=== PATIENT | male | born 1940 | race Caucasian/White ===

== ENCOUNTER 2018-11-20 11:50 | Inpatient (IN) ==
--- NOTE | 2018-11-20 13:02 | Emergency Department Note ---
SOB HPI - General Chief Complaint: Shortness of Breath/Dyspnea Stated Complaint: SOB Time Seen by Provider: 11/20/18 12:01 Source: patient Mode of arrival: ambulatory Limitations: no limitations - History of Present Illness 78-year-old male patient referred to the emergency department by his primary care provider for suspicious findings on chest x-ray. Patient's been sick for the last 5-6 weeks with a productive cough. He has shown a steady decline in his overall health. He had a fall 2 days ago where his legs gave out underneath him. He was seen by his primary care provider today who ordered a chest x-ray. The results of that showed a masslike infiltrate in the right upper lobe. A chest CT was recommended. He and his family are here to obtain the test and likely be admitted for treatment. Today, patient continues complaining of productive cough. He is unsure about sputum production color. He denies any shortness of breath, chest pain, palpitations, abdominal pain, nausea, vomiting, diarrhea, orthopnea, lower extremity edema, or focal weakness. He has a rather extensive medical history including Parkinson's disease, macular degeneration, hypertension, and osteoarthritis. He smoked briefly as a teenager in [place] - Related Data Home Medications Medication Instructions Recorded Confirmed aspirin 325 mg tablet 325 mg PO BID 06/06/17 11/20/18 vit A 7,160 unit-vit C 113 mg-vit 1 tab PO DAILY 06/06/17 11/20/18 E 100 dlio-clas-xcduwb tablet albuterol sulfate HFA 90 See Rx Instructions INHALATION Q4H 02/03/18 11/20/18 mcg/actuation aerosol inhaler PRN g docusate sodium 0 mg PO ONCE PRN 02/03/18 11/20/18 multivitamin tablet 1 tab PO QDAY 02/03/18 11/20/18 omega-3 fatty acids-fish oil 1 tab PO QDAY 02/03/18 11/20/18 vit C-vit B-pfespd-btfj-lutein 1 tab PO DAILY 02/03/18 11/20/18 Previous Rx's Medication Instructions Recorded losartan 100 mg tablet 100 mg PO QDAY #90 tab 03/13/18 verapamil 80 mg tablet 80 mg PO ONCE PRN #90 tab 03/13/18 verapamil ER (SR) 240 mg 240 mg PO BID #180 tab 03/13/18 tablet,extended release chlorthalidone 25 mg tablet 50 mg PO QDAY #180 tab 06/18/18 tamsulosin 0.4 mg capsule 0.4 mg PO QDAY #30 cap 11/02/18 Allergies Allergy/AdvReac Type Severity Reaction Status Date / Time MAR Inhibitors Allergy Unknown Unknown Verified 11/20/18 10:37 Review of Systems All systems ED: reviewed and negative except as stated. Past Medical History - Social History smoking status: Former smoker Physical Exam Limitations: no limitations General appearance: alert, in no apparent distress Head: atraumatic, normocephalic Eye: Present: normal appearance, PERRL, EOMI. Absent: scleral icterus, conjunctival injection ENT: Present: normal oropharynx, mucous membranes moist Neck: Present: trachea midline. Absent: lymphadenopathy, thyromegaly Chest: Present: symmetric chest wall rise Respiratory: Present: decreased breath sounds (bilateral upper chest.) Cardiovascular: Present: regular rate, normal rhythm, normal heart sounds Abdominal: Present: soft, hyperactive bowel sounds. Absent: distention, tenderness, guarding, rebound, organomegaly, mass Extremities: Absent: pedal edema, pretibial edema, calf tenderness Neurological: Present: alert, oriented X3. Absent: motor sensory deficit Psychiatric: Present: normal affect, normal mood Skin: Present: warm, dry Course Course Narrative: Patient was brought into the emergency department and did a history and physical exam was performed. IV was established and laboratory studies were drawn. I reviewed the chest x-ray report was done with recommendation for CT scan. Chest CT with contrast was ordered. Patient is hemodynamically stable, not hypoxic, and resting comfortably on the emergency room rviolet. A review of his laboratory studies show the following: CBC with elevated white blood cell count 20.8, RBC 3.47, hemoglobin 9.9, hematocrit 30.3, granulocyte percentage 85.9, granulocyte number 17.9. CMP BUN 30, creatinine 1.4, GFR calculated at 48, glucose 118, alkaline phosphatase 122, albumin 3.0, globulin 3.9, all others the normal limits. Pro-calcitonin is 0.36. Chest CT scan performed showing large mass in the right upper lobe with associated high-grade narrowing of the right upper lobe bronchus. Radiology suspects is probably a neoplasm but cannot rule out pneumonia. Radiologist recommended biopsy. I discussed these findings with the patient and his family. I did x-ray sat to the hospitalist (Dr. Dasilva) who mention that the logistics concerning the biopsy need to be considered. He recommended I speak to Dr. Sesay (radiologist) about obtaining a biopsy today. If the biopsy can be performed. The patient will be admitted to the hospital. Afterward, I talked to Dr. Sesay who informed me that he can get the biopsy performed today. I again spoke to the hospitalist and mentioned this to him and he consented to receive the patient. The patient was given Zosyn 3.339 g IV prior to the procedure. After the biopsy procedure patient is going to be admitted to the hospital under the hospitalist service (Dr. Dasilva). After the biopsy procedure the radiologist contacted me and informed me that he obtained approximately 5 mL of purulent drainage. He was only able to obtain a very scant amount of tissue for analysis. The drainage was being sent for C&S. The radiologist informed me that this lesion would likely require ongoing drainage and evaluation by a financial sales representative. I discussed this with Dr. Dasilva (the hospitalist) and he recommended that I reach out to a financial sales representative for further guidance on treatment options. I was able to contact a financial sales representative at [facility] (Dr. Zepeda). He was able to review the CT scan images and informed me that the lesion appeared to be a cavitary pneumonia. Although he could not rule out malignancy at this time, he recommended that the pneumonia be treated for several days prior to any additional imaging or biopsy. I discussed the need for hospitalization and pneumonia treatment once again with Dr. Dasilva and he consented to receive the patient. The patient remained stable throughout his entire time in the emergency department and was admitted to the hospital under the care of Dr. Dasilva. All further treatment decisions and orders will be carried out by him. Vital Signs Temperature 97.6 F 11/20/18 11:50 Pulse Rate 88 11/20/18 11:50 Respiratory Rate 18 11/20/18 11:50 Blood Pressure 125/69 11/20/18 11:50 Pulse Oximetry (%) 95 11/20/18 11:50 Temperature 97.4 F 11/20/18 18:45 Pulse Rate 78 11/20/18 20:30 Respiratory Rate 24 H 11/20/18 20:30 Blood Pressure 149/64 11/20/18 18:45 Pulse Oximetry (%) 99 11/20/18 18:45 Shortness of Breath/Dyspnea - Lab Data Lab results reviewed: Yes I reviewed the patient's lab results. Result diagrams: 11/20/18 13:09 11/20/18 13:09 Lab Results 11/20/18 11/20/18 11/20/18 Range/Units 13:09 13:09 13:09 WBC 20.8 H (4.5-11.0) K/mcL RBC 3.47 L (4.50-5.90) M/mcL Hgb 9.9 L (13.5-16.5) g/dL Hct 30.3 L (41.0-55.0) % POC Hct 31.0 L (41.0-55.0) % MCV 87.4 (80.0-100.0) fL MCH 28.6 (26.0-34.0) pg MCHC 32.8 (31.0-36.0) g/dL RDW 14.9 H (11.5-14.5) % Plt Count 535 H (140-440) K/mcL MPV 7.8 (7.4-10.4) fL Gran % 85.9 H (38.0-78.0) % Lymph % (Auto) 7.0 L (15.5-49.0) % [place] % (Auto) 6.6 (1.0-12.0) % Eos % (Auto) 0.2 (0.0-7.0) % Baso % (Auto) 0.3 (0.0-2.0) % Gran # 17.9 H (1.8-8.0) K/mcL Lymph # (Auto) 1.5 (1.5-4.8) K/mcL [place] # (Auto) 1.4 H (0.1-0.9) K/mcL Eos # (Auto) 0 (0.0-0.7) K/mcL Baso # (Auto) 0.1 (0.0-0.3) K/mcL ESR (0-15) mm/hr POC Sodium 138 (133-145) mmol/L Sodium 138 (133-145) mmol/L POC Potassium 3.4 (3.3-5.1) mmol/L Potassium 3.5 (3.3-5.1) mmol/L POC Chloride 103 (96-108) mmol/L Chloride 100 (96-108) mmol/L Carbon Dioxide 23 (22-30) mmol/L POC Total CO2 23 (22-30) mmol/L Anion Gap 15.0 (8-16) POC BUN 28 H (8-23) mg/dl BUN 30 H (8-23) mg/dl Creatinine 1.4 H (0.7-1.2) mg/dl POC Creatinine 1.5 H (0.7-1.2) mg/dl GFR Calculation 48 Glucose 118 H (70-105) mg/dL POC Glucose 122 H (70-105) mg/dL Calcium 9.6 (8.6-10.4) mg/dl POC WB Ioniz Calcium 1.21 (1.16-1.32) mmol/L Total Bilirubin 0.7 (0.0-1.0) mg/dL AST 26 (0-37) U/l ALT 29 (0-40) U/l Alkaline Phosphatase 122 H (39-117) U/L C-Reactive Protein (0.0-0.8) mg/dl Total Protein 6.9 (5.9-8.4) gm/dL Albumin 3.0 L (3.2-5.2) gm/dL Globulin 3.9 H (2.2-3.7) gm/dL Albumin/Globulin Ratio 0.8 L (1.0-2.3) Procalcitonin 0.36 (<0.10) ng/mL Fluid pH Fluid Total Protein Fluid LDH Fluid Cholesterol Pleural Fluid Source Pleural Color Pleural Appearance Pleural Tot Cell Ct Pleural Nuc Cells /cumm Pleural Neutrophils % Pleural Lymphocytes % Pleural Monocytes % Pleural Plasma Cells Pleural Macrophages Pleural Mesothelial Pleural Diff Comment Pleural Total Protein Pleural LDH Pleural Glucose 11/20/18 11/20/18 11/20/18 Range/Units 13:09 13:09 17:00 WBC (4.5-11.0) K/mcL RBC (4.50-5.90) M/mcL Hgb (13.5-16.5) g/dL Hct (41.0-55.0) % POC Hct (41.0-55.0) % MCV (80.0-100.0) fL MCH (26.0-34.0) pg MCHC (31.0-36.0) g/dL RDW (11.5-14.5) % Plt Count (140-440) K/mcL MPV (7.4-10.4) fL Gran % (38.0-78.0) % Lymph % (Auto) (15.5-49.0) % [place] % (Auto) (1.0-12.0) % Eos % (Auto) (0.0-7.0) % Baso % (Auto) (0.0-2.0) % Gran # (1.8-8.0) K/mcL Lymph # (Auto) (1.5-4.8) K/mcL [place] # (Auto) (0.1-0.9) K/mcL Eos # (Auto) (0.0-0.7) K/mcL Baso # (Auto) (0.0-0.3) K/mcL ESR 104 H (0-15) mm/hr POC Sodium (133-145) mmol/L Sodium (133-145) mmol/L POC Potassium (3.3-5.1) mmol/L Potassium (3.3-5.1) mmol/L POC Chloride (96-108) mmol/L Chloride (96-108) mmol/L Carbon Dioxide (22-30) mmol/L POC Total CO2 (22-30) mmol/L Anion Gap (8-16) POC BUN (8-23) mg/dl BUN (8-23) mg/dl Creatinine (0.7-1.2) mg/dl POC Creatinine (0.7-1.2) mg/dl GFR Calculation Glucose (70-105) mg/dL POC Glucose (70-105) mg/dL Calcium (8.6-10.4) mg/dl POC WB Ioniz Calcium (1.16-1.32) mmol/L Total Bilirubin (0.0-1.0) mg/dL AST (0-37) U/l ALT (0-40) U/l Alkaline Phosphatase (39-117) U/L C-Reactive Protein 11.2 H (0.0-0.8) mg/dl Total Protein (5.9-8.4) gm/dL Albumin (3.2-5.2) gm/dL Globulin (2.2-3.7) gm/dL Albumin/Globulin Ratio (1.0-2.3) Procalcitonin (<0.10) ng/mL Fluid pH TNP Fluid Total Protein TNP Fluid LDH TNP Fluid Cholesterol TNP Pleural Fluid Source Pleural Pleural Color [place] Pleural Appearance Purulent Pleural Tot Cell Ct 100 Pleural Nuc Cells [id number] /cumm Pleural Neutrophils 92 % Pleural Lymphocytes 6 % Pleural Monocytes 2 % Pleural Plasma Cells Not Reportable Pleural Macrophages Not Reportable Pleural Mesothelial Not Reportable Pleural Diff Comment Not Reportable Pleural Total Protein Pleural LDH Pleural Glucose TNP 11/20/18 11/20/18 Range/Units 17:00 17:00 WBC (4.5-11.0) K/mcL RBC (4.50-5.90) M/mcL Hgb (13.5-16.5) g/dL Hct (41.0-55.0) % POC Hct (41.0-55.0) % MCV (80.0-100.0) fL MCH (26.0-34.0) pg MCHC (31.0-36.0) g/dL RDW (11.5-14.5) % Plt Count (140-440) K/mcL MPV (7.4-10.4) fL Gran % (38.0-78.0) % Lymph % (Auto) (15.5-49.0) % [place] % (Auto) (1.0-12.0) % Eos % (Auto) (0.0-7.0) % Baso % (Auto) (0.0-2.0) % Gran # (1.8-8.0) K/mcL Lymph # (Auto) (1.5-4.8) K/mcL [place] # (Auto) (0.1-0.9) K/mcL Eos # (Auto) (0.0-0.7) K/mcL Baso # (Auto) (0.0-0.3) K/mcL ESR (0-15) mm/hr POC Sodium (133-145) mmol/L Sodium (133-145) mmol/L POC Potassium (3.3-5.1) mmol/L Potassium (3.3-5.1) mmol/L POC Chloride (96-108) mmol/L Chloride (96-108) mmol/L Carbon Dioxide (22-30) mmol/L POC Total CO2 (22-30) mmol/L Anion Gap (8-16) POC BUN (8-23) mg/dl BUN (8-23) mg/dl Creatinine (0.7-1.2) mg/dl POC Creatinine (0.7-1.2) mg/dl GFR Calculation Glucose (70-105) mg/dL POC Glucose (70-105) mg/dL Calcium (8.6-10.4) mg/dl POC WB Ioniz Calcium (1.16-1.32) mmol/L Total Bilirubin (0.0-1.0) mg/dL AST (0-37) U/l ALT (0-40) U/l Alkaline Phosphatase (39-117) U/L C-Reactive Protein (0.0-0.8) mg/dl Total Protein (5.9-8.4) gm/dL Albumin (3.2-5.2) gm/dL Globulin (2.2-3.7) gm/dL Albumin/Globulin Ratio (1.0-2.3) Procalcitonin (<0.10) ng/mL Fluid pH Fluid Total Protein Fluid LDH Fluid Cholesterol Pleural Fluid Source Pleural Color Pleural Appearance Pleural Tot Cell Ct Pleural Nuc Cells /cumm Pleural Neutrophils % Pleural Lymphocytes % Pleural Monocytes % Pleural Plasma Cells Pleural Macrophages Pleural Mesothelial Pleural Diff Comment Pleural Total Protein TNP Pleural LDH TNP Pleural Glucose - Radiology Data Radiology results reviewed: Yes I reviewed the patient's radiology results. Ordering Physician: Tej Gong M.D. Date of Service: 11/20/18 Procedure(s): CT chest [facility] Accession Number(s): [id number] History: Cough and right upper lobe masslike infiltrate seen on a preceding chest x-ray TECHNIQUE: The chest was imaged without contrast due to poor renal function. The patient was scanned from the thoracic inlet to the diaphragm. Sagittal, coronal and axial MIPS images were created. Radiation exposure was limited using dose reduction technology. FINDINGS: There is a large masslike structure in the right upper lobe. It extends from the minor fissure towards the apex. It measures approximately 6.7 x 7.1 x 8.9 cm. This contains small amount of central cavitation with bubbles of air in the superior aspect. Along the periphery of the lesion there is some compressive atelectasis of the adjacent lung with several air bronchograms. There are focal calcifications in the pleura on the lateral border of this mass. There is no chest wall invasion. The adjacent proximal right upper lobe pulmonary bronchus is severely stenotic and measures approximately 2 mm in diameter. It may be encased. There are few abnormal lymph nodes in the superior mediastinum and pretracheal retrocaval space measuring up to 2.4 cm. The superior vena cava is not compressed. Patient may have an aberrant vein in the left side of the neck which extends into the upper chest, lateral to the aortic arch, draining into the left atrium of the heart. There is a band of atelectasis in right middle lobe. The left lung is clear for minor scarring or discoid atelectasis in the inferior segment lingula. No infiltrate or mass are present in the left lung. There is no pleural effusion. Bone windows show no lytic or blastic lesion. The adrenals are normal in size. IMPRESSION: Large mass in the right upper lobe with associated high-grade narrowing of the right upper lobe bronchus. This is probably a neoplasm. Infection cannot be excluded. Biopsy would be recommended. Jhonatan Brunner was called with results Interpreted and Authenticated by: Lee Sseay 11/20/18 Disposition Pt seen by EDUCATION FACULTY MEMBER/PA only: Yes Clinical Impression: Cavitating mass of lung Pneumonia Qualifiers: Pneumonia type: due to unspecified organism Laterality: right Lung location: upper lobe of lung Qualified Code(s): J18.1 - Lobar pneumonia, unspecified organism Disposition: Xfer As Inpt ([facility]) Condition: Good
[2018-11-20 13:19] LABS: POC Blood Urea Nitrogen 28 mg/dl (8-23); POC CO2 23 mmol/L (22-30); POC Calcium, Ionized 1.21 mmol/L (1.16-1.32); POC Chloride 103 mmol/L (96-108); POC Creatinine 1.5 mg/dl (0.7-1.2); POC Glucose, Random 122 mg/dL (70-105); POC Potassium 3.4 mmol/L (3.3-5.1); POC Sodium 138 mmol/L (133-145)
[2018-11-20 13:52] LABS: Basophils # (Auto) 0.1 K/mcL (0.0-0.3); Basophils % (Auto) 0.3 % (0.0-2.0); Eosinophils # (Auto) 0 K/mcL (0.0-0.7); Eosinophils % (Auto) 0.2 % (0.0-7.0); Granulocytes % (Auto) 85.9 % (38.0-78.0); Hematocrit 30.3 % (41.0-55.0); Hemoglobin 9.9 g/dL (13.5-16.5); Lymphocytes # (Auto) 1.5 K/mcL (1.5-4.8); Mean Cell Volume 87.4 fL (80.0-100.0); Mean Corpuscular HGB Conc 32.8 g/dL (31.0-36.0); Mean Platelet Volume 7.8 fL (7.4-10.4); Monocytes # (Auto) 1.4 K/mcL (0.1-0.9); Monocytes % (Auto) 6.6 % (1.0-12.0); Platelet Count 535 K/mcL (140-440); RBC 3.47 M/mcL (4.50-5.90); Red Cell Distribution Width 14.9 % (11.5-14.5); WBC 20.8 K/mcL (4.5-11.0)
--- NOTE | 2018-11-20 14:02 | Cat Scan Report ---
History: Cough and right upper lobe masslike infiltrate seen on a preceding chest x-ray TECHNIQUE: The chest was imaged without contrast due to poor renal function. The patient was scanned from the thoracic inlet to the diaphragm. Sagittal, coronal and axial MIPS images were created. Radiation exposure was limited using dose reduction technology. FINDINGS: There is a large masslike structure in the right upper lobe. It extends from the minor fissure towards the apex. It measures approximately 6.7 x 7.1 x 8.9 cm. This contains small amount of central cavitation with bubbles of air in the superior aspect. Along the periphery of the lesion there is some compressive atelectasis of the adjacent lung with several air bronchograms. There are focal calcifications in the pleura on the lateral border of this mass. There is no chest wall invasion. The adjacent proximal right upper lobe pulmonary bronchus is severely stenotic and measures approximately 2 mm in diameter. It may be encased. There are few abnormal lymph nodes in the superior mediastinum and pretracheal retrocaval space measuring up to 2.4 cm. The superior vena cava is not compressed. Patient may have an aberrant vein in the left side of the neck which extends into the upper chest, lateral to the aortic arch, draining into the left atrium of the heart. There is a band of atelectasis in right middle lobe. The left lung is clear for minor scarring or discoid atelectasis in the inferior segment lingula. No infiltrate or mass are present in the left lung. There is no pleural effusion. Bone windows show no lytic or blastic lesion. The adrenals are normal in size. IMPRESSION: Large mass in the right upper lobe with associated high-grade narrowing of the right upper lobe bronchus. This is probably a neoplasm. Infection cannot be excluded. Biopsy would be recommended. Jhonatan Brunner was called with results Interpreted and Authenticated by: Lee Sesay 11/20/18
[2018-11-20 14:23] LABS: ALT/SGPT 29 U/l (0-40); AST/SGOT 26 U/l (0-37); Albumin/Globulin Ratio 0.8 (1.0-2.3); Alkaline Phosphatase 122 U/L (39-117); Bilirubin,Total 0.7 mg/dL (0.0-1.0); Blood Urea Nitrogen 30 mg/dl (8-23); Calcium 9.6 mg/dl (8.6-10.4); Carbon Dioxide 23 mmol/L (22-30); Chloride 100 mmol/L (96-108); Globulin 3.9 gm/dL (2.2-3.7); Glomerular Filtration Rate 48; Glucose 118 mg/dL (70-105)
[2018-11-20] MEDS ORDERED: PIPERACILLIN SODIUM/TAZOBACTAM 3.375 GM in DEXTROSE 5% IN WATER 50 ML IV ONE (15:30)
--- NOTE | 2018-11-20 16:24 | Cat Scan Report ---
History: Right upper lobe mass and cough TECHNIQUE: The procedure and risks were explained and the patient consented after timeout for patient identification. With the patient lying supine, the peripheral right upper lobe mass was localized with CT guidance. The overlying skin in the right upper chest wall was prepped with ChloraPrep and then anesthetized with 1% lidocaine. Using CT guidance a 17-gauge introducer needle was inserted into the mass, avoiding the lung parenchyma. With some difficulty, approximately 5 cc of purulent valdez-colored liquid was aspirated. The fluid was sent for culture and Gram stain. An 18-gauge Biopence needle was then inserted. Three core samples were obtained. There is relatively scant tissue obtained and the tissue may be necrotic material. This was sent for histology. The patient tolerated the procedure well without complication. Images obtained following the biopsy showed no pneumothorax. IMPRESSION: successful aspiration of a small amount of pus from a mass in the right upper chest. This may be a lung abscess. The other possibility is that this represents a necrotic tumor with secondary infection. Interpreted and Authenticated by: Lee Sesay 11/20/18
--- NOTE | 2018-11-20 17:33 | Internal Med History&Physical ---
Medical - H&P: HPI Patient information: Note initiated : 11/20/18 at 5:30 pm Service Date, if different from initiated Date: [] Patient: Tarik Dunn a 78 y/o M admitted on for Shortness of breath. Chief Complaint: [] Chief complaint: Sob, cough History of present illness: Mr. Dunn is a 78 year old M with a history of hypertension otherwise fairly independent who lives by himself presents to the ER with 6 weeks onset of progressive cough weakness fatigue. Symptoms were gradual in onset without associated fever or chills or bloody sputum. Patient denies associated weight loss, shaking chills or sweats. He denies sick contacts. Over the last week and a half he has become extremely weak fatigued unable to function. He survived a near fall. With increasing concerns patient was evaluated by primary care physician and was referred to the ER after chest imaging revealed a rai picious right upper lobe mass. Initial work-up in the ER was consistent with right upper lobe infiltrative lesion. White count over 20,000. Patient underwent lung biopsy by interventional radiology. Culture was sent and patient was started on antibiotic after biopsy revealed pus and necrotic tissue. Case was subsequently discussed with [place] ror engineer Dr. Zepeda. Based on imaging appearance consistent with necrotizing pneumonia. Cabin Service Agent recommended management with antibiotics and admission. Hospitalist service is consulted for admission At the time of evaluation multiple family members are present. Most of the history was obtained from review of medical records/ER physician and patient himself. Patient denies any active distress or chest pain/pleurisy. He endor ses to history as above. He denies night sweats/chills or weight loss. Review of systems 10 point review of system was performed and is negative except as discussed above Medical - H&P: PMH Medical history: Lump of right breast (Chronic) Asthma (Chronic) Nonexudative age-related macular degeneration, bilateral, stage unspecified (Chronic) Obesity (Chronic) Reactive airway disease (Chronic) Osteoarthritis, knee (Chronic) Rosacea (Chronic) Other specified forms of tremor (Chronic) Fatty liver (Chronic) Scar (Chronic) Complicated migraine (Chronic) Hemangioma (Chronic) Other benign neoplasm of skin of trunk (Chronic) Actinic keratosis (Chronic) Seborrheic keratosis (Chronic) Lentigo (Chronic) Atherosclerosis of renal artery (Chronic) Parkinson's disease (Chronic) Blindness (Chronic) Migraines (Chronic) Joint pain (Chronic) Hypertension (Chronic) Surgical History History of appendectomy (Chronic) History of arthroscopy of knee (Chronic) Right x2, Left History of back surgery (Chronic) Lumbar for herniated disc History of cataract surgery (Chronic) Bilateral extraction and IOL implants History of colonoscopy (Chronic) Dr Larson on 11/06/[address] Ng on 08/02/09, recommended 10 year f/u History of cryosurgery (Chronic) History of rotator cuff surgery (Chronic) Left and Right, 2013 & 2011 History of tonsillectomy and adenoidectomy (Chronic) History of vasectomy (Chronic) Family History Mother , age 60 Lung cancer Breast cancer Glaucoma Father , early 70s Stroke Glaucoma Family/Other Diabetes Paternal Uncle & [place] Social History marital status: occupational status: retired smoking status: Former smoker alcohol intake frequency: does not drink substance use type: does not use Medical - H&P: Meds Home Medications Medication Instructions Recorded Confirmed Type aspirin 325 mg tablet 325 mg PO BID 06/06/17 11/20/18 History vit A 7,160 unit-vit C 113 mg-vit 1 tab PO DAILY 06/06/17 11/20/18 History E 100 lbvd-fpmy-[id number] tablet albuterol sulfate HFA 90 See Rx Instructions INHALATION Q4H 02/03/18 11/20/18 History mcg/actuation aerosol inhaler PRN g docusate sodium 0 mg PO ONCE PRN 02/03/18 11/20/18 History multivitamin tablet 1 tab PO QDAY 02/03/18 11/20/18 History omega-3 fatty acids-fish oil 1 tab PO QDAY 02/03/18 11/20/18 History vit C-vit C-xurgpe-puap-lutein 1 tab PO DAILY 02/03/18 11/20/18 History losartan 100 mg tablet 100 mg PO QDAY #90 tab 03/13/18 11/20/18 Rx verapamil 80 mg tablet 80 mg PO ONCE PRN #90 tab 03/13/18 11/20/18 Rx verapamil ER (SR) 240 mg 240 mg PO BID #180 tab 03/13/18 11/20/18 Rx tablet,extended release chlorthalidone 25 mg tablet 50 mg PO QDAY #180 tab 06/18/18 11/20/18 Rx tamsulosin 0.4 mg capsule 0.4 mg PO QDAY #30 cap 11/02/18 11/20/18 Rx Allergies Allergy/AdvReac Type Severity Reaction Status Date / Time MAR Inhibitors Allergy Unknown Unknown Verified 11/20/18 10:37 Medical - H&P: Exam - Constitutional Vitals: Temp Pulse Resp BP Pulse Ox 97.6 F 75 18 107/81 94 11/20/18 11:50 11/20/18 17:24 11/20/18 17:24 11/20/18 17:24 11/20/18 17:24 General appearance: no acute distress Exam: Alert oriented Head normocephalic Oral cavity dry Eye movement symmetrical No ear nose discharge Neck no lymphadenopathy S1-S2 regular rhythm Diminished breath sounds bases with bronchial breath sounds right posterior chest Abdomen soft nontender Lower extremity no sinus clubbing no joint swelling, 1+ pitting edema Skin no suspicious lesion Psych alert cooperative Neuro nonfocal Medical - H&P: Reslt - Labs CBC & Chem 7: 11/21/18 03:56 11/21/18 03:56 Labs: Short CBC 11/20/18 Range/Units 13:09 WBC 20.8 H (4.5-11.0) K/mcL Hgb 9.9 L (13.5-16.5) g/dL Hct 30.3 L (41.0-55.0) % Plt Count 535 H (140-440) K/mcL BMP 11/20/18 13:09 Sodium 138 Potassium 3.5 Chloride 100 Carbon Dioxide 23 BUN 30 H Creatinine 1.4 H Glucose 118 H Calcium 9.6 Liver Function 11/20/18 Range/Units 13:09 Total Bilirubin 0.7 (0.0-1.0) mg/dL AST 26 (0-37) U/l ALT 29 (0-40) U/l Alkaline Phosphatase 122 H (39-117) U/L Albumin 3.0 L (3.2-5.2) gm/dL Medical - H&P: A/P (1) Necrotizing pneumonia Current visit: Yes Status: Acute * Right upper lobe necrotizing pneumonia-antibiotic coverage including anaerobes/gram-negative/MRSA. * Right upper lobe mass lesion-status post biopsy. Await histopathology. Monitor post biopsy * Sepsis secondary to above - continue antibiotic coverage/management per guidelines/pancultures * History of reactive airway disease continue bronchodilators * History of hypertension-restart home medications including verapamil/losartan/thiazide * BPH continue tamsulosin * Full code * prophylaxis heparin Plan * Inpatient admission * Pulmonary consult for possible bronchoscopy * Broad antibiotic coverage including Zosyn vancomycin * Await biopsy results * Sepsis management guidelines * Prior Medical condition management on home meds
[2018-11-20] MEDS ORDERED: guaiFENesin/CODEINE 10 ML UDC PO PRN (18:45)
[2018-11-20] MEDS ORDERED: MELATONIN 3 MG TABLET PO PRN (18:45)
[2018-11-20] MEDS ORDERED: PIPERACILLIN SODIUM/TAZOBACTAM 3.375 GM in DEXTROSE 5% IN WATER 50 ML IV SCH (18:45)
[2018-11-20] MEDS ORDERED: 0.9 % SODIUM CHLORIDE 1,000 ML IV SCH (18:45)
[2018-11-20] MEDS ORDERED: ONDANSETRON 4 MG/2 ML VIAL IV PRN (18:45)
[2018-11-20] MEDS ORDERED: IPRATROPIUM/ALBUTEROL 3 ML AMPUL.NEB NEB PRN (18:45)
[2018-11-20] MEDS ORDERED: ACETAMINOPHEN 1,000 MG/100 ML BOTTLE IV PRN (18:45)
[2018-11-20] MEDS ORDERED: MAGNESIUM SULFATE 2 GM/50 ML BAG IV PRN (18:45)
[2018-11-20] MEDS ORDERED: VANCOMYCIN PER PHARMACY IV SCH (18:45)
[2018-11-20] MEDS ORDERED: ACETAMINOPHEN 325 MG TABLET PO PRN (18:45)
[2018-11-20] MEDS ORDERED: POTASSIUM CHLORIDE 20 MEQ PACKET PO PRN (18:45)
[2018-11-20] MEDS: BUDESONIDE 0.5 MG/2 ML AMPUL.NEB NEB SCH (20:28)
[2018-11-20] MEDS ORDERED: VANCOMYCIN 1,500 MG in 0.9 % SODIUM CHLORIDE 500 ML IV ONE (21:00)
[2018-11-20] MEDS ORDERED: SENNOSIDES/DOCUSATE SODIUM 1 TAB TABLET PO SCH (21:00)
[2018-11-20] MEDS: HEPARIN 5,000 UNIT/ML VIAL SQ SCH (21:58)
[2018-11-20] MEDS: DOCUSATE SODIUM 100 MG CAPSULE PO SCH (21:59)
[2018-11-20] MEDS: PIPERACILLIN SODIUM/TAZOBACTAM 2.25 GM in DEXTROSE 5% IN WATER 50 ML IV SCH (21:59)
[2018-11-20] MEDS: 0.9 % SODIUM CHLORIDE 10 ML SYRINGE IV SCH (22:10)
[2018-11-20] MEDS: CYANOCOBALAMIN (VITAMIN B-12) 500 MCG TABLET PO SCH (22:12)
[2018-11-20 22:26] LABS: Appearance,Pleural Fluid PURULENT; Color,Pleural Fluid TAN; Nucleated Cells,Pleural Fld 839170 /cumm
[2018-11-20 22:28] LABS: Lymphocytes,Pleural Fluid 6 %; Monocytes,Pleural Fluid 2 %; Neutrophils,Pleural Fluid 92 %
[2018-11-21] MEDS: PIPERACILLIN SODIUM/TAZOBACTAM 2.25 GM in DEXTROSE 5% IN WATER 50 ML IV SCH ×3 (05:17→17:31)
[2018-11-21] MEDS: 0.9 % SODIUM CHLORIDE 10 ML SYRINGE IV SCH ×4 (05:30→23:02)
[2018-11-21 05:49] LABS: Hematocrit 27.8 % (41.0-55.0); Hemoglobin 8.8 g/dL (13.5-16.5); Mean Cell Volume 89.4 fL (80.0-100.0); Mean Corpuscular HGB Conc 31.6 g/dL (31.0-36.0); Mean Platelet Volume 7.9 fL (7.4-10.4); Platelet Count 494 K/mcL (140-440); RBC 3.11 M/mcL (4.50-5.90); WBC 20.5 K/mcL (4.5-11.0)
[2018-11-21 06:39] LABS: ALT/SGPT 24 U/l (0-40); AST/SGOT 22 U/l (0-37); Albumin 2.7 gm/dL (3.2-5.2); Albumin/Globulin Ratio 0.8 (1.0-2.3); Alkaline Phosphatase 103 U/L (39-117); Bilirubin,Direct 0.3 mg/dL (0.0-0.3); Bilirubin,Total 0.7 mg/dL (0.0-1.0); Blood Urea Nitrogen 27 mg/dl (8-23); Calcium 9.4 mg/dl (8.6-10.4); Carbon Dioxide 25 mmol/L (22-30); Chloride 103 mmol/L (96-108); Globulin 3.4 gm/dL (2.2-3.7); Glomerular Filtration Rate 48; Glucose 98 mg/dL (70-105); Lactate Dehydrogenase 101 U/L (94-250); Phosphorous 3.3 mg/dL (2.7-4.5); Triglycerides 81 mg/dl (<150); Uric Acid 7.1 mg/dL (2.5-8.0)
[2018-11-21 07:23] LABS: Band Neutrophils % 4 % (0-10); Eosinophils % (Manual) 1 % (0-7); Hypochromasia FEW (NONE SEEN); Lymphocytes % 7 % (15-49); Monocytes % (Manual) 5 % (1-12); Myelocytes % 1 % (0-0); Platelet Estimate INCREASED (NORMAL); Polychromasia FEW (NONE SEEN); RBC Morphology ABNORM (NORMAL); Segmented Neutrophils % 82 % (38-78)
[2018-11-21] MEDS: DOCUSATE SODIUM 100 MG CAPSULE PO SCH ×2 (07:47→21:01)
[2018-11-21] MEDS: HEPARIN 5,000 UNIT/ML VIAL SQ SCH ×2 (07:47→21:01)
[2018-11-21] MEDS: CYANOCOBALAMIN (VITAMIN B-12) 500 MCG TABLET PO SCH ×2 (07:49→21:00)
--- NOTE | 2018-11-21 08:28 | XRay Report ---
HISTORY: Right lung mass and evaluate for pneumothorax after lung biopsy FINDINGS: There is no pneumothorax following the preceding right percutaneous biopsy. There is a large mass with central cavitation in the right upper lobe. No pleural effusion is present. The left lung is clear. The heart size is normal. IMPRESSION: No complication following biopsy of the right right upper lobe mass Interpreted and Authenticated by: Lee Sesay 11/21/18
[2018-11-21] MEDS ORDERED: FOLIC ACID 1 MG TABLET PO SCH (09:00)
[2018-11-21] MEDS ORDERED: MULTIVIT,THER IRON,CA,FA & MIN 1 TABLET PO SCH (09:00)
[2018-11-21] MEDS: BUDESONIDE 0.5 MG/2 ML AMPUL.NEB NEB SCH ×2 (09:23→21:25)
[2018-11-21] MEDS ORDERED: VANCOMYCIN 1,500 MG in 0.9 % SODIUM CHLORIDE 500 ML IV SCH (10:00)
[2018-11-21] MEDS ORDERED: VERAPAMIL HCL 80 MG TABLET PO PRN ×2 (10:03→12:03)
[2018-11-21] MEDS ORDERED: ALBUTEROL SULFATE 1 PUFF INHALER INH PRN ×2 (10:03→12:03)
[2018-11-21] MEDS ORDERED: TAMSULOSIN 0.4 MG CAPSULE PO ONE (10:46)
[2018-11-21] MEDS ORDERED: LOSARTAN 50 MG TABLET PO ONE (10:47)
[2018-11-21] MEDS ORDERED: FISH OIL 1,000 MG CAPSULE PO ONE (10:48)
[2018-11-21] MEDS ORDERED: CHLORTHALIDONE 25 MG TABLET PO ONE (10:49)
[2018-11-21] MEDS ORDERED: ASPIRIN 325 MG ENTERIC COATED TABLET PO ONE (10:50)
--- NOTE | 2018-11-21 10:54 | Internal Med Progress Note ---
Medical - PN: Subj Patient information: Note initiated : 11/21/18 at 10:49 am Service Date, if different from initiated Date: [] Patient: Tarik Dunn a 78 y/o M admitted on 11/20/18 for Shortness of breath. Chief Complaint: [] Interval history: Mr. Dunn is a 78 year old M with a history of hypertension otherwise fairly independent who lives by himself presents to the ER with 6 weeks onset of progressive cough weakness fatigue. Symptoms were gradual in onset without associated fever or chills or bloody sputum. Patient denies associated weight loss, shaking chills or sweats. He denies sick contacts. Over the last week and a half he has become extremely weak fatigued unable to function. He survived a near fall. With increasing concerns patient was evaluated by primary care physician and was referred to the ER after chest imaging revealed a suspicious right upper lobe mass. Initial work-up in the ER was consistent with right upper lobe infiltrative lesion. White count over 20,000. Patient underwent lung biopsy by interventional radiology. Culture was sent and patient was started on antibio tic after biopsy revealed pus and necrotic tissue. Case was subsequently discussed with [place] speed belt sander tender Dr. Zpeeda. Based on imaging appearance consistent with necrotizing pneumonia. Pul it operations manager recommended management with antibiotics and admission. Hospitalist service is consulted for admission At the time of evaluation multiple family members are present. Most of the history was obtained from review of medical records/ER physician and patient himself. Patient denies any active distress or chest pain/pleurisy. He endorses to history as above. He denies night sweats/chills or weight loss. 11/21-patient clinically improved. Continuing Zosyn and vancomycin for necrotizing pneumonia. Tolerating diet and physical therapy. White count down from 20.8-20.5. Gram-positive cocci from lung biopsy/pus aspirate. Consider ID consult early next week along with pulmonary consult for bronchoscopy. Family made aware of treatment plan. Transfer to medical floor - Constitutional Vitals: Vital Signs Temp Pulse Resp BP Pulse Ox 98.3 F 92 H 18 153/73 95 11/21/18 08:25 11/21/18 09:31 11/21/18 09:31 11/21/18 08:25 11/21/18 08:25 Period Temp Pulse Resp BP Sys/Calabrese Pulse Ox Last 24 Hr 97.4 F-100.1 F 74-92 12-34 107-153/40-131 92-99 Intake and Output 11/20/18 11/21/18 11/21/18 21:59 05:59 13:59 Intake Total 50 600 Output Total 175 175 175 Balance -125 425 -175 Weight 194 lb 11.2 oz Intake & Output: Intake & Output 11/20/18 11/21/18 11/21/18 21:59 05:59 13:59 Intake Total 50 600 Output Total 175 175 175 Balance -125 425 -175 Weight 194 lb 11.2 oz Intake: IV 50 600 Zosyn 2.25 gm In Dextrose 5% in 100 Water 50 ml @ 100 mls/hr IV Q6H [facility] Rx#:[id number] Zosyn 3.375 gm In Dextrose 5% 50 in Water 50 ml @ 100 mls/hr IV ONCE ONE Rx#:[id number] Output: Void Amount 175 175 175 Other: Urine Appearance Clear Clear Clear Urine Color Dark Yellow Dark Yellow Dark Yellow Urine Odor Strong Strong Normal General appearance: no acute distress Exam: Alert oriented No telemetry events nonlabored breathing Able to feed self Nondistressed Diminished breath sounds but symmetric Medical - PN: Obj Da - Labs CBC & Chem 7: 11/21/18 03:56 11/21/18 03:56 Labs: Abnormal Lab Results 11/21/18 11/21/18 11/20/18 03:56 03:56 13:09 WBC 20.5 H RBC 3.11 L Hgb 8.8 L Hct 27.8 L POC Hct RDW 15.0 H Plt Count 494 H Gran % Lymph % (Auto) Gran # Roberts # (Auto) Seg Neutrophils % 82 H Lymphocytes % 7 L Myelocytes % 1 H Platelet Estimate Increased A RBC Morphology Abnorm A Polychromasia Few A Hypochromasia Few A ESR POC BUN BUN 27 H Creatinine 1.4 H POC Creatinine Glucose POC Glucose Magnesium 1.5 L Alkaline Phosphatase C-Reactive Protein 11.2 H Albumin 2.7 L Globulin Albumin/Globulin Ratio 0.8 L 11/20/18 11/20/18 11/20/18 13:09 13:09 13:09 WBC 20.8 H RBC 3.47 L Hgb 9.9 L Hct 30.3 L POC Hct 31.0 L RDW 14.9 H Plt Count 535 H Gran % 85.9 H Lymph % (Auto) 7.0 L Gran # 17.9 H Roberts # (Auto) 1.4 H Seg Neutrophils % Lymphocytes % Myelocytes % Platelet Estimate RBC Morphology Polychromasia Hypochromasia ESR 104 H POC BUN 28 H BUN 30 H Creatinine 1.4 H POC Creatinine 1.5 H Glucose 118 H POC Glucose 122 H Magnesium Alkaline Phosphatase 122 H C-Reactive Protein Albumin 3.0 L Globulin 3.9 H Albumin/Globulin Ratio 0.8 L Meds: Medications Acetaminophen (Tylenol) 650 mg PO Q4-6HP PRN PRN Reason: PAIN/FEVER > 101 Albuterol Sulfate (Ventolin) 1 - 2 puff INH Q4HP PRN PRN Reason: Wheezing Albuterol/Ipratropium (Duoneb) 3 ml NEB Q4HP PRN PRN Reason: Shortness Of Breath Last Admin: 11/21/18 09:23 Dose: 3 ml Documented by: Aspirin (Ecotrin) 325 mg PO BID [facility] Budesonide (Pulmicort) 0.5 mg NEB Q12 [facility] Last Admin: 11/21/18 09:23 Dose: 0.5 mg Documented by: Chlorthalidone (Hygroton) 50 mg PO QDAY [facility] Cyanocobalamin (Vitamin B-12) 1,000 mcg PO BID [facility] Stop: 11/25/18 09:01 Last Admin: 11/21/18 07:49 Dose: 1,000 mcg Documented by: Docusate Sodium (Colace) 100 mg PO BID [facility] Last Admin: 11/21/18 07:47 Dose: 100 mg Documented by: Fish Oil (Fish Oil) 1,000 mg PO DAILY [facility] Folic Acid (Folic Acid) 1 mg PO DAILY [facility] Last Admin: 11/21/18 07:47 Dose: 1 mg Documented by: Guaifenesin/Codeine Phosphate (Robitussin Ac) 10 ml PO Q4HP PRN PRN Reason: Cough Last Admin: 11/20/18 21:59 Dose: 10 ml Documented by: Heparin Sodium (Porcine) (Heparin) 5,000 unit SQ Q12 [facility] Last Admin: 11/21/18 07:47 Dose: 5,000 unit Documented by: Magnesium Sulfate (Magnesium Sulfate) 2 gm in 50 mls @ 50 mls/hr IV UD PRN PRN Reason: MG = or < 1.7 Sodium Chloride (Sodium Chloride 0.9%) 1,000 mls @ 50 mls/hr IV .Q20H [facility] Stop: 11/23/18 06:44 Last Admin: 11/20/18 21:44 Dose: 50 mls/hr Documented by: Acetaminophen (Ofirmev) 1,000 mg in 100 mls @ 200 mls/hr IV Q6HP PRN PRN Reason: PAIN/FEVER > 101 Piperacillin Sod/Tazobactam (Sod 2.25 gm/ Dextrose) 50 mls @ 100 mls/hr IV Q6H [facility]; Protocol Last Infusion: 11/21/18 05:47 Dose: Infused Documented by: Vancomycin HCl 1,500 mg/ (Sodium Chloride) 500 mls @ 333.3 mls/hr IV Q24H [facility] Last Admin: 11/21/18 09:09 Dose: 333.3 mls/hr Documented by: Iron Carb/Multivit/[place]/Folic Acid (Multivitamin W/Minerals) 1 tab PO DAILY [facility] Last Admin: 11/21/18 07:49 Dose: 1 tab Documented by: Losartan Potassium (Cozaar) 100 mg PO DAILY [facility] Melatonin (Melatonin 3mg Tablet) 3 mg PO HSP PRN PRN Reason: Insomnia Ondansetron HCl (Zofran) 4 mg IV Q4-6HP PRN PRN Reason: Nausea And Vomiting Potassium Chloride (Klor-Con) 40 meq PO DAILYP PRN PRN Reason: K+ < 3.5 Senna/Docusate Sodium (Senna Plus Tablet) 1 tab PO HS [facility] Last Admin: 11/20/18 21:59 Dose: 1 tab Documented by: Sodium Chloride (Saline Flush) 10 ml IV Q8 [facility] Last Admin: 11/21/18 05:30 Dose: Not Given Documented by: Tamsulosin HCl (Flomax) 0.4 mg PO QDAY [facility] Vancomycin HCl (Vancomycin Per Pharmacy) 1 order IV UD [facility]; Protocol Verapamil HCl (Calan Sr) 240 mg PO BID [facility] Verapamil HCl (Calan) 80 mg PO ONCE PRN PRN Reason: hypertension Medical - PN: A/P - Time Spent With Patient Total time spent is greater than 50% in coordination of care (as documented) at patient's floor/unit and/or counseling patient: 25 - 35 minutes (1) Necrotizing pneumonia Status: Acute Assessment and plan: * Right upper lobe necrotizing pneumonia-continue antibiotic coverage to include anaerobes/gram-negative/MRSA. * Right upper lobe mass [id number] needle aspirate. Cultures gram positive cocci. Consider pulmonology consult on Friday * Sepsis secondary to above -white count at 20.5. Stable hemodynamics. Continue management per guidelines * History of reactive airway disease continue bronchodilators * History of hypertension-continue home medications including verap vishal/losartan/thiazide * BPH continue tamsulosin * Full code * prophylaxis heparin Plan * Antibiotic coverage/pulmonary toilet * Pulmonary consult for possible bronchoscopy on Friday * ID consult Friday/once cultures resulted * Sepsis management guidelines * Prior Medical condition management on home meds * Transfer to medical floor * PT OT nutrition support Current Visit: Yes Medical - PN: Qual - VTE Deep Vein Thrombosis/Pulmonary Embolism Present on Admission: No
[2018-11-21] MEDS ORDERED: MELATONIN 3 MG TABLET PO PRN (12:03)
[2018-11-21] MEDS ORDERED: ACETAMINOPHEN 325 MG TABLET PO PRN (12:03)
[2018-11-21] MEDS ORDERED: ACETAMINOPHEN 1,000 MG/100 ML BOTTLE IV PRN (12:03)
[2018-11-21] MEDS ORDERED: VANCOMYCIN PER PHARMACY IV SCH (12:03)
[2018-11-21] MEDS ORDERED: MAGNESIUM SULFATE 2 GM/50 ML BAG IV PRN (12:03)
[2018-11-21] MEDS ORDERED: ONDANSETRON 4 MG/2 ML VIAL IV PRN (12:03)
[2018-11-21] MEDS ORDERED: POTASSIUM CHLORIDE 20 MEQ PACKET PO PRN (12:03)
[2018-11-21] MEDS: 0.9 % SODIUM CHLORIDE 1,000 ML IV SCH ×2 (12:25→19:02)
[2018-11-21 19:48] LABS: Appearance,Urine CLEAR; Bilirubin,Urine NEG (NEG); Color,Urine YELLOW; Culture Indicated,Urine NO; Glucose,Urine (UA) NEGATIVE (NEG); Ketones,Urine NEG (NEG); Leukocyte Esterase,Urine NEG /uL (NEG); Nitrate,Urine NEG (NEG); Protein,Urine NEG (NEG); Specific Gravity,Urine 1.018 (1.000-1.035); Urine Blood NEG mg/dL (<0.03); Urobilinogen,Urine NEG (NEG)
[2018-11-21] MEDS: OXYMETAZOLINE 1 SPRAY BOTTLE NAS PRN (19:58)
[2018-11-21] MEDS ORDERED: VERAPAMIL 120 MG TAB.XL.24H PO SCH (21:00)
[2018-11-21] MEDS ORDERED: ASPIRIN 325 MG ENTERIC COATED TABLET PO SCH (21:00)
[2018-11-21] MEDS: VERAPAMIL 120 MG TAB.XL.24H PO SCH (21:00)
[2018-11-21] MEDS: ASPIRIN 325 MG ENTERIC COATED TABLET PO SCH (21:01)
[2018-11-21] MEDS: SENNOSIDES/DOCUSATE SODIUM 1 TAB TABLET PO SCH (21:02)
[2018-11-21] MEDS: IPRATROPIUM/ALBUTEROL 3 ML AMPUL.NEB NEB PRN (21:25)
[2018-11-22] MEDS: PIPERACILLIN SODIUM/TAZOBACTAM 2.25 GM in DEXTROSE 5% IN WATER 50 ML IV SCH ×4 (00:47→17:47)
[2018-11-22] MEDS: OXYMETAZOLINE 1 SPRAY BOTTLE NAS PRN ×2 (04:42→20:23)
[2018-11-22] MEDS: 0.9 % SODIUM CHLORIDE 10 ML SYRINGE IV SCH ×3 (04:43→20:11)
[2018-11-22 06:09] LABS: Hematocrit 27.5 % (41.0-55.0); Hemoglobin 8.8 g/dL (13.5-16.5); Mean Cell Volume 88.9 fL (80.0-100.0); Mean Platelet Volume 7.7 fL (7.4-10.4); Platelet Count 450 K/mcL (140-440); RBC 3.09 M/mcL (4.50-5.90); Red Cell Distribution Width 14.7 % (11.5-14.5); WBC 12.7 K/mcL (4.5-11.0)
[2018-11-22 06:27] LABS: ALT/SGPT 27 U/l (0-40); AST/SGOT 25 U/l (0-37); Albumin 2.7 gm/dL (3.2-5.2); Albumin/Globulin Ratio 0.8 (1.0-2.3); Alkaline Phosphatase 109 U/L (39-117); Bilirubin,Direct 0.2 mg/dL (0.0-0.3); Bilirubin,Total 0.5 mg/dL (0.0-1.0); Blood Urea Nitrogen 25 mg/dl (8-23); Calcium 9.4 mg/dl (8.6-10.4); Carbon Dioxide 24 mmol/L (22-30); Chloride 102 mmol/L (96-108); Globulin 3.6 gm/dL (2.2-3.7); Glomerular Filtration Rate 53; Glucose 121 mg/dL (70-105); Lactate Dehydrogenase 107 U/L (94-250); Phosphorous 3.1 mg/dL (2.7-4.5); Triglycerides 102 mg/dl (<150); Uric Acid 5.4 mg/dL (2.5-8.0)
[2018-11-22 06:59] LABS: Band Neutrophils % 3 % (0-10); Eosinophils % (Manual) 2 % (0-7); Hypochromasia 1+ (NONE SEEN); Lymphocytes % 12 % (15-49); Monocytes % (Manual) 8 % (1-12); Platelet Estimate INCREASED (NORMAL); Polychromasia FEW (NONE SEEN); RBC Morphology ABNORM (NORMAL); Segmented Neutrophils % 75 % (38-78)
[2018-11-22] MEDS: VERAPAMIL 120 MG TAB.XL.24H PO SCH ×2 (08:50→20:21)
[2018-11-22] MEDS: TAMSULOSIN 0.4 MG CAPSULE PO SCH (08:52)
[2018-11-22] MEDS: LOSARTAN 50 MG TABLET PO SCH (08:52)
[2018-11-22] MEDS: FISH OIL 1,000 MG CAPSULE PO SCH (08:53)
[2018-11-22] MEDS: ASPIRIN 325 MG ENTERIC COATED TABLET PO SCH ×2 (08:53→20:22)
[2018-11-22] MEDS: CHLORTHALIDONE 25 MG TABLET PO SCH (08:54)
[2018-11-22] MEDS: FOLIC ACID 1 MG TABLET PO SCH (08:55)
[2018-11-22] MEDS: MULTIVIT,THER IRON,CA,FA & MIN 1 TABLET PO SCH (08:56)
[2018-11-22] MEDS: DOCUSATE SODIUM 100 MG CAPSULE PO SCH ×2 (08:57→20:22)
[2018-11-22] MEDS: HEPARIN 5,000 UNIT/ML VIAL SQ SCH ×2 (08:59→20:22)
[2018-11-22] MEDS ORDERED: LOSARTAN 50 MG TABLET PO SCH (09:00)
[2018-11-22] MEDS ORDERED: CHLORTHALIDONE 25 MG TABLET PO SCH (09:00)
[2018-11-22] MEDS ORDERED: TAMSULOSIN 0.4 MG CAPSULE PO SCH (09:00)
[2018-11-22] MEDS ORDERED: FISH OIL 1,000 MG CAPSULE PO SCH (09:00)
[2018-11-22] MEDS: BUDESONIDE 0.5 MG/2 ML AMPUL.NEB NEB SCH ×2 (10:15→20:28)
[2018-11-22] MEDS: IPRATROPIUM/ALBUTEROL 3 ML AMPUL.NEB NEB PRN (10:15)
[2018-11-22] MEDS: VANCOMYCIN 1,500 MG in 0.9 % SODIUM CHLORIDE 500 ML IV SCH (10:46)
[2018-11-22] MEDS: CYANOCOBALAMIN (VITAMIN B-12) 500 MCG TABLET PO SCH ×2 (18:29→19:07)
[2018-11-22] MEDS: 0.9 % SODIUM CHLORIDE 1,000 ML IV SCH ×2 (19:18→22:00)
--- NOTE | 2018-11-22 19:30 | Internal Med Progress Note ---
Medical - PN: Subj Patient information: Note initiated : 11/22/18 at 7:27 pm Service Date, if different from initiated Date: [] Patient: Tarik Dunn a 78 y/o M admitted on 11/20/18 for Shortness of breath. Chief Complaint: Follow-up lung mass/abscess Interval history: Mr. Dunn is a 78 year old M with a history of hypertension otherwise fairly independent who lives by himself presents to the ER with 6 weeks onset of progressive cough weakness fatigue. Symptoms were gradual in onset without associated fever or chills or bloody sputum. Patient denies associated weight loss, shaking chills or sweats. He denies sick contacts. Over the last week and a half he has become extremely weak fatigued unable to function. He survived a near fall. With increasing concerns patient was evaluated by primary care physician and was referred to the ER after chest imaging revealed a suspicious right upper lobe mass. Initial work-up in the ER was consistent with right upper lobe infiltrative lesion. White count over 20,000. Patient underwent lung biopsy by interventional radiology. Culture was sent and patient was started on antibiotic after biopsy revealed pus and necrotic tissue. Case was subsequently discussed with [place] crop ranch hand Dr. Zepeda. Based on imaging appearance consistent with necrotizing pneumonia. [employer] recommended management with antibiotics and admission. Hospitalist service is consulted for admission At the time of evaluation multiple family members are present. Most of the history was obtained from review of medical records/ER physician and patient himself. Patient denies any active distress or chest pain/pleurisy. He endorses to history as above. He denies night sweats/chills or weight loss. 11/21-patient clinically improved. Continuing Zosyn and vancomycin for necrotizing pneumonia. Tolerating diet and physical therapy. White count down from 20.8-20.5. Gram-positive cocci from lung biopsy/pus aspirate. Consider ID consult early next week along with pulmonary consult for bronchoscopy. Family made aware of treatment plan. Transfer to medical floor atient is feeling improved. Still overall weak. Appetite improving. Preliminary cultures show anaerobic organisms. White count down to 12,000. - Constitutional Vitals: Vital Signs Temp Pulse Resp BP Pulse Ox 97.7 F 73 18 126/64 97 11/22/18 16:00 11/22/18 16:00 11/22/18 19:15 11/22/18 16:00 11/22/18 16:00 Period Temp Pulse Resp BP Sys/Calabrese Pulse Ox Last 24 Hr 97.3 F-98.2 F 71-86 16-24 122-144/58-72 93-97 Intake and Output 11/22/18 11/22/18 11/22/18 05:59 13:59 21:59 Intake Total 450 740 400 Output Total 450 500 150 Balance 0 240 250 Weight 199 lb Patient Weight 11/23/18 05:59 Weight 199 lb Intake & Output: Intake & Output 11/22/18 11/22/18 11/22/18 05:59 13:59 21:59 Intake Total 450 740 400 Output Total 450 500 150 Balance 0 240 250 Weight 199 lb Intake: IV 50 100 Zosyn 2.25 gm In Dextrose 5% in 50 100 Water 50 ml @ 100 mls/hr IV Q6H [facility] Rx#:[id number] Oral 400 640 400 Output: Urine Catheter Amount 200 Void Amount 450 300 150 Other: Meal Lunch Dinner Percent of Meal Consumed 100% 75% Feeding Ability Assist with Tray Set Up Assist with Tray Set Up Urine Appearance Clear Clear Urine Color Bright Yellow # Voids 1 # Bowel Movements 1 Exam: General: Mildly ill-appearing Chest: Clear, respirations are unlabored Cardiovascular: Regular, no edema Abdomen: Soft Neuro: Hard of hearing, moves all extremities equally. Medical - PN: Obj Da - Labs CBC & Chem 7: 11/22/18 04:58 11/22/18 04:58 Labs: Abnormal Lab Results 11/22/18 11/22/18 11/21/18 04:58 04:58 03:56 WBC 12.7 H RBC 3.09 L Hgb 8.8 L Hct 27.5 L POC Hct RDW 14.7 H Plt Count 450 H Gran % Lymph % (Auto) Gran # [place] # (Auto) Seg Neutrophils % Lymphocytes % 12 L Myelocytes % Platelet Estimate Increased A RBC Morphology Abnorm A Polychromasia Few A Hypochromasia 1+ A ESR POC BUN BUN 25 H 27 H Creatinine 1.3 H 1.4 H POC Creatinine Glucose 121 H POC Glucose Magnesium 1.5 L Alkaline Phosphatase C-Reactive Protein Albumin 2.7 L 2.7 L Globulin Albumin/Globulin Ratio 0.8 L 0.8 L 11/21/18 11/20/18 11/20/18 03:56 13:09 13:09 WBC 20.5 H RBC 3.11 L Hgb 8.8 L Hct 27.8 L POC Hct RDW 15.0 H Plt Count 494 H Gran % Lymph % (Auto) Gran # [place] # (Auto) Seg Neutrophils % 82 H Lymphocytes % 7 L Myelocytes % 1 H Platelet Estimate Increased A RBC Morphology Abnorm A Polychromasia Few A Hypochromasia Few A ESR 104 H POC BUN BUN Creatinine POC Creatinine Glucose POC Glucose Magnesium Alkaline Phosphatase C-Reactive Protein 11.2 H Albumin Globulin Albumin/Globulin Ratio 11/20/18 11/20/18 13:09 13:09 WBC 20.8 H RBC 3.47 L Hgb 9.9 L Hct 30.3 L POC Hct 31.0 L RDW 14.9 H Plt Count 535 H Gran % 85.9 H Lymph % (Auto) 7.0 L Gran # 17.9 H [place] # (Auto) 1.4 H Seg Neutrophils % Lymphocytes % Myelocytes % Platelet Estimate RBC Morphology Polychromasia Hypochromasia ESR POC BUN 28 H BUN 30 H Creatinine 1.4 H POC Creatinine 1.5 H Glucose 118 H POC Glucose 122 H Magnesium Alkaline Phosphatase 122 H C-Reactive Protein Albumin 3.0 L Globulin 3.9 H Albumin/Globulin Ratio 0.8 L Meds: Medications Acetaminophen (Tylenol) 650 mg PO Q4-6HP PRN PRN Reason: PAIN/FEVER > 101 Albuterol Sulfate (Ventolin) 1 - 2 puff INH Q4HP PRN PRN Reason: Wheezing Albuterol/Ipratropium (Duoneb) 3 ml NEB Q4HP PRN PRN Reason: Shortness Of Breath Last Admin: 11/22/18 10:15 Dose: 3 ml Documented by: Aspirin (Ecotrin) 325 mg PO BID [facility] Last Admin: 11/22/18 08:53 Dose: 325 mg Documented by: Budesonide (Pulmicort) 0.5 mg NEB Q12 [facility] Last Admin: 11/22/18 10:15 Dose: 0.5 mg Documented by: Chlorthalidone (Hygroton) 50 mg PO QDAY [facility] Last Admin: 11/22/18 08:54 Dose: 50 mg Documented by: Cyanocobalamin (Vitamin B-12) 1,000 mcg PO BID [facility] Stop: 11/25/18 09:01 Last Admin: 11/22/18 19:07 Dose: 1,000 mcg Documented by: Docusate Sodium (Colace) 100 mg PO BID [facility] Last Admin: 11/22/18 08:57 Dose: Not Given Documented by: Fish Oil (Fish Oil) 1,000 mg PO DAILY [facility] Last Admin: 11/22/18 08:53 Dose: 1,000 mg Documented by: Folic Acid (Folic Acid) 1 mg PO DAILY [facility] Last Admin: 11/22/18 08:55 Dose: 1 mg Documented by: Guaifenesin/Codeine Phosphate (Robitussin Ac) 10 ml PO Q4HP PRN PRN Reason: Cough Heparin Sodium (Porcine) (Heparin) 5,000 unit SQ Q12 [facility] Last Admin: 11/22/18 08:59 Dose: 5,000 unit Documented by: Magnesium Sulfate (Magnesium Sulfate) 2 gm in 50 mls @ 50 mls/hr IV UD PRN PRN Reason: MG = or < 1.7 Sodium Chloride (Sodium Chloride 0.9%) 1,000 mls @ 50 mls/hr IV .Q20H [facility] Stop: 11/23/18 06:44 Last Admin: 11/22/18 19:18 Dose: Not Given Documented by: Acetaminophen (Ofirmev) 1,000 mg in 100 mls @ 200 mls/hr IV Q6HP PRN PRN Reason: PAIN/FEVER > 101 Piperacillin Sod/Tazobactam (Sod 2.25 gm/ Dextrose) 50 mls @ 100 mls/hr IV Q6H [facility]; Protocol Last Admin: 11/22/18 17:47 Dose: 100 mls/hr Documented by: Vancomycin HCl 1,500 mg/ (Sodium Chloride) 500 mls @ 333.3 mls/hr IV Q24H [facility] Last Admin: 11/22/18 10:46 Dose: 333.3 mls/hr Documented by: Iron Carb/Multivit/Injection Machine Operator/Folic Acid (Multivitamin W/Minerals) 1 tab PO DAILY [facility] Last Admin: 11/22/18 08:56 Dose: 1 tab Documented by: Losartan Potassium (Cozaar) 100 mg PO DAILY [facility] Last Admin: 11/22/18 08:52 Dose: 100 mg Documented by: Melatonin (Melatonin 3mg Tablet) 3 mg PO HSP PRN PRN Reason: Insomnia Ondansetron HCl (Zofran) 4 mg IV Q4-6HP PRN PRN Reason: Nausea And Vomiting Oxymetazoline HCl (Afrin) 2 spray JORGE BIDP PRN PRN Reason: Congestion Last Admin: 11/22/18 04:42 Dose: 2 spray Documented by: Potassium Chloride (Klor-Con) 40 meq PO DAILYP PRN PRN Reason: K+ < 3.5 Senna/Docusate Sodium (Senna Plus Tablet) 1 tab PO HS [facility] Last Admin: 11/21/18 21:02 Dose: Not Given Documented by: Sodium Chloride (Saline Flush) 10 ml IV Q8 [facility] Last Admin: 11/22/18 18:29 Dose: Not Given Documented by: Tamsulosin HCl (Flomax) 0.4 mg PO QDAY [facility] Last Admin: 11/22/18 08:52 Dose: 0.4 mg Documented by: Vancomycin HCl (Vancomycin Per Pharmacy) 1 order IV UD [facility]; Protocol Verapamil HCl (Calan Sr) 240 mg PO BID [facility] Last Admin: 11/22/18 08:50 Dose: 240 mg Documented by: Verapamil HCl (Calan) 80 mg PO ONCE PRN PRN Reason: hypertension Medical - PN: A/P (1) Cavitating mass of lung Status: Acute Current Visit: Yes - Narrative A/P Narrative: Necrotizing pneumonia right upper lobe. Cultures now growing anaerobic organisms, no gram-negative organisms nor MRSA identified. With anaerobes identified, query whether actinomyces may be present and causing the extensive right upper lobe mass. Tumor does need to be ruled out. Plan: Continue Zosyn which would cover anaerobes as well as actinomyces. Discontinue vancomycin without identification of strep on culture consider pulmonary and infectious disease consults when available. Sepsis. Source of sepsis is his lung infection, whether primary pneumonia or necrotic tumor with infection. Improving. White count down to 12,000. Hemodynamics are stable. Her graph plan: Continue antibiotics, follow-up final culture. History of reactive airway disease. Stable. Plan: Continue bronchodilators. Hypertension. Stable. Plan: Continue home medications which include losartan, verapamil, thiazide diuretic. BPH. Stable. Plan: Continue tamsulosin. Macular degeneration. Stable. CODE STATUS: Full code. Prophylaxis: Heparin. Medical - PN: Qual - VTE Deep Vein Thrombosis/Pulmonary Embolism Present on Admission: No
[2018-11-22] MEDS: SENNOSIDES/DOCUSATE SODIUM 1 TAB TABLET PO SCH (20:21)
[2018-11-23] MEDS: PIPERACILLIN SODIUM/TAZOBACTAM 2.25 GM in DEXTROSE 5% IN WATER 50 ML IV SCH ×5 (00:16→23:47)
[2018-11-23] MEDS: CYANOCOBALAMIN (VITAMIN B-12) 500 MCG TABLET PO SCH ×3 (00:17→20:23)
[2018-11-23] MEDS: BUDESONIDE 0.5 MG/2 ML AMPUL.NEB NEB SCH ×3 (00:20→21:31)
[2018-11-23] MEDS: 0.9 % SODIUM CHLORIDE 10 ML SYRINGE IV SCH ×3 (05:21→23:47)
[2018-11-23 06:01] LABS: Hematocrit 26.2 % (41.0-55.0); Hemoglobin 8.5 g/dL (13.5-16.5); Mean Cell Volume 88.7 fL (80.0-100.0); Mean Corpuscular HGB Conc 32.5 g/dL (31.0-36.0); Mean Platelet Volume 7.7 fL (7.4-10.4); Platelet Count 464 K/mcL (140-440); RBC 2.96 M/mcL (4.50-5.90); Red Cell Distribution Width 14.9 % (11.5-14.5); WBC 12.3 K/mcL (4.5-11.0)
[2018-11-23 06:29] LABS: ALT/SGPT 31 U/l (0-40); AST/SGOT 28 U/l (0-37); Albumin 2.6 gm/dL (3.2-5.2); Albumin/Globulin Ratio 0.8 (1.0-2.3); Alkaline Phosphatase 100 U/L (39-117); Bilirubin,Total 0.4 mg/dL (0.0-1.0); Blood Urea Nitrogen 23 mg/dl (8-23); Calcium 9.5 mg/dl (8.6-10.4); Carbon Dioxide 25 mmol/L (22-30); Chloride 103 mmol/L (96-108); Globulin 3.4 gm/dL (2.2-3.7); Glomerular Filtration Rate 58; Glucose 103 mg/dL (70-105); Lactate Dehydrogenase 120 U/L (94-250); Phosphorous 2.9 mg/dL (2.7-4.5); Triglycerides 90 mg/dl (<150); Uric Acid 4.8 mg/dL (2.5-8.0)
[2018-11-23 06:30] LABS: Bilirubin,Direct < 0.2 mg/dL (0.0-0.3)
[2018-11-23 08:20] LABS: Band Neutrophils % 4 % (0-10); Eosinophils % (Manual) 2 % (0-7); Hypochromasia 1+ (NONE SEEN); Lymphocytes % 12 % (15-49); Monocytes % (Manual) 6 % (1-12); Platelet Estimate INCREASED (NORMAL); Polychromasia 1+ (NONE SEEN); RBC Morphology ABNORM (NORMAL); Reactive Lymphocytes 1 % (0-2); Segmented Neutrophils % 75 % (38-78)
[2018-11-23] MEDS: VERAPAMIL 120 MG TAB.XL.24H PO SCH ×2 (09:05→20:23)
[2018-11-23] MEDS: MULTIVIT,THER IRON,CA,FA & MIN 1 TABLET PO SCH (09:06)
[2018-11-23] MEDS: TAMSULOSIN 0.4 MG CAPSULE PO SCH (09:06)
[2018-11-23] MEDS: LOSARTAN 50 MG TABLET PO SCH (09:06)
[2018-11-23] MEDS: ASPIRIN 325 MG ENTERIC COATED TABLET PO SCH ×2 (09:07→20:23)
[2018-11-23] MEDS: FISH OIL 1,000 MG CAPSULE PO SCH (09:07)
[2018-11-23] MEDS: CHLORTHALIDONE 25 MG TABLET PO SCH (09:07)
[2018-11-23] MEDS: DOCUSATE SODIUM 100 MG CAPSULE PO SCH ×2 (09:08→20:22)
[2018-11-23] MEDS: VANCOMYCIN 1,500 MG in 0.9 % SODIUM CHLORIDE 500 ML IV SCH (09:13)
[2018-11-23] MEDS: FOLIC ACID 1 MG TABLET PO SCH (09:19)
[2018-11-23] MEDS: IPRATROPIUM/ALBUTEROL 3 ML AMPUL.NEB NEB PRN (09:19)
[2018-11-23] MEDS: HEPARIN 5,000 UNIT/ML VIAL SQ SCH ×2 (09:19→20:20)
[2018-11-23] MEDS: 0.9 % SODIUM CHLORIDE 1,000 ML IV SCH (11:30)
--- NOTE | 2018-11-23 13:40 | Internal Med Progress Note ---
Medical - PN: Subj Patient information: Note initiated : 11/23/18 at 1:38 pm Service Date, if different from initiated Date: [] Patient: Tarik Dunn a 78 y/o M admitted on 11/20/18 for Shortness of breath. Chief Complaint: Follow-up lung abscess/mass Interval history: Mr. Dunn is a 78 year old M with a history of hypertension otherwise fairly independent who lives by himself presents to the ER with 6 weeks onset of progressive cough weakness fatigue. Symptoms were gradual in onset without associated fever or chills or bloody sputum. Patient denies associated weight loss, shaking chills or sweats. He denies sick contacts. Over the last week and a half he has become extremely weak fatigued unable to function. He survived a near fall. With increasing concerns patient was evaluated by primary care physician and was referred to the ER after chest imaging revealed a suspicious right upper lobe mass. Initial work-up in the ER was consistent with right upper lobe infiltrative lesion. White count over 20,000. Patient underwent lung biopsy by interventional radiology. Culture was sent and patient was started on antibiotic after biopsy revealed pus and necrotic tissue. Case was subsequently discussed with [place] belt glass sander Dr. Zepeda. Based on imaging appearance consistent with necrotizing pneumonia. [facility] recommended management with antibiotics and admission. Hospitalist service is consulted for admission At the time of evaluation multiple family members are present. Most of the history was obtained from review of medical records/ER physician and patient himself. Patient denies any active distress or chest pain/pleurisy. He endorses to history as above. He denies night sweats/chills or weight loss. 11/21-patient clinically improved. Continuing Zosyn and vancomycin for necrotizing pneumonia. Tolerating diet and physical therapy. White count down from 20.8-20.5. Gram-positive cocci from lung biopsy/pus aspirate. Consider ID consult early next week along with pulmonary consult for bronchoscopy. Family made aware of treatment plan. Transfer to medical floor atient is feeling improved. Still overall weak. Appetite improving. Preliminary cultures show anaerobic organisms. White count down to 12,000. 2patient continues to feel improved. Seen at bedside with family and therapists. Strength is improving. Appetite is good. Cultures from abscess show strep intermedius. - Constitutional Vitals: Vital Signs Temp Pulse Resp BP Pulse Ox 97.7 F 71 16 132/67 96 11/23/18 06:52 11/23/18 09:28 11/23/18 09:28 11/23/18 06:52 11/23/18 09:20 Period Temp Pulse Resp BP Sys/Calabrese Pulse Ox Last 24 Hr 97.5 F-97.9 F 69-78 16-24 113-145/60-69 93-97 Intake and Output 11/22/18 11/23/18 11/23/18 21:59 05:59 13:59 Intake Total 1450 300 860 Output Total 350 500 300 Balance 1100 -200 560 Weight 198 lb Intake & Output: Intake & Output 11/22/18 11/23/18 11/23/18 21:59 05:59 13:59 Intake Total 1450 300 860 Output Total 350 500 300 Balance 1100 -200 560 Weight 198 lb Intake: IV 1050 100 500 Sodium Chloride 0.9% 1,000 ml @ 1000 50 mls/hr IV .Q20H [facility] Rx#: [id number] Zosyn 2.25 gm In Dextrose 5% in 50 100 Water 50 ml @ 100 mls/hr IV Q6H [facility] Rx#:[id number] Vancomycin 1,500 mg In Sodium 500 Chloride 0.9% 500 ml @ 333.3 mls/hr IV Q24H [facility] Rx#: [id number] Oral 400 200 360 Output: Void Amount 350 500 300 Other: Meal Dinner Breakfast Percent of Meal Consumed 75% 50% Feeding Ability Assist with Tray Set Up Assist with Tray Set Up Urine Appearance Clear Clear Urine Color Pale Bright Yellow Bright Yellow Urine Odor Normal Stool Size Moderate Stool Color Brown Stool Consistency Formed # Bowel Movements 1 Exam: General: Sitting in chair no acute distress Chest: Mid right faint crackles Cardiovascular: Irregular, no murmur appreciated Abdomen: Soft, nontender Neuro: Alert, oriented, impaired vision (chronic). Medical - PN: Obj Da - Labs CBC & Chem 7: 11/23/18 04:30 11/23/18 04:30 Labs: Abnormal Lab Results 11/23/18 11/23/18 11/22/18 04:30 04:30 04:58 WBC 12.3 H RBC 2.96 L Hgb 8.5 L Hct 26.2 L RDW 14.9 H Plt Count 464 H Gran % Lymph % (Auto) Gran # [place] # (Auto) Seg Neutrophils % Lymphocytes % 12 L Myelocytes % Platelet Estimate Increased A RBC Morphology Abnorm A Polychromasia 1+ A Hypochromasia 1+ A ESR BUN 25 H Creatinine 1.3 H Glucose 121 H Magnesium Alkaline Phosphatase C-Reactive Protein Albumin 2.6 L 2.7 L Globulin Albumin/Globulin Ratio 0.8 L 0.8 L 11/22/18 11/21/18 11/21/18 04:58 03:56 03:56 WBC 12.7 H 20.5 H RBC 3.09 L 3.11 L Hgb 8.8 L 8.8 L Hct 27.5 L 27.8 L RDW 14.7 H 15.0 H Plt Count 450 H 494 H Gran % Lymph % (Auto) Gran # [place] # (Auto) Seg Neutrophils % 82 H Lymphocytes % 12 L 7 L Myelocytes % 1 H Platelet Estimate Increased A Increased A RBC Morphology Abnorm A Abnorm A Polychromasia Few A Few A Hypochromasia 1+ A Few A ESR BUN 27 H Creatinine 1.4 H Glucose Magnesium 1.5 L Alkaline Phosphatase C-Reactive Protein Albumin 2.7 L Globulin Albumin/Globulin Ratio 0.8 L 11/20/18 11/20/18 11/20/18 13:09 13:09 13:09 WBC RBC Hgb Hct RDW Plt Count Gran % Lymph % (Auto) Gran # [place] # (Auto) Seg Neutrophils % Lymphocytes % Myelocytes % Platelet Estimate RBC Morphology Polychromasia Hypochromasia ESR 104 H BUN 30 H Creatinine 1.4 H Glucose 118 H Magnesium Alkaline Phosphatase 122 H C-Reactive Protein 11.2 H Albumin 3.0 L Globulin 3.9 H Albumin/Globulin Ratio 0.8 L 11/20/18 13:09 WBC 20.8 H RBC 3.47 L Hgb 9.9 L Hct 30.3 L RDW 14.9 H Plt Count 535 H Gran % 85.9 H Lymph % (Auto) 7.0 L Gran # 17.9 H [place] # (Auto) 1.4 H Seg Neutrophils % Lymphocytes % Myelocytes % Platelet Estimate RBC Morphology Polychromasia Hypochromasia ESR BUN Creatinine Glucose Magnesium Alkaline Phosphatase C-Reactive Protein Albumin Globulin Albumin/Globulin Ratio Microbiology 11/20/18 17:00 Gram Stain - Final Pleural Fluid Anaerobic Culture - Preliminary Streptococcus intermedius 11/20/18 16:45 Blood Culture - Preliminary Blood 11/20/18 16:38 Blood Culture - Preliminary Blood 11/20/18 17:00 Gram Stain - Final Pleural Fluid Body Fluid Culture - Final 11/20/18 18:30 MRSA (PCR) - Final Nose Meds: Medications Acetaminophen (Tylenol) 650 mg PO Q4-6HP PRN PRN Reason: PAIN/FEVER > 101 Albuterol Sulfate (Ventolin) 1 - 2 puff INH Q4HP PRN PRN Reason: Wheezing Albuterol/Ipratropium (Duoneb) 3 ml NEB Q4HP PRN PRN Reason: Shortness Of Breath Last Admin: 11/23/18 09:19 Dose: 3 ml Documented by: Aspirin (Ecotrin) 325 mg PO BID [facility] Last Admin: 11/23/18 09:07 Dose: 325 mg Documented by: Budesonide (Pulmicort) 0.5 mg NEB Q12 [facility] Last Admin: 11/23/18 09:30 Dose: 0.5 mg Documented by: Chlorthalidone (Hygroton) 50 mg PO QDAY [facility] Last Admin: 11/23/18 09:07 Dose: 50 mg Documented by: Cyanocobalamin (Vitamin B-12) 1,000 mcg PO BID [facility] Stop: 11/25/18 09:01 Last Admin: 11/23/18 09:06 Dose: 1,000 mcg Documented by: Docusate Sodium (Colace) 100 mg PO BID [facility] Last Admin: 11/23/18 09:08 Dose: Not Given Documented by: Fish Oil (Fish Oil) 1,000 mg PO DAILY [facility] Last Admin: 11/23/18 09:07 Dose: 1,000 mg Documented by: Folic Acid (Folic Acid) 1 mg PO DAILY [facility] Last Admin: 11/23/18 09:19 Dose: 1 mg Documented by: Guaifenesin/Codeine Phosphate (Robitussin Ac) 10 ml PO Q4HP PRN PRN Reason: Cough Heparin Sodium (Porcine) (Heparin) 5,000 unit SQ Q12 [facility] Last Admin: 11/23/18 09:19 Dose: 5,000 unit Documented by: Acetaminophen (Ofirmev) 1,000 mg in 100 mls @ 200 mls/hr IV Q6HP PRN PRN Reason: PAIN/FEVER > 101 Piperacillin Sod/Tazobactam (Sod 2.25 gm/ Dextrose) 50 mls @ 100 mls/hr IV Q6H [facility]; Protocol Last Admin: 11/23/18 12:51 Dose: 100 mls/hr Documented by: Iron Carb/Multivit/Soper/Folic Acid (Multivitamin W/Minerals) 1 tab PO DAILY [facility] Last Admin: 11/23/18 09:06 Dose: 1 tab Documented by: Losartan Potassium (Cozaar) 100 mg PO DAILY [facility] Last Admin: 11/23/18 09:06 Dose: 100 mg Documented by: Melatonin (Melatonin 3mg Tablet) 3 mg PO HSP PRN PRN Reason: Insomnia Non-Formulary Medication (Vit A/C/E Ac/Znox/Cupric Oxide [Eyeprotect Tablet]) 1 tab PO DAILY [facility] Ondansetron HCl (Zofran) 4 mg IV Q4-6HP PRN PRN Reason: Nausea And Vomiting Oxymetazoline HCl (Afrin) 2 spray JORGE BIDP PRN PRN Reason: Congestion Last Admin: 11/22/18 20:23 Dose: 2 spray Documented by: Potassium Chloride (Klor-Con) 40 meq PO DAILYP PRN PRN Reason: K+ < 3.5 Senna/Docusate Sodium (Senna Plus Tablet) 1 tab PO HS [facility] Last Admin: 11/22/18 20:21 Dose: 1 tab Documented by: Sodium Chloride (Saline Flush) 10 ml IV Q8 [facility] Last Admin: 11/23/18 05:21 Dose: Not Given Documented by: Tamsulosin HCl (Flomax) 0.4 mg PO QDAY [facility] Last Admin: 11/23/18 09:06 Dose: 0.4 mg Documented by: Verapamil HCl (Calan Sr) 240 mg PO BID [facility] Last Admin: 11/23/18 09:05 Dose: 240 mg Documented by: Verapamil HCl (Calan) 80 mg PO ONCE PRN PRN Reason: hypertension Medical - PN: A/P - Time Spent With Patient Total time spent is greater than 50% in coordination of care (as documented) at patient's floor/unit and/or counseling patient: 25 - 35 minutes (1) Cavitating mass of lung Status: Acute Current Visit: Yes - Narrative A/P Narrative: Necrotizing pneumonia right upper lobe. Cultures now identifying anaerobes as strep intermedius. Often associated with aspiration. Still suspect this may be polymicrobial infection and will keep antibiotic coverage broadened, but will not specifically cover MRSA as it is not been cultured. With anaerobes identified, query whether actinomyces may be present and causing the extensive right upper lobe mass. Tumor does need to be ruled out. Plan: Continue Zosyn which would cover anaerobes as well as actinomyces. Vancomycin discontinued. Consider pulmonary and infectious disease consults when available. Sepsis. Source of sepsis is his lung infection, whether primary pneumonia or necrotic tumor with infection. Improving. White count down to 12,000. Hemodynamics are stable. Plan: Continue antibiotics. History of reactive airway disease. Stable. Plan: Continue bronchodilators. Hypertension. Stable. Plan: Continue home medications which include losartan, verapamil, thiazide diuretic. BPH. Stable. Plan: Continue tamsulosin. Macular degeneration. Stable. CODE STATUS: Full code. Prophylaxis: Heparin. Medical - PN: Qual - VTE Deep Vein Thrombosis/Pulmonary Embolism Present on Admission: No
[2018-11-23] MEDS: OXYMETAZOLINE 1 SPRAY BOTTLE NAS PRN (20:21)
[2018-11-23] MEDS: SENNOSIDES/DOCUSATE SODIUM 1 TAB TABLET PO SCH (20:23)
[2018-11-24] MEDS: guaiFENesin/CODEINE 10 ML UDC PO PRN ×2 (03:18→20:16)
[2018-11-24] MEDS: PIPERACILLIN SODIUM/TAZOBACTAM 2.25 GM in DEXTROSE 5% IN WATER 50 ML IV SCH (05:20)
[2018-11-24] MEDS: 0.9 % SODIUM CHLORIDE 10 ML SYRINGE IV SCH ×3 (05:24→20:08)
[2018-11-24] MEDS: OXYMETAZOLINE 1 SPRAY BOTTLE NAS PRN ×2 (05:24→20:07)
[2018-11-24 06:01] LABS: Hematocrit 26.8 % (41.0-55.0); Hemoglobin 8.6 g/dL (13.5-16.5); Mean Cell Volume 88.6 fL (80.0-100.0); Mean Corpuscular HGB Conc 32.2 g/dL (31.0-36.0); Mean Platelet Volume 7.7 fL (7.4-10.4); Platelet Count 471 K/mcL (140-440); RBC 3.02 M/mcL (4.50-5.90); Red Cell Distribution Width 14.8 % (11.5-14.5); WBC 11.6 K/mcL (4.5-11.0)
[2018-11-24 06:07] LABS: ALT/SGPT 36 U/l (0-40); AST/SGOT 34 U/l (0-37); Albumin 2.6 gm/dL (3.2-5.2); Albumin/Globulin Ratio 0.7 (1.0-2.3); Alkaline Phosphatase 102 U/L (39-117); Bilirubin,Direct < 0.2 mg/dL (0.0-0.3); Bilirubin,Total 0.3 mg/dL (0.0-1.0); Blood Urea Nitrogen 20 mg/dl (8-23); Calcium 9.7 mg/dl (8.6-10.4); Carbon Dioxide 25 mmol/L (22-30); Chloride 105 mmol/L (96-108); Globulin 3.6 gm/dL (2.2-3.7); Glomerular Filtration Rate 53; Glucose 105 mg/dL (70-105); Lactate Dehydrogenase 146 U/L (94-250); Phosphorous 2.8 mg/dL (2.7-4.5); Triglycerides 110 mg/dl (<150); Uric Acid 4.3 mg/dL (2.5-8.0)
[2018-11-24] MEDS ORDERED: MAGNESIUM SULFATE 2 GM/50 ML BAG IV SCH (07:30)
[2018-11-24 08:25] LABS: Anisocytosis FEW (NONE SEEN); Eosinophils % (Manual) 5 % (0-7); Hypochromasia FEW (NONE SEEN); Lymphocytes % 17 % (15-49); Monocytes % (Manual) 2 % (1-12); Ovalocytes FEW (NONE SEEN); Platelet Estimate INCREASED (NORMAL); Polychromasia FEW (NONE SEEN); RBC Morphology ABNORM (NORMAL); Segmented Neutrophils % 76 % (38-78)
[2018-11-24] MEDS ORDERED: MAGNESIUM SULFATE 2 GM/50 ML BAG IV ONE (08:30)
[2018-11-24] MEDS: BUDESONIDE 0.5 MG/2 ML AMPUL.NEB NEB SCH (09:07)
[2018-11-24] MEDS: MULTIVIT,THER IRON,CA,FA & MIN 1 TABLET PO SCH (09:58)
[2018-11-24] MEDS: ASPIRIN 325 MG ENTERIC COATED TABLET PO SCH ×2 (09:59→20:07)
[2018-11-24] MEDS: VERAPAMIL 120 MG TAB.XL.24H PO SCH ×2 (09:59→20:07)
[2018-11-24] MEDS: CHLORTHALIDONE 25 MG TABLET PO SCH (10:00)
[2018-11-24] MEDS: LOSARTAN 50 MG TABLET PO SCH (10:00)
[2018-11-24] MEDS: TAMSULOSIN 0.4 MG CAPSULE PO SCH (10:00)
[2018-11-24] MEDS: FISH OIL 1,000 MG CAPSULE PO SCH (10:00)
[2018-11-24] MEDS: DOCUSATE SODIUM 100 MG CAPSULE PO SCH ×2 (10:01→20:07)
[2018-11-24] MEDS: FOLIC ACID 1 MG TABLET PO SCH (10:03)
[2018-11-24] MEDS: HEPARIN 5,000 UNIT/ML VIAL SQ SCH ×2 (10:04→20:08)
--- NOTE | 2018-11-24 11:03 | Internal Med Progress Note ---
Medical - PN: Subj Patient information: Note initiated : 11/24/18 at 11:01 am Service Date, if different from initiated Date: [] Patient: Tarik Dunn a 78 y/o M admitted on 11/20/18 for Shortness of breath. Chief Complaint: Follow-up necrotizing pneumonia/lung mass Interval history: Mr. Dunn is a 78 year old M with a history of hypertension otherwise fairly independent who lives by himself presents to the ER with 6 weeks onset of progressive cough weakness fatigue. Symptoms were gradual in onset without ass ociated fever or chills or bloody sputum. Patient denies associated weight loss, shaking chills or sweats. He denies sick contacts. Over the last week and a half he has become extremely weak fatigued unable to function. He survived a near fall. With increasing concerns patient was evaluated by primary care physician and was referred to the ER after chest imaging revealed a suspicious right upper lobe mass. Initial work-up in the ER was consistent with right upper lobe infiltrative lesion. White count over 20,000. Patient underwent lung biopsy by interventional radiology. Culture was sent and patient was started on antibiotic after biopsy revealed pus and necrotic tissue. Case was subsequently discussed with [place] indigo mixer Dr. Zepeda. Based on imaging appearance consistent with necrotizing pneumonia. Re Recording Mixer recommended management with antibiotics and admission. Hospitalist service is consulted for admission At the time of evaluation multiple family members are present. Most of the history was obtained from review of medical records/ER physician and patient himself. Patient denies any active distress or chest pain/pleurisy. He endorses to history as above. He denies night sweats/chills or weight loss. 11/21-patient clinically improved. Continuing Zosyn and vancomycin for necrotizing pneumonia. Tolerating diet and physical therapy. White count down from 20.8-20.5. Gram-positive cocci from lung biopsy/pus aspirate. Consider ID consult early next week along with pulmonary consult for bronchoscopy. Family made aware of treatment plan. Transfer to medical floor 1patient is feeling improved. Still overall weak. Appetite improving. Preliminary cultures show anaerobic organisms. White count down to 12,000. 2patient continues to feel improved. Seen at bedside with family and therapists. Strength is improving. Appetite is good. Cultures from abscess show strep intermedius. 9/3continues to slowly improve. Discussed with pathologist this morning, seen mostly inflammatory/infectious findings. Explained clinical situation and concern for possible postobstructive pneumonia, will do further stains. Informally discussed with ID, recommended changing to ceftriaxone and metronidazole for antibiotic coverage. ID would be happy to formally consult if prolonged antibiotics will be indicated and to help manage. - Constitutional Vitals: Vital Signs Temp Pulse Resp BP Pulse Ox 96.8 F L 94 H 20 147/68 94 11/24/18 08:00 11/24/18 08:00 11/24/18 08:00 11/24/18 08:00 11/24/18 08:00 Period Temp Pulse Resp BP Sys/Calabrese Pulse Ox Last 24 Hr 96.8 F-97.8 F 66-94 18-20 130-149/60-70 94-96 Intake and Output 11/23/18 11/24/18 11/24/18 21:59 05:59 13:59 Intake Total 50 250 Output Total 700 700 100 Balance -650 -450 -100 Weight 203 lb Intake & Output: Intake & Output 11/23/18 11/24/18 11/24/18 21:59 05:59 13:59 Intake Total 50 250 Output Total 700 700 100 Balance -650 -450 -100 Weight 203 lb Intake: IV 50 50 Zosyn 2.25 gm In Dextrose 5% in 50 50 Water 50 ml @ 100 mls/hr IV Q6H [facility] Rx#:[id number] Oral 200 Output: Void Amount 700 700 100 Other: Meal Dinner Percent of Meal Consumed 75% Urine Appearance Clear Clear Urine Color Bright Yellow Dark Yellow Urine Odor Normal Normal Stool Size Moderate Stool Color Brown Stool Consistency Formed # Bowel Movements 1 Exam: General: Sitting up in chair no acute distress Chest: Faint bibasilar crackles, improved after deep respirations, right upper lung field is clear, left lung is clear Cardiovascular: Regular Abdomen: Soft, nontender Extremities: No edema Neuro: Visual impairment, mildly hard of hearing, generally weak but becoming stronger daily, no focal weaknesses. Medical - PN: Obj Da - Labs CBC & Chem 7: 11/24/18 04:14 11/24/18 04:14 Labs: Abnormal Lab Results 11/24/18 11/24/18 11/23/18 04:14 04:14 04:30 WBC 11.6 H RBC 3.02 L Hgb 8.6 L Hct 26.8 L RDW 14.8 H Plt Count 471 H Lymphocytes % Platelet Estimate Increased A RBC Morphology Abnorm A Polychromasia Few A Hypochromasia Few A Anisocytosis Few A Ovalocytes Few A BUN Creatinine 1.3 H Glucose Magnesium 1.5 L Albumin 2.6 L 2.6 L Albumin/Globulin Ratio 0.7 L 0.8 L 11/23/18 11/22/18 11/22/18 04:30 04:58 04:58 WBC 12.3 H 12.7 H RBC 2.96 L 3.09 L Hgb 8.5 L 8.8 L Hct 26.2 L 27.5 L RDW 14.9 H 14.7 H Plt Count 464 H 450 H Lymphocytes % 12 L 12 L Platelet Estimate Increased A Increased A RBC Morphology Abnorm A Abnorm A Polychromasia 1+ A Few A Hypochromasia 1+ A 1+ A Anisocytosis Ovalocytes BUN 25 H Creatinine 1.3 H Glucose 121 H Magnesium Albumin 2.7 L Albumin/Globulin Ratio 0.8 L Microbiology 11/20/18 16:45 Blood Culture - Preliminary Blood 11/20/18 16:38 Blood Culture - Preliminary Blood 11/20/18 17:00 Gram Stain - Final Pleural Fluid Anaerobic Culture - Preliminary Streptococcus intermedius 11/20/18 17:00 Gram Stain - Final Pleural Fluid Body Fluid Culture - Final 11/20/18 18:30 MRSA (PCR) - Final Nose Meds: Medications Acetaminophen (Tylenol) 650 mg PO Q4-6HP PRN PRN Reason: PAIN/FEVER > 101 Albuterol Sulfate (Ventolin) 1 - 2 puff INH Q4HP PRN PRN Reason: Wheezing Albuterol/Ipratropium (Duoneb) 3 ml NEB Q4HP PRN PRN Reason: Shortness Of Breath Last Admin: 11/23/18 09:19 Dose: 3 ml Documented by: Aspirin (Ecotrin) 325 mg PO BID [facility] Last Admin: 11/24/18 09:59 Dose: 325 mg Documented by: Ceftriaxone Sodium (Rocephin) 1 gm IV DAILY [facility]; Protocol Chlorthalidone (Hygroton) 50 mg PO QDAY [facility] Last Admin: 11/24/18 10:00 Dose: 50 mg Documented by: Cyanocobalamin (Vitamin B-12) 1,000 mcg PO BID [facility] Stop: 11/25/18 09:01 Last Admin: 11/23/18 20:23 Dose: 1,000 mcg Documented by: Docusate Sodium (Colace) 100 mg PO BID [facility] Last Admin: 11/24/18 10:01 Dose: Not Given Documented by: Fish Oil (Fish Oil) 1,000 mg PO DAILY [facility] Last Admin: 11/24/18 10:00 Dose: 1,000 mg Documented by: Folic Acid (Folic Acid) 1 mg PO DAILY [facility] Last Admin: 11/24/18 10:03 Dose: 1 mg Documented by: Guaifenesin/Codeine Phosphate (Robitussin Ac) 10 ml PO Q4HP PRN PRN Reason: Cough Last Admin: 11/24/18 03:18 Dose: 10 ml Documented by: Heparin Sodium (Porcine) (Heparin) 5,000 unit SQ Q12 [facility] Last Admin: 11/24/18 10:04 Dose: 5,000 unit Documented by: Acetaminophen (Ofirmev) 1,000 mg in 100 mls @ 200 mls/hr IV Q6HP PRN PRN Reason: PAIN/FEVER > 101 Iron Carb/Multivit/[place]/Folic Acid (Multivitamin W/Minerals) 1 tab PO DAILY [facility] Last Admin: 11/24/18 09:58 Dose: 1 tab Documented by: Losartan Potassium (Cozaar) 100 mg PO DAILY [facility] Last Admin: 11/24/18 10:00 Dose: 100 mg Documented by: Melatonin (Melatonin 3mg Tablet) 3 mg PO HSP PRN PRN Reason: Insomnia Metronidazole (Flagyl) 500 mg PO Q8 [facility]; Protocol Multivitamins/Minerals (Ocuvite) 1 tab PO DAILY [facility] Ondansetron HCl (Zofran) 4 mg IV Q4-6HP PRN PRN Reason: Nausea And Vomiting Oxymetazoline HCl (Afrin) 2 spray JORGE BIDP PRN PRN Reason: Congestion Last Admin: 11/24/18 05:24 Dose: 2 spray Documented by: Potassium Chloride (Klor-Con) 40 meq PO DAILYP PRN PRN Reason: K+ < 3.5 Senna/Docusate Sodium (Senna Plus Tablet) 1 tab PO HS [facility] Last Admin: 11/23/18 20:23 Dose: Not Given Documented by: Sodium Chloride (Saline Flush) 10 ml IV Q8 [facility] Last Admin: 11/24/18 05:24 Dose: 10 ml Documented by: Tamsulosin HCl (Flomax) 0.4 mg PO QDAY [facility] Last Admin: 11/24/18 10:00 Dose: 0.4 mg Documented by: Verapamil HCl (Calan Sr) 240 mg PO BID [facility] Last Admin: 11/24/18 09:59 Dose: 240 mg Documented by: Verapamil HCl (Calan) 80 mg PO ONCE PRN PRN Reason: hypertension Medical - PN: A/P - Time Spent With Patient Total time spent is greater than 50% in coordination of care (as documented) at patient's floor/unit and/or counseling patient: 25 - 35 minutes (1) Cavitating mass of lung Status: Acute Current Visit: Yes - Narrative A/P Narrative: Necrotizing pneumonia right upper lobe. Cultures now identifying anaerobes as strep intermedius. Often associated with aspiration. Still suspect this may be polymicrobial infection; will make antibiotic changes based upon discussion with ID. With anaerobes identified, query whether actinomyces may be present and causing the extensive right upper lobe mass. Tumor does need to be ruled out. Pathology remains pending. Plan: Change to ceftriaxone and metronidazole today. Consider pulmonary (likely will need bronchoscopy at some point for tissue biopsy) and infectious disease consults (particularly if needing prolonged antibiotics). Sepsis. Source of sepsis is his lung infection, whether primary pneumonia or necrotic tumor with infection. Improving. White count trending down. Hemodynamics are stable. Plan: Continue antibiotics. History of reactive airway disease. Stable. Plan: Continue bronchodilators. Hypertension. Stable. Plan: Continue home medications which include losartan, verapamil, thiazide diuretic. BPH. Stable. Plan: Continue tamsulosin. Macular degeneration. Stable. CODE STATUS: Full code. Prophylaxis: Heparin. Medical - PN: Qual - VTE Deep Vein Thrombosis/Pulmonary Embolism Present on Admission: No
[2018-11-24] MEDS: cefTRIAXone 1 GM VIAL IV SCH (12:04)
[2018-11-24] MEDS: CYANOCOBALAMIN (VITAMIN B-12) 500 MCG TABLET PO SCH ×2 (12:04→20:07)
[2018-11-24] MEDS: VIT A,C & E/LUTEIN/MINERALS TABLET PO SCH (12:05)
[2018-11-24] MEDS: metroNIDAZOLE 500 MG TABLET PO SCH ×2 (14:08→21:42)
[2018-11-24] MEDS: SENNOSIDES/DOCUSATE SODIUM 1 TAB TABLET PO SCH (20:07)
[2018-11-25 06:36] LABS: Hematocrit 28.6 % (41.0-55.0); Hemoglobin 9.2 g/dL (13.5-16.5); Mean Cell Volume 89.3 fL (80.0-100.0); Mean Platelet Volume 7.7 fL (7.4-10.4); Platelet Count 501 K/mcL (140-440); RBC 3.21 M/mcL (4.50-5.90); Red Cell Distribution Width 14.9 % (11.5-14.5); WBC 11.8 K/mcL (4.5-11.0)
[2018-11-25] MEDS: metroNIDAZOLE 500 MG TABLET PO SCH ×3 (06:42→22:27)
[2018-11-25 06:48] LABS: ALT/SGPT 45 U/l (0-40); AST/SGOT 46 U/l (0-37); Albumin 2.8 gm/dL (3.2-5.2); Albumin/Globulin Ratio 0.8 (1.0-2.3); Alkaline Phosphatase 105 U/L (39-117); Bilirubin,Direct < 0.2 mg/dL (0.0-0.3); Bilirubin,Total 0.2 mg/dL (0.0-1.0); Blood Urea Nitrogen 20 mg/dl (8-23); Carbon Dioxide 26 mmol/L (22-30); Chloride 103 mmol/L (96-108); Globulin 3.3 gm/dL (2.2-3.7); Glomerular Filtration Rate 65; Glucose 98 mg/dL (70-105); Lactate Dehydrogenase 136 U/L (94-250); Phosphorous 3.2 mg/dL (2.7-4.5); Triglycerides 88 mg/dl (<150); Uric Acid 4.9 mg/dL (2.5-8.0)
[2018-11-25] MEDS: 0.9 % SODIUM CHLORIDE 10 ML SYRINGE IV SCH ×3 (07:36→20:54)
[2018-11-25] MEDS: HEPARIN 5,000 UNIT/ML VIAL SQ SCH ×2 (08:38→20:24)
[2018-11-25] MEDS: cefTRIAXone 1 GM VIAL IV SCH (08:38)
[2018-11-25] MEDS: CHLORTHALIDONE 25 MG TABLET PO SCH (08:39)
[2018-11-25] MEDS: MULTIVIT,THER IRON,CA,FA & MIN 1 TABLET PO SCH (08:39)
[2018-11-25] MEDS: VERAPAMIL 120 MG TAB.XL.24H PO SCH ×2 (08:39→20:23)
[2018-11-25] MEDS: VIT A,C & E/LUTEIN/MINERALS TABLET PO SCH (08:40)
[2018-11-25] MEDS: TAMSULOSIN 0.4 MG CAPSULE PO SCH (08:40)
[2018-11-25] MEDS: DOCUSATE SODIUM 100 MG CAPSULE PO SCH ×2 (08:40→20:23)
[2018-11-25] MEDS: FISH OIL 1,000 MG CAPSULE PO SCH (08:40)
[2018-11-25] MEDS: CYANOCOBALAMIN (VITAMIN B-12) 500 MCG TABLET PO SCH (08:40)
[2018-11-25] MEDS: LOSARTAN 50 MG TABLET PO SCH (08:40)
[2018-11-25] MEDS: ASPIRIN 325 MG ENTERIC COATED TABLET PO SCH ×2 (08:41→20:23)
[2018-11-25] MEDS: FOLIC ACID 1 MG TABLET PO SCH (08:41)
[2018-11-25] MEDS: OXYMETAZOLINE 1 SPRAY BOTTLE NAS PRN ×2 (08:55→20:24)
[2018-11-25 09:28] LABS: Eosinophils % (Manual) 3 % (0-7); Hypochromasia 1+ (NONE SEEN); Lymphocytes % 15 % (15-49); Monocytes % (Manual) 5 % (1-12); Myelocytes % 3 % (0-0); Platelet Estimate INCREASED (NORMAL); Poikilocytosis FEW (NONE SEEN); Polychromasia 1+ (NONE SEEN); RBC Fragments RARE (NONE SEEN); RBC Morphology ABNORM (NORMAL); Segmented Neutrophils % 74 % (38-78); Tear Drop Cells FEW (NONE SEEN)
--- NOTE | 2018-11-25 10:56 | Internal Med Progress Note ---
Medical - PN: Subj Patient information: Note initiated : 11/25/18 at 10:54 am Service Date, if different from initiated Date: [] Patient: Tarik Dunn a 78 y/o M admitted on 11/20/18 for Shortness of breath. Chief Complaint: [] Interval history: Mr. Dunn is a 78 year old M with a history of hypertension otherwise fairly independent who lives by himself presents to the ER with 6 weeks onset of progressive cough weakness fatigue. Symptoms were gradual in onset without associated fever or chills or bloody sputum. Patient denies associated weight loss, shaking chills or sweats. He denies sick contacts. Over the last week and a half he has become extremely weak fatigued unable to function. He survived a near fall. With increasing concerns patient was evaluated by primary care physician and was referred to the ER after chest imaging revealed a suspicious right upper lobe mass. Initial work-up in the ER was consistent with right upper lobe infiltrative lesion. White count over 20,000. Patient underwent lung biopsy by interventional radiology. Culture was sent and patient was started on antibio tic after biopsy revealed pus and necrotic tissue. Case was subsequently discussed with [place] remelter Dr. Zepeda. Based on imaging appearance consistent with necrotizing pneumonia. Pul source inspector recommended management with antibiotics and admission. Hospitalist service is consulted for admission At the time of evaluation multiple family members are present. Most of the history was obtained from review of medical records/ER physician and patient himself. Patient denies any active distress or chest pain/pleurisy. He endorses to history as above. He denies night sweats/chills or weight loss. 11/21-patient clinically improved. Continuing Zosyn and vancomycin for necrotizing pneumonia. Tolerating diet and physical therapy. White count down from 20.8-20.5. Gram-positive cocci from lung biopsy/pus aspirate. Consider ID consult early next week along with pulmonary consult for bronchoscopy. Family made aware of treatment plan. Transfer to medical floor 1patient is feeling improved. Still overall weak. Appetite improving. Preliminary cultures show anaerobic organisms. White count down to 12,000. 2patient continues to feel improved. Seen at bedside with family and therapists. Strength is improving. Appetite is good. Cultures from abscess show strep intermedius. 3continues to slowly improve. Discussed with pathologist this morning, seen mostly inflammatory/infectious findings. Explained clinical situation and concern for possible postobstructive pneumonia, will do further stains. Informally discussed with ID, recommended changing to ceftriaxone and metronidazole for antibiotic coverage. ID would be happy to formally consult if prolonged antibiotics will be indicated and to help manage. 11/25-patient doing well on antibiotic coverage. No overnight fever chills. Persistent cough productive sputum. Pulmonology consulted. No family at bedside. Appetite good. Ongoing physical therapy and ambulating. - Constitutional Vitals: Vital Signs Temp Pulse Resp BP Pulse Ox 97.7 F 85 18 137/62 95 11/25/18 08:00 11/25/18 08:00 11/25/18 08:00 11/25/18 08:00 11/25/18 08:00 Period Temp Pulse Resp BP Sys/Calabrese Pulse Ox Last 24 Hr 97.1 F-97.9 F 66-85 18-24 124-149/62-69 94-98 Intake and Output 11/24/18 11/25/18 11/25/18 21:59 05:59 13:59 Intake Total 240 425 120 Output Total 600 525 200 Balance -360 -100 -80 Weight 202 lb Intake & Output: Intake & Output 11/24/18 11/25/18 11/25/18 21:59 05:59 13:59 Intake Total 240 425 120 Output Total 600 525 200 Balance -360 -100 -80 Weight 202 lb Intake: Oral 240 425 120 Output: Void Amount 600 525 200 Other: Meal Dinner Breakfast Percent of Meal Consumed 75% 100% Feeding Ability Assist with Tray Set Up Urine Appearance Clear Urine Color Dark Yellow Dark Yellow Stool Size Small Stool Color Brown Stool Consistency Formed # Voids 1 # Bowel Movements 1 General appearance: no acute distress Exam: Alert oriented nonlabored breathing Diminished breath sounds right upper lobe No anxiety Regular rhythm Medical - PN: Obj Da - Labs CBC & Chem 7: 11/25/18 04:14 11/25/18 04:14 Labs: Abnormal Lab Results 11/25/18 11/25/18 11/24/18 04:14 04:14 04:14 WBC 11.8 H RBC 3.21 L Hgb 9.2 L Hct 28.6 L RDW 14.9 H Plt Count 501 H Lymphocytes % Myelocytes % 3 H Platelet Estimate Increased A RBC Morphology Abnorm A Polychromasia 1+ A Hypochromasia 1+ A Poikilocytosis Few A Anisocytosis Tear Drop Cells Few A Ovalocytes RBC Fragments Rare A Creatinine 1.3 H Magnesium 1.5 L AST 46 H ALT 45 H Albumin 2.8 L 2.6 L Albumin/Globulin Ratio 0.8 L 0.7 L 11/24/18 11/23/18 11/23/18 04:14 04:30 04:30 WBC 11.6 H 12.3 H RBC 3.02 L 2.96 L Hgb 8.6 L 8.5 L Hct 26.8 L 26.2 L RDW 14.8 H 14.9 H Plt Count 471 H 464 H Lymphocytes % 12 L Myelocytes % Platelet Estimate Increased A Increased A RBC Morphology Abnorm A Abnorm A Polychromasia Few A 1+ A Hypochromasia Few A 1+ A Poikilocytosis Anisocytosis Few A Tear Drop Cells Ovalocytes Few A RBC Fragments Creatinine Magnesium AST ALT Albumin 2.6 L Albumin/Globulin Ratio 0.8 L Meds: Medications Acetaminophen (Tylenol) 650 mg PO Q4-6HP PRN PRN Reason: PAIN/FEVER > 101 Albuterol Sulfate (Ventolin) 1 - 2 puff INH Q4HP PRN PRN Reason: Wheezing Albuterol/Ipratropium (Duoneb) 3 ml NEB Q4HP PRN PRN Reason: Shortness Of Breath Last Admin: 11/23/18 09:19 Dose: 3 ml Documented by: Aspirin (Ecotrin) 325 mg PO BID [facility] Last Admin: 11/25/18 08:41 Dose: 325 mg Documented by: Ceftriaxone Sodium (Rocephin) 1 gm IV DAILY [facility]; Protocol Last Admin: 11/25/18 08:38 Dose: 1 gm Documented by: Chlorthalidone (Hygroton) 50 mg PO QDAY [facility] Last Admin: 11/25/18 08:39 Dose: 50 mg Documented by: Docusate Sodium (Colace) 100 mg PO BID [facility] Last Admin: 11/25/18 08:40 Dose: 100 mg Documented by: Fish Oil (Fish Oil) 1,000 mg PO DAILY [facility] Last Admin: 11/25/18 08:40 Dose: 1,000 mg Documented by: Folic Acid (Folic Acid) 1 mg PO DAILY [facility] Last Admin: 11/25/18 08:41 Dose: 1 mg Documented by: Guaifenesin/Codeine Phosphate (Robitussin Ac) 10 ml PO Q4HP PRN PRN Reason: Cough Last Admin: 11/24/18 20:16 Dose: 10 ml Documented by: Heparin Sodium (Porcine) (Heparin) 5,000 unit SQ Q12 [facility] Last Admin: 11/25/18 08:38 Dose: 5,000 unit Documented by: Acetaminophen (Ofirmev) 1,000 mg in 100 mls @ 200 mls/hr IV Q6HP PRN PRN Reason: PAIN/FEVER > 101 Iron Carb/Multivit/[place]/Folic Acid (Multivitamin W/Minerals) 1 tab PO DAILY [facility] Last Admin: 11/25/18 08:39 Dose: 1 tab Documented by: Losartan Potassium (Cozaar) 100 mg PO DAILY [facility] Last Admin: 11/25/18 08:40 Dose: 100 mg Documented by: Melatonin (Melatonin 3mg Tablet) 3 mg PO HSP PRN PRN Reason: Insomnia Metronidazole (Flagyl) 500 mg PO Q8 [facility]; Protocol Last Admin: 11/25/18 06:42 Dose: 500 mg Documented by: Multivitamins/Minerals (Ocuvite) 1 tab PO DAILY [facility] Last Admin: 11/25/18 08:40 Dose: 1 tab Documented by: Ondansetron HCl (Zofran) 4 mg IV Q4-6HP PRN PRN Reason: Nausea And Vomiting Oxymetazoline HCl (Afrin) 2 spray JORGE BIDP PRN PRN Reason: Congestion Last Admin: 11/25/18 08:55 Dose: 2 spray Documented by: Potassium Chloride (Klor-Con) 40 meq PO DAILYP PRN PRN Reason: K+ < 3.5 Senna/Docusate Sodium (Senna Plus Tablet) 1 tab PO HS [facility] Last Admin: 11/24/18 20:07 Dose: 1 tab Documented by: Sodium Chloride (Saline Flush) 10 ml IV Q8 [facility] Last Admin: 11/25/18 07:36 Dose: 10 ml Documented by: Tamsulosin HCl (Flomax) 0.4 mg PO QDAY [facility] Last Admin: 11/25/18 08:40 Dose: 0.4 mg Documented by: Verapamil HCl (Calan Sr) 240 mg PO BID [facility] Last Admin: 11/25/18 08:39 Dose: 240 mg Documented by: Verapamil HCl (Calan) 80 mg PO ONCE PRN PRN Reason: hypertension Medical - PN: A/P - Time Spent With Patient Total time spent is greater than 50% in coordination of care (as documented) at patient's floor/unit and/or counseling patient: 25 - 35 minutes (1) Necrotizing pneumonia Status: Acute Assessment and plan: * Right upper lobe necrotizing pneumonia-strep intermedius on culture. Continue Rocephin/Flagyl. * Right upper lobe mass lesion-status post CT-guided needle aspirate. Await pulmonology consult. * Sepsis secondary to above -white count normalized to 11. Continue antibiotics. * History of reactive airway disease continue bronchodilators * History of hypertension-continue home medications including verapamil/losartan/thiazide * BPH continue tamsulosin * Full code * prophylaxis heparin Plan * Pulmonary consult * Continue antibiotic coverage * Prior Medical condition management on home meds * Continue PT OT/dietary intervention * Discharge planning Current Visit: Yes Medical - PN: Qual - VTE Deep Vein Thrombosis/Pulmonary Embolism Present on Admission: No
--- NOTE | 2018-11-25 12:09 | Surgical Pathology Report ---
HISTOLOGY SPECIMEN MICROSCOPIC DIAGNOSIS LUNG, RIGHT, MASS, NEEDLE CORE BIOPSY: -- INFLAMMATORY DEBRIS WITH ASSOCIATED BACTERIAL AND FUNGAL ORGANISMS; SEE COMMENT. -- NO MALIGNANCY IDENTIFIED. (DMT:jt) COMMENT: The clinical impression of an approximately 9 cm mass-like infiltrate with concern for malignancy is noted. The submitted sample consists entirely of necroinflammatory debris with numerous neutrophils and macrophages. A tissue gram stain and GMS stain are performed (adequate technical controls) and highlight numerous gram positive coccoid bacteria, numerous fungal yeast forms and few, possible gram negative abilio-shaped bacteria (please see concurrent microbiology culture results for further characterization). No malignant cells are identified morphologically or by immunohistochemistry. No acid fast organisms are identified on AFB stain (Adequate technical control). Overall, the findings are compatible with sampling of an abscess cavity associated with pneumonia. While a malignant process is not identified within the submitted sample, pneumonia can arise within lung parenchyma adjacent to mass lesions. Therefore, clinical and radiographic correlation are necessary to determine whether the submitted tissue is medical customer service representative of the entire infiltrate. If clinical concern for malignancy remains, then additional sampling is suggested. MICROSCOPIC DESCRIPTION The following immunohistochemical studies are performed to exclude occult carcinoma cells within the necro-inflammatory debris: Cell Population: Epithelioid cells. CD68: Positive. Pancytokeratin Plus: Negative. Interpretation: Epithelioid cells are macrophages. No occult carcinoma cells identified. Some of the tests reported here may not have been cleared or approved by the [place]. Food and Drug Administration (FDA). However, the FDA has determined that such clearance or approval is not necessary. Pursuant to the requirements of CLIA, this laboratory has established and verified the accuracy and precision of all tests, and additional information about these tests is available upon request. All technical controls are adequate. PROCEDURAL IMPRESSION Mass. GROSS DESCRIPTION Received in formalin labeled right lung, are multiple fragments of adams-valdez tissue in aggregate measuring 0.3 x 0.1 by less than 0.1 cm. Totally submitted in one cassette. (KGW:adj) Electronically Signed by: José Luis Blakely M.D.
--- NOTE | 2018-11-25 20:18 | Consultation ---
DATE OF CONSULTATION: 11/25/2018 REQUESTING PHYSICIAN: Dr. Padilla CONSULTING PHYSICIAN: Dr. Johnson, pulmonary. The patient's age is 78. HISTORY OF PRESENT ILLNESS: The patient is a 78-year-old gentleman admitted on 11/20/2018 after episode of several days of weakness and being unwell. He was initially taken to his primary care provider, who indicated pneumonia, and he was transferred to the emergency room. Imaging at that time indicated the presence of a right upper lobe mass-like lesion. A CT-directed biopsy was performed in this area which demonstrated necrotic material, no malignant cells, and grew Strep intermedius. The patient was initiated on broad-spectrum antibiotic coverage which have been consolidated down after a phone consultation with infectious disease to Rocephin and metronidazole. The patient's initial white blood cell count was 20,000 and has improved as has renal function and other parameters in the patient's sense of health over the 4 days since admission. Consultation is placed to pulmonary over the unusual nature of the process and out of concern of a proximal obstruction or other issue that might warrant bronchoscopy. 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 He grew up in a home with heavy smokers. He has never smoked or drank since he was 23. He denies unusual pets, plants, or birds in the home. He denies known exposure to tuberculosis or previous PPD skin testing. He has occasional indigestion for which he takes Rolaids. He sleeps flat usually on his left or right side, more so his right. His daughter is present and offers the history that they had travelled to [place] on a cruise in August. He had done well with that, but apparently had deteriorated with weakness over the few days prior to presentation, he had a fall. He denies tyler fever, sweats, chills, or sputum production. He does have macular degeneration. He denies cardiac illness. He denies unusual hobbies with inhalational exposures. On detailed questioning, the patient indicates that approximately 10 days prior to his presentation, he did have a cavity worked on and saw the dentist. REVIEW OF SYSTEMS: Detailed system review is negative, except as recorded above. PHYSICAL EXAMINATION: GENERAL: A pleasant 78-year-old gentleman in no acute distress, casting eyes as if he does have macular degeneration. HEENT: Head is atraumatic and normocephalic. NECK: Supple. Carotids equal without bruits. LUNGS: Mildly decreased breath sounds, more so in the right upper lobe laterally with occasional/rare rhonchus. HEART: Regular S1, S2. No apparent gallop, rub, jugular venous distention, or edema. ABDOMEN: Soft. Bowel sounds present. Liver and spleen not palpable. BONES, JOINTS, AND EXTREMITIES: Intact perhaps a trace of dependent edema. NEUROLOGIC: Nonfocal. LABORATORY DATA: Collected during this hospitalization includes CBC with a white count of 20.5, improved to 11.8 today; hemoglobin 8.8, improved to 9.2 today. Segmented neutrophils 82% on presentation and now 74. Creatinine 1.3 and BUN 25 at presentation, today 20 and 1.1. Radiology is consistent as described with dense infiltrate in the right upper lobe and posterior segment with some air consistent with an anaerobic process and perhaps early abscess. IMPRESSION: Anaerobic lung infection, possibly secondary to dental procedure. Agree with covering anaerobes. The patient will likely need a 6-week course of antibiotics, especially if the abscess formation is discovered. Recommend as long as clinical course goes well to continue coverage for the extended period of time with followup imaging at about 6 weeks as long as clinical course is one of improvement. We will discuss and follow with as requested. Thank you for the opportunity to participate in the care of this very pleasant gentleman. CITLALLI:zaire Job ID: [id number] Doc ID: [id number] Sylvester Johnson MD
[2018-11-25] MEDS: SENNOSIDES/DOCUSATE SODIUM 1 TAB TABLET PO SCH (20:23)
[2018-11-25] MEDS: guaiFENesin/CODEINE 10 ML UDC PO PRN (20:24)
[2018-11-26] MEDS: metroNIDAZOLE 500 MG TABLET PO SCH ×3 (06:00→21:29)
[2018-11-26] MEDS: 0.9 % SODIUM CHLORIDE 10 ML SYRINGE IV SCH ×4 (06:00→20:36)
[2018-11-26] MEDS: LOSARTAN 50 MG TABLET PO SCH (08:08)
[2018-11-26] MEDS: CHLORTHALIDONE 25 MG TABLET PO SCH (08:08)
[2018-11-26] MEDS: cefTRIAXone 1 GM VIAL IV SCH (08:09)
[2018-11-26] MEDS: MULTIVIT,THER IRON,CA,FA & MIN 1 TABLET PO SCH (08:09)
[2018-11-26] MEDS: FISH OIL 1,000 MG CAPSULE PO SCH (08:09)
[2018-11-26] MEDS: TAMSULOSIN 0.4 MG CAPSULE PO SCH (08:09)
[2018-11-26] MEDS: ASPIRIN 325 MG ENTERIC COATED TABLET PO SCH ×2 (08:09→20:34)
[2018-11-26] MEDS: DOCUSATE SODIUM 100 MG CAPSULE PO SCH ×2 (08:09→20:34)
[2018-11-26] MEDS: VIT A,C & E/LUTEIN/MINERALS TABLET PO SCH (08:09)
[2018-11-26] MEDS: VERAPAMIL 120 MG TAB.XL.24H PO SCH ×2 (08:10→20:34)
[2018-11-26] MEDS: HEPARIN 5,000 UNIT/ML VIAL SQ SCH ×2 (09:26→20:35)
[2018-11-26] MEDS: FOLIC ACID 1 MG TABLET PO SCH (09:29)
[2018-11-26] MEDS ORDERED: cefTRIAXone 1 GM VIAL IV ONE (13:15)
[2018-11-26] MEDS ORDERED: 0.9 % SODIUM CHLORIDE 10 ML SYRINGE IV PRN (13:48)
--- NOTE | 2018-11-26 14:19 | Infectious Disease Consult ---
History of Present Illness Patient information: Note initiated : 11/26/18 at 2:16 pm Service Date, if different from initiated Date: [] Patient: Tarik Dunn 78 y/o M admitted on 11/20/18 for Shortness of breath. Chief Complaint: [] Consult date: 11/26/18 Requesting Physician: Haroldo Padilla Reason for Consult: Per request of Dr Padilla Chief complaint: I had cough with sputum production History of present illness: 78 year old otherwise healthy man with PMHx of HTN and ARMD was admitted to [facility] after finding of a mass on CXR. Pt reports developing cough with sputum production, yellow colored since about 6 weeks. He also noticed fatigue, and weakness and had a fall about days prior to admission. He denied any fever, chills, n/v, diarrhea, chest pain, SOB. He mentioned he had recently traveled to [place] in August. He also had a dental filling done about early October. He was seen by his PCP who ordered a CXR, which showed a right upper lobe mass. Initial work-up in the ED included chest CT on 11/20 which showed 8.9 x 7 x 6 cm mass lesion with central cavitation, and compression on right lobe bronchus. WBC was 20,000 with neutrophillic predominance. IR attempted a lung biopsy during which pus was aspirated and sent for path, GS, C/S. Pt was started on IV Vanc and IV Zosyn. Case was d/w [employer] rescue instructor Dr. Zepeda who suggested IV antibiotics fr cavitary necrotizing pneumonia. On 11/24, pt was switched to IV Ceftriaxone and PO Metronidazole based on aspirate Cx results showing Strept intermedius. ID was consulted today. At time of visit, pt reported feeling 80% better than at admission. Denied any fever, chills, n/v, diarrhea, SOB. Endorsed cough with scant sputum. Pt not sure of color as he cannot see properly due to ARMD. He is able to sit in chair with support. Review of Systems All systems PM: reviewed and no additional remarkable complaints except as stated Constitutional: as per HPI Past History Past family history: no sick contacts Past social history: lives with family in [place], [place] has not smoked since 1959 Medications and Allergies Home Medications Medication Instructions Recorded Confirmed Type aspirin 325 mg tablet 325 mg PO BID 06/06/17 11/20/18 History vit A 7,160 unit-vit C 113 mg-vit 1 tab PO DAILY 06/06/17 11/20/18 History E 100 [id number] tablet albuterol sulfate HFA 90 See Rx Instructions INHALATION Q4H 02/03/18 11/20/18 History mcg/actuation aerosol inhaler PRN g docusate sodium 0 mg PO ONCE PRN 02/03/18 11/20/18 History multivitamin tablet 1 tab PO QDAY 02/03/18 11/20/18 History omega-3 fatty acids-fish oil 1 tab PO QDAY 02/03/18 11/20/18 History vit C-vit Y-qyneov-mztc-lutein 1 tab PO DAILY 02/03/18 11/20/18 History losartan 100 mg tablet 100 mg PO QDAY #90 tab 03/13/18 11/20/18 Rx verapamil 80 mg tablet 80 mg PO ONCE PRN #90 tab 03/13/18 11/20/18 Rx verapamil ER (SR) 240 mg 240 mg PO BID #180 tab 03/13/18 11/20/18 Rx tablet,extended release chlorthalidone 25 mg tablet 50 mg PO QDAY #180 tab 06/18/18 11/20/18 Rx tamsulosin 0.4 mg capsule 0.4 mg PO QDAY #30 cap 11/02/18 11/20/18 Rx Allergies Allergy/AdvReac Type Severity Reaction Status Date / Time MAR Inhibitors Allergy Unknown Unknown Verified 11/25/18 08:54 Physical Examination Vital signs: Temp Pulse Resp BP Pulse Ox 36.4 C 83 18 125/65 96 11/26/18 12:00 11/26/18 12:00 11/26/18 12:00 11/26/18 12:00 11/26/18 12:00 General appearance: no acute distress Eyes pulmonary: nonicteric ENT: oropharynx moist, other (no thrush) Effort: normal Auscultation: bilateral: diminished breath sounds (at bases, rest clear) Cardiovascular: other (s1 s2 normal) Gastrointestinal: normoactive bowel sounds, soft, non-tender Extremities: edema Results - Laboratory Findings CBC and BMP: 11/25/18 04:14 11/25/18 04:14 Abnormal lab findings: Abnormal Labs 11/20/18 11/20/18 11/20/18 13:09 13:09 13:09 WBC 20.8 H RBC 3.47 L Hgb 9.9 L Hct 30.3 L POC Hct 31.0 L RDW 14.9 H Plt Count 535 H Gran % 85.9 H Lymph % (Auto) 7.0 L Gran # 17.9 H Swisher # (Auto) 1.4 H Seg Neutrophils % Lymphocytes % Myelocytes % Platelet Estimate RBC Morphology Polychromasia Hypochromasia Poikilocytosis Anisocytosis Tear Drop Cells Ovalocytes RBC Fragments ESR 104 H POC BUN 28 H BUN 30 H Creatinine 1.4 H POC Creatinine 1.5 H Glucose 118 H POC Glucose 122 H Magnesium AST ALT Alkaline Phosphatase 122 H C-Reactive Protein Albumin 3.0 L Globulin 3.9 H Albumin/Globulin Ratio 0.8 L 11/20/18 11/21/18 11/21/18 13:09 03:56 03:56 WBC 20.5 H RBC 3.11 L Hgb 8.8 L Hct 27.8 L POC Hct RDW 15.0 H Plt Count 494 H Gran % Lymph % (Auto) Gran # Swisher # (Auto) Seg Neutrophils % 82 H Lymphocytes % 7 L Myelocytes % 1 H Platelet Estimate Increased A RBC Morphology Abnorm A Polychromasia Few A Hypochromasia Few A Poikilocytosis Anisocytosis Tear Drop Cells Ovalocytes RBC Fragments ESR POC BUN BUN 27 H Creatinine 1.4 H POC Creatinine Glucose POC Glucose Magnesium 1.5 L AST ALT Alkaline Phosphatase C-Reactive Protein 11.2 H Albumin 2.7 L Globulin Albumin/Globulin Ratio 0.8 L 11/22/18 11/22/18 11/23/18 04:58 04:58 04:30 WBC 12.7 H 12.3 H RBC 3.09 L 2.96 L Hgb 8.8 L 8.5 L Hct 27.5 L 26.2 L POC Hct RDW 14.7 H 14.9 H Plt Count 450 H 464 H Gran % Lymph % (Auto) Gran # Swisher # (Auto) Seg Neutrophils % Lymphocytes % 12 L 12 L Myelocytes % Platelet Estimate Increased A Increased A RBC Morphology Abnorm A Abnorm A Polychromasia Few A 1+ A Hypochromasia 1+ A 1+ A Poikilocytosis Anisocytosis Tear Drop Cells Ovalocytes RBC Fragments ESR POC BUN BUN 25 H Creatinine 1.3 H POC Creatinine Glucose 121 H POC Glucose Magnesium AST ALT Alkaline Phosphatase C-Reactive Protein Albumin 2.7 L Globulin Albumin/Globulin Ratio 0.8 L 11/23/18 11/24/18 11/24/18 04:30 04:14 04:14 WBC 11.6 H RBC 3.02 L Hgb 8.6 L Hct 26.8 L POC Hct RDW 14.8 H Plt Count 471 H Gran % Lymph % (Auto) Gran # Swisher # (Auto) Seg Neutrophils % Lymphocytes % Myelocytes % Platelet Estimate Increased A RBC Morphology Abnorm A Polychromasia Few A Hypochromasia Few A Poikilocytosis Anisocytosis Few A Tear Drop Cells Ovalocytes Few A RBC Fragments ESR POC BUN BUN Creatinine 1.3 H POC Creatinine Glucose POC Glucose Magnesium 1.5 L AST ALT Alkaline Phosphatase C-Reactive Protein Albumin 2.6 L 2.6 L Globulin Albumin/Globulin Ratio 0.8 L 0.7 L 11/25/18 11/25/18 04:14 04:14 WBC 11.8 H RBC 3.21 L Hgb 9.2 L Hct 28.6 L POC Hct RDW 14.9 H Plt Count 501 H Gran % Lymph % (Auto) Gran # Swisher # (Auto) Seg Neutrophils % Lymphocytes % Myelocytes % 3 H Platelet Estimate Increased A RBC Morphology Abnorm A Polychromasia 1+ A Hypochromasia 1+ A Poikilocytosis Few A Anisocytosis Tear Drop Cells Few A Ovalocytes RBC Fragments Rare A ESR POC BUN BUN Creatinine POC Creatinine Glucose POC Glucose Magnesium AST 46 H ALT 45 H Alkaline Phosphatase C-Reactive Protein Albumin 2.8 L Globulin Albumin/Globulin Ratio 0.8 L Microbiology: Microbiology 11/20/18 16:45 Blood Blood Culture - Final 11/20/18 16:38 Blood Blood Culture - Final 11/20/18 17:00 Pleural Fluid Gram Stain - Final 11/20/18 17:00 Pleural Fluid Anaerobic Culture - Preliminary Streptococcus intermedius 11/20/18 17:00 Pleural Fluid Gram Stain - Final 11/20/18 17:00 Pleural Fluid Body Fluid Culture - Final 11/20/18 18:30 Nose MRSA (PCR) - Final Assessment and Plan - Narrative A/P Narrative: A: 1. Rt upper lobe necrotizing pneumonia with cavity: - Cx from pus aspirated from the cavity grew Strept intermedius (a known viridans Strept species notorious for abscess formation). Likely mechanism seems to be aspiration following dental filling. Strep intermedius is known to be p art of oral daniel dia in those with dental caries - biopsy neg for malignancy but reports of fungal (yeast-like organisms is concerning) and warrants further w/u. Possible yeast which can cause such i nfections include: Cryptococcus errol, Histoplasma - repeat CT today suggest "8.6 x 7.4 cm right upper lobe abscess slightly decreasing since comparison CT approximately one week prior. There is now c entral liquefaction and maturing of a surrounding abscess capsule". 2. No sepsis Recommendations: - IV Ceftriaxone dosing increased to 2 gm q24 hrs - Continue PO Metronidazole 500 mg q8 hrs - Consider IR guided drainage of the right upper lung abscess for optimal source control. Send aspirate for GS & C/S, fungal stain & C/S, AFB stain and mycobacterial C/S - will send urine Histoplasma Ag, serum Cryptococcal Ag, serum histoplasma galactomannan - consider PICC line placement - will comment on duration and f/u details near discharge will follow Milton Meyer MD Infectious diseases
--- NOTE | 2018-11-26 15:38 | Internal Med Progress Note ---
Medical - PN: Subj Patient information: Note initiated : 11/26/18 at 3:38 pm Service Date, if different from initiated Date: [] Patient: Tarik Dunn a 78 y/o M admitted on 11/20/18 for Shortness of breath. Chief Complaint: [] Interval history: Mr. Dunn is a 78 year old M with a history of hypertension otherwise fairly independent who lives by himself presents to the ER with 6 weeks onset of progressive cough weakness fatigue. Symptoms were gradual in onset without associated fever or chills or bloody sputum. Patient denies associated weight loss, shaking chills or sweats. He denies sick contacts. Over the last week and a half he has become extremely weak fatigued unable to function. He survived a near fall. With increasing concerns patient was evaluated by primary care physician and was referred to the ER after chest imaging revealed a suspicious right upper lobe mass. Initial work-up in the ER was consistent with right upper lobe infiltrative lesion. White count over 20,000. Patient underwent lung biopsy by interventional radiology. Culture was sent and patient was started on antibiot ic after biopsy revealed pus and necrotic tissue. Case was subsequently discussed with [place] family lawyer Dr. Zepeda. Based on imaging appearance consistent with necrotizing pneumonia. Pulm onologist recommended management with antibiotics and admission. Hospitalist service is consulted for admission At the time of evaluation multiple family members are present. Most of the history was obtained from review of medical records/ER physician and patient himself. Patient denies any active distress or chest pain/pleurisy. He endorses to history as above. He denies night sweats/chills or weight loss. 11/21-patient clinically improved. Continuing Zosyn and vancomycin for necrotizing pneumonia. Tolerating diet and physical therapy. White count down from 20.8-20.5. Gram-positive cocci from lung biopsy/pus aspirate. Consider ID consult early next week along with pulmonary consult for bronchoscopy. Family made aware of treatment plan. Transfer to medical floor 1patient is feeling improved. Still overall weak. Appetite improving. Preliminary cultures show anaerobic organisms. White count down to 12,000. 2patient continues to feel improved. Seen at bedside with family and therapists. Strength is improving. Appetite is good. Cultures from abscess show strep intermedius. 3continues to slowly improve. Discussed with pathologist this morning, seen mostly inflammatory/infectious findings. Explained clinical situation and concern for possible postobstructive pneumonia, will do further stains. Informally discussed with ID, recommended changing to ceftriaxone and metronidazole for antibiotic coverage. ID would be happy to formally consult if prolonged antibiotics will be indicated and to help manage. 11/25-patient doing well on antibiotic coverage. No overnight fever chills. Persistent cough productive sputum. Pulmonology consulted. No family at bedside. Appetite good. Ongoing physical therapy and ambulating. 11/26-patient doing well. Currently on antibiotic coverage as per ID. Will undergo CT scan for interval changes including evaluation empyema/further drainable abscess. Case discussed with family. Possible discharge in 24 hours if clinically continues to improve and no further requirement of thoracentesis. Patient will need a minimum of 4 weeks antibiotic coverage and outpatient follow-up with pulmonology/ID on discharge. No fever chills or concerns per nursing staff. - Constitutional Vitals: Vital Signs Temp Pulse Resp BP Pulse Ox 97.5 F 83 18 125/65 96 11/26/18 12:00 11/26/18 12:00 11/26/18 12:00 11/26/18 12:00 11/26/18 12:00 Period Temp Pulse Resp BP Sys/Calabrese Pulse Ox Last 24 Hr 97.1 F-98 F 68-88 16-20 125-139/63-69 94-98 Intake and Output 11/26/18 11/26/18 11/26/18 05:59 13:59 21:59 Intake Total 250 120 Output Total 775 300 100 Balance -525 -180 -100 Weight 204 lb Patient Weight 11/27/18 05:59 Weight 204 lb Intake & Output: Intake & Output 11/26/18 11/26/18 11/26/18 05:59 13:59 21:59 Intake Total 250 120 Output Total 775 300 100 Balance -525 -180 -100 Weight 204 lb Intake: Oral 250 120 Output: Void Amount 775 300 100 Other: Meal Breakfast Percent of Meal Consumed 100% Feeding Ability Independent Urine Appearance Clear Urine Color Dark Yellow Urine Odor Normal Stool Size Small Large Stool Color Brown Brown Stool Consistency Soft Soft Formed Formed # Bowel Movements 1 1 General appearance: no acute distress Exam: alert and oriented No anxiety Nonlabored breathing No lymphedema Ambulating Medical - PN: Obj Da - Labs CBC & Chem 7: 11/25/18 04:14 11/25/18 04:14 Labs: Abnormal Lab Results 11/25/18 11/25/18 11/24/18 04:14 04:14 04:14 WBC 11.8 H RBC 3.21 L Hgb 9.2 L Hct 28.6 L RDW 14.9 H Plt Count 501 H Myelocytes % 3 H Platelet Estimate Increased A RBC Morphology Abnorm A Polychromasia 1+ A Hypochromasia 1+ A Poikilocytosis Few A Anisocytosis Tear Drop Cells Few A Ovalocytes RBC Fragments Rare A Creatinine 1.3 H Magnesium 1.5 L AST 46 H ALT 45 H Albumin 2.8 L 2.6 L Albumin/Globulin Ratio 0.8 L 0.7 L 11/24/18 04:14 WBC 11.6 H RBC 3.02 L Hgb 8.6 L Hct 26.8 L RDW 14.8 H Plt Count 471 H Myelocytes % Platelet Estimate Increased A RBC Morphology Abnorm A Polychromasia Few A Hypochromasia Few A Poikilocytosis Anisocytosis Few A Tear Drop Cells Ovalocytes Few A RBC Fragments Creatinine Magnesium AST ALT Albumin Albumin/Globulin Ratio Meds: Medications Acetaminophen (Tylenol) 650 mg PO Q4-6HP PRN PRN Reason: PAIN/FEVER > 101 Albuterol Sulfate (Ventolin) 1 - 2 puff INH Q4HP PRN PRN Reason: Wheezing Albuterol/Ipratropium (Duoneb) 3 ml NEB Q4HP PRN PRN Reason: Shortness Of Breath Last Admin: 11/23/18 09:19 Dose: 3 ml Documented by: Aspirin (Ecotrin) 325 mg PO BID [facility] Last Admin: 11/26/18 08:09 Dose: 325 mg Documented by: Chlorthalidone (Hygroton) 50 mg PO QDAY [facility] Last Admin: 11/26/18 08:08 Dose: 50 mg Documented by: Docusate Sodium (Colace) 100 mg PO BID [facility] Last Admin: 11/26/18 08:09 Dose: 100 mg Documented by: Fish Oil (Fish Oil) 1,000 mg PO DAILY [facility] Last Admin: 11/26/18 08:09 Dose: 1,000 mg Documented by: Folic Acid (Folic Acid) 1 mg PO DAILY [facility] Last Admin: 11/26/18 09:29 Dose: 1 mg Documented by: Guaifenesin/Codeine Phosphate (Robitussin Ac) 10 ml PO Q4HP PRN PRN Reason: Cough Last Admin: 11/25/18 20:24 Dose: 10 ml Documented by: Heparin Sodium (Porcine) (Heparin) 5,000 unit SQ Q12 [facility] Last Admin: 11/26/18 09:26 Dose: 5,000 unit Documented by: Heparin Sodium (Porcine) (Heparin Flush) 2 ml IV Q12 [facility] Acetaminophen (Ofirmev) 1,000 mg in 100 mls @ 200 mls/hr IV Q6HP PRN PRN Reason: PAIN/FEVER > 101 Ceftriaxone Sodium 2 gm/ (Dextrose) 50 mls @ 100 mls/hr IV DAILY [facility]; Protocol Iron Carb/Multivit/Captree/Folic Acid (Multivitamin W/Minerals) 1 tab PO DAILY [facility] Last Admin: 11/26/18 08:09 Dose: 1 tab Documented by: Losartan Potassium (Cozaar) 100 mg PO DAILY [facility] Last Admin: 11/26/18 08:08 Dose: 100 mg Documented by: Melatonin (Melatonin 3mg Tablet) 3 mg PO HSP PRN PRN Reason: Insomnia Metronidazole (Flagyl) 500 mg PO Q8 [facility]; Protocol Last Admin: 11/26/18 14:44 Dose: 500 mg Documented by: Multivitamins/Minerals (Ocuvite) 1 tab PO DAILY [facility] Last Admin: 11/26/18 08:09 Dose: 1 tab Documented by: Ondansetron HCl (Zofran) 4 mg IV Q4-6HP PRN PRN Reason: Nausea And Vomiting Oxymetazoline HCl (Afrin) 2 spray JORGE BIDP PRN PRN Reason: Congestion Last Admin: 11/25/18 20:24 Dose: 2 spray Documented by: Potassium Chloride (Klor-Con) 40 meq PO DAILYP PRN PRN Reason: K+ < 3.5 Senna/Docusate Sodium (Senna Plus Tablet) 1 tab PO HS [facility] Last Admin: 11/25/18 20:23 Dose: 1 tab Documented by: Sodium Chloride (Saline Flush) 10 ml IV Q8 [facility] Last Admin: 11/26/18 14:36 Dose: 10 ml Documented by: Sodium Chloride (Saline Flush) 10 ml IV UD PRN PRN Reason: FLUSH Sodium Chloride (Saline Flush) 10 ml IV Q12 [facility] Tamsulosin HCl (Flomax) 0.4 mg PO QDAY [facility] Last Admin: 11/26/18 08:09 Dose: 0.4 mg Documented by: Verapamil HCl (Calan Sr) 240 mg PO BID [facility] Last Admin: 11/26/18 08:10 Dose: 240 mg Documented by: Verapamil HCl (Calan) 80 mg PO ONCE PRN PRN Reason: hypertension Medical - PN: A/P - Time Spent With Patient Total time spent is greater than 50% in coordination of care (as documented) at patient's floor/unit and/or counseling patient: 25 - 35 minutes (1) Necrotizing pneumonia Status: Acute Assessment and plan: * Right upper lobe necrotizing pneumonia-strep intermedius on culture. Continue Rocephin/Flagyl as per ID. Target minimum 4 to 6 weeks antibiotic coverage as per ID. * Empyema status post CT-guided drainage. Repeat CT today. Will require further drainage if indicated. * Right upper lobe mass lesion-status post CT-guided needle aspirate. Low probability tumor in light of recent dental procedure and possible aspiration related abscess. Pulmonology will continue to follow outpatient * Sepsis secondary to above -white count normalized to 11. Stable hemodynamics * History of reactive airway disease continue bronchodilators * History of hypertension-continue home medications including verapamil/losartan/thiazide * BPH continue tamsulosin * Full code * prophylaxis heparin Plan * Continue antibiotics as per ID * CT scan chest today * Continue pre-existing medical condition management on home meds * Daily PT OT/dietary intervention * Discharge planning likely in 24 hours with outpatient antibiotics and ID/pulmonology follow-up Current Visit: Yes Medical - PN: Qual - VTE Deep Vein Thrombosis/Pulmonary Embolism Present on Admission: No
[2018-11-26] MEDS ORDERED: IOPAMIDOL 100 ML BOTTLE IV ONE (16:27)
--- NOTE | 2018-11-26 17:54 | Cat Scan Report ---
CLINICAL INFORMATION: Follow-up right upper lobe abscess COMPARISON: Chest CT approximately one week prior - 11/20/2018. TECHNIQUE: 80 cc of Isovue-370 were injected intravenously, and 25 seconds later, 0.625 mm helical slices were obtained from the lung apices through the bases. Following reconstruction, 2.5 mm sagittal, coronal and axial reformations were processed and reviewed at lung, mediastinal and bone windows. 7 mm axial MIPS were also obtained to optimize pulmonary nodule detection. The exam was performed using radiation dose optimization techniques including, but not limited to, automated exposure control, adjustment of the mA and/or kV according to patient size and use of iterative reconstruction technique. FINDINGS: The large abscess dominating the right upper lobe shows slight decrease over the past week. Using identical points for measurement, on the previous study it spanned 8.6 x 7.4 cm and is now 8.4 x 6.4 cm. It encases and mildly narrows the right upper lobe and anterior /posterior segmental bronchi. On today's scan, a 6 cm low-attenuation region has developed centrally compatible with interval liquefaction. There is also a more mature capsule surrounding the abscess. There is minimal patchy airspace disease in the remaining right upper lobe which has decreased. Scattered atelectasis seen in the periphery of both lower lobes. No effusions. Mediastinal windows show the heart is borderline enlarged with scattered atherosclerotic plaque. The thoracic aorta and pulmonary arteries are normal in contour and caliber. There are 4-5 mildly enlarged benign reactive lymph nodes in the right hilar region which are unchanged. The remaining mediastinum and left hilum unremarkable. Esophagus is normal. Thyroid is unremarkable. Bone windows show only degenerative changes in thoracic spine. 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 No other abnormalities the superior abdomen. IMPRESSION: 8.6 x 7.4 cm right upper lobe abscess slightly decreasing since comparison CT approximately one week prior. There is now central liquefaction and maturing of a surrounding abscess capsule. Suggest CT guided percutaneous drain placement Interpreted and Authenticated by: John Medina 11/26/18
--- NOTE | 2018-11-26 17:55 | XRay Report ---
CLINICAL INFORMATION: PICC PLACEMENT COMPARISON: 11/20/2018 FINDINGS: Cardiomediastinal silhouette is accentuated by suboptimal inspiratory result right rotation is within normal limits. Pulmonary vessels unremarkable. Known right upper lobe abscess is slightly smaller than on 11/20/2018. Please see CT report. No effusion IMPRESSION: Slight decrease in right upper lobe abscess since film one week prior. Malpositioned PICC line with the tip in a side branch of the left subclavian vein. Interpreted and Authenticated by: John Medina 11/26/18
--- NOTE | 2018-11-26 18:05 | XRay Report ---
CLINICAL INFORMATION: PICC placement COMPARISON: None. FINDINGS: Left PICC remains malpositioned within the superior side branch of the left subclavian vein. Cardiomediastinal silhouette and pulmonary vessels remain normal. Right known right upper lobe abscess again seen. IMPRESSION: Malpositioned left PICC line. No other change Interpreted and Authenticated by: John Medina 11/26/18
[2018-11-26] MEDS: guaiFENesin/CODEINE 10 ML UDC PO PRN (20:33)
[2018-11-26] MEDS: SENNOSIDES/DOCUSATE SODIUM 1 TAB TABLET PO SCH (20:36)
[2018-11-27] MEDS: 0.9 % SODIUM CHLORIDE 10 ML SYRINGE IV SCH ×5 (05:53→20:53)
[2018-11-27] MEDS: metroNIDAZOLE 500 MG TABLET PO SCH ×3 (05:53→22:21)
[2018-11-27] MEDS ORDERED: LORazepam 2 MG/ML VIAL IV ONE (09:06)
[2018-11-27 10:05] LABS: INR 1.2 (0.9-1.1)
--- NOTE | 2018-11-27 11:07 | Internal Med Progress Note ---
Medical - PN: Subj Patient information: Note initiated : 11/27/18 at 11:04 am Service Date, if different from initiated Date: [] Patient: Tarik Dunn a 78 y/o M admitted on 11/20/18 for Shortness of breath. Chief Complaint: [] Interval history: Mr. Dunn is a 78 year old M with a history of hypertension otherwise fairly independent who lives by himself presents to the ER with 6 weeks onset of progressive cough weakness fatigue. Symptoms were gradual in onset without associated fever or chills or bloody sputum. Patient denies associated weight loss, shaking chills or sweats. He denies sick contacts. Over the last week and a half he has become extremely weak fatigued unable to function. He survived a near fall. With increasing concerns patient was evaluated by primary care physician and was referred to the ER after chest imaging revealed a suspicious right upper lobe mass. Initial work-up in the ER was consistent with right upper lobe infiltrative lesion. White count over 20,000. Patient underwent lung biopsy by interventional radiology. Culture was sent and patient was started on antibio tic after biopsy revealed pus and necrotic tissue. Case was subsequently discussed with [place] russian language professor Dr. Zepeda. Based on imaging appearance consistent with necrotizing pneumonia. Pul vessel liner recommended management with antibiotics and admission. Hospitalist service is consulted for admission At the time of evaluation multiple family members are present. Most of the history was obtained from review of medical records/ER physician and patient himself. Patient denies any active distress or chest pain/pleurisy. He endorses to history as above. He denies night sweats/chills or weight loss. 11/21-patient clinically improved. Continuing Zosyn and vancomycin for necrotizing pneumonia. Tolerating diet and physical therapy. White count down from 20.8-20.5. Gram-positive cocci from lung biopsy/pus aspirate. Consider ID consult early next week along with pulmonary consult for bronchoscopy. Family made aware of treatment plan. Transfer to medical floor 1patient is feeling improved. Still overall weak. Appetite improving. Preliminary cultures show anaerobic organisms. White count down to 12,000. 2patient continues to feel improved. Seen at bedside with family and therapists. Strength is improving. Appetite is good. Cultures from abscess show strep intermedius. 3continues to slowly improve. Discussed with pathologist this morning, seen mostly inflammatory/infectious findings. Explained clinical situation and concern for possible postobstructive pneumonia, will do further stains. Informally discussed with ID, recommended changing to ceftriaxone and metronidazole for antibiotic coverage. ID would be happy to formally consult if prolonged antibiotics will be indicated and to help manage. 11/25-patient doing well on antibiotic coverage. No overnight fever chills. Persistent cough productive sputum. Pulmonology consulted. No family at bedside. Appetite good. Ongoing physical therapy and ambulating. 11/26-patient doing well. Currently on antibiotic coverage as per ID. Will undergo CT scan for interval changes including evaluation empyema/further drainable abscess. Case discussed with family. Possible discharge in 24 hours if clinically continues to improve and no further requirement of thoracentesis. Patient will need a minimum of 4 weeks antibiotic coverage and outpatient follow-up with pulmonology/ID on discharge. No fever chills or concerns per nursing staff. 11/27-patient due to undergo CT-guided abscess drainage. On antibiotic coverage. ID recommends minimum [address] PICC line. Fungal, bacterial/mycobacterial cultures ordered. Review postprocedure - Constitutional Vitals: Vital Signs Temp Pulse Resp BP Pulse Ox 97.6 F 78 16 114/69 95 11/27/18 08:00 11/27/18 04:00 11/27/18 08:00 11/27/18 08:00 11/27/18 08:00 Period Temp Pulse Resp BP Sys/Calabrese Pulse Ox Last 24 Hr 97.4 F-97.7 F 78-92 16-20 114-142/65-73 94-96 Intake and Output 11/26/18 11/27/18 11/27/18 21:59 05:59 13:59 Intake Total 800 120 Output Total 475 475 225 Balance -475 325 -105 Weight 201 lb 8 oz Intake & Output: Intake & Output 11/26/18 11/27/18 11/27/18 21:59 05:59 13:59 Intake Total 800 120 Output Total 475 475 225 Balance -475 325 -105 Weight 201 lb 8 oz Intake: Oral 800 120 Output: Void Amount 475 475 225 Other: Percent of Meal Consumed 80 Feeding Ability Assist with Tray Set Up Urine Color Pale Dark Yellow Bright Yellow Urine Odor Normal Normal Normal Stool Size Large Stool Color Brown Stool Consistency Soft # Bowel Movements 1 General appearance: no acute distress Exam: Alert oriented Nonlabored breathing Diminished breath sound right posterior chest Abdomen nontender nondistended No anxiety Medical - PN: Obj Da - Labs CBC & Chem 7: 11/25/18 04:14 11/25/18 04:14 Labs: Abnormal Lab Results 11/27/18 11/25/18 11/25/18 09:19 04:14 04:14 WBC 11.8 H RBC 3.21 L Hgb 9.2 L Hct 28.6 L RDW 14.9 H Plt Count 501 H Myelocytes % 3 H Platelet Estimate Increased A RBC Morphology Abnorm A Polychromasia 1+ A Hypochromasia 1+ A Poikilocytosis Few A Tear Drop Cells Few A RBC Fragments Rare A PT 15.0 H INR 1.2 H AST 46 H ALT 45 H Albumin 2.8 L Albumin/Globulin Ratio 0.8 L Meds: Medications Acetaminophen (Tylenol) 650 mg PO Q4-6HP PRN PRN Reason: PAIN/FEVER > 101 Albuterol Sulfate (Ventolin) 1 - 2 puff INH Q4HP PRN PRN Reason: Wheezing Albuterol/Ipratropium (Duoneb) 3 ml NEB Q4HP PRN PRN Reason: Shortness Of Breath Last Admin: 11/23/18 09:19 Dose: 3 ml Documented by: Aspirin (Ecotrin) 325 mg PO BID [facility] Last Admin: 11/26/18 20:34 Dose: 325 mg Documented by: Chlorthalidone (Hygroton) 50 mg PO QDAY [facility] Last Admin: 11/26/18 08:08 Dose: 50 mg Documented by: Docusate Sodium (Colace) 100 mg PO BID [facility] Last Admin: 11/26/18 20:34 Dose: Not Given Documented by: Fish Oil (Fish Oil) 1,000 mg PO DAILY [facility] Last Admin: 11/26/18 08:09 Dose: 1,000 mg Documented by: Folic Acid (Folic Acid) 1 mg PO DAILY [facility] Last Admin: 11/26/18 09:29 Dose: 1 mg Documented by: Guaifenesin/Codeine Phosphate (Robitussin Ac) 10 ml PO Q4HP PRN PRN Reason: Cough Last Admin: 11/26/18 20:33 Dose: 10 ml Documented by: Heparin Sodium (Porcine) (Heparin) 5,000 unit SQ Q12 [facility] Last Admin: 11/26/18 20:35 Dose: 5,000 unit Documented by: Heparin Sodium (Porcine) (Heparin Flush) 2 ml IV Q12 [facility] Last Admin: 11/26/18 20:35 Dose: 2 ml Documented by: Acetaminophen (Ofirmev) 1,000 mg in 100 mls @ 200 mls/hr IV Q6HP PRN PRN Reason: PAIN/FEVER > 101 Ceftriaxone Sodium 2 gm/ (Dextrose) 50 mls @ 100 mls/hr IV DAILY [facility]; Protocol Iron Carb/Multivit/[place]/Folic Acid (Multivitamin W/Minerals) 1 tab PO DAILY [facility] Last Admin: 11/26/18 08:09 Dose: 1 tab Documented by: Losartan Potassium (Cozaar) 100 mg PO DAILY [facility] Last Admin: 11/26/18 08:08 Dose: 100 mg Documented by: Melatonin (Melatonin 3mg Tablet) 3 mg PO HSP PRN PRN Reason: Insomnia Metronidazole (Flagyl) 500 mg PO Q8 [facility]; Protocol Last Admin: 11/27/18 05:53 Dose: 500 mg Documented by: Multivitamins/Minerals (Ocuvite) 1 tab PO DAILY [facility] Last Admin: 11/26/18 08:09 Dose: 1 tab Documented by: Ondansetron HCl (Zofran) 4 mg IV Q4-6HP PRN PRN Reason: Nausea And Vomiting Oxymetazoline HCl (Afrin) 2 spray JORGE BIDP PRN PRN Reason: Congestion Last Admin: 11/25/18 20:24 Dose: 2 spray Documented by: Potassium Chloride (Klor-Con) 40 meq PO DAILYP PRN PRN Reason: K+ < 3.5 Senna/Docusate Sodium (Senna Plus Tablet) 1 tab PO HS [facility] Last Admin: 11/26/18 20:36 Dose: Not Given Documented by: Sodium Chloride (Saline Flush) 10 ml IV Q8 [facility] Last Admin: 11/27/18 05:53 Dose: 10 ml Documented by: Sodium Chloride (Saline Flush) 10 ml IV UD PRN PRN Reason: FLUSH Sodium Chloride (Saline Flush) 10 ml IV Q12 [facility] Last Admin: 11/26/18 20:36 Dose: 10 ml Documented by: Tamsulosin HCl (Flomax) 0.4 mg PO QDAY [facility] Last Admin: 11/26/18 08:09 Dose: 0.4 mg Documented by: Verapamil HCl (Calan Sr) 240 mg PO BID [facility] Last Admin: 11/26/18 20:34 Dose: 240 mg Documented by: Verapamil HCl (Calan) 80 mg PO ONCE PRN PRN Reason: hypertension Medical - PN: A/P - Time Spent With Patient Total time spent is greater than 50% in coordination of care (as documented) at patient's floor/unit and/or counseling patient: 25 - 35 minutes (1) Necrotizing pneumonia Status: Acute Assessment and plan: * Right upper lobe necrotizing pneumonia-strep intermedius on culture. Continue antibiotic coverage on Rocephin/Flagyl. * Empyema status post CT-repeat CT shows 8 x 7 cm right upper lobe abscess. Repeat CT guided drainage/drain placement today. Low probability tumor in light of recent dental procedure and possible aspiration related abscess. * Sepsis secondary to above -clinically resolved. White count normalized. * History of reactive airway disease continue bronchodilators * History of hypertension-continue home medications including verap vishal/losartan/thiazide * BPH continue tamsulosin * Full code * prophylaxis heparin Plan * Continue antibiotics as per ID * CT-guided percutaneous drainage today * PICC line placement * Continue pre-existing medical condition management on home meds * Daily PT OT/dietary intervention Current Visit: Yes Medical - PN: Qual - VTE Deep Vein Thrombosis/Pulmonary Embolism Present on Admission: No
[2018-11-27] MEDS ORDERED: LIDOCAINE 1% 20 ML VIAL SQ ONE (11:59)
[2018-11-27] MEDS ORDERED: MIDAZOLAM 2 MG/2 ML VIAL IV PRN (12:07)
[2018-11-27] MEDS ORDERED: fentaNYL 100 MCG/2 ML VIAL IV PRN (12:07)
[2018-11-27] MEDS ORDERED: cefTRIAXone 2 GM VIAL ONE (12:25)
[2018-11-27] MEDS: FISH OIL 1,000 MG CAPSULE PO SCH (12:29)
[2018-11-27] MEDS: DOCUSATE SODIUM 100 MG CAPSULE PO SCH ×2 (12:30→20:51)
[2018-11-27] MEDS: CHLORTHALIDONE 25 MG TABLET PO SCH (12:30)
[2018-11-27] MEDS: ASPIRIN 325 MG ENTERIC COATED TABLET PO SCH ×2 (12:31→20:51)
[2018-11-27] MEDS: cefTRIAXone 2 GM in DEXTROSE 5% IN WATER 50 ML IV SCH (12:31)
--- NOTE | 2018-11-27 12:35 | Internal Med Progress Note ---
Medical - PN: Subj Patient information: Note initiated : 11/27/18 at 12:27 pm Service Date, if different from initiated Date: [] Patient: Tarik Dunn a 78 y/o M admitted on 11/20/18 for Shortness of breath. Chief Complaint: [] Interval history: Mr. Dunn is a 78 year old M with a history of hypertension otherwise fairly independent who lives by himself presents to the ER with 6 weeks onset of progressive cough weakness fatigue. Symptoms were gradual in onset without associated fever or chills or bloody sputum. Patient denies associated weight loss, shaking chills or sweats. He denies sick contacts. Over the last week and a half he has become extremely weak fatigued unable to function. He survived a near fall. With increasing concerns patient was evaluated by primary care physician and was referred to the ER after chest imaging revealed a suspicious right upper lobe mass. Initial work-up in the ER was consistent with right upper lobe infiltrative lesion. White count over 20,000. Patient underwent lung biopsy by interventional radiology. Culture was sent and patient was started on antibio tic after biopsy revealed pus and necrotic tissue. Case was subsequently discussed with [place] glove printer Dr. Zepeda. Based on imaging appearance consistent with necrotizing pneumonia. Pul cooperage shop supervisor recommended management with antibiotics and admission. Hospitalist service is consulted for admission At the time of evaluation multiple family members are present. Most of the history was obtained from review of medical records/ER physician and patient himself. Patient denies any active distress or chest pain/pleurisy. He endorses to history as above. He denies night sweats/chills or weight loss. 11/21-patient clinically improved. Continuing Zosyn and vancomycin for necrotizing pneumonia. Tolerating diet and physical therapy. White count down from 20.8-20.5. Gram-positive cocci from lung biopsy/pus aspirate. Consider ID consult early next week along with pulmonary consult for bronchoscopy. Family made aware of treatment plan. Transfer to medical floor 1patient is feeling improved. Still overall weak. Appetite improving. Preliminary cultures show anaerobic organisms. White count down to 12,000. 2patient continues to feel improved. Seen at bedside with family and therapists. Strength is improving. Appetite is good. Cultures from abscess show strep intermedius. 3continues to slowly improve. Discussed with pathologist this morning, seen mostly inflammatory/infectious findings. Explained clinical situation and concern for possible postobstructive pneumonia, will do further stains. Informally discussed with ID, recommended changing to ceftriaxone and metronidazole for antibiotic coverage. ID would be happy to formally consult if prolonged antibiotics will be indicated and to help manage. 11/25-patient doing well on antibiotic coverage. No overnight fever chills. Persistent cough productive sputum. Pulmonology consulted. No family at bedside. Appetite good. Ongoing physical therapy and ambulating. 11/26-patient doing well. Currently on antibiotic coverage as per ID. Will undergo CT scan for interval changes including evaluation empyema/further drainable abscess. Case discussed with family. Possible discharge in 24 hours if clinically continues to improve and no further requirement of thoracentesis. Patient will need a minimum of 4 weeks antibiotic coverage and outpatient follow-up with pulmonology/ID on discharge. No fever chills or concerns per nursing staff. 11/27-patient due to undergo CT-guided abscess drainage. On antibiotic coverage. ID recommends minimum [address] PICC line. Fungal, bacterial/mycobacterial cultures ordered. Review postprocedure 11/28 - Constitutional Vitals: Vital Signs Temp Pulse Resp BP Pulse Ox 98.4 F 87 20 95/53 96 11/27/18 12:00 11/27/18 12:00 11/27/18 12:00 11/27/18 12:00 11/27/18 12:00 Period Temp Pulse Resp BP Sys/Calabrese Pulse Ox Last 24 Hr 97.4 F-98.4 F 74-92 16-20 95-142/53-73 91-100 Intake and Output 11/26/18 11/27/18 11/27/18 21:59 05:59 13:59 Intake Total 800 120 Output Total 475 475 225 Balance -475 325 -105 Weight 91.399 kg Intake & Output: Intake & Output 11/26/18 11/27/18 11/27/18 21:59 05:59 13:59 Intake Total 800 120 Output Total 475 475 225 Balance -475 325 -105 Weight 91.399 kg Intake: Oral 800 120 Output: Void Amount 475 475 225 Other: Percent of Meal Consumed 80 Feeding Ability Assist with Tray Set Up Urine Color Pale Dark Yellow Bright Yellow Urine Odor Normal Normal Normal Stool Size Large Stool Color Brown Stool Consistency Soft # Bowel Movements 1 Exam: General: Alert, Awake, No acute Distress Eyes/N/T: EOMI, Head/Neck: neck supple, CV: RRR, No murmurs, Pulm: Abd: soft, nontender, +BS x4 Ext: no clubbing/cyanosis/edema Neuro: Alert, no focal deficits, moves all extremities, Skin: warm/dry Medical - PN: Obj Da - Labs CBC & Chem 7: 11/25/18 04:14 11/25/18 04:14 Labs: Abnormal Lab Results 11/27/18 11/25/18 11/25/18 09:19 04:14 04:14 WBC 11.8 H RBC 3.21 L Hgb 9.2 L Hct 28.6 L RDW 14.9 H Plt Count 501 H Myelocytes % 3 H Platelet Estimate Increased A RBC Morphology Abnorm A Polychromasia 1+ A Hypochromasia 1+ A Poikilocytosis Few A Tear Drop Cells Few A RBC Fragments Rare A PT 15.0 H INR 1.2 H AST 46 H ALT 45 H Albumin 2.8 L Albumin/Globulin Ratio 0.8 L Meds: Medications Acetaminophen (Tylenol) 650 mg PO Q4-6HP PRN PRN Reason: PAIN/FEVER > 101 Albuterol Sulfate (Ventolin) 1 - 2 puff INH Q4HP PRN PRN Reason: Wheezing Albuterol/Ipratropium (Duoneb) 3 ml NEB Q4HP PRN PRN Reason: Shortness Of Breath Last Admin: 11/23/18 09:19 Dose: 3 ml Documented by: Aspirin (Ecotrin) 325 mg PO BID [facility] Last Admin: 11/26/18 20:34 Dose: 325 mg Documented by: Chlorthalidone (Hygroton) 50 mg PO QDAY [facility] Last Admin: 11/26/18 08:08 Dose: 50 mg Documented by: Docusate Sodium (Colace) 100 mg PO BID [facility] Last Admin: 11/26/18 20:34 Dose: Not Given Documented by: Fentanyl (Sublimaze) 0 mcg IV PRN PRN PRN Reason: conscious sedation Last Admin: 11/27/18 11:25 Dose: 25 mcg Documented by: Fish Oil (Fish Oil) 1,000 mg PO DAILY [facility] Last Admin: 11/26/18 08:09 Dose: 1,000 mg Documented by: Folic Acid (Folic Acid) 1 mg PO DAILY [facility] Last Admin: 11/26/18 09:29 Dose: 1 mg Documented by: Guaifenesin/Codeine Phosphate (Robitussin Ac) 10 ml PO Q4HP PRN PRN Reason: Cough Last Admin: 11/26/18 20:33 Dose: 10 ml Documented by: Heparin Sodium (Porcine) (Heparin) 5,000 unit SQ Q12 [facility] Last Admin: 11/26/18 20:35 Dose: 5,000 unit Documented by: Heparin Sodium (Porcine) (Heparin Flush) 2 ml IV Q12 [facility] Last Admin: 11/26/18 20:35 Dose: 2 ml Documented by: Acetaminophen (Ofirmev) 1,000 mg in 100 mls @ 200 mls/hr IV Q6HP PRN PRN Reason: PAIN/FEVER > 101 Ceftriaxone Sodium 2 gm/ (Dextrose) 50 mls @ 100 mls/hr IV DAILY [facility]; Protocol Iron Carb/Multivit/Senior Catering Sales Manager/Folic Acid (Multivitamin W/Minerals) 1 tab PO DAILY [facility] Last Admin: 11/26/18 08:09 Dose: 1 tab Documented by: Losartan Potassium (Cozaar) 100 mg PO DAILY [facility] Last Admin: 11/26/18 08:08 Dose: 100 mg Documented by: Melatonin (Melatonin 3mg Tablet) 3 mg PO HSP PRN PRN Reason: Insomnia Metronidazole (Flagyl) 500 mg PO Q8 [facility]; Protocol Last Admin: 11/27/18 05:53 Dose: 500 mg Documented by: Midazolam HCl (Versed) 0 mg IV PRN PRN PRN Reason: conscious sedation Last Admin: 11/27/18 11:25 Dose: 0.5 mg Documented by: Multivitamins/Minerals (Ocuvite) 1 tab PO DAILY [facility] Last Admin: 11/26/18 08:09 Dose: 1 tab Documented by: Ondansetron HCl (Zofran) 4 mg IV Q4-6HP PRN PRN Reason: Nausea And Vomiting Oxymetazoline HCl (Afrin) 2 spray JORGE BIDP PRN PRN Reason: Congestion Last Admin: 11/25/18 20:24 Dose: 2 spray Documented by: Potassium Chloride (Klor-Con) 40 meq PO DAILYP PRN PRN Reason: K+ < 3.5 Senna/Docusate Sodium (Senna Plus Tablet) 1 tab PO HS [facility] Last Admin: 11/26/18 20:36 Dose: Not Given Documented by: Sodium Chloride (Saline Flush) 10 ml IV Q8 [facility] Last Admin: 11/27/18 05:53 Dose: 10 ml Documented by: Sodium Chloride (Saline Flush) 10 ml IV UD PRN PRN Reason: FLUSH Sodium Chloride (Saline Flush) 10 ml IV Q12 [facility] Last Admin: 11/26/18 20:36 Dose: 10 ml Documented by: Tamsulosin HCl (Flomax) 0.4 mg PO QDAY [facility] Last Admin: 11/26/18 08:09 Dose: 0.4 mg Documented by: Verapamil HCl (Calan Sr) 240 mg PO BID [facility] Last Admin: 11/26/18 20:34 Dose: 240 mg Documented by: Verapamil HCl (Calan) 80 mg PO ONCE PRN PRN Reason: hypertension Medical - PN: A/P - Time Spent With Patient Total time spent is greater than 50% in coordination of care (as documented) at patient's floor/unit and/or counseling patient: - Narrative A/P Narrative: A: *RUL necrotizing PNA: *Empyema: Low probability tumor in light of recent dental procedure and possible aspiration related abscess. -Cx growing Strep intermedius; biopsy neg for malignancy *Sepsis: 2/2 above, resolved. *h/o reactive airway disease: *HTN: continue home medications including verapamil/losartan/thiazide *BPH: continue tamsulosin *DREA on CKD III: resolved Plan: -Continue antibiotics as per ID; Continue antibiotic coverage on Rocephin/Flagyl. -CT-guided percutaneous drainage today; cx's per ID -PICC line placement -prn nebs -home BP meds -Continue pre-existing medical condition management on home meds -Daily PT/ OT/dietary intervention -ppx: heparin full code Medical - PN: Qual - VTE Deep Vein Thrombosis/Pulmonary Embolism Present on Admission: No
[2018-11-27] MEDS: VERAPAMIL 120 MG TAB.XL.24H PO SCH ×2 (12:37→20:51)
[2018-11-27] MEDS: HEPARIN 5,000 UNIT/ML VIAL SQ SCH ×2 (12:38→20:52)
[2018-11-27] MEDS: VIT A,C & E/LUTEIN/MINERALS TABLET PO SCH (12:39)
[2018-11-27] MEDS: LOSARTAN 50 MG TABLET PO SCH (12:39)
[2018-11-27] MEDS: TAMSULOSIN 0.4 MG CAPSULE PO SCH (12:39)
[2018-11-27] MEDS: MULTIVIT,THER IRON,CA,FA & MIN 1 TABLET PO SCH (12:39)
[2018-11-27] MEDS: FOLIC ACID 1 MG TABLET PO SCH (12:43)
--- NOTE | 2018-11-27 13:53 | Cat Scan Report ---
CLINICAL INFORMATION: 8.6 cm right upper lobe abscess COMPARISON: Chest CT 11/26/2018 TECHNIQUE: Procedure risks including possibility of bleeding, worsening infection, and pneumothorax were explained to the patient. He understood and wished to proceed. He was medicated with a total of 1 mg of Versed and 50 mcg of fentanyl prior to, and during, the procedure while blood pressure and pulse oximeter monitoring. He maintained consciousness during the procedure. Total sedation time: 40 minutes. With the patient supine on the CT table, the abscess was first CT localized. Skin overlying the abscess was marked, prepped and locally anesthetized to the level of the abscess capsule with 1% lidocaine using a 25-gauge spinal needle. A 17-gauge styletted needle was then placed under CT guidance through the second intercostal space traversing leg inflamed adhered viscera/parietal pleura to reduce the risk of empyema and pneumothorax.. The needle was positioned in the center of the abscess cavity. A 0.035 J-wire was placed through the needle and the tract was subsequent dilated to 10 Azeri. A 10 Azeri pigtail APD catheter was then placed into the cavity and secured with 0 silk suture and adhesive disc. Approximately 10 cc of purulent material was aspirated and sent for Gram stain culture and sensitivity. The cavity was irrigated with multiple 10 cc aliquots of normal saline. Postprocedure scanning shows the catheter in optimal position in the center of the abscess. The abscess is approximately two thirds its predrainage size. No apparent complication. IMPRESSION: Successful CT-guided placement of 10 Azeri pigtail multi sidehole percutaneous drain in the 8.6 cm right upper lobe abscess cavity. Approximately 10 cc of purulent material was sent for Gram stain culture and sensitivity. The cavity was irrigated with normal sterile saline and left to gravity bag drainage. Orders were written to irrigate with 10 cc normal sterile saline forward and back every four hours. This abscess may require enhanced drainage via TPA if drainage output is insufficient.. Suggest follow-up chest CT in 2-3 days Interpreted and Authenticated by: John Medina 11/27/18
[2018-11-27 14:21] LABS: Basophils # (Auto) 0 K/mcL (0.0-0.3); Basophils % (Auto) 0.4 % (0.0-2.0); Eosinophils # (Auto) 0.2 K/mcL (0.0-0.7); Eosinophils % (Auto) 1.5 % (0.0-7.0); Granulocytes % (Auto) 79.5 % (38.0-78.0); Hematocrit 28.2 % (41.0-55.0); Hemoglobin 9.1 g/dL (13.5-16.5); Lymphocytes # (Auto) 1.6 K/mcL (1.5-4.8); Lymphocytes % (Auto) 12.4 % (15.5-49.0); Mean Cell Volume 88.6 fL (80.0-100.0); Mean Corpuscular HGB Conc 32.3 g/dL (31.0-36.0); Mean Platelet Volume 7.6 fL (7.4-10.4); Monocytes # (Auto) 0.8 K/mcL (0.1-0.9); Monocytes % (Auto) 6.2 % (1.0-12.0); Platelet Count 458 K/mcL (140-440); RBC 3.18 M/mcL (4.50-5.90); Red Cell Distribution Width 15.6 % (11.5-14.5); WBC 12.9 K/mcL (4.5-11.0)
--- NOTE | 2018-11-27 18:18 | Infectious Disease Prog Note ---
Subjective Patient information: Note initiated : 11/27/18 at 6:14 pm Service Date, if different from initiated Date: [] Patient: Tarik Dunn 78 y/o M admitted on 11/20/18 for Shortness of breath. Chief Complaint: [] Interval history: Pt doing well, sitting in chair. Denied any fever, chills, n/v, diarrhea. Is sc heduled for his IR guided drainage of lung abscess today. Discussed plans to put a PICC line for long-term antibiotics. Shared that he might be here in hospital until next week. Objective Objective Narrative: ao x 3, in nad no thrush has bronchial breath sounds over right anterior chest, rest VBS s1 s2 normal, bs ++ nttd - Vital Signs Vital signs: Vital Signs Temp Pulse Pulse Resp BP BP BP 11/27/18 14:00 115/65 11/27/18 13:30 125/74 11/27/18 13:00 128/70 11/27/18 12:45 127/62 11/27/18 12:30 129/69 11/27/18 12:15 135/79 11/27/18 12:00 36.9 C 87 20 126/58 95/53 11/27/18 11:45 86 16 105/55 11/27/18 11:30 74 16 113/53 11/27/18 11:25 77 16 120/55 11/27/18 08:00 36.4 C 16 114/69 11/27/18 04:00 36.5 C 78 18 133/71 11/26/18 23:44 36.3 C 81 20 142/68 11/26/18 20:00 36.5 C 92 H 16 141/73 Pulse Ox 11/27/18 14:00 96 11/27/18 13:30 98 11/27/18 13:00 98 11/27/18 12:45 98 11/27/18 12:30 96 11/27/18 12:15 94 11/27/18 12:00 96 11/27/18 11:45 99 11/27/18 11:30 100 11/27/18 11:25 91 11/27/18 08:00 95 11/27/18 04:00 94 11/26/18 23:44 96 11/26/18 20:00 96 Intake and Output 09/09/0911/27/18 11/27/18 05:59 13:59 21:59 Intake Total 800 120 Output Total 475 375 128 Balance 325 -255 -128 Intake: Oral 800 120 Output: Drainage 3 Right Chest Pigtail 3 Void Amount 475 375 125 Other: Percent of Meal Consumed 80 Feeding Ability Assist with Tray Set Up Urine Appearance Clear Urine Color Dark Yellow Bright Yellow Pale Bright Yellow Urine Odor Normal Normal Normal Stool Size Large Stool Color Brown Stool Consistency Soft # Bowel Movements 1 Intake & Output: Intake & Output 11/27/18 11/27/18 11/27/18 05:59 13:59 21:59 Intake Total 800 120 Output Total 475 375 128 Balance 325 -255 -128 Intake: Oral 800 120 Output: Drainage 3 Right Chest Pigtail 3 Void Amount 475 375 125 Other: Percent of Meal Consumed 80 Feeding Ability Assist with Tray Set Up Urine Appearance Clear Urine Color Dark Yellow Bright Yellow Pale Bright Yellow Urine Odor Normal Normal Normal Stool Size Large Stool Color Brown Stool Consistency Soft # Bowel Movements 1 - Lab 11/28/18 04:40 11/28/18 04:40 Most recent lab results Calcium 10.0 mg/dl (8.6-10.4) 11/25/18 04:14 Phosphorus 3.2 mg/dL (2.7-4.5) 11/25/18 04:14 Magnesium 1.7 mg/dL (1.6-2.5) 11/25/18 04:14 Microbiology 11/20/18 17:00 Aspirate - Right Upper Lobe Fungal Smear - Final 11/20/18 17:00 Pleural Fluid Gram Stain - Final 11/20/18 17:00 Pleural Fluid Anaerobic Culture - Final Streptococcus intermedius 11/20/18 16:45 Blood Blood Culture - Final 11/20/18 16:38 Blood Blood Culture - Final 11/20/18 17:00 Pleural Fluid Gram Stain - Final 11/20/18 17:00 Pleural Fluid Body Fluid Culture - Final 11/20/18 18:30 Nose MRSA (PCR) - Final Medications Active Medications: Acetaminophen (Tylenol) 650 mg PO Q4-6HP PRN PRN Reason: PAIN/FEVER > 101 Albuterol Sulfate (Ventolin) 1 - 2 puff INH Q4HP PRN PRN Reason: Wheezing Albuterol/Ipratropium (Duoneb) 3 ml NEB Q4HP PRN PRN Reason: Shortness Of Breath Last Admin: 09/02/19 09:19 Dose: 3 ml Documented by: [email or web address] Admin: 11/22/18 10:15 Dose: 3 ml Documented by: [email or web address] Admin: 11/21/18 21:25 Dose: 3 ml Documented by: SHANNON Aspirin (Ecotrin) 325 mg PO BID [facility] Last Admin: 11/27/18 12:31 Dose: 325 mg Documented by: Admin: 11/26/18 20:34 Dose: 325 mg Documented by: Admin: 11/26/18 08:09 Dose: 325 mg Documented by: Admin: 11/25/18 20:23 Dose: 325 mg Documented by: Admin: 11/25/18 08:41 Dose: 325 mg Documented by: Admin: 11/24/18 20:07 Dose: 325 mg Documented by: Admin: 11/24/18 09:59 Dose: 325 mg Documented by: [email or web address] Admin: 11/23/18 20:23 Dose: 325 mg Documented by: Admin: 11/23/18 09:07 Dose: 325 mg Documented by: [email or web address] Admin: 11/22/18 20:22 Dose: 325 mg Documented by: Admin: 11/22/18 08:53 Dose: 325 mg Documented by: [email or web address] Admin: 11/21/18 21:01 Dose: 325 mg Documented by: [email or web address] Chlorthalidone (Hygroton) 50 mg PO QDAY [facility] Admin: 11/27/18 12:30 Dose: 50 mg Documented by: Admin: 11/26/18 08:08 Dose: 50 mg Documented by: Admin: 11/25/18 08:39 Dose: 50 mg Documented by: [email or web address] Admin: 11/24/18 10:00 Dose: 50 mg Documented by: [email or web address] Admin: 11/23/18 09:07 Dose: 50 mg Documented by: [email or web address] Admin: 11/22/18 08:54 Dose: 50 mg Documented by: [email or web address] Docusate Sodium (Colace) 100 mg PO BID [facility] Admin: 11/27/18 12:30 Dose: 100 mg Documented by: Admin: 11/26/18 20:34 Dose: Not Given Documented by: ESPERANZA Non-Admin Reason: Clinical Judgement Admin: 11/26/18 08:09 Dose: 100 mg Documented by: Admin: 11/25/18 20:23 Dose: 100 mg Documented by: Admin: 11/25/18 08:40 Dose: 100 mg Documented by: [email or web address] Admin: 11/24/18 20:07 Dose: 100 mg Documented by: Admin: 11/24/18 10:01 Dose: Not Given Documented by: DANI Non-Admin Reason: Loose Stool Admin: 11/23/18 20:22 Dose: 100 mg Documented by: Admin: 11/23/18 09:08 Dose: Not Given Documented by: [email or web address] Non-Admin Reason: Patient Refused Admin: 11/22/18 20:22 Dose: 100 mg Documented by: Admin: 11/22/18 08:57 Dose: Not Given Documented by: DANI Non-Admin Reason: Loose Stool Admin: 11/21/18 21:01 Dose: Not Given Documented by: GÓMEZ Non-Admin Reason: Patient Refused Fentanyl (Sublimaze) 0 mcg IV PRN PRN PRN Reason: conscious sedation Last Admin: 11/27/18 11:25 Dose: 25 mcg Documented by: [email or web address] Comments: 1125--25mcg given to pt per MD gutierrez Fish Oil (Fish Oil) 1,000 mg PO DAILY [facility] Last Admin: 11/27/18 12:29 Dose: 1,000 mg Documented by: Admin: 11/26/18 08:09 Dose: 1,000 mg Documented by: Admin: 11/25/18 08:40 Dose: 1,000 mg Documented by: [email or web address] Admin: 11/24/18 10:00 Dose: 1,000 mg Documented by: [email or web address] Admin: 11/23/18 09:07 Dose: 1,000 mg Documented by: [email or web address] Admin: 11/22/18 08:53 Dose: 1,000 mg Documented by: [email or web address] Folic Acid (Folic Acid) 1 mg PO DAILY [facility] Last Admin: 11/27/18 12:43 Dose: 1 mg Documented by: Admin: 11/26/18 09:29 Dose: 1 mg Documented by: Admin: 11/25/18 08:41 Dose: 1 mg Documented by: [email or web address] Admin: 11/24/18 10:03 Dose: 1 mg Documented by: [email or web address] Admin: 11/23/18 09:19 Dose: 1 mg Documented by: [email or web address] Admin: 11/22/18 08:55 Dose: 1 mg Documented by: [email or web address] Guaifenesin/Codeine Phosphate (Robitussin Ac) 10 ml PO Q4HP PRN PRN Reason: Cough Last Admin: 11/26/18 20:33 Dose: 10 ml Documented by: Admin: 11/25/18 20:24 Dose: 10 ml Documented by: Admin: 11/24/18 20:16 Dose: 10 ml Documented by: Admin: 11/24/18 03:18 Dose: 10 ml Documented by: RAFAELA Heparin Sodium (Porcine) (Heparin) 5,000 unit SQ Q12 [facility] Last Admin: 11/27/18 12:38 Dose: 5,000 unit Documented by: Admin: 11/26/18 20:35 Dose: 5,000 unit Documented by: Admin: 11/26/18 09:26 Dose: 5,000 unit Documented by: Admin: 11/25/18 20:24 Dose: 5,000 unit Documented by: Admin: 11/25/18 08:38 Dose: 5,000 unit Documented by: [email or web address] Admin: 11/24/18 20:08 Dose: 5,000 unit Documented by: Admin: 11/24/18 10:04 Dose: 5,000 unit Documented by: Admin: 11/23/18 20:20 Dose: 5,000 unit Documented by: Admin: 11/23/18 09:19 Dose: 5,000 unit Documented by: Admin: 11/22/18 20:22 Dose: 5,000 unit Documented by: Admin: 11/22/18 08:59 Dose: 5,000 unit Documented by: [email or web address] Admin: 11/21/18 21:01 Dose: 5,000 unit Documented by: GÓMEZ Heparin Sodium (Porcine) (Heparin Flush) 2 ml IV Q12 [facility] Last Admin: 11/27/18 13:02 Dose: 2 ml Documented by: Admin: 11/26/18 20:35 Dose: 2 ml Documented by: ESPERANZA Acetaminophen (Ofirmev) 1,000 mg in 100 mls @ 200 mls/hr IV Q6HP PRN PRN Reason: PAIN/FEVER > 101 Ceftriaxone Sodium 2 gm/ (Dextrose) 50 mls @ 100 mls/hr IV DAILY [facility]; Protocol Last Admin: 11/27/18 12:31 Dose: Not Given Documented by: [email or web address] Non-Admin Reason: Duplicate Iron Carb/Multivit/Plastic Jig And Fixture Builder/Folic Acid (Multivitamin W/Minerals) 1 tab PO DAILY [facility] Last Admin: 11/27/18 12:39 Dose: 1 tab Documented by: Admin: 11/26/18 08:09 Dose: 1 tab Documented by: Admin: 11/25/18 08:39 Dose: 1 tab Documented by: [email or web address] Admin: 11/24/18 09:58 Dose: 1 tab Documented by: [email or web address] Admin: 11/23/18 09:06 Dose: 1 tab Documented by: Admin: 11/22/18 08:56 Dose: 1 tab Documented by: [email or web address] Losartan Potassium (Cozaar) 100 mg PO DAILY [facility] Last Admin: 11/27/18 12:39 Dose: 100 mg Documented by: Admin: 11/26/18 08:08 Dose: 100 mg Documented by: Admin: 11/25/18 08:40 Dose: 100 mg Documented by: [email or web address] Admin: 11/24/18 10:00 Dose: 100 mg Documented by: [email or web address] Admin: 11/23/18 09:06 Dose: 100 mg Documented by: [email or web address] Admin: 11/22/18 08:52 Dose: 100 mg Documented by: [email or web address] Melatonin (Melatonin 3mg Tablet) 3 mg PO HSP PRN PRN Reason: Insomnia Metronidazole (Flagyl) 500 mg PO Q8 [facility]; Protocol Last Admin: 11/27/18 15:12 Dose: 500 mg Documented by: Admin: 11/27/18 05:53 Dose: 500 mg Documented by: Admin: 11/26/18 21:29 Dose: 500 mg Documented by: Admin: 11/26/18 14:44 Dose: 500 mg Documented by: Admin: 11/26/18 06:00 Dose: 500 mg Documented by: Admin: 11/25/18 22:27 Dose: 500 mg Documented by: Admin: 11/25/18 13:18 Dose: 500 mg Documented by: Admin: 11/25/18 06:42 Dose: 500 mg Documented by: [email or web address] Admin: 11/24/18 21:42 Dose: 500 mg Documented by: Admin: 11/24/18 14:08 Dose: 500 mg Documented by: [email or web address] Midazolam HCl (Versed) 0 mg IV PRN PRN PRN Reason: conscious sedation Last Admin: 11/27/18 11:25 Dose: 0.5 mg Documented by: CHARANJIT Comments: 1125--0.5mg given per MD brenda Multivitamins/Minerals (Ocuvite) 1 tab PO DAILY [facility] Last Admin: 11/27/18 12:39 Dose: 1 tab Documented by: Admin: 11/26/18 08:09 Dose: 1 tab Documented by: Admin: 11/25/18 08:40 Dose: 1 tab Documented by: Admin: 11/24/18 12:05 Dose: 1 tab Documented by: [email or web address] Ondansetron HCl (Zofran) 4 mg IV Q4-6HP PRN PRN Reason: Nausea And Vomiting Oxymetazoline HCl (Afrin) 2 spray JORGE BIDP PRN PRN Reason: Congestion Last Admin: 11/25/18 20:24 Dose: 2 spray Documented by: Admin: 11/25/18 08:55 Dose: 2 spray Documented by: Admin: 11/24/18 20:07 Dose: 2 spray Documented by: Admin: 11/24/18 05:24 Dose: 2 spray Documented by: Admin: 11/23/18 20:21 Dose: 2 spray Documented by: Admin: 11/22/18 20:23 Dose: 2 spray Documented by: Admin: 11/22/18 04:42 Dose: 2 spray Documented by: Admin: 11/21/18 19:58 Dose: 2 spray Documented by: GÓMEZ Potassium Chloride (Klor-Con) 40 meq PO DAILYP PRN PRN Reason: K+ < 3.5 Senna/Docusate Sodium (Senna Plus Tablet) 1 tab PO HS [facility] Last Admin: 11/26/18 20:36 Dose: Not Given Documented by: ESPERANZA Non-Admin Reason: Clinical Judgement Admin: 11/25/18 20:23 Dose: 1 tab Documented by: Admin: 11/24/18 20:07 Dose: 1 tab Documented by: Admin: 11/23/18 20:23 Dose: Not Given Documented by: [email or web address] Non-Admin Reason: Patient Request Admin: 11/22/18 20:21 Dose: 1 tab Documented by: Admin: 11/21/18 21:02 Dose: Not Given Documented by: [email or web address] Non-Admin Reason: Patient Refused Sodium Chloride (Saline Flush) 10 ml IV Q8 [facility] Last Admin: 11/27/18 13:02 Dose: 10 ml Documented by: Admin: 11/27/18 05:53 Dose: 10 ml Documented by: Admin: 11/26/18 20:35 Dose: 10 ml Documented by: Admin: 11/26/18 14:36 Dose: 10 ml Documented by: Admin: 11/26/18 06:00 Dose: 10 ml Documented by: Admin: 11/25/18 20:54 Dose: 10 ml Documented by: Admin: 11/25/18 13:18 Dose: 10 ml Documented by: [email or web address] Admin: 11/25/18 07:36 Dose: 10 ml Documented by: [email or web address] Admin: 11/24/18 20:08 Dose: 10 ml Documented by: Admin: 11/24/18 14:08 Dose: 10 ml Documented by: [email or web address] Admin: 11/24/18 05:24 Dose: 10 ml Documented by: Admin: 11/23/18 23:47 Dose: 10 ml Documented by: Admin: 11/23/18 18:00 Dose: 10 ml Documented by: [email or web address] Admin: 11/23/18 05:21 Dose: Not Given Documented by: GILLIAN Non-Admin Reason: Bag Still Infusing Admin: 11/22/18 20:11 Dose: Not Given Documented by: GILLIAN Non-Admin Reason: Bag Still Infusing Admin: 11/22/18 18:29 Dose: Not Given Documented by: DANI Non-Admin Reason: Continuous IV Admin: 11/22/18 04:43 Dose: Not Given Documented by: [email or web address] Non-Admin Reason: Continuous IV Admin: 11/21/18 23:02 Dose: Not Given Documented by: GÓMEZ Non-Admin Reason: Continuous IV Admin: 11/21/18 12:25 Dose: Not Given Documented by: [email or web address] Non-Admin Reason: Continuous IV Sodium Chloride (Saline Flush) 10 ml IV UD PRN PRN Reason: FLUSH Sodium Chloride (Saline Flush) 10 ml IV Q12 [facility] Admin: 11/27/18 13:22 Dose: Not Given Documented by: MARICRUZ Non-Admin Reason: iv to be discontinued Admin: 11/26/18 20:36 Dose: 10 ml Documented by: ESPERANZA Tamsulosin HCl (Flomax) 0.4 mg PO QDAY [facility] Admin: 11/27/18 12:39 Dose: 0.4 mg Documented by: Admin: 11/26/18 08:09 Dose: 0.4 mg Documented by: Admin: 11/25/18 08:40 Dose: 0.4 mg Documented by: [email or web address] Admin: 11/24/18 10:00 Dose: 0.4 mg Documented by: Admin: 11/23/18 09:06 Dose: 0.4 mg Documented by: [email or web address] Admin: 11/22/18 08:52 Dose: 0.4 mg Documented by: DANI Verapamil HCl (Calan Sr) 240 mg PO BID [facility] Last Admin: 11/27/18 12:37 Dose: 240 mg Documented by: Admin: 11/26/18 20:34 Dose: 240 mg Documented by: Admin: 11/26/18 08:10 Dose: 240 mg Documented by: Admin: 11/25/18 20:23 Dose: 240 mg Documented by: Admin: 11/25/18 08:39 Dose: 240 mg Documented by: Admin: 11/24/18 20:07 Dose: 240 mg Documented by: Admin: 11/24/18 09:59 Dose: 240 mg Documented by: Admin: 11/23/18 20:23 Dose: 240 mg Documented by: Admin: 11/23/18 09:05 Dose: 240 mg Documented by: [email or web address] Admin: 11/22/18 20:21 Dose: 240 mg Documented by: Admin: 11/22/18 08:50 Dose: 240 mg Documented by: [email or web address] Admin: 11/21/18 21:00 Dose: 240 mg Documented by: GÓMEZ Verapamil HCl (Calan) 80 mg PO ONCE PRN PRN Reason: hypertension Assessment and Plan - Narrative A/P Narrative: A: 1. 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 Likely mechanism seems to be aspiration following dental filling. Strep intermedius is known to be part of oral daniel dia in those with dental caries - biopsy neg for malignancy but reports of fungal (yeast-like organisms is concerning) and warrants further w/u. Possible yeast which can cause such infections include: Cryptococcus errol, Histoplasma - repeat CT 11/26 suggested "8.6 x 7.4 cm right upper lobe abscess slightly decreasing since comparison CT approximately one week prior. There is now central liquefaction and maturing of a surrounding abscess capsule". s/p IR- guided drainage today with aspiration of 10 cc pus, with reduction of abscess to about 2/3 of its original size, cultures pending 2. No sepsis Recommendations: - IV Ceftriaxone 2 gm q24 hrs, and PO Metronidazole 500 mg q8 hrs - await IR aspirate studies from today: GS & C/S, fungal stain & C/S, AFB stain and mycobacterial C/S - repeat CT chest early next week - await urine Histoplasma Ag, serum Cryptococcal Ag, serum galactomannan - consider PICC line placement - will comment on duration and f/u details near discharge will follow Milton Meyer MD Infectious diseases
[2018-11-27] MEDS: OXYMETAZOLINE 1 SPRAY BOTTLE NAS PRN (19:24)
[2018-11-27] MEDS: guaiFENesin/CODEINE 10 ML UDC PO PRN (19:24)
[2018-11-27] MEDS: SENNOSIDES/DOCUSATE SODIUM 1 TAB TABLET PO SCH (22:21)
[2018-11-28] MEDS: metroNIDAZOLE 500 MG TABLET PO SCH ×3 (05:24→21:50)
[2018-11-28] MEDS: 0.9 % SODIUM CHLORIDE 10 ML SYRINGE IV SCH ×5 (05:24→21:50)
[2018-11-28 06:36] LABS: Basophils # (Auto) 0 K/mcL (0.0-0.3); Basophils % (Auto) 0.2 % (0.0-2.0); Eosinophils # (Auto) 0.2 K/mcL (0.0-0.7); Eosinophils % (Auto) 0.9 % (0.0-7.0); Granulocytes % (Auto) 86.4 % (38.0-78.0); Hematocrit 28.1 % (41.0-55.0); Hemoglobin 8.9 g/dL (13.5-16.5); Lymphocytes # (Auto) 1.8 K/mcL (1.5-4.8); Lymphocytes % (Auto) 7.6 % (15.5-49.0); Mean Cell Volume 89.8 fL (80.0-100.0); Mean Corpuscular HGB Conc 31.7 g/dL (31.0-36.0); Mean Platelet Volume 7.7 fL (7.4-10.4); Monocytes # (Auto) 1.1 K/mcL (0.1-0.9); Monocytes % (Auto) 4.9 % (1.0-12.0); Platelet Count 472 K/mcL (140-440); RBC 3.13 M/mcL (4.50-5.90); Red Cell Distribution Width 15.6 % (11.5-14.5); WBC 23.3 K/mcL (4.5-11.0)
[2018-11-28 07:09] LABS: ALT/SGPT 41 U/l (0-40); AST/SGOT 43 U/l (0-37); Albumin 2.7 gm/dL (3.2-5.2); Albumin/Globulin Ratio 0.8 (1.0-2.3); Alkaline Phosphatase 83 U/L (39-117); Bilirubin,Direct < 0.2 mg/dL (0.0-0.3); Bilirubin,Total 0.4 mg/dL (0.0-1.0); Blood Urea Nitrogen 26 mg/dl (8-23); Carbon Dioxide 25 mmol/L (22-30); Chloride 102 mmol/L (96-108); Globulin 3.3 gm/dL (2.2-3.7); Glomerular Filtration Rate 58; Glucose 98 mg/dL (70-105); Lactate Dehydrogenase 181 U/L (94-250); Phosphorous 2.7 mg/dL (2.7-4.5); Triglycerides 60 mg/dl (<150); Uric Acid 7.6 mg/dL (2.5-8.0)
--- NOTE | 2018-11-28 07:10 | Internal Med Progress Note ---
Medical - PN: Subj Patient information: Note initiated : 11/28/18 at 7:06 am Service Date, if different from initiated Date: [] Patient: Tarik Dunn a 78 y/o M admitted on 11/20/18 for Shortness of breath. Chief Complaint: [] Interval history: Mr. Dunn is a 78 year old M with a history of hypertension otherwise fairly independent who lives by himself presents to the ER with 6 weeks onset of progressive cough weakness fatigue. Symptoms were gradual in onset without associated fever or chills or bloody sputum. Patient denies associated weight loss, shaking chills or sweats. He denies sick contacts. Over the last week and a half he has become extremely weak fatigued unable to function. He survived a near fall. With increasing concerns patient was evaluated by primary care physician and was referred to the ER after chest imaging revealed a suspicious right upper lobe mass. Initial work-up in the ER was consistent with right upper lobe infiltrative lesion. White count over 20,000. Patient underwent lung biopsy by interventional radiology. Culture was sent and patient was started on antibiot ic after biopsy revealed pus and necrotic tissue. Case was subsequently discussed with [place] dog bather Dr. Zepeda. Based on imaging appearance consistent with necrotizing pneumonia. Pulm onologist recommended management with antibiotics and admission. Hospitalist service is consulted for admission At the time of evaluation multiple family members are present. Most of the history was obtained from review of medical records/ER physician and patient himself. Patient denies any active distress or chest pain/pleurisy. He endorses to history as above. He denies night sweats/chills or weight loss. 11/21-patient clinically improved. Continuing Zosyn and vancomycin for necrotizing pneumonia. Tolerating diet and physical therapy. White count down from 20.8-20.5. Gram-positive cocci from lung biopsy/pus aspirate. Consider ID consult early next week along with pulmonary consult for bronchoscopy. Family made aware of treatment plan. Transfer to medical floor 1patient is feeling improved. Still overall weak. Appetite improving. Preliminary cultures show anaerobic organisms. White count down to 12,000. 2patient continues to feel improved. Seen at bedside with family and therapists. Strength is improving. Appetite is good. Cultures from abscess show strep intermedius. 3continues to slowly improve. Discussed with pathologist this morning, seen mostly inflammatory/infectious findings. Explained clinical situation and concern for possible postobstructive pneumonia, will do further stains. Informally discussed with ID, recommended changing to ceftriaxone and metronidazole for antibiotic coverage. ID would be happy to formally consult if prolonged antibiotics will be indicated and to help manage. 11/25-patient doing well on antibiotic coverage. No overnight fever chills. Persistent cough productive sputum. Pulmonology consulted. No family at bedside. Appetite good. Ongoing physical therapy and ambulating. 11/26-patient doing well. Currently on antibiotic coverage as per ID. Will undergo CT scan for interval changes including evaluation empyema/further drainable abscess. Case discussed with family. Possible discharge in 24 hours if clinically continues to improve and no further requirement of thoracentesis. Patient will need a minimum of 4 weeks antibiotic coverage and outpatient follow-up with pulmonology/ID on discharge. No fever chills or concerns per nursing staff. 11/27-patient due to undergo CT-guided abscess drainage. On antibiotic coverage. ID recommends minimum [address] PICC line. Fungal, bacterial/mycobacterial cultures ordered. Review postprocedure 11/28 No overnight events or new complaints. Small amount of drainage overnight. Patient has occasional cough. No shortness of breath. Review of Systems: denies headache/fever/chills/nausea/vomiting/chest or abdominal pain/dyspn ea/diarrhea. Otherwise see above. - Constitutional Vitals: Vital Signs Temp Pulse Resp BP Pulse Ox 97.8 F 80 20 108/64 93 11/28/18 03:23 11/28/18 03:23 11/28/18 03:23 11/28/18 03:23 11/28/18 03:23 Period Temp Pulse Resp BP Sys/Calabrese Pulse Ox Last 24 Hr 97.6 F-98.9 F 74-97 16-20 95-135/53-79 90-100 Intake and Output 11/27/18 11/28/18 11/28/18 21:59 05:59 13:59 Intake Total 1180 Output Total 129 157 Balance -129 1023 Weight 91.626 kg Intake & Output: Intake & Output 11/27/18 11/28/18 11/28/18 21:59 05:59 13:59 Intake Total 1180 Output Total 129 157 Balance -129 1023 Weight 91.626 kg Intake: Oral 1180 Output: Drainage 4 7 Right Chest Pigtail 4 7 Void Amount 125 150 Other: Urine Appearance Clear Clear Urine Color Bright Yellow Bright Yellow Urine Odor Normal Stool Size Small Stool Color Brown Stool Consistency Soft Formed # Bowel Movements 1 Exam: General: Alert, Awake, No acute Distress Eyes/N/T: EOMI, Head/Neck: neck supple, CV: RRR, No murmurs, Pulm: Mild diminished at bases, no wheezing. ARUN drain intact on right Abd: soft, nontender, +BS x4 Ext: no clubbing/cyanosis/edema Neuro: Alert, no focal deficits, moves all extremities, Skin: warm/dry Medical - PN: Obj Da - Labs CBC & Chem 7: 11/28/18 04:40 11/28/18 04:40 Labs: Abnormal Lab Results 11/28/18 11/27/18 11/27/18 04:40 13:13 09:19 WBC 23.3 H 12.9 H RBC 3.13 L 3.18 L Hgb 8.9 L 9.1 L Hct 28.1 L 28.2 L RDW 15.6 H 15.6 H Plt Count 472 H 458 H Gran % 86.4 H 79.5 H Lymph % (Auto) 7.6 L 12.4 L Gran # 20.1 H 10.3 H [place] # (Auto) 1.1 H Myelocytes % Platelet Estimate RBC Morphology Polychromasia Hypochromasia Poikilocytosis Tear Drop Cells RBC Fragments PT 15.0 H INR 1.2 H 11/25/18 04:14 WBC RBC Hgb Hct RDW Plt Count Gran % Lymph % (Auto) Gran # [place] # (Auto) Myelocytes % 3 H Platelet Estimate Increased A RBC Morphology Abnorm A Polychromasia 1+ A Hypochromasia 1+ A Poikilocytosis Few A Tear Drop Cells Few A RBC Fragments Rare A PT INR Meds: Medications Acetaminophen (Tylenol) 650 mg PO Q4-6HP PRN PRN Reason: PAIN/FEVER > 101 Albuterol Sulfate (Ventolin) 1 - 2 puff INH Q4HP PRN PRN Reason: Wheezing Albuterol/Ipratropium (Duoneb) 3 ml NEB Q4HP PRN PRN Reason: Shortness Of Breath Last Admin: 11/23/18 09:19 Dose: 3 ml Documented by: Aspirin (Ecotrin) 325 mg PO BID [facility] Last Admin: 11/27/18 20:51 Dose: 325 mg Documented by: Chlorthalidone (Hygroton) 50 mg PO QDAY [facility] Last Admin: 11/27/18 12:30 Dose: 50 mg Documented by: Docusate Sodium (Colace) 100 mg PO BID [facility] Last Admin: 11/27/18 20:51 Dose: 100 mg Documented by: Fentanyl (Sublimaze) 0 mcg IV PRN PRN PRN Reason: conscious sedation Last Admin: 11/27/18 11:25 Dose: 25 mcg Documented by: Fish Oil (Fish Oil) 1,000 mg PO DAILY [facility] Last Admin: 11/27/18 12:29 Dose: 1,000 mg Documented by: Folic Acid (Folic Acid) 1 mg PO DAILY [facility] Last Admin: 11/27/18 12:43 Dose: 1 mg Documented by: Guaifenesin/Codeine Phosphate (Robitussin Ac) 10 ml PO Q4HP PRN PRN Reason: Cough Last Admin: 11/27/18 19:24 Dose: 10 ml Documented by: Heparin Sodium (Porcine) (Heparin) 5,000 unit SQ Q12 [facility] Last Admin: 11/27/18 20:52 Dose: 5,000 unit Documented by: Heparin Sodium (Porcine) (Heparin Flush) 2 ml IV Q12 [facility] Last Admin: 11/27/18 20:51 Dose: 2 ml Documented by: Acetaminophen (Ofirmev) 1,000 mg in 100 mls @ 200 mls/hr IV Q6HP PRN PRN Reason: PAIN/FEVER > 101 Ceftriaxone Sodium 2 gm/ (Dextrose) 50 mls @ 100 mls/hr IV DAILY [facility]; Protocol Last Admin: 11/27/18 12:31 Dose: Not Given Documented by: Iron Carb/Multivit/Account Service Associate/Folic Acid (Multivitamin W/Minerals) 1 tab PO DAILY [facility] Last Admin: 11/27/18 12:39 Dose: 1 tab Documented by: Losartan Potassium (Cozaar) 100 mg PO DAILY [facility] Last Admin: 11/27/18 12:39 Dose: 100 mg Documented by: Melatonin (Melatonin 3mg Tablet) 3 mg PO HSP PRN PRN Reason: Insomnia Metronidazole (Flagyl) 500 mg PO Q8 [facility]; Protocol Last Admin: 11/28/18 05:24 Dose: 500 mg Documented by: Midazolam HCl (Versed) 0 mg IV PRN PRN PRN Reason: conscious sedation Last Admin: 11/27/18 11:25 Dose: 0.5 mg Documented by: Multivitamins/Minerals (Ocuvite) 1 tab PO DAILY [facility] Last Admin: 11/27/18 12:39 Dose: 1 tab Documented by: Ondansetron HCl (Zofran) 4 mg IV Q4-6HP PRN PRN Reason: Nausea And Vomiting Oxymetazoline HCl (Afrin) 2 spray JORGE BIDP PRN PRN Reason: Congestion Last Admin: 11/27/18 19:24 Dose: 2 spray Documented by: Potassium Chloride (Klor-Con) 40 meq PO DAILYP PRN PRN Reason: K+ < 3.5 Senna/Docusate Sodium (Senna Plus Tablet) 1 tab PO HS [facility] Last Admin: 11/27/18 22:21 Dose: Not Given Documented by: Sodium Chloride (Saline Flush) 10 ml IV Q8 [facility] Last Admin: 11/28/18 05:24 Dose: 10 ml Documented by: Sodium Chloride (Saline Flush) 10 ml IV UD PRN PRN Reason: FLUSH Sodium Chloride (Saline Flush) 10 ml IV Q12 [facility] Last Admin: 11/27/18 20:53 Dose: Not Given Documented by: Tamsulosin HCl (Flomax) 0.4 mg PO QDAY [facility] Last Admin: 11/27/18 12:39 Dose: 0.4 mg Documented by: Verapamil HCl (Calan Sr) 240 mg PO BID [facility] Last Admin: 11/27/18 20:51 Dose: 240 mg Documented by: Verapamil HCl (Calan) 80 mg PO ONCE PRN PRN Reason: hypertension Medical - PN: A/P - Time Spent With Patient Total time spent is greater than 50% in coordination of care (as documented) at patient's floor/unit and/or counseling patient: - Narrative A/P Narrative: A: *RUL necrotizing PNA: *Empyema: Low probability tumor in light of recent dental procedure and possible aspiration related abscess. -Cx growing Strep intermedius; biopsy neg for malignancy -10cc aspirated and 11cc drainage o/n via ARUN drain *Sepsis: 2/2 above, resolved *h/o reactive airway disease: *HTN: continue home medications including verapamil/losartan/thiazide *BPH: continue tamsulosin *DREA on CKD III: resolved Plan: -Continue antibiotics as per ID; Continue antibiotic coverage on Rocephin/Flagyl. -drainage catheter per Rads -f/u CT chest early next week -PICC line placement -prn nebs -home BP meds -Continue pre-existing medical condition management on home meds -Daily PT/ OT/dietary intervention -ppx: heparin full code Medical - PN: Qual - VTE Deep Vein Thrombosis/Pulmonary Embolism Present on Admission: No
[2018-11-28 07:57] LABS: Anisocytosis FEW (NONE SEEN); Lymphocytes % 6 % (15-49); Monocytes % (Manual) 7 % (1-12); Ovalocytes FEW (NONE SEEN); RBC Morphology ABNORM (NORMAL); Segmented Neutrophils % 87 % (38-78)
[2018-11-28 07:58] LABS: Platelet Estimate INCREASED (NORMAL)
[2018-11-28] MEDS: HEPARIN 5,000 UNIT/ML VIAL SQ SCH ×2 (08:21→21:42)
[2018-11-28] MEDS: FOLIC ACID 1 MG TABLET PO SCH (08:22)
[2018-11-28] MEDS: MULTIVIT,THER IRON,CA,FA & MIN 1 TABLET PO SCH (08:22)
[2018-11-28] MEDS: TAMSULOSIN 0.4 MG CAPSULE PO SCH (08:22)
[2018-11-28] MEDS: CHLORTHALIDONE 25 MG TABLET PO SCH (08:22)
[2018-11-28] MEDS: VIT A,C & E/LUTEIN/MINERALS TABLET PO SCH (08:22)
[2018-11-28] MEDS: FISH OIL 1,000 MG CAPSULE PO SCH (08:22)
[2018-11-28] MEDS: LOSARTAN 50 MG TABLET PO SCH (08:22)
[2018-11-28] MEDS: ASPIRIN 325 MG ENTERIC COATED TABLET PO SCH ×2 (08:22→21:46)
[2018-11-28] MEDS: DOCUSATE SODIUM 100 MG CAPSULE PO SCH ×2 (08:22→21:46)
[2018-11-28] MEDS: VERAPAMIL 120 MG TAB.XL.24H PO SCH ×2 (08:24→21:46)
[2018-11-28] MEDS: cefTRIAXone 2 GM in DEXTROSE 5% IN WATER 50 ML IV SCH (09:21)
[2018-11-28] MEDS: ALTEPLASE 2 MG VIAL IJ SCH (13:06)
[2018-11-28] MEDS: guaiFENesin/CODEINE 10 ML UDC PO PRN (21:45)
[2018-11-28] MEDS: SENNOSIDES/DOCUSATE SODIUM 1 TAB TABLET PO SCH (21:46)
[2018-11-29] MEDS: ALTEPLASE 2 MG VIAL IJ SCH (00:39)
[2018-11-29] MEDS: 0.9 % SODIUM CHLORIDE 10 ML SYRINGE IV SCH ×5 (05:37→20:19)
[2018-11-29] MEDS: metroNIDAZOLE 500 MG TABLET PO SCH ×3 (05:37→21:37)
[2018-11-29 06:07] LABS: Basophils # (Auto) 0 K/mcL (0.0-0.3); Basophils % (Auto) 0.1 % (0.0-2.0); Eosinophils # (Auto) 0.3 K/mcL (0.0-0.7); Eosinophils % (Auto) 1.9 % (0.0-7.0); Granulocytes % (Auto) 82.1 % (38.0-78.0); Hematocrit 28.4 % (41.0-55.0); Lymphocytes # (Auto) 1.7 K/mcL (1.5-4.8); Lymphocytes % (Auto) 9.4 % (15.5-49.0); Mean Cell Volume 89.8 fL (80.0-100.0); Mean Corpuscular HGB Conc 31.7 g/dL (31.0-36.0); Mean Platelet Volume 7.6 fL (7.4-10.4); Monocytes # (Auto) 1.2 K/mcL (0.1-0.9); Monocytes % (Auto) 6.5 % (1.0-12.0); Platelet Count 428 K/mcL (140-440); RBC 3.16 M/mcL (4.50-5.90); Red Cell Distribution Width 15.3 % (11.5-14.5); WBC 18.1 K/mcL (4.5-11.0)
[2018-11-29 06:23] LABS: ALT/SGPT 43 U/l (0-40); AST/SGOT 38 U/l (0-37); Albumin 2.7 gm/dL (3.2-5.2); Albumin/Globulin Ratio 0.8 (1.0-2.3); Alkaline Phosphatase 78 U/L (39-117); Bilirubin,Direct < 0.2 mg/dL (0.0-0.3); Bilirubin,Total 0.3 mg/dL (0.0-1.0); Blood Urea Nitrogen 31 mg/dl (8-23); Calcium 9.7 mg/dl (8.6-10.4); Carbon Dioxide 26 mmol/L (22-30); Chloride 103 mmol/L (96-108); Globulin 3.2 gm/dL (2.2-3.7); Glomerular Filtration Rate 53; Glucose 106 mg/dL (70-105); Lactate Dehydrogenase 124 U/L (94-250); Phosphorous 2.7 mg/dL (2.7-4.5); Triglycerides 42 mg/dl (<150); Uric Acid 7.5 mg/dL (2.5-8.0)
--- NOTE | 2018-11-29 07:50 | Internal Med Progress Note ---
Medical - PN: Subj Patient information: Note initiated : 11/29/18 at 7:46 am Service Date, if different from initiated Date: [] Patient: Tarik Dunn a 78 y/o M admitted on 11/20/18 for Shortness of breath. Chief Complaint: [] Interval history: Mr. Dunn is a 78 year old M with a history of hypertension otherwise fairly independent who lives by himself presents to the ER with 6 weeks onset of progressive cough weakness fatigue. Symptoms were gradual in onset without associated fever or chills or bloody sputum. Patient denies associated weight loss, shaking chills or sweats. He denies sick contacts. Over the last week and a half he has become extremely weak fatigued unable to function. He survived a near fall. With increasing concerns patient was evaluated by primary care physician and was referred to the ER after chest imaging revealed a suspicious right upper lobe mass. Initial work-up in the ER was consistent with right upper lobe infiltrative lesion. White count over 20,000. Patient underwent lung biopsy by interventional radiology. Culture was sent and patient was started on antibiot ic after biopsy revealed pus and necrotic tissue. Case was subsequently discussed with [place] assistant professor of criminal justice Dr. Zepeda. Based on imaging appearance consistent with necrotizing pneumonia. Pulm onologist recommended management with antibiotics and admission. Hospitalist service is consulted for admission At the time of evaluation multiple family members are present. Most of the history was obtained from review of medical records/ER physician and patient himself. Patient denies any active distress or chest pain/pleurisy. He endorses to history as above. He denies night sweats/chills or weight loss. 11/21-patient clinically improved. Continuing Zosyn and vancomycin for necrotizing pneumonia. Tolerating diet and physical therapy. White count down from 20.8-20.5. Gram-positive cocci from lung biopsy/pus aspirate. Consider ID consult early next week along with pulmonary consult for bronchoscopy. Family made aware of treatment plan. Transfer to medical floor 1patient is feeling improved. Still overall weak. Appetite improving. Preliminary cultures show anaerobic organisms. White count down to 12,000. 2patient continues to feel improved. Seen at bedside with family and therapists. Strength is improving. Appetite is good. Cultures from abscess show strep intermedius. 3continues to slowly improve. Discussed with pathologist this morning, seen mostly inflammatory/infectious findings. Explained clinical situation and concern for possible postobstructive pneumonia, will do further stains. Informally discussed with ID, recommended changing to ceftriaxone and metronidazole for antibiotic coverage. ID would be happy to formally consult if prolonged antibiotics will be indicated and to help manage. 11/25-patient doing well on antibiotic coverage. No overnight fever chills. Persistent cough productive sputum. Pulmonology consulted. No family at bedside. Appetite good. Ongoing physical therapy and ambulating. 11/26-patient doing well. Currently on antibiotic coverage as per ID. Will undergo CT scan for interval changes including evaluation empyema/further drainable abscess. Case discussed with family. Possible discharge in 24 hours if clinically continues to improve and no further requirement of thoracentesis. Patient will need a minimum of 4 weeks antibiotic coverage and outpatient follow-up with pulmonology/ID on discharge. No fever chills or concerns per nursing staff. 11/27-patient due to undergo CT-guided abscess drainage. On antibiotic coverage. ID recommends minimum [address] PICC line. Fungal, bacterial/mycobacterial cultures ordered. Review postprocedure 11/28 No overnight events or new complaints. Small amount of drainage overnight. Patient has occasional cough. No shortness of breath. 11/29 Doing well. No new complaints. A little bit of drainage from catheter. Denying cough or shortness of breath. Review of Systems: denies headache/fever/chills/nausea/vomiting/chest or abdominal pain/dyspnea/diarrhea. Otherwise see above. - Constitutional Vitals: Vital Signs Temp Pulse Resp BP Pulse Ox 97.9 F 79 24 H 128/60 93 11/29/18 02:59 11/29/18 02:59 11/29/18 02:59 11/29/18 02:59 11/29/18 02:59 Period Temp Pulse Resp BP Sys/Calabrese Pulse Ox Last 24 Hr 97.9 F-99 F 79-86 16-24 110-128/60-85 91-95 Intake and Output 11/28/18 11/29/18 11/29/18 21:59 05:59 13:59 Intake Total 160 100 Output Total 512 200 Balance -352 -100 Weight 92.079 kg Intake & Output: Intake & Output 11/28/18 11/29/18 11/29/18 21:59 05:59 13:59 Intake Total 160 100 Output Total 512 200 Balance -352 -100 Weight 92.079 kg Intake: Oral 150 100 Input, Drain Irrigation Amount 10 Right Chest Pigtail 10 Output: Drainage 12 Right Chest Pigtail 12 Void Amount 500 200 Other: Urine Appearance Clear Clear Urine Color Bright Yellow Bright Yellow Urine Odor Normal Normal Stool Size Small Moderate Stool Color Brown Brown Stool Consistency Formed Formed # Bowel Movements 1 1 Exam: General: Alert, Awake, No acute Distress Eyes/N/T: EOMI, Head/Neck: neck supple, CV: RRR, No murmurs, Pulm: Mild diminished at bases, no wheezing. ARUN drain intact on right Abd: soft, nontender, +BS x4 Ext: no clubbing/cyanosis/edema Neuro: Alert, no focal deficits, moves all extremities, Skin: warm/dry Medical - PN: Obj Da - Labs CBC & Chem 7: 11/29/18 04:42 11/29/18 04:42 Labs: Abnormal Lab Results 11/29/18 11/29/18 11/28/18 04:42 04:42 04:40 WBC 18.1 H RBC 3.16 L Hgb 9.0 L Hct 28.4 L RDW 15.3 H Plt Count Gran % 82.1 H Lymph % (Auto) 9.4 L Gran # 14.8 H [place] # (Auto) 1.2 H Seg Neutrophils % 87 H Lymphocytes % 6 L Platelet Estimate Increased A RBC Morphology Abnorm A Anisocytosis Few A Ovalocytes Few A PT INR BUN 31 H Creatinine 1.3 H Glucose 106 H Magnesium 1.5 L AST 38 H ALT 43 H Albumin 2.7 L Albumin/Globulin Ratio 0.8 L 11/28/18 11/28/18 11/27/18 04:40 04:40 13:13 WBC 23.3 H 12.9 H RBC 3.13 L 3.18 L Hgb 8.9 L 9.1 L Hct 28.1 L 28.2 L RDW 15.6 H 15.6 H Plt Count 472 H 458 H Gran % 86.4 H 79.5 H Lymph % (Auto) 7.6 L 12.4 L Gran # 20.1 H 10.3 H [place] # (Auto) 1.1 H Seg Neutrophils % Lymphocytes % Platelet Estimate RBC Morphology Anisocytosis Ovalocytes PT INR BUN 26 H Creatinine Glucose Magnesium 1.5 L AST 43 H ALT 41 H Albumin 2.7 L Albumin/Globulin Ratio 0.8 L 11/27/18 09:19 WBC RBC Hgb Hct RDW Plt Count Gran % Lymph % (Auto) Gran # [place] # (Auto) Seg Neutrophils % Lymphocytes % Platelet Estimate RBC Morphology Anisocytosis Ovalocytes PT 15.0 H INR 1.2 H BUN Creatinine Glucose Magnesium AST ALT Albumin Albumin/Globulin Ratio Meds: Medications Acetaminophen (Tylenol) 650 mg PO Q4-6HP PRN PRN Reason: PAIN/FEVER > 101 Albuterol Sulfate (Ventolin) 1 - 2 puff INH Q4HP PRN PRN Reason: Wheezing Albuterol/Ipratropium (Duoneb) 3 ml NEB Q4HP PRN PRN Reason: Shortness Of Breath Last Admin: 11/23/18 09:19 Dose: 3 ml Documented by: Aspirin (Ecotrin) 325 mg PO BID [facility] Last Admin: 11/28/18 21:46 Dose: 325 mg Documented by: Chlorthalidone (Hygroton) 50 mg PO QDAY [facility] Last Admin: 11/28/18 08:22 Dose: 50 mg Documented by: Docusate Sodium (Colace) 100 mg PO BID [facility] Last Admin: 11/28/18 21:46 Dose: 100 mg Documented by: Fentanyl (Sublimaze) 0 mcg IV PRN PRN PRN Reason: conscious sedation Last Admin: 11/27/18 11:25 Dose: 25 mcg Documented by: Fish Oil (Fish Oil) 1,000 mg PO DAILY [facility] Last Admin: 11/28/18 08:22 Dose: 1,000 mg Documented by: Folic Acid (Folic Acid) 1 mg PO DAILY [facility] Last Admin: 11/28/18 08:22 Dose: 1 mg Documented by: Guaifenesin/Codeine Phosphate (Robitussin Ac) 10 ml PO Q4HP PRN PRN Reason: Cough Last Admin: 11/28/18 21:45 Dose: 10 ml Documented by: Heparin Sodium (Porcine) (Heparin) 5,000 unit SQ Q12 [facility] Last Admin: 11/28/18 21:42 Dose: 5,000 unit Documented by: Heparin Sodium (Porcine) (Heparin Flush) 2 ml IV Q12 [facility] Last Admin: 11/28/18 21:46 Dose: 2 ml Documented by: Acetaminophen (Ofirmev) 1,000 mg in 100 mls @ 200 mls/hr IV Q6HP PRN PRN Reason: PAIN/FEVER > 101 Ceftriaxone Sodium 2 gm/ (Dextrose) 50 mls @ 100 mls/hr IV DAILY [facility]; Protocol Last Infusion: 11/28/18 10:11 Dose: Infused Documented by: Iron Carb/Multivit/Epic Prelude Analyst/Folic Acid (Multivitamin W/Minerals) 1 tab PO DAILY [facility] Last Admin: 11/28/18 08:22 Dose: 1 tab Documented by: Losartan Potassium (Cozaar) 100 mg PO DAILY [facility] Last Admin: 11/28/18 08:22 Dose: 100 mg Documented by: Melatonin (Melatonin 3mg Tablet) 3 mg PO HSP PRN PRN Reason: Insomnia Metronidazole (Flagyl) 500 mg PO Q8 [facility]; Protocol Last Admin: 11/29/18 05:37 Dose: 500 mg Documented by: Midazolam HCl (Versed) 0 mg IV PRN PRN PRN Reason: conscious sedation Last Admin: 11/27/18 11:25 Dose: 0.5 mg Documented by: Multivitamins/Minerals (Ocuvite) 1 tab PO DAILY [facility] Last Admin: 11/28/18 08:22 Dose: 1 tab Documented by: Ondansetron HCl (Zofran) 4 mg IV Q4-6HP PRN PRN Reason: Nausea And Vomiting Oxymetazoline HCl (Afrin) 2 spray JORGE BIDP PRN PRN Reason: Congestion Last Admin: 11/27/18 19:24 Dose: 2 spray Documented by: Potassium Chloride (Klor-Con) 40 meq PO DAILYP PRN PRN Reason: K+ < 3.5 Senna/Docusate Sodium (Senna Plus Tablet) 1 tab PO HS [facility] Last Admin: 11/28/18 21:46 Dose: 1 tab Documented by: Sodium Chloride (Saline Flush) 10 ml IV Q8 [facility] Last Admin: 11/29/18 05:37 Dose: 10 ml Documented by: Sodium Chloride (Saline Flush) 10 ml IV UD PRN PRN Reason: FLUSH Sodium Chloride (Saline Flush) 10 ml IV Q12 [facility] Last Admin: 11/28/18 21:50 Dose: Not Given Documented by: Tamsulosin HCl (Flomax) 0.4 mg PO QDAY [facility] Last Admin: 11/28/18 08:22 Dose: 0.4 mg Documented by: Verapamil HCl (Calan Sr) 240 mg PO BID [place] Last Admin: 11/28/18 21:46 Dose: 240 mg Documented by: Verapamil HCl (Calan) 80 mg PO ONCE PRN PRN Reason: hypertension Medical - PN: A/P - Time Spent With Patient Total time spent is greater than 50% in coordination of care (as documented) at patient's floor/unit and/or counseling patient: - Narrative A/P Narrative: A: *RUL necrotizing PNA: *Empyema: Low probability tumor in light of recent dental procedure and possible aspiration related abscess. -Cx growing Strep intermedius; biopsy neg for malignancy -15cc drainage last 24hrs via ARUN drain *Sepsis: 2/2 above, resolved *h/o reactive airway disease: *HTN: continue home medications including verapamil/losartan/thiazide *BPH: continue tamsulosin *CKD III (baseline 1.2-1.3): resolved Plan: -Continue antibiotics as per ID; Continue antibiotic coverage on Rocephin/Flagyl. -drainage catheter per Rads -f/u CT chest per ID -PICC line placement -prn nebs -home BP meds -Daily PT/ OT/dietary intervention -ppx: heparin full code Medical - PN: Qual - VTE Deep Vein Thrombosis/Pulmonary Embolism Present on Admission: No
[2018-11-29] MEDS: VERAPAMIL 120 MG TAB.XL.24H PO SCH ×2 (09:16→21:37)
[2018-11-29] MEDS: MULTIVIT,THER IRON,CA,FA & MIN 1 TABLET PO SCH (09:16)
[2018-11-29] MEDS: LOSARTAN 50 MG TABLET PO SCH (09:16)
[2018-11-29] MEDS: CHLORTHALIDONE 25 MG TABLET PO SCH (09:16)
[2018-11-29] MEDS: TAMSULOSIN 0.4 MG CAPSULE PO SCH (09:16)
[2018-11-29] MEDS: FOLIC ACID 1 MG TABLET PO SCH (09:17)
[2018-11-29] MEDS: VIT A,C & E/LUTEIN/MINERALS TABLET PO SCH (09:17)
[2018-11-29] MEDS: HEPARIN 5,000 UNIT/ML VIAL SQ SCH ×2 (09:17→20:16)
[2018-11-29] MEDS: DOCUSATE SODIUM 100 MG CAPSULE PO SCH ×2 (09:17→20:16)
[2018-11-29] MEDS: ASPIRIN 325 MG ENTERIC COATED TABLET PO SCH ×2 (09:17→20:16)
[2018-11-29] MEDS: FISH OIL 1,000 MG CAPSULE PO SCH (09:17)
[2018-11-29] MEDS: cefTRIAXone 2 GM in DEXTROSE 5% IN WATER 50 ML IV SCH (09:38)
--- NOTE | 2018-11-29 12:16 | Discharge Summary ---
Medical - DS: Prov Patient information: Note initiated : 11/29/18 at 12:14 pm Service Date, if different from initiated Date: [] Patient: Tarik Dunn 78 y/o M admitted on 11/20/18 for Shortness of breath. Chief Complaint: [] Date of admission: 11/20/18 18:36 Discharge date: 12/02/18 Primary care physician: John Stark Consults: 11/20/18 Consult to Physician [CONS] Stat Comment: Consulting Provider: Haroldo Padilla Reason For Exam: Physician to Consult 11/24/18 19:30 Consult to Physician [CONS] Routine Comment: Consulting Provider: Sylvester Johnson Reason For Exam: Physician to Consult 11/26/18 11:27 Consult to Infectious Disease [CONS] Routine Comment: Consulting Provider: Milton Meyer Reason For Exam: Physician to Consult Consult date: 11/26/18 Reason for Consult: Per request of Dr Padilla Medical - DS: Meds - Discharge Medications Prescriptions: cefTRIAXone [Rocephin] 2 gm IV DAILY #1 vial metroNIDAZOLE [Flagyl] 500 mg PO Q8 #78 tab Active and Home Medications: Home Medications aspirin 325 mg tablet 325 mg PO BID 06/06/17 [History Confirmed 11/20/18 Last Taken Unknown] vit A 7,160 unit-vit C 113 mg-vit E 100 wcow-neve-ugbuts tablet 1 tab PO DAILY 06/06/17 [History Confirmed 11/20/18 Last Taken Unknown] albuterol sulfate HFA 90 mcg/actuation aerosol inhaler See Rx Instructions INHALATION Q4H PRN g 02/03/18 [History Confirmed 11/20/18 Last Taken Unknown] docusate sodium 0 mg PO ONCE PRN 02/03/18 [History Confirmed 11/20/18 Last Taken Unknown] multivitamin tablet 1 tab PO QDAY 02/03/18 [History Confirmed 11/20/18 Last Taken Unknown] omega-3 fatty acids-fish oil 1 tab PO QDAY 02/03/18 [History Confirmed 11/20/18 Last Taken Unknown] vit C-vit E-vcesun-tbyv-lutein 1 tab PO DAILY 02/03/18 [History Confirmed 11/20/18 Last Taken Unknown] losartan 100 mg tablet 100 mg PO QDAY #90 tab 03/13/18 [Rx Confirmed 11/20/18 Last Taken Unknown] verapamil 80 mg tablet 80 mg PO ONCE PRN #90 tab 03/13/18 [Rx Confirmed 11/20/18 Last Taken Unknown] verapamil ER (SR) 240 mg tablet,extended release 240 mg PO BID #180 tab 03/13/18 [Rx Confirmed 11/20/18 Last Taken Unknown] chlorthalidone 25 mg tablet 50 mg PO QDAY #180 tab 06/18/18 [Rx Confirmed 11/20/18 Last Taken Unknown] tamsulosin 0.4 mg capsule 0.4 mg PO QDAY #30 cap 11/02/18 [Rx Confirmed 11/20/18 Last Taken Unknown] Medical - DS: Hosp Hospital Course: Mr. Dunn is a 78 year old M with a history of hypertension otherwise fairly independent who lives by himself presents to the ER with 6 weeks onset of progressive cough weakness fatigue. Symptoms were gradual in onset without associated fever or chills or bloody sputum. Patient denies associated weight loss, shaking chills or sweats. He denies sick contacts. Over the last week and a half he has become extremely weak fatigued unable to function. He survived a near fall. With increasing concerns patient was evaluated by primary care physician and was referred to the ER after chest imaging revealed a suspicious right upper lobe mass. Initial work-up in the ER was consistent with right upper lobe infiltrative lesion. White count over 20,000. Patient underwent lung biopsy by interventional radiology. Culture was sent and patient was started on antibiotic after biopsy revealed pus and necrotic tissue. Case was subsequently discussed with [place] ios architect Dr. Zepeda. Based on imaging appearance consistent with necrotizing pneumonia. Telephone Diaphragm Assembler recommended management with antibiotics and admission. Hospitalist service is consulted for admission At the time of evaluation multiple family members are present. Most of the history was obtained from review of medical records/ER physician and patient himself. Patient denies any active distress or chest pain/pleurisy. He endorses to history as above. He denies night sweats/chills or weight loss. 11/21-patient clinically improved. Continuing Zosyn and vancomycin for necrotizing pneumonia. Tolerating diet and physical therapy. White count down from 20.8-20.5. Gram-positive cocci from lung biopsy/pus aspirate. Consider ID consult early next week along with pulmonary consult for bronchoscopy. Family made aware of treatment plan. Transfer to medical floor 9/1patient is feeling improved. Still overall weak. Appetite improving. Preliminary cultures show anaerobic organisms. White count down to 12,000. atient continues to feel improved. Seen at bedside with family and therapists. Strength is improving. Appetite is good. Cultures from abscess show strep intermedius. ontinues to slowly improve. Discussed with pathologist this morning, seen mostly inflammatory/infectious findings. Explained clinical situation and concern for possible postobstructive pneumonia, will do further stains. Informally discussed with ID, recommended changing to ceftriaxone and metronidazole for antibiotic coverage. ID would be happy to formally consult if prolonged antibiotics will be indicated and to help manage. 11/25-patient doing well on antibiotic coverage. No overnight fever chills. Persistent cough productive sputum. Pulmonology consulted. No family at bedside. Appetite good. Ongoing physical therapy and ambulating. 11/26-patient doing well. Currently on antibiotic coverage as per ID. Will undergo CT scan for interval changes including evaluation empyema/further drainable abscess. Case discussed with family. Possible discharge in 24 hours if clinically continues to improve and no further requirement of thoracentesis. Patient will need a minimum of 4 weeks antibiotic coverage and outpatient follow-up with pulmonology/ID on discharge. No fever chills or concerns per nursing staff. 11/27-patient due to undergo CT-guided abscess drainage. On antibiotic coverage. ID recommends minimum [address] PICC line. Fungal, bacterial/mycobacterial cultures ordered. Review postprocedure 11/28 No overnight events or new complaints. Small amount of drainage overnight. Patient has occasional cough. No shortness of breath. 11/29 Doing well. No new complaints. A little bit of drainage from catheter. Denying cough or shortness of breath. 11/30 No new complaints or overnight events. Feeling improved. Doing well with physical therapy 12/01 Repeat chest x-ray yesterday showed nephric improvement in his abscess. Patient does drain is following up CT of the chest today. Patient doing well and has no new complaints. Repeat CT done showing considerable decreased right upper lobe abscess with surrounding consolidation. Drain pulled by radiology 12/02 She doing well, no overnight events. Stable for discharge A: *RUL necrotizing PNA: likely aspiration from dental procedure -No malignant/atypical cells on biopsy *Empyema: / above -Cx growing Strep intermedius; biopsy neg for malignancy *h/o reactive airway disease: *HTN: continue home medications including verapamil/losartan/thiazide *BPH: continue tamsulosin *CKD III (baseline 1.2-1.3): resolved Plan: -Continue antibiotics as per ID; Continue antibiotic coverage on Rocephin/Flagyl. 4-wk therapy Discharge diagnosis: Right upper lobe necrotizing pneumonia with empyema sepsis Secondary discharge diagnosis: Hypertension BPH chronic kidney disease - Time Spent with Patient Total time spent providing and/or coordinating discharge services: Greater than 30 minutes Medical - DS: Exam - Constitutional Vitals: Vital Signs Temp Pulse Resp BP BP Pulse Ox 11/29/18 07:47 97.3 F 20 141/65 91 11/29/18 02:59 97.9 F 79 24 H 128/60 93 11/28/18 23:34 98.5 F 79 24 H 114/61 92 11/28/18 21:55 94 11/28/18 19:05 98.3 F 86 24 H 123/60 94 11/28/18 16:00 98 F 20 121/65 95 Intake and Output 11/28/18 11/29/18 11/29/18 21:59 05:59 13:59 Intake Total 160 100 Output Total 512 200 300 Balance -352 -100 -300 Intake: Oral 150 100 Input, Drain Irrigation Amount 10 Right Chest Pigtail 10 Output: Drainage 12 Right Chest Pigtail 12 Void Amount 500 200 300 Other: Urine Appearance Clear Clear Clear Urine Color Bright Yellow Bright Yellow Bright Yellow Urine Odor Normal Normal Normal Stool Size Small Small Stool Color Brown Brown Stool Consistency Formed Loose # Voids 0 # Bowel Movements 1 1 Weight 92.079 kg Medical - DS: Data Labs on day of discharge: Labs from last 24 hours 11/29/18 11/29/18 04:42 04:42 WBC 18.1 H RBC 3.16 L Hgb 9.0 L Hct 28.4 L MCV 89.8 MCH 28.5 MCHC 31.7 RDW 15.3 H Plt Count 428 MPV 7.6 Gran % 82.1 H Lymph % (Auto) 9.4 L [place] % (Auto) 6.5 Eos % (Auto) 1.9 Baso % (Auto) 0.1 Gran # 14.8 H Lymph # (Auto) 1.7 [place] # (Auto) 1.2 H Eos # (Auto) 0.3 Baso # (Auto) 0 Sodium 139 Potassium 4.0 Chloride 103 Carbon Dioxide 26 Anion Gap 10.0 BUN 31 H Creatinine 1.3 H GFR Calculation 53 Glucose 106 H Uric Acid 7.5 Calcium 9.7 Phosphorus 2.7 Magnesium 1.5 L Total Bilirubin 0.3 Direct Bilirubin < 0.2 GGT 30 AST 38 H ALT 43 H Alkaline Phosphatase 78 Lactate Dehydrogenase 124 Total Protein 5.9 Albumin 2.7 L Globulin 3.2 Albumin/Globulin Ratio 0.8 L Triglycerides 42 Preliminary micro results at discharge 11/27/18 11:30 Anaerobic Culture - Preliminary Aspirate - Right Upper Lobe Medical - DS: A/P - Patient/Caregiver Discharge Instructions Activity: increase activity as tolerated Diet: Regular Diet Additional Instructions: Discharge Instructions: Increase activity as tolerated. Regular diet as tolerated. Prescriptions: cefTRIAXone [Rocephin] 2 gm IV DAILY #1 vial metroNIDAZOLE [Flagyl] 500 mg PO Q8 #78 tab Other Amb Orders: OT Discharge Order Location: None Selected Physical Therapy at Discharge - General Location: None Selected Outpatient Midline Catheter Care Location: None Selected Basic Metabolic Panel Location: None Selected Complete Blood Count Location: None Selected - Follow up Plan Follow up with: Milton Meyer MD [Physician] - John Stark DO [Primary Care Provider] - (Please call and schedule a hospital follow up to be seen in one week.) Disposition: Xfer SNF Care Plan Goals: This discharge packet is provided to you to help keep you informed about your care. We want to ensure you get everything you need when you go home. You will also be receiving a call from us in a few days to follow up with you and see how you are doing since your discharge. This gives us a chance to listen to any concerns you maybe experiencing since you were discharged or any additional needs you may have, as well as providing us feedback on your care experience. We strive to always provide excellent care and thank you for your feedback and for choosing [facility]. Prognosis: Fair Rehab Potential: Fair I certify that the patient requires SNF services: Yes Overall status at discharge: patient is progressing back to baseline Medical - DS: Qual - VTE Deep Vein Thrombosis/Pulmonary Embolism Present on Admission: No
[2018-11-29] MEDS: guaiFENesin/CODEINE 10 ML UDC PO PRN (20:16)
[2018-11-29] MEDS: SENNOSIDES/DOCUSATE SODIUM 1 TAB TABLET PO SCH (21:37)
[2018-11-30] MEDS: metroNIDAZOLE 500 MG TABLET PO SCH ×3 (05:35→21:29)
[2018-11-30] MEDS: 0.9 % SODIUM CHLORIDE 10 ML SYRINGE IV SCH ×5 (05:39→20:09)
[2018-11-30 06:46] LABS: ALT/SGPT 34 U/l (0-40); AST/SGOT 25 U/l (0-37); Albumin 2.4 gm/dL (3.2-5.2); Albumin/Globulin Ratio 0.7 (1.0-2.3); Alkaline Phosphatase 87 U/L (39-117); Bilirubin,Direct < 0.2 mg/dL (0.0-0.3); Bilirubin,Total 0.3 mg/dL (0.0-1.0); Blood Urea Nitrogen 37 mg/dl (8-23); Calcium 9.8 mg/dl (8.6-10.4); Carbon Dioxide 28 mmol/L (22-30); Chloride 104 mmol/L (96-108); Globulin 3.3 gm/dL (2.2-3.7); Glomerular Filtration Rate 53; Glucose 103 mg/dL (70-105); Lactate Dehydrogenase 136 U/L (94-250); Phosphorous 3.2 mg/dL (2.7-4.5); Triglycerides 32 mg/dl (<150); Uric Acid 7.8 mg/dL (2.5-8.0)
--- NOTE | 2018-11-30 07:02 | Internal Med Progress Note ---
Medical - PN: Subj Patient information: Note initiated : 11/30/18 at 6:58 am Service Date, if different from initiated Date: [] Patient: Tarik Dunn a 78 y/o M admitted on 11/20/18 for Shortness of breath. Chief Complaint: [] Interval history: Mr. Dunn is a 78 year old M with a history of hypertension otherwise fairly independent who lives by himself presents to the ER with 6 weeks onset of progressive cough weakness fatigue. Symptoms were gradual in onset without associated fever or chills or bloody sputum. Patient denies associated weight loss, shaking chills or sweats. He denies sick contacts. Over the last week and a half he has become extremely weak fatigued unable to function. He survived a near fall. With increasing concerns patient was evaluated by primary care physician and was referred to the ER after chest imaging revealed a suspicious right upper lobe mass. Initial work-up in the ER was consistent with right upper lobe infiltrative lesion. White count over 20,000. Patient underwent lung biopsy by interventional radiology. Culture was sent and patient was started on antibiot ic after biopsy revealed pus and necrotic tissue. Case was subsequently discussed with Micro writer producer Dr. Zepeda. Based on imaging appearance consistent with necrotizing pneumonia. Pulm onologist recommended management with antibiotics and admission. Hospitalist service is consulted for admission At the time of evaluation multiple family members are present. Most of the history was obtained from review of medical records/ER physician and patient himself. Patient denies any active distress or chest pain/pleurisy. He endorses to history as above. He denies night sweats/chills or weight loss. 11/21-patient clinically improved. Continuing Zosyn and vancomycin for necrotizing pneumonia. Tolerating diet and physical therapy. White count down from 20.8-20.5. Gram-positive cocci from lung biopsy/pus aspirate. Consider ID consult early next week along with pulmonary consult for bronchoscopy. Family made aware of treatment plan. Transfer to medical floor 1patient is feeling improved. Still overall weak. Appetite improving. Preliminary cultures show anaerobic organisms. White count down to 12,000. 2patient continues to feel improved. Seen at bedside with family and therapists. Strength is improving. Appetite is good. Cultures from abscess show strep intermedius. 3continues to slowly improve. Discussed with pathologist this morning, seen mostly inflammatory/infectious findings. Explained clinical situation and concern for possible postobstructive pneumonia, will do further stains. Informally discussed with ID, recommended changing to ceftriaxone and metronidazole for antibiotic coverage. ID would be happy to formally consult if prolonged antibiotics will be indicated and to help manage. 11/25-patient doing well on antibiotic coverage. No overnight fever chills. Persistent cough productive sputum. Pulmonology consulted. No family at bedside. Appetite good. Ongoing physical therapy and ambulating. 11/26-patient doing well. Currently on antibiotic coverage as per ID. Will undergo CT scan for interval changes including evaluation empyema/further drainable abscess. Case discussed with family. Possible discharge in 24 hours if clinically continues to improve and no further requirement of thoracentesis. Patient will need a minimum of 4 weeks antibiotic coverage and outpatient follow-up with pulmonology/ID on discharge. No fever chills or concerns per nursing staff. 11/27-patient due to undergo CT-guided abscess drainage. On antibiotic coverage. ID recommends minimum [address] PICC line. Fungal, bacterial/mycobacterial cultures ordered. Review postprocedure 11/28 No overnight events or new complaints. Small amount of drainage overnight. Patient has occasional cough. No shortness of breath. 11/29 Doing well. No new complaints. A little bit of drainage from catheter. Denying cough or shortness of breath. 11/30 No new complaints or overnight events. Feeling improved. Doing well with physical therapy Review of Systems: denies headache/fever/chills/nausea/vomiting/chest or abdominal pain/dyspnea/diarrhea. Otherwise see above. - Constitutional Vitals: Vital Signs Temp Pulse Resp BP Pulse Ox 97.4 F 76 24 H 125/62 95 11/30/18 02:40 11/30/18 02:40 11/30/18 02:40 11/30/18 02:40 11/30/18 02:40 Period Temp Pulse Resp BP Sys/[place] Pulse Ox Last 24 Hr 97.3 F-98.4 F 74-86 20-24 108-141/60-74 91-98 Intake and Output 11/29/18 11/30/18 11/30/18 21:59 05:59 13:59 Intake Total 300 475 Output Total 107 254 158 Balance 193 221 -158 Weight 92.079 kg Intake & Output: Intake & Output 11/29/18 11/30/18 11/30/18 21:59 05:59 13:59 Intake Total 300 475 Output Total 107 254 158 Balance 193 221 -158 Weight 92.079 kg Intake: Oral 300 475 Output: Drainage 7 4 8 Right Chest Pigtail 7 4 8 Void Amount 100 250 150 Other: Urine Appearance Clear Clear Urine Color Pale Light [place] Urine Odor Normal Strong Stool Size Small Stool Color Brown Stool Consistency Formed # Bowel Movements 1 Exam: General: Alert, Awake, No acute Distress Eyes/N/T: EOMI, Head/Neck: neck supple, CV: RRR, No murmurs, Pulm: good aerationb b/l, no rhonchi, no wheezing. ARUN drain intact on right Abd: soft, nontender, +BS x4 Ext: no clubbing/cyanosis/edema Neuro: Alert, no focal deficits, moves all extremities, Skin: warm/dry Medical - PN: Obj Da - Labs CBC & Chem 7: 11/30/18 04:33 11/30/18 04:33 Labs: Abnormal Lab Results 11/30/18 11/29/18 11/29/18 04:33 04:42 04:42 WBC 18.1 H RBC 3.16 L Hgb 9.0 L Hct 28.4 L RDW 15.3 H Plt Count Gran % 82.1 H Lymph % (Auto) 9.4 L Gran # 14.8 H [place] # (Auto) 1.2 H Seg Neutrophils % Lymphocytes % Platelet Estimate RBC Morphology Anisocytosis Ovalocytes PT INR BUN 37 H 31 H Creatinine 1.3 H 1.3 H Glucose 106 H Magnesium 1.5 L AST 38 H ALT 43 H Total Protein 5.7 L Albumin 2.4 L 2.7 L Albumin/Globulin Ratio 0.7 L 0.8 L 11/28/18 11/28/18 11/28/18 04:40 04:40 04:40 WBC 23.3 H RBC 3.13 L Hgb 8.9 L Hct 28.1 L RDW 15.6 H Plt Count 472 H Gran % 86.4 H Lymph % (Auto) 7.6 L Gran # 20.1 H [place] # (Auto) 1.1 H Seg Neutrophils % 87 H Lymphocytes % 6 L Platelet Estimate Increased A RBC Morphology Abnorm A Anisocytosis Few A Ovalocytes Few A PT INR BUN 26 H Creatinine Glucose Magnesium 1.5 L AST 43 H ALT 41 H Total Protein Albumin 2.7 L Albumin/Globulin Ratio 0.8 L 11/27/18 11/27/18 13:13 09:19 WBC 12.9 H RBC 3.18 L Hgb 9.1 L Hct 28.2 L RDW 15.6 H Plt Count 458 H Gran % 79.5 H Lymph % (Auto) 12.4 L Gran # 10.3 H [place] # (Auto) Seg Neutrophils % Lymphocytes % Platelet Estimate RBC Morphology Anisocytosis Ovalocytes PT 15.0 H INR 1.2 H BUN Creatinine Glucose Magnesium AST ALT Total Protein Albumin Albumin/Globulin Ratio Meds: Medications Acetaminophen (Tylenol) 650 mg PO Q4-6HP PRN PRN Reason: PAIN/FEVER > 101 Albuterol Sulfate (Ventolin) 1 - 2 puff INH Q4HP PRN PRN Reason: Wheezing Albuterol/Ipratropium (Duoneb) 3 ml NEB Q4HP PRN PRN Reason: Shortness Of Breath Last Admin: 11/23/18 09:19 Dose: 3 ml Documented by: Aspirin (Ecotrin) 325 mg PO BID [facility] Last Admin: 11/29/18 20:16 Dose: 325 mg Documented by: Chlorthalidone (Hygroton) 50 mg PO QDAY [facility] Last Admin: 11/29/18 09:16 Dose: 50 mg Documented by: Docusate Sodium (Colace) 100 mg PO BID [facility] Last Admin: 11/29/18 20:16 Dose: 100 mg Documented by: Fish Oil (Fish Oil) 1,000 mg PO DAILY [facility] Last Admin: 11/29/18 09:17 Dose: 1,000 mg Documented by: Folic Acid (Folic Acid) 1 mg PO DAILY [facility] Last Admin: 11/29/18 09:17 Dose: 1 mg Documented by: Guaifenesin/Codeine Phosphate (Robitussin Ac) 10 ml PO Q4HP PRN PRN Reason: Cough Last Admin: 11/29/18 20:16 Dose: 10 ml Documented by: Heparin Sodium (Porcine) (Heparin) 5,000 unit SQ Q12 [facility] Last Admin: 11/29/18 20:16 Dose: 5,000 unit Documented by: Heparin Sodium (Porcine) (Heparin Flush) 2 ml IV Q12 [facility] Last Admin: 11/29/18 20:17 Dose: 2 ml Documented by: Acetaminophen (Ofirmev) 1,000 mg in 100 mls @ 200 mls/hr IV Q6HP PRN PRN Reason: PAIN/FEVER > 101 Ceftriaxone Sodium 2 gm/ (Dextrose) 50 mls @ 100 mls/hr IV DAILY [facility]; Protocol Last Admin: 11/29/18 09:38 Dose: 100 mls/hr Documented by: Iron Carb/Multivit/[place]/Folic Acid (Multivitamin W/Minerals) 1 tab PO DAILY [facility] Last Admin: 11/29/18 09:16 Dose: 1 tab Documented by: Losartan Potassium (Cozaar) 100 mg PO DAILY [facility] Last Admin: 11/29/18 09:16 Dose: 100 mg Documented by: Melatonin (Melatonin 3mg Tablet) 3 mg PO HSP PRN PRN Reason: Insomnia Last Admin: 11/29/18 21:37 Dose: 3 mg Documented by: Metronidazole (Flagyl) 500 mg PO Q8 [facility]; Protocol Last Admin: 11/30/18 05:35 Dose: 500 mg Documented by: Multivitamins/Minerals (Ocuvite) 1 tab PO DAILY [facility] Last Admin: 11/29/18 09:17 Dose: 1 tab Documented by: Ondansetron HCl (Zofran) 4 mg IV Q4-6HP PRN PRN Reason: Nausea And Vomiting Oxymetazoline HCl (Afrin) 2 spray JORGE BIDP PRN PRN Reason: Congestion Last Admin: 11/27/18 19:24 Dose: 2 spray Documented by: Potassium Chloride (Klor-Con) 40 meq PO DAILYP PRN PRN Reason: K+ < 3.5 Senna/Docusate Sodium (Senna Plus Tablet) 1 tab PO HS [facility] Last Admin: 11/29/18 21:37 Dose: 1 tab Documented by: Sodium Chloride (Saline Flush) 10 ml IV Q8 [facility] Last Admin: 11/30/18 05:39 Dose: 10 ml Documented by: Sodium Chloride (Saline Flush) 10 ml IV UD PRN PRN Reason: FLUSH Sodium Chloride (Saline Flush) 10 ml IV Q12 [facility] Last Admin: 11/29/18 20:18 Dose: Not Given Documented by: Tamsulosin HCl (Flomax) 0.4 mg PO QDAY [facility] Last Admin: 11/29/18 09:16 Dose: 0.4 mg Documented by: Verapamil HCl (Calan Sr) 240 mg PO BID [place] Last Admin: 11/29/18 21:37 Dose: 240 mg Documented by: Verapamil HCl (Calan) 80 mg PO ONCE PRN PRN Reason: hypertension Medical - PN: A/P - Time Spent With Patient Total time spent is greater than 50% in coordination of care (as documented) at patient's floor/unit and/or counseling patient: - Narrative A/P Narrative: A: *RUL necrotizing PNA: *Empyema: Low probability tumor in light of recent dental procedure and possible aspiration related abscess. -Cx growing Strep intermedius; biopsy neg for malignancy -15cc drainage last 24hrs via ARUN drain (verifying correct amount vs flushing fluid) *Sepsis: 2/2 above, resolved *h/o reactive airway disease: *HTN: continue home medications including verapamil/losartan/thiazide *BPH: continue tamsulosin *CKD III (baseline 1.2-1.3): resolved Plan: -Continue antibiotics as per ID; Continue antibiotic coverage on Rocephin/Flagyl. -drainage catheter per Rads -f/u CT chest per ID -PICC line placed -prn nebs -home BP meds -Daily PT/ OT/dietary intervention -ppx: heparin full code Medical - PN: Qual - VTE Deep Vein Thrombosis/Pulmonary Embolism Present on Admission: No
[2018-11-30 07:31] LABS: Basophils # (Auto) 0.1 K/mcL (0.0-0.3); Basophils % (Auto) 0.4 % (0.0-2.0); Eosinophils # (Auto) 0.4 K/mcL (0.0-0.7); Eosinophils % (Auto) 2.3 % (0.0-7.0); Hematocrit 27.9 % (41.0-55.0); Hemoglobin 8.8 g/dL (13.5-16.5); Lymphocytes # (Auto) 1.7 K/mcL (1.5-4.8); Lymphocytes % (Auto) 11.1 % (15.5-49.0); Mean Cell Volume 90.5 fL (80.0-100.0); Mean Corpuscular HGB Conc 31.7 g/dL (31.0-36.0); Mean Platelet Volume 7.9 fL (7.4-10.4); Monocytes # (Auto) 1.3 K/mcL (0.1-0.9); Monocytes % (Auto) 8.2 % (1.0-12.0); Platelet Count 399 K/mcL (140-440); RBC 3.08 M/mcL (4.50-5.90); Red Cell Distribution Width 15.8 % (11.5-14.5); WBC 15.3 K/mcL (4.5-11.0)
[2018-11-30] MEDS: HEPARIN 5,000 UNIT/ML VIAL SQ SCH ×2 (08:45→20:08)
[2018-11-30] MEDS: CHLORTHALIDONE 25 MG TABLET PO SCH (08:45)
[2018-11-30] MEDS: VERAPAMIL 120 MG TAB.XL.24H PO SCH ×2 (08:45→20:08)
[2018-11-30] MEDS: LOSARTAN 50 MG TABLET PO SCH (08:45)
[2018-11-30] MEDS: FOLIC ACID 1 MG TABLET PO SCH (08:46)
[2018-11-30] MEDS: ASPIRIN 325 MG ENTERIC COATED TABLET PO SCH ×2 (08:46→20:08)
[2018-11-30] MEDS: VIT A,C & E/LUTEIN/MINERALS TABLET PO SCH (08:46)
[2018-11-30] MEDS: TAMSULOSIN 0.4 MG CAPSULE PO SCH (08:46)
[2018-11-30] MEDS: DOCUSATE SODIUM 100 MG CAPSULE PO SCH ×2 (08:46→20:08)
[2018-11-30] MEDS: FISH OIL 1,000 MG CAPSULE PO SCH (08:46)
[2018-11-30] MEDS: MULTIVIT,THER IRON,CA,FA & MIN 1 TABLET PO SCH (08:46)
[2018-11-30] MEDS: cefTRIAXone 2 GM in DEXTROSE 5% IN WATER 50 ML IV SCH (09:02)
--- NOTE | 2018-11-30 12:03 | XRay Report ---
CLINICAL INFORMATION: check tube placement COMPARISON: Preprocedure chest x-ray 11/26/2018. FINDINGS: Heart size, mediastinum and pulmonary vessels are normal. Pigtail drainage catheter remains in stable, satisfactory position within the right upper lobe abscess cavity. The cavity is dramatically smaller than on the preprocedure film now spanning 5 cm x 2 cm. The remaining lungs are clear. No effusions. IMPRESSION: Right upper lobe abscess cavity has decreased dramatically since the preprocedure film four days ago. It now spans 5 x 2 cm. Pigtail catheter remains in stable satisfactory position. Interpreted and Authenticated by: John Medina 11/30/18
[2018-11-30] MEDS ORDERED: ALTEPLASE 2 MG VIAL IJ ONE (13:00)
[2018-11-30] MEDS: NYSTATIN 500,000 UNITS/5 ML ORAL.SUSP SSP SCH ×3 (13:22→20:09)
--- NOTE | 2018-11-30 17:20 | Infectious Disease Prog Note ---
Subjective Patient information: Note initiated : 11/30/18 at 5:09 pm Service Date, if different from initiated Date: [] Patient: Tarik Dunn 78 y/o M admitted on 11/20/18 for Shortness of breath. Chief Complaint: [] Interval history: Pt doing fine. Denied any symptoms. Is due for repeat CT chest today. Objective Objective Narrative: ao x 3, in nad has thrush chest has bronchial breath sounds over right ant lung, rest VBS. decreased BS at bases The catheter from right lung abscess with drainage of serosanguineous fluid s1 s2 normal, has 2/6 ESM at Rt 2nd ICS distended belly, non tender, BS ++ mimimal pitting edema in legs - Vital Signs Vital signs: Vital Signs Temp Pulse Resp BP BP Pulse Ox 11/30/18 12:00 36.6 C 93 H 20 120/86 90 11/30/18 08:00 36.4 C 69 18 124/61 91 11/30/18 02:40 36.3 C 76 24 H 125/62 95 11/30/18 00:20 36.7 C 74 24 H 121/60 92 11/29/18 19:13 36.9 C 86 24 H 117/60 95 Intake and Output 11/30/18 11/30/18 11/30/18 05:59 13:59 21:59 Intake Total 475 390 400 Output Total 254 724 300 Balance 221 -334 100 Intake: Oral 475 360 400 Input, Drain Irrigation Amount 30 Right Chest Pigtail 30 Output: Drainage 4 24 Right Chest Pigtail 4 24 Drainage 50 Right Chest Pigtail 50 Void Amount 250 700 250 Other: Meal Lunch Percent of Meal Consumed 100% Feeding Ability Assist with Tray Set Up Urine Appearance Clear Clear Clear Urine Color Light Kalie Dark Yellow Bright Yellow Urine Odor Strong Normal Normal Stool Size Moderate Stool Color Brown Stool Consistency Soft Formed # Bowel Movements 1 Intake & Output: Intake & Output 11/30/18 11/30/18 11/30/18 05:59 13:59 21:59 Intake Total 475 390 400 Output Total 254 724 300 Balance 221 -334 100 Intake: Oral 475 360 400 Input, Drain Irrigation Amount 30 Right Chest Pigtail 30 Output: Drainage 4 24 Right Chest Pigtail 4 24 Drainage 50 Right Chest Pigtail 50 Void Amount 250 700 250 Other: Meal Lunch Percent of Meal Consumed 100% Feeding Ability Assist with Tray Set Up Urine Appearance Clear Clear Clear Urine Color Light Kalie Dark Yellow Bright Yellow Urine Odor Strong Normal Normal Stool Size Moderate Stool Color Brown Stool Consistency Soft Formed # Bowel Movements 1 - Lab 12/01/18 04:06 12/01/18 04:06 Most recent lab results Calcium 9.8 mg/dl (8.6-10.4) 11/30/18 04:33 Phosphorus 3.2 mg/dL (2.7-4.5) 11/30/18 04:33 Magnesium 1.6 mg/dL (1.6-2.5) 11/30/18 04:33 Microbiology 11/20/18 17:00 Aspirate - Right Upper Lobe Fungal Smear - Final 11/20/18 17:00 Aspirate - Right Upper Lobe Fungal Culture - Preliminary 11/27/18 11:30 Aspirate - Right Upper Lobe Gram Stain - Final 11/27/18 11:30 Aspirate - Right Upper Lobe Anaerobic Culture - Preliminary 11/27/18 11:30 Lung - Right Upper Lobe Gram Stain - Final 11/27/18 11:30 Lung - Right Upper Lobe Abscess Culture - Final 11/27/18 11:30 Aspirate - Right Upper Lobe Fungal Smear - Final 11/20/18 17:00 Pleural Fluid Gram Stain - Final 11/20/18 17:00 Pleural Fluid Anaerobic Culture - Final Streptococcus intermedius 11/20/18 16:45 Blood Blood Culture - Final 11/20/18 16:38 Blood Blood Culture - Final 11/20/18 17:00 Pleural Fluid Gram Stain - Final 11/20/18 17:00 Pleural Fluid Body Fluid Culture - Final 11/20/18 18:30 Nose MRSA (PCR) - Final Medications Active Medications: Acetaminophen (Tylenol) 650 mg PO Q4-6HP PRN PRN Reason: PAIN/FEVER > 101 Albuterol Sulfate (Ventolin) 1 - 2 puff INH Q4HP PRN PRN Reason: Wheezing Albuterol/Ipratropium (Duoneb) 3 ml NEB Q4HP PRN PRN Reason: Shortness Of Breath Last Admin: 11/23/18 09:19 Dose: 3 ml Documented by: [email or web address] Admin: 11/22/18 10:15 Dose: 3 ml Documented by: [email or web address] Admin: 11/21/18 21:25 Dose: 3 ml Documented by: SHANNON Aspirin (Ecotrin) 325 mg PO BID [place] Last Admin: 11/30/18 08:46 Dose: 325 mg Documented by: Admin: 11/29/18 20:16 Dose: 325 mg Documented by: Admin: 11/29/18 09:17 Dose: 325 mg Documented by: Admin: 11/28/18 21:46 Dose: 325 mg Documented by: Admin: 11/28/18 08:22 Dose: 325 mg Documented by: Admin: 11/27/18 20:51 Dose: 325 mg Documented by: Admin: 11/27/18 12:31 Dose: 325 mg Documented by: Admin: 11/26/18 20:34 Dose: 325 mg Documented by: Admin: 11/26/18 08:09 Dose: 325 mg Documented by: Admin: 11/25/18 20:23 Dose: 325 mg Documented by: Admin: 11/25/18 08:41 Dose: 325 mg Documented by: Admin: 11/24/18 20:07 Dose: 325 mg Documented by: Admin: 11/24/18 09:59 Dose: 325 mg Documented by: Admin: 11/23/18 20:23 Dose: 325 mg Documented by: Admin: 11/23/18 09:07 Dose: 325 mg Documented by: Admin: 11/22/18 20:22 Dose: 325 mg Documented by: Admin: 11/22/18 08:53 Dose: 325 mg Documented by: Admin: 11/21/18 21:01 Dose: 325 mg Documented by: GÓMEZ Chlorthalidone (Hygroton) 50 mg PO QDAY [facility] Last Admin: 11/30/18 08:45 Dose: 50 mg Documented by: Admin: 11/29/18 09:16 Dose: 50 mg Documented by: Admin: 11/28/18 08:22 Dose: 50 mg Documented by: Admin: 11/27/18 12:30 Dose: 50 mg Documented by: Admin: 11/26/18 08:08 Dose: 50 mg Documented by: Admin: 11/25/18 08:39 Dose: 50 mg Documented by: [email or web address] Admin: 11/24/18 10:00 Dose: 50 mg Documented by: [email or web address] Admin: 11/23/18 09:07 Dose: 50 mg Documented by: [email or web address] Admin: 11/22/18 08:54 Dose: 50 mg Documented by: [email or web address] Docusate Sodium (Colace) 100 mg PO BID [facility] Last Admin: 11/30/18 08:46 Dose: 100 mg Documented by: KATELIN Comments: wont nannette Admin: 11/29/18 20:16 Dose: 100 mg Documented by: Admin: 11/29/18 09:17 Dose: 100 mg Documented by: Admin: 11/28/18 21:46 Dose: 100 mg Documented by: Admin: 11/28/18 08:22 Dose: 100 mg Documented by: Admin: 11/27/18 20:51 Dose: 100 mg Documented by: Admin: 11/27/18 12:30 Dose: 100 mg Documented by: Admin: 11/26/18 20:34 Dose: Not Given Documented by: ESPERANZA Non-Admin Reason: Clinical Judgement Admin: 11/26/18 08:09 Dose: 100 mg Documented by: Admin: 11/25/18 20:23 Dose: 100 mg Documented by: Admin: 11/25/18 08:40 Dose: 100 mg Documented by: [email or web address] Admin: 11/24/18 20:07 Dose: 100 mg Documented by: Admin: 11/24/18 10:01 Dose: Not Given Documented by: [email or web address] Non-Admin Reason: Loose Stool Admin: 11/23/18 20:22 Dose: 100 mg Documented by: Admin: 11/23/18 09:08 Dose: Not Given Documented by: [email or web address] Non-Admin Reason: Patient Refused Admin: 11/22/18 20:22 Dose: 100 mg Documented by: Admin: 11/22/18 08:57 Dose: Not Given Documented by: DANI Non-Admin Reason: Loose Stool Admin: 11/21/18 21:01 Dose: Not Given Documented by: GÓMEZ Non-Admin Reason: Patient Refused Fish Oil (Fish Oil) 1,000 mg PO DAILY [facility] Last Admin: 11/30/18 08:46 Dose: 1,000 mg Documented by: Admin: 11/29/18 09:17 Dose: 1,000 mg Documented by: Admin: 11/28/18 08:22 Dose: 1,000 mg Documented by: Admin: 11/27/18 12:29 Dose: 1,000 mg Documented by: Admin: 11/26/18 08:09 Dose: 1,000 mg Documented by: Admin: 11/25/18 08:40 Dose: 1,000 mg Documented by: [email or web address] Admin: 11/24/18 10:00 Dose: 1,000 mg Documented by: [email or web address] Admin: 11/23/18 09:07 Dose: 1,000 mg Documented by: [email or web address] Admin: 11/22/18 08:53 Dose: 1,000 mg Documented by: [email or web address] Folic Acid (Folic Acid) 1 mg PO DAILY [facility] Admin: 11/30/18 08:46 Dose: 1 mg Documented by: Admin: 11/29/18 09:17 Dose: 1 mg Documented by: Admin: 11/28/18 08:22 Dose: 1 mg Documented by: Admin: 11/27/18 12:43 Dose: 1 mg Documented by: Admin: 11/26/18 09:29 Dose: 1 mg Documented by: Admin: 11/25/18 08:41 Dose: 1 mg Documented by: [email or web address] Admin: 11/24/18 10:03 Dose: 1 mg Documented by: [email or web address] Admin: 11/23/18 09:19 Dose: 1 mg Documented by: [email or web address] Admin: 11/22/18 08:55 Dose: 1 mg Documented by: [email or web address] Guaifenesin/Codeine Phosphate (Robitussin Ac) 10 ml PO Q4HP PRN PRN Reason: Cough Last Admin: 11/29/18 20:16 Dose: 10 ml Documented by: Admin: 11/28/18 21:45 Dose: 10 ml Documented by: Admin: 11/27/18 19:24 Dose: 10 ml Documented by: Admin: 11/26/18 20:33 Dose: 10 ml Documented by: Admin: 11/25/18 20:24 Dose: 10 ml Documented by: Admin: 11/24/18 20:16 Dose: 10 ml Documented by: Admin: 11/24/18 03:18 Dose: 10 ml Documented by: RAFAELA Heparin Sodium (Porcine) (Heparin) 5,000 unit SQ Q12 [facility] Last Admin: 11/30/18 08:45 Dose: 5,000 unit Documented by: Admin: 11/29/18 20:16 Dose: 5,000 unit Documented by: Admin: 11/29/18 09:17 Dose: 5,000 unit Documented by: Admin: 11/28/18 21:42 Dose: 5,000 unit Documented by: Admin: 11/28/18 08:21 Dose: 5,000 unit Documented by: Admin: 11/27/18 20:52 Dose: 5,000 unit Documented by: Admin: 11/27/18 12:38 Dose: 5,000 unit Documented by: Admin: 11/26/18 20:35 Dose: 5,000 unit Documented by: Admin: 11/26/18 09:26 Dose: 5,000 unit Documented by: Admin: 11/25/18 20:24 Dose: 5,000 unit Documented by: Admin: 11/25/18 08:38 Dose: 5,000 unit Documented by: [email or web address] Admin: 11/24/18 20:08 Dose: 5,000 unit Documented by: Admin: 11/24/18 10:04 Dose: 5,000 unit Documented by: Admin: 11/23/18 20:20 Dose: 5,000 unit Documented by: Admin: 11/23/18 09:19 Dose: 5,000 unit Documented by: Admin: 11/22/18 20:22 Dose: 5,000 unit Documented by: Admin: 11/22/18 08:59 Dose: 5,000 unit Documented by: Admin: 11/21/18 21:01 Dose: 5,000 unit Documented by: GÓMEZ Heparin Sodium (Porcine) (Heparin Flush) 2 ml IV Q12 [facility] Last Admin: 11/30/18 08:46 Dose: 2 ml Documented by: Admin: 11/29/18 20:17 Dose: 2 ml Documented by: Admin: 11/29/18 09:42 Dose: 2 ml Documented by: Admin: 11/28/18 21:46 Dose: 2 ml Documented by: Admin: 11/28/18 08:23 Dose: 2 ml Documented by: Admin: 11/27/18 20:51 Dose: 2 ml Documented by: Admin: 11/27/18 13:02 Dose: 2 ml Documented by: Admin: 11/26/18 20:35 Dose: 2 ml Documented by: ESPERANZA Acetaminophen ([facility]) 1,000 mg in 100 mls @ 200 mls/hr IV Q6HP PRN PRN Reason: PAIN/FEVER > 101 Ceftriaxone Sodium 2 gm/ (Dextrose) 50 mls @ 100 mls/hr IV DAILY [facility]; Protocol Last Admin: 11/30/18 09:02 Dose: 100 mls/hr Documented by: Infusion: 11/29/18 10:08 Dose: 100 mls/hr Documented by: Admin: 11/29/18 09:38 Dose: 100 mls/hr Documented by: Infusion: 11/28/18 10:11 Dose: 0 mls/hr Documented by: Admin: 11/28/18 09:21 Dose: 100 mls/hr Documented by: Admin: 11/27/18 12:31 Dose: Not Given Documented by: [email or web address] Non-Admin Reason: Duplicate Iron Carb/Multivit/Online Editor/Folic Acid (Multivitamin W/Minerals) 1 tab PO DAILY [facility] Last Admin: 11/30/18 08:46 Dose: 1 tab Documented by: Admin: 11/29/18 09:16 Dose: 1 tab Documented by: Admin: 11/28/18 08:22 Dose: 1 tab Documented by: Admin: 11/27/18 12:39 Dose: 1 tab Documented by: Admin: 11/26/18 08:09 Dose: 1 tab Documented by: Admin: 11/25/18 08:39 Dose: 1 tab Documented by: [email or web address] Admin: 11/24/18 09:58 Dose: 1 tab Documented by: [email or web address] Admin: 11/23/18 09:06 Dose: 1 tab Documented by: [email or web address] Admin: 11/22/18 08:56 Dose: 1 tab Documented by: [email or web address] Losartan Potassium (Cozaar) 100 mg PO DAILY [facility] Last Admin: 11/30/18 08:45 Dose: 100 mg Documented by: Admin: 11/29/18 09:16 Dose: 100 mg Documented by: Admin: 11/28/18 08:22 Dose: 100 mg Documented by: Admin: 11/27/18 12:39 Dose: 100 mg Documented by: Admin: 11/26/18 08:08 Dose: 100 mg Documented by: Admin: 11/25/18 08:40 Dose: 100 mg Documented by: [email or web address] Admin: 11/24/18 10:00 Dose: 100 mg Documented by: [email or web address] Admin: 11/23/18 09:06 Dose: 100 mg Documented by: [email or web address] Admin: 11/22/18 08:52 Dose: 100 mg Documented by: [email or web address] Melatonin (Melatonin 3mg Tablet) 3 mg PO HSP PRN PRN Reason: Insomnia Last Admin: 11/29/18 21:37 Dose: 3 mg Documented by: GILLIAN Metronidazole (Flagyl) 500 mg PO Q8 [facility]; Protocol Last Admin: 11/30/18 15:41 Dose: 500 mg Documented by: Admin: 11/30/18 05:35 Dose: 500 mg Documented by: Admin: 11/29/18 21:37 Dose: 500 mg Documented by: Admin: 11/29/18 15:13 Dose: 500 mg Documented by: Admin: 11/29/18 05:37 Dose: 500 mg Documented by: Admin: 11/28/18 21:50 Dose: 500 mg Documented by: Admin: 11/28/18 14:20 Dose: 500 mg Documented by: Admin: 11/28/18 05:24 Dose: 500 mg Documented by: Admin: 11/27/18 22:21 Dose: 500 mg Documented by: Admin: 11/27/18 15:12 Dose: 500 mg Documented by: Admin: 11/27/18 05:53 Dose: 500 mg Documented by: Admin: 11/26/18 21:29 Dose: 500 mg Documented by: Admin: 11/26/18 14:44 Dose: 500 mg Documented by: Admin: 11/26/18 06:00 Dose: 500 mg Documented by: Admin: 11/25/18 22:27 Dose: 500 mg Documented by: Admin: 11/25/18 13:18 Dose: 500 mg Documented by: Admin: 11/25/18 06:42 Dose: 500 mg Documented by: Admin: 11/24/18 21:42 Dose: 500 mg Documented by: Admin: 11/24/18 14:08 Dose: 500 mg Documented by: [email or web address] Multivitamins/Minerals (Ocuvite) 1 tab PO DAILY [facility] Last Admin: 11/30/18 08:46 Dose: 1 tab Documented by: Admin: 11/29/18 09:17 Dose: 1 tab Documented by: Admin: 11/28/18 08:22 Dose: 1 tab Documented by: Admin: 11/27/18 12:39 Dose: 1 tab Documented by: Admin: 11/26/18 08:09 Dose: 1 tab Documented by: Admin: 11/25/18 08:40 Dose: 1 tab Documented by: Admin: 11/24/18 12:05 Dose: 1 tab Documented by: [email or web address] Nystatin (Nystatin) 500,000 units SSP QID [facility] Stop: 12/07/18 12:59 Last Admin: 11/30/18 13:22 Dose: 500,000 units Documented by: KATELIN Ondansetron HCl (Zofran) 4 mg IV Q4-6HP PRN PRN Reason: Nausea And Vomiting Oxymetazoline HCl (Afrin) 2 spray JORGE BIDP PRN PRN Reason: Congestion Last Admin: 11/27/18 19:24 Dose: 2 spray Documented by: Admin: 11/25/18 20:24 Dose: 2 spray Documented by: Admin: 11/25/18 08:55 Dose: 2 spray Documented by: [email or web address] Admin: 11/24/18 20:07 Dose: 2 spray Documented by: Admin: 11/24/18 05:24 Dose: 2 spray Documented by: Admin: 11/23/18 20:21 Dose: 2 spray Documented by: Admin: 11/22/18 20:23 Dose: 2 spray Documented by: Admin: 11/22/18 04:42 Dose: 2 spray Documented by: Admin: 11/21/18 19:58 Dose: 2 spray Documented by: GÓMEZ Potassium Chloride (Klor-Con) 40 meq PO DAILYP PRN PRN Reason: K+ < 3.5 Senna/Docusate Sodium (Senna Plus Tablet) 1 tab PO HS [facility] Last Admin: 11/29/18 21:37 Dose: 1 tab Documented by: Admin: 11/28/18 21:46 Dose: 1 tab Documented by: Admin: 11/27/18 22:21 Dose: Not Given Documented by: GILLIAN Non-Hyacinth Reason: Clinical Judgement Admin: 11/26/18 20:36 Dose: Not Given Documented by: ESPERANZA Maurice-Hyacinth Reason: Clinical Judgement Admin: 11/25/18 20:23 Dose: 1 tab Documented by: Admin: 11/24/18 20:07 Dose: 1 tab Documented by: Admin: 11/23/18 20:23 Dose: Not Given Documented by: RAFAELA Non-Hyacinth Reason: Patient Request Admin: 11/22/18 20:21 Dose: 1 tab Documented by: Admin: 11/21/18 21:02 Dose: Not Given Documented by: GÓMEZ Non-Admin Reason: Patient Refused Sodium Chloride (Saline Flush) 10 ml IV Q8 [facility] Last Admin: 11/30/18 15:41 Dose: 10 ml Documented by: Admin: 11/30/18 05:39 Dose: 10 ml Documented by: Admin: 11/29/18 20:19 Dose: 10 ml Documented by: Admin: 11/29/18 20:19 Dose: Not Given Documented by: GILLIAN Non-Admin Reason: Previous shift Admin: 11/29/18 05:37 Dose: 10 ml Documented by: Admin: 11/28/18 21:47 Dose: 10 ml Documented by: Admin: 11/28/18 14:20 Dose: 10 ml Documented by: Admin: 11/28/18 05:24 Dose: 10 ml Documented by: Admin: 11/27/18 20:51 Dose: 10 ml Documented by: Admin: 11/27/18 13:02 Dose: 10 ml Documented by: Admin: 11/27/18 05:53 Dose: 10 ml Documented by: Admin: 11/26/18 20:35 Dose: 10 ml Documented by: Admin: 11/26/18 14:36 Dose: 10 ml Documented by: Admin: 11/26/18 06:00 Dose: 10 ml Documented by: Admin: 11/25/18 20:54 Dose: 10 ml Documented by: Admin: 11/25/18 13:18 Dose: 10 ml Documented by: Admin: 11/25/18 07:36 Dose: 10 ml Documented by: Admin: 11/24/18 20:08 Dose: 10 ml Documented by: Admin: 11/24/18 14:08 Dose: 10 ml Documented by: [email or web address] Admin: 11/24/18 05:24 Dose: 10 ml Documented by: Admin: 11/23/18 23:47 Dose: 10 ml Documented by: Admin: 11/23/18 18:00 Dose: 10 ml Documented by: Admin: 11/23/18 05:21 Dose: Not Given Documented by: GILLIAN Non-Admin Reason: Bag Still Infusing Admin: 11/22/18 20:11 Dose: Not Given Documented by: GILLIAN Non-Admin Reason: Bag Still Infusing Admin: 11/22/18 18:29 Dose: Not Given Documented by: DANI Non-Admin Reason: Continuous IV Admin: 11/22/18 04:43 Dose: Not Given Documented by: GÓMEZ Non-Admin Reason: Continuous IV Admin: 11/21/18 23:02 Dose: Not Given Documented by: [email or web address] Non-Admin Reason: Continuous IV Admin: 11/21/18 12:25 Dose: Not Given Documented by: [email or web address] Non-Admin Reason: Continuous IV Sodium Chloride (Saline Flush) 10 ml IV UD PRN PRN Reason: FLUSH Sodium Chloride (Saline Flush) 10 ml IV Q12 [facility] Last Admin: 11/30/18 08:47 Dose: 10 ml Documented by: Admin: 11/29/18 20:18 Dose: Not Given Documented by: GILLIAN Non-Admin Reason: Duplicate Admin: 11/29/18 09:42 Dose: 10 ml Documented by: Admin: 11/28/18 21:50 Dose: Not Given Documented by: GILLIAN Non-Admin Reason: Duplicate Admin: 11/28/18 09:22 Dose: 10 ml Documented by: Admin: 11/27/18 20:53 Dose: Not Given Documented by: GILLIAN Non-Admin Reason: Duplicate Admin: 11/27/18 13:22 Dose: Not Given Documented by: [email or web address] Non-Admin Reason: iv to be discontinued Admin: 11/26/18 20:36 Dose: 10 ml Documented by: ESPERANZA Tamsulosin HCl (Flomax) 0.4 mg PO QDAY [facility] Last Admin: 11/30/18 08:46 Dose: 0.4 mg Documented by: Admin: 11/29/18 09:16 Dose: 0.4 mg Documented by: Admin: 11/28/18 08:22 Dose: 0.4 mg Documented by: Admin: 11/27/18 12:39 Dose: 0.4 mg Documented by: Admin: 11/26/18 08:09 Dose: 0.4 mg Documented by: Admin: 11/25/18 08:40 Dose: 0.4 mg Documented by: [email or web address] Admin: 11/24/18 10:00 Dose: 0.4 mg Documented by: [email or web address] Admin: 11/23/18 09:06 Dose: 0.4 mg Documented by: [email or web address] Admin: 11/22/18 08:52 Dose: 0.4 mg Documented by: [email or web address] Verapamil HCl (Calan Sr) 240 mg PO BID [facility] Last Admin: 11/30/18 08:45 Dose: 240 mg Documented by: Admin: 11/29/18 21:37 Dose: 240 mg Documented by: Admin: 11/29/18 09:16 Dose: 240 mg Documented by: Admin: 11/28/18 21:46 Dose: 240 mg Documented by: Admin: 11/28/18 08:24 Dose: 240 mg Documented by: Admin: 11/27/18 20:51 Dose: 240 mg Documented by: Admin: 11/27/18 12:37 Dose: 240 mg Documented by: Admin: 11/26/18 20:34 Dose: 240 mg Documented by: Admin: 11/26/18 08:10 Dose: 240 mg Documented by: Admin: 11/25/18 20:23 Dose: 240 mg Documented by: Admin: 11/25/18 08:39 Dose: 240 mg Documented by: [email or web address] Admin: 11/24/18 20:07 Dose: 240 mg Documented by: Admin: 11/24/18 09:59 Dose: 240 mg Documented by: [email or web address] Admin: 11/23/18 20:23 Dose: 240 mg Documented by: Admin: 11/23/18 09:05 Dose: 240 mg Documented by: Admin: 11/22/18 20:21 Dose: 240 mg Documented by: Admin: 11/22/18 08:50 Dose: 240 mg Documented by: [email or web address] Admin: 11/21/18 21:00 Dose: 240 mg Documented by: [email or web address] Verapamil HCl (Calan) 80 mg PO ONCE PRN PRN Reason: hypertension Assessment and Plan - Narrative A/P Narrative: A: 1. 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 Likely mechanism seems to be aspiration following dental filling. Strep intermedius is known to be part of oral daniel dia in those with dental caries - biopsy neg for malignancy but reports of fungal (yeast-like organisms is concerning) and warrants further w/u. Possible yeast which can cause such inf ections include: Cryptococcus errol, Histoplasma - repeat CT 11/26 suggested "8.6 x 7.4 cm right upper lobe abscess slightly decreasing since comparison CT approximately one week prior. There is now c entral liquefaction and maturing of a surrounding abscess capsule". s/p IR- guided drainage 11/27 with aspiration of 10 cc pus, with reduction of abscess to about 2/3 of its original size, GS with GPC in clusters and chains, cultures pending 2. No sepsis Recommendations: - Continue IV Ceftriaxone 2 gm q24 hrs, and PO Metronidazole 500 mg q8 hrs, day - repeat CT chest tomorrow. If no residual fluid accumulation, the IR drain could be pulled out - still await urine Histoplasma Ag, serum Cryptococcal Ag, serum galactomannan - anticipate at least 4 weeks of antibiotics therapy will follow Milton Meyer MD Infectious diseases
[2018-11-30] MEDS: guaiFENesin/CODEINE 10 ML UDC PO PRN (20:08)
[2018-11-30] MEDS: SENNOSIDES/DOCUSATE SODIUM 1 TAB TABLET PO SCH (20:08)
[2018-11-30] MEDS: OXYMETAZOLINE 1 SPRAY BOTTLE NAS PRN (20:12)
[2018-12-01] MEDS: 0.9 % SODIUM CHLORIDE 10 ML SYRINGE IV SCH ×5 (05:54→20:10)
[2018-12-01] MEDS: metroNIDAZOLE 500 MG TABLET PO SCH ×3 (05:54→21:59)
[2018-12-01 05:55] LABS: Basophils # (Auto) 0.1 K/mcL (0.0-0.3); Basophils % (Auto) 0.4 % (0.0-2.0); Eosinophils # (Auto) 0.5 K/mcL (0.0-0.7); Eosinophils % (Auto) 3.2 % (0.0-7.0); Granulocytes % (Auto) 73.6 % (38.0-78.0); Hematocrit 28.8 % (41.0-55.0); Hemoglobin 9.2 g/dL (13.5-16.5); Lymphocytes # (Auto) 2.3 K/mcL (1.5-4.8); Lymphocytes % (Auto) 15.6 % (15.5-49.0); Mean Cell Volume 90.3 fL (80.0-100.0); Mean Corpuscular HGB Conc 31.8 g/dL (31.0-36.0); Mean Platelet Volume 8.1 fL (7.4-10.4); Monocytes # (Auto) 1.1 K/mcL (0.1-0.9); Monocytes % (Auto) 7.2 % (1.0-12.0); Platelet Count 442 K/mcL (140-440); RBC 3.19 M/mcL (4.50-5.90); Red Cell Distribution Width 16.7 % (11.5-14.5); WBC 14.7 K/mcL (4.5-11.0)
[2018-12-01 06:24] LABS: Blood Urea Nitrogen 40 mg/dl (8-23); Carbon Dioxide 29 mmol/L (22-30); Chloride 103 mmol/L (96-108); Glomerular Filtration Rate 53; Glucose 109 mg/dL (70-105)
--- NOTE | 2018-12-01 07:27 | Internal Med Progress Note ---
Medical - PN: Subj Patient information: Note initiated : 12/01/18 at 7:25 am Service Date, if different from initiated Date: [] Patient: Tarik Dunn a 78 y/o M admitted on 11/20/18 for Shortness of breath. Chief Complaint: [] Interval history: Mr. Dunn is a 78 year old M with a history of hypertension otherwise fairly independent who lives by himself presents to the ER with 6 weeks onset of progressive cough weakness fatigue. Symptoms were gradual in onset without associated fever or chills or bloody sputum. Patient denies associated weight loss, shaking chills or sweats. He denies sick contacts. Over the last week and a half he has become extremely weak fatigued unable to function. He survived a near fall. With increasing concerns patient was evaluated by primary care physician and was referred to the ER after chest imaging revealed a suspicious right upper lobe mass. Initial work-up in the ER was consistent with right upper lobe infiltrative lesion. White count over 20,000. Patient underwent lung biopsy by interventional radiology. Culture was sent and patient was started on antibiot ic after biopsy revealed pus and necrotic tissue. Case was subsequently discussed with [place] eradicator Dr. Zepeda. Based on imaging appearance consistent with necrotizing pneumonia. Pulm onologist recommended management with antibiotics and admission. Hospitalist service is consulted for admission At the time of evaluation multiple family members are present. Most of the history was obtained from review of medical records/ER physician and patient himself. Patient denies any active distress or chest pain/pleurisy. He endorses to history as above. He denies night sweats/chills or weight loss. 11/21-patient clinically improved. Continuing Zosyn and vancomycin for necrotizing pneumonia. Tolerating diet and physical therapy. White count down from 20.8-20.5. Gram-positive cocci from lung biopsy/pus aspirate. Consider ID consult early next week along with pulmonary consult for bronchoscopy. Family made aware of treatment plan. Transfer to medical floor 1patient is feeling improved. Still overall weak. Appetite improving. Preliminary cultures show anaerobic organisms. White count down to 12,000. 2patient continues to feel improved. Seen at bedside with family and therapists. Strength is improving. Appetite is good. Cultures from abscess show strep intermedius. 3continues to slowly improve. Discussed with pathologist this morning, seen mostly inflammatory/infectious findings. Explained clinical situation and concern for possible postobstructive pneumonia, will do further stains. Informally discussed with ID, recommended changing to ceftriaxone and metronidazole for antibiotic coverage. ID would be happy to formally consult if prolonged antibiotics will be indicated and to help manage. 11/25-patient doing well on antibiotic coverage. No overnight fever chills. Persistent cough productive sputum. Pulmonology consulted. No family at bedside. Appetite good. Ongoing physical therapy and ambulating. 11/26-patient doing well. Currently on antibiotic coverage as per ID. Will undergo CT scan for interval changes including evaluation empyema/further drainable abscess. Case discussed with family. Possible discharge in 24 hours if clinically continues to improve and no further requirement of thoracentesis. Patient will need a minimum of 4 weeks antibiotic coverage and outpatient follow-up with pulmonology/ID on discharge. No fever chills or concerns per nursing staff. 11/27-patient due to undergo CT-guided abscess drainage. On antibiotic coverage. ID recommends minimum [address] PICC line. Fungal, bacterial/mycobacterial cultures ordered. Review postprocedure 11/28 No overnight events or new complaints. Small amount of drainage overnight. Patient has occasional cough. No shortness of breath. 11/29 Doing well. No new complaints. A little bit of drainage from catheter. Denying cough or shortness of breath. 11/30 No new complaints or overnight events. Feeling improved. Doing well with physical therapy 12/01 Repeat chest x-ray yesterday showed nephric improvement in his abscess. Patient does drain is following up CT of the chest today. Patient doing well and has no new complaints. Review of Systems: denies headache/fever/chills/nausea/vomiting/chest or abdominal pain/dyspnea /diarrhea. Otherwise see above. - Constitutional Vitals: Vital Signs Temp Pulse Resp BP Pulse Ox 97.9 F 71 20 110/61 92 12/01/18 03:54 12/01/18 03:54 12/01/18 03:54 12/01/18 03:54 12/01/18 03:54 Period Temp Pulse Resp BP Sys/[place] Pulse Ox Last 24 Hr 97.5 F-98.6 F 69-93 18-20 110-135/61-86 90-96 Intake and Output 11/30/18 12/01/18 12/01/18 21:59 05:59 13:59 Intake Total 650 270 Output Total 504 618 125 Balance 146 -348 -125 Weight 92.533 kg Intake & Output: Intake & Output 11/30/18 12/01/18 12/01/18 21:59 05:59 13:59 Intake Total 650 270 Output Total 504 618 125 Balance 146 -348 -125 Weight 92.533 kg Intake: Oral 640 250 Input, Drain Irrigation Amount 10 20 Right Chest Pigtail 10 20 Output: Drainage 4 18 Right Chest Pigtail 4 18 Drainage 50 0 Right Chest Pigtail 50 0 Void Amount 450 600 125 Other: Urine Appearance Clear Clear Urine Color Dark Yellow Bright Yellow Urine Odor Normal Normal Stool Size Moderate Stool Color Brown Stool Consistency Soft Formed # Bowel Movements 1 Exam: General: Alert, Awake, No acute Distress Eyes/N/T: EOMI, Head/Neck: neck supple, CV: RRR, No murmurs, Pulm: good aeration, no rhonchi, no wheezing. drain intact on right Abd: soft, nontender, +BS x4 Ext: no clubbing/cyanosis, trace b/l LE edema Neuro: Alert, no focal deficits, moves all extremities, Skin: warm/dry Medical - PN: Obj Da - Labs CBC & Chem 7: 12/01/18 04:06 12/01/18 04:06 Labs: Abnormal Lab Results 12/01/18 12/01/18 11/30/18 04:06 04:06 04:33 WBC 14.7 H 15.3 H RBC 3.19 L 3.08 L Hgb 9.2 L 8.8 L Hct 28.8 L 27.9 L RDW 16.7 H 15.8 H Plt Count 442 H Gran % Lymph % (Auto) 11.1 L Gran # 10.8 H 12.0 H [place] # (Auto) 1.1 H 1.3 H Seg Neutrophils % Lymphocytes % Platelet Estimate RBC Morphology Anisocytosis Ovalocytes Anion Gap 7.0 L BUN 40 H Creatinine 1.3 H Glucose 109 H Magnesium AST ALT Total Protein Albumin Albumin/Globulin Ratio 11/30/18 11/29/18 11/29/18 04:33 04:42 04:42 WBC 18.1 H RBC 3.16 L Hgb 9.0 L Hct 28.4 L RDW 15.3 H Plt Count Gran % 82.1 H Lymph % (Auto) 9.4 L Gran # 14.8 H [place] # (Auto) 1.2 H Seg Neutrophils % Lymphocytes % Platelet Estimate RBC Morphology Anisocytosis Ovalocytes Anion Gap BUN 37 H 31 H Creatinine 1.3 H 1.3 H Glucose 106 H Magnesium 1.5 L AST 38 H ALT 43 H Total Protein 5.7 L Albumin 2.4 L 2.7 L Albumin/Globulin Ratio 0.7 L 0.8 L 11/28/18 04:40 WBC RBC Hgb Hct RDW Plt Count Gran % Lymph % (Auto) Gran # [place] # (Auto) Seg Neutrophils % 87 H Lymphocytes % 6 L Platelet Estimate Increased A RBC Morphology Abnorm A Anisocytosis Few A Ovalocytes Few A Anion Gap BUN Creatinine Glucose Magnesium AST ALT Total Protein Albumin Albumin/Globulin Ratio Meds: Medications Acetaminophen (Tylenol) 650 mg PO Q4-6HP PRN PRN Reason: PAIN/FEVER > 101 Albuterol Sulfate (Ventolin) 1 - 2 puff INH Q4HP PRN PRN Reason: Wheezing Albuterol/Ipratropium (Duoneb) 3 ml NEB Q4HP PRN PRN Reason: Shortness Of Breath Last Admin: 11/23/18 09:19 Dose: 3 ml Documented by: Aspirin (Ecotrin) 325 mg PO BID [facility] Last Admin: 11/30/18 20:08 Dose: 325 mg Documented by: Chlorthalidone (Hygroton) 50 mg PO QDAY [facility] Last Admin: 11/30/18 08:45 Dose: 50 mg Documented by: Docusate Sodium (Colace) 100 mg PO BID [facility] Last Admin: 11/30/18 20:08 Dose: 100 mg Documented by: Fish Oil (Fish Oil) 1,000 mg PO DAILY [facility] Last Admin: 11/30/18 08:46 Dose: 1,000 mg Documented by: Folic Acid (Folic Acid) 1 mg PO DAILY [facility] Last Admin: 11/30/18 08:46 Dose: 1 mg Documented by: Guaifenesin/Codeine Phosphate (Robitussin Ac) 10 ml PO Q4HP PRN PRN Reason: Cough Last Admin: 11/30/18 20:08 Dose: 10 ml Documented by: Heparin Sodium (Porcine) (Heparin) 5,000 unit SQ Q12 [facility] Last Admin: 09/09/19 20:08 Dose: 5,000 unit Documented by: Heparin Sodium (Porcine) (Heparin Flush) 2 ml IV Q12 [facility] Last Admin: 11/30/18 20:09 Dose: 2 ml Documented by: Acetaminophen (Ofirmev) 1,000 mg in 100 mls @ 200 mls/hr IV Q6HP PRN PRN Reason: PAIN/FEVER > 101 Ceftriaxone Sodium 2 gm/ (Dextrose) 50 mls @ 100 mls/hr IV DAILY [facility]; Protocol Last Admin: 11/30/18 09:02 Dose: 100 mls/hr Documented by: Iron Carb/Multivit/[place]/Folic Acid (Multivitamin W/Minerals) 1 tab PO DAILY [facility] Last Admin: 11/30/18 08:46 Dose: 1 tab Documented by: Losartan Potassium (Cozaar) 100 mg PO DAILY [facility] Last Admin: 11/30/18 08:45 Dose: 100 mg Documented by: Melatonin (Melatonin 3mg Tablet) 3 mg PO HSP PRN PRN Reason: Insomnia Last Admin: 11/29/18 21:37 Dose: 3 mg Documented by: Metronidazole (Flagyl) 500 mg PO Q8 [facility]; Protocol Last Admin: 12/01/18 05:54 Dose: 500 mg Documented by: Multivitamins/Minerals (Ocuvite) 1 tab PO DAILY [facility] Last Admin: 11/30/18 08:46 Dose: 1 tab Documented by: Nystatin (Nystatin) 500,000 units SSP QID [facility] Stop: 12/07/18 12:59 Last Admin: 11/30/18 20:09 Dose: 500,000 units Documented by: Ondansetron HCl (Zofran) 4 mg IV Q4-6HP PRN PRN Reason: Nausea And Vomiting Oxymetazoline HCl (Afrin) 2 spray JORGE BIDP PRN PRN Reason: Congestion Last Admin: 11/30/18 20:12 Dose: 2 spray Documented by: Potassium Chloride (Klor-Con) 40 meq PO DAILYP PRN PRN Reason: K+ < 3.5 Senna/Docusate Sodium (Senna Plus Tablet) 1 tab PO HS [facility] Last Admin: 11/30/18 20:08 Dose: 1 tab Documented by: Sodium Chloride (Saline Flush) 10 ml IV Q8 [facility] Last Admin: 12/01/18 05:54 Dose: 10 ml Documented by: Sodium Chloride (Saline Flush) 10 ml IV UD PRN PRN Reason: FLUSH Sodium Chloride (Saline Flush) 10 ml IV Q12 [facility] Last Admin: 11/30/18 20:09 Dose: Not Given Documented by: Tamsulosin HCl (Flomax) 0.4 mg PO QDAY [facility] Last Admin: 11/30/18 08:46 Dose: 0.4 mg Documented by: Verapamil HCl (Calan Sr) 240 mg PO BID [facility] Last Admin: 11/30/18 20:08 Dose: 240 mg Documented by: Verapamil HCl (Calan) 80 mg PO ONCE PRN PRN Reason: hypertension Medical - PN: A/P - Time Spent With Patient Total time spent is greater than 50% in coordination of care (as documented) at patient's floor/unit and/or counseling patient: - Narrative A/P Narrative: A: *RUL necrotizing PNA: likely aspiration from dental procedure *Empyema: 2/2 above -Cx growing Strep intermedius; biopsy neg for malignancy -46cc drainage last 24hrs via ARUN drain (tpa given) *Sepsis: 2/2 above, resolved *h/o reactive airway disease: *HTN: continue home medications including verapamil/losartan/thiazide *BPH: continue tamsulosin *CKD III (baseline 1.2-1.3): resolved Plan: -Continue antibiotics as per ID; Continue antibiotic coverage on Rocephin/Flagyl. 4-wk therapy -drainage catheter per Rads -f/u CT chest today -PICC line placed -prn nebs -home BP meds -Daily PT/ OT/dietary intervention -ppx: heparin full code Medical - PN: Qual - VTE Deep Vein Thrombosis/Pulmonary Embolism Present on Admission: No
[2018-12-01] MEDS: MULTIVIT,THER IRON,CA,FA & MIN 1 TABLET PO SCH (08:37)
[2018-12-01] MEDS: FOLIC ACID 1 MG TABLET PO SCH (08:37)
[2018-12-01] MEDS: FISH OIL 1,000 MG CAPSULE PO SCH (08:37)
[2018-12-01] MEDS: VERAPAMIL 120 MG TAB.XL.24H PO SCH ×2 (08:37→20:11)
[2018-12-01] MEDS: LOSARTAN 50 MG TABLET PO SCH (08:37)
[2018-12-01] MEDS: DOCUSATE SODIUM 100 MG CAPSULE PO SCH ×2 (08:37→20:11)
[2018-12-01] MEDS: ASPIRIN 325 MG ENTERIC COATED TABLET PO SCH ×2 (08:37→20:11)
[2018-12-01] MEDS: CHLORTHALIDONE 25 MG TABLET PO SCH (08:37)
[2018-12-01] MEDS: VIT A,C & E/LUTEIN/MINERALS TABLET PO SCH (08:37)
[2018-12-01] MEDS: HEPARIN 5,000 UNIT/ML VIAL SQ SCH ×2 (08:38→20:10)
[2018-12-01] MEDS: NYSTATIN 500,000 UNITS/5 ML ORAL.SUSP SSP SCH ×4 (08:38→20:10)
[2018-12-01] MEDS: TAMSULOSIN 0.4 MG CAPSULE PO SCH (08:38)
[2018-12-01] MEDS: cefTRIAXone 2 GM in DEXTROSE 5% IN WATER 50 ML IV SCH (08:38)
--- NOTE | 2018-12-01 09:17 | Cat Scan Report ---
CLINICAL INFORMATION: Follow-up right upper lobe abscess COMPARISON: Predrainage chest CT less than two weeks prior: 11/20/2018 TECHNIQUE: 0.625 mm axial slices were obtained from the lung apices through the bases without intravenous contrast. 2.5 mm Sagittal, coronal and axial reformatted images were processed and reviewed at bone, lung and soft tissue windows. 7 mm axial MIP images were also reconstructed to optimize pulmonary nodule detection.The exam was performed using radiation dose optimization techniques including, but not limited to, automated exposure control, adjustment of the mA and/or kV according to patient size and use of iterative reconstruction technique. FINDINGS: The consolidated infiltrate with an associated abscess, in the anterior and apical segments of the right upper lobe, has decreased considerably from the predrainage CT. Using identical planes for measurement, this region spanned 7 x 7.5 cm on the 11/20/[address] Following treatment, it now spans 5.3 x 5.3 cm. The drainage tube remains properly positioned within the abscess cavity. Only a small amount of fluid remains dependently in the abscess cavity with moderate air in the nondependent region. Moderate consolidated infiltrate surrounding the abscess is compatible with an associated pneumonia. On the prior study, there was narrowing of the adjacent bronchi but this has decreased. There is no evidence of underlying malignancy. Small groundglass infiltrates have developed in the posterior segment right upper lobe and throughout both lower lobes which were not present on the previous study. This could indicate aspiration pneumonia or bronchial spread of the right upper lobe infection. There are no effusions. Mediastinal windows show the heart is normal in size with small amounts of calcific plaque in the proximal coronary arteries. The noncontrast thoracic aorta and pulmonary arteries are normal in contour and caliber. A few mildly enlarged lymph nodes in the right hilum and lower mediastinum have involuted compatible with benign reactive adenopathy. Persistent left SVC noted - a normal variant. The esophagus is unremarkable. Thyroid shows no abnormality. 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 There are no focal osseous lesions. Images should the superior abdomen show no signal abnormality. IMPRESSION: 1. Considerable decrease in right upper lobe abscess with surrounding consolidated infiltrate in the anterior and apical segments of the right upper lobe.. On the previous study, encasement of the adjacent bronchi was described, but this has subsided with improvement in inflammation. There is no CT evidence for underlying malignancy. When the net drain output is less than 5 cc over 24 hours, the tube can be removed. 2. Mild patchy groundglass infiltrates developing in the posterior segment right upper lobe and throughout both lower lobes since previous study. Suspect endobronchial spread of right upper lobe infection or, less likely, aspiration. Interpreted and Authenticated by: John Medina 12/01/18
--- NOTE | 2018-12-01 13:26 | Non-GYN Cytology Report ---
NON STORE FACILITY TECHNICIAN SPECIMEN NG DX CATEGORY Negative MICROSCOPIC DIAGNOSIS LUNG, RIGHT, FINE NEEDLE ASPIRATION: -- NEUTROPHILS AND ACELLULAR DEBRIS, CONSISTENT WITH ABSCESS. -- NO ATYPICAL OR MALIGNANT CELLS IDENTIFIED. (RLF:jt) MICROSCOPIC DESCRIPTION Thinprep, cytospin and cell block slides are examined and demonstrate numerous neutrophils and acellular debris. No epithelial cell population, atypical or malignant cells are identified. (RLF:jt) EXTERNAL COMMENT ~6 mL viscous cloudy valdez-brown fluid: 1 thinprep, 1 H/E, 1 Diff Quik, 1 cell block Electronically Signed by: Genesis Gagnon M.D.
--- NOTE | 2018-12-01 17:39 | Infectious Disease Prog Note ---
Subjective Patient information: Note initiated : 12/01/18 at 5:35 pm Service Date, if different from initiated Date: [] Patient: Tarik Dunn 78 y/o M admitted on 11/20/18 for Shortness of breath. Chief Complaint: [] Interval history: Pt doing well. Shared CT scan results from yesterday. Shared with him that all he needs is IV antibiotics, IR placed catheter care (could be pulled out once minimally draining), PICC line care. Met his daughter yesterday (Jazmin) who shared that he is going to be at [facility] after discharge. Talked about repeating CT scan in near future and ID clinic f/u. Pt denied any symptoms. Mentions that he didnot like the taste of Nystatin, although would continue to use it. Objective Objective Narrative: ao x 3, in nad thrush resolving chest is CTA, except for decreased BS at bases s1 s2 normal, faint systolic murmur over rt 2nd ICS bs ++ nttd no edema over legs The chest wall catheter draining minimal seropurulent fluid in the bag - Vital Signs Vital signs: Vital Signs Temp Pulse Resp BP BP Pulse Ox 12/01/18 12:00 36.6 C 70 20 132/69 94 12/01/18 07:57 36.5 C 76 20 139/66 94 12/01/18 03:54 36.6 C 71 20 110/61 92 11/30/18 23:50 36.8 C 83 20 132/68 94 11/30/18 19:23 36.7 C 93 H 20 120/63 95 Intake and Output 12/01/18 12/01/18 12/01/18 05:59 13:59 21:59 Intake Total 270 290 Output Total 618 550 Balance -348 -260 Intake: IV 50 Rocephin 2 gm In Dextrose 5% in 50 Water 50 ml @ 100 mls/hr IV DAILY [facility] Rx#:[id number] Oral 250 240 Input, Drain Irrigation Amount 20 Right Chest Pigtail 20 Output: Drainage 18 Right Chest Pigtail 18 Drainage 0 Right Chest Pigtail 0 Void Amount 600 550 Other: Meal Lunch Percent of Meal Consumed 100% Urine Appearance Clear Urine Color Bright Yellow Urine Odor Normal Stool Size Small Stool Color Brown Stool Consistency Soft # Bowel Movements 1 Weight 92.533 kg Patient Weight 12/02/18 05:59 Weight 92.533 kg Intake & Output: Intake & Output 12/01/18 12/01/18 12/01/18 05:59 13:59 21:59 Intake Total 270 290 Output Total 618 550 Balance -348 -260 Weight 92.533 kg Intake: IV 50 Rocephin 2 gm In Dextrose 5% in 50 Water 50 ml @ 100 mls/hr IV DAILY [facility] Rx#:[id number] Oral 250 240 Input, Drain Irrigation Amount 20 Right Chest Pigtail 20 Output: Drainage 18 Right Chest Pigtail 18 Drainage 0 Right Chest Pigtail 0 Void Amount 600 550 Other: Meal Lunch Percent of Meal Consumed 100% Urine Appearance Clear Urine Color Bright Yellow Urine Odor Normal Stool Size Small Stool Color Brown Stool Consistency Soft # Bowel Movements 1 - Lab 12/01/18 04:06 12/01/18 04:06 Most recent lab results Calcium 10.0 mg/dl (8.6-10.4) 12/01/18 04:06 Phosphorus 3.2 mg/dL (2.7-4.5) 11/30/18 04:33 Magnesium 1.6 mg/dL (1.6-2.5) 11/30/18 04:33 Microbiology 11/27/18 11:30 Aspirate - Right Upper Lobe Fungal Smear - Final 11/27/18 11:30 Aspirate - Right Upper Lobe Fungal Culture - Preliminary 11/20/18 17:00 Aspirate - Right Upper Lobe Fungal Smear - Final 11/20/18 17:00 Aspirate - Right Upper Lobe Fungal Culture - Preliminary 11/27/18 11:30 Aspirate - Right Upper Lobe Gram Stain - Final 11/27/18 11:30 Aspirate - Right Upper Lobe Anaerobic Culture - Preliminary 11/27/18 11:30 Lung - Right Upper Lobe Gram Stain - Final 11/27/18 11:30 Lung - Right Upper Lobe Abscess Culture - Final 11/20/18 17:00 Pleural Fluid Gram Stain - Final 11/20/18 17:00 Pleural Fluid Anaerobic Culture - Final Streptococcus intermedius 11/20/18 16:45 Blood Blood Culture - Final 11/20/18 16:38 Blood Blood Culture - Final 11/20/18 17:00 Pleural Fluid Gram Stain - Final 11/20/18 17:00 Pleural Fluid Body Fluid Culture - Final 11/20/18 18:30 Nose MRSA (PCR) - Final Medications Active Medications: Acetaminophen (Tylenol) 650 mg PO Q4-6HP PRN PRN Reason: PAIN/FEVER > 101 Albuterol Sulfate (Ventolin) 1 - 2 puff INH Q4HP PRN PRN Reason: Wheezing Albuterol/Ipratropium (Duoneb) 3 ml NEB Q4HP PRN PRN Reason: Shortness Of Breath Last Admin: 11/23/18 09:19 Dose: 3 ml Documented by: [email or web address] Admin: 11/22/18 10:15 Dose: 3 ml Documented by: Admin: 11/21/18 21:25 Dose: 3 ml Documented by: SHANNON Aspirin (Ecotrin) 325 mg PO BID [place] Last Admin: 12/01/18 08:37 Dose: 325 mg Documented by: Admin: 11/30/18 20:08 Dose: 325 mg Documented by: Admin: 11/30/18 08:46 Dose: 325 mg Documented by: Admin: 11/29/18 20:16 Dose: 325 mg Documented by: Admin: 11/29/18 09:17 Dose: 325 mg Documented by: Admin: 11/28/18 21:46 Dose: 325 mg Documented by: Admin: 11/28/18 08:22 Dose: 325 mg Documented by: Admin: 11/27/18 20:51 Dose: 325 mg Documented by: Admin: 11/27/18 12:31 Dose: 325 mg Documented by: Admin: 11/26/18 20:34 Dose: 325 mg Documented by: Admin: 11/26/18 08:09 Dose: 325 mg Documented by: Admin: 11/25/18 20:23 Dose: 325 mg Documented by: Admin: 11/25/18 08:41 Dose: 325 mg Documented by: Admin: 11/24/18 20:07 Dose: 325 mg Documented by: Admin: 11/24/18 09:59 Dose: 325 mg Documented by: Admin: 11/23/18 20:23 Dose: 325 mg Documented by: Admin: 11/23/18 09:07 Dose: 325 mg Documented by: Admin: 11/22/18 20:22 Dose: 325 mg Documented by: Admin: 11/22/18 08:53 Dose: 325 mg Documented by: [email or web address] Admin: 11/21/18 21:01 Dose: 325 mg Documented by: JIGNAW Chlorthalidone (Hygroton) 50 mg PO QDAY [facility] Last Admin: 12/01/18 08:37 Dose: 50 mg Documented by: [email or web address] Admin: 11/30/18 08:45 Dose: 50 mg Documented by: Admin: 11/29/18 09:16 Dose: 50 mg Documented by: Admin: 11/28/18 08:22 Dose: 50 mg Documented by: Admin: 11/27/18 12:30 Dose: 50 mg Documented by: Admin: 11/26/18 08:08 Dose: 50 mg Documented by: Admin: 11/25/18 08:39 Dose: 50 mg Documented by: [email or web address] Admin: 11/24/18 10:00 Dose: 50 mg Documented by: [email or web address] Admin: 11/23/18 09:07 Dose: 50 mg Documented by: [email or web address] Admin: 11/22/18 08:54 Dose: 50 mg Documented by: [email or web address] Docusate Sodium (Colace) 100 mg PO BID [facility] Admin: 12/01/18 08:37 Dose: 100 mg Documented by: [email or web address] Admin: 11/30/18 20:08 Dose: 100 mg Documented by: Admin: 11/30/18 08:46 Dose: 100 mg Documented by: KATELIN Comments: wont scan Admin: 11/29/18 20:16 Dose: 100 mg Documented by: Admin: 11/29/18 09:17 Dose: 100 mg Documented by: Admin: 11/28/18 21:46 Dose: 100 mg Documented by: Admin: 11/28/18 08:22 Dose: 100 mg Documented by: Admin: 11/27/18 20:51 Dose: 100 mg Documented by: Admin: 11/27/18 12:30 Dose: 100 mg Documented by: Admin: 11/26/18 20:34 Dose: Not Given Documented by: ESPERANZA Non-Hyacinth Reason: Clinical Judgement Admin: 11/26/18 08:09 Dose: 100 mg Documented by: Admin: 11/25/18 20:23 Dose: 100 mg Documented by: Admin: 11/25/18 08:40 Dose: 100 mg Documented by: Admin: 11/24/18 20:07 Dose: 100 mg Documented by: Admin: 11/24/18 10:01 Dose: Not Given Documented by: [email or web address] Non-Admin Reason: Loose Stool Admin: 11/23/18 20:22 Dose: 100 mg Documented by: Admin: 11/23/18 09:08 Dose: Not Given Documented by: [email or web address] Non-Admin Reason: Patient Refused Admin: 11/22/18 20:22 Dose: 100 mg Documented by: Admin: 11/22/18 08:57 Dose: Not Given Documented by: [email or web address] Non-Admin Reason: Loose Stool Admin: 11/21/18 21:01 Dose: Not Given Documented by: GÓMEZ Non-Admin Reason: Patient Refused Fish Oil (Fish Oil) 1,000 mg PO DAILY [facility] Last Admin: 12/01/18 08:37 Dose: 1,000 mg Documented by: [email or web address] Admin: 11/30/18 08:46 Dose: 1,000 mg Documented by: Admin: 11/29/18 09:17 Dose: 1,000 mg Documented by: Admin: 11/28/18 08:22 Dose: 1,000 mg Documented by: Admin: 11/27/18 12:29 Dose: 1,000 mg Documented by: Admin: 11/26/18 08:09 Dose: 1,000 mg Documented by: Admin: 11/25/18 08:40 Dose: 1,000 mg Documented by: [email or web address] Admin: 11/24/18 10:00 Dose: 1,000 mg Documented by: [email or web address] Admin: 11/23/18 09:07 Dose: 1,000 mg Documented by: [email or web address] Admin: 11/22/18 08:53 Dose: 1,000 mg Documented by: [email or web address] Folic Acid (Folic Acid) 1 mg PO DAILY [facility] Last Admin: 12/01/18 08:37 Dose: 1 mg Documented by: [email or web address] Admin: 11/30/18 08:46 Dose: 1 mg Documented by: Admin: 11/29/18 09:17 Dose: 1 mg Documented by: Admin: 11/28/18 08:22 Dose: 1 mg Documented by: Admin: 11/27/18 12:43 Dose: 1 mg Documented by: Admin: 11/26/18 09:29 Dose: 1 mg Documented by: Admin: 11/25/18 08:41 Dose: 1 mg Documented by: [email or web address] Admin: 11/24/18 10:03 Dose: 1 mg Documented by: [email or web address] Admin: 11/23/18 09:19 Dose: 1 mg Documented by: [email or web address] Admin: 11/22/18 08:55 Dose: 1 mg Documented by: [email or web address] Guaifenesin/Codeine Phosphate (Robitussin Ac) 10 ml PO Q4HP PRN PRN Reason: Cough Last Admin: 11/30/18 20:08 Dose: 10 ml Documented by: Admin: 11/29/18 20:16 Dose: 10 ml Documented by: Admin: 11/28/18 21:45 Dose: 10 ml Documented by: Admin: 11/27/18 19:24 Dose: 10 ml Documented by: Admin: 11/26/18 20:33 Dose: 10 ml Documented by: Admin: 11/25/18 20:24 Dose: 10 ml Documented by: Admin: 11/24/18 20:16 Dose: 10 ml Documented by: Admin: 11/24/18 03:18 Dose: 10 ml Documented by: RAFAELA Heparin Sodium (Porcine) (Heparin) 5,000 unit SQ Q12 [place] Last Admin: 12/01/18 08:38 Dose: 5,000 unit Documented by: Admin: 11/30/18 20:08 Dose: 5,000 unit Documented by: Admin: 11/30/18 08:45 Dose: 5,000 unit Documented by: Admin: 11/29/18 20:16 Dose: 5,000 unit Documented by: Admin: 11/29/18 09:17 Dose: 5,000 unit Documented by: Admin: 11/28/18 21:42 Dose: 5,000 unit Documented by: Admin: 11/28/18 08:21 Dose: 5,000 unit Documented by: Admin: 11/27/18 20:52 Dose: 5,000 unit Documented by: Admin: 11/27/18 12:38 Dose: 5,000 unit Documented by: Admin: 11/26/18 20:35 Dose: 5,000 unit Documented by: Admin: 11/26/18 09:26 Dose: 5,000 unit Documented by: Admin: 11/25/18 20:24 Dose: 5,000 unit Documented by: Admin: 11/25/18 08:38 Dose: 5,000 unit Documented by: Admin: 11/24/18 20:08 Dose: 5,000 unit Documented by: Admin: 11/24/18 10:04 Dose: 5,000 unit Documented by: Admin: 11/23/18 20:20 Dose: 5,000 unit Documented by: Admin: 11/23/18 09:19 Dose: 5,000 unit Documented by: Admin: 11/22/18 20:22 Dose: 5,000 unit Documented by: Admin: 11/22/18 08:59 Dose: 5,000 unit Documented by: Admin: 11/21/18 21:01 Dose: 5,000 unit Documented by: GÓMEZ Heparin Sodium (Porcine) (Heparin Flush) 2 ml IV Q12 [place] Last Admin: 12/01/18 09:23 Dose: 2 ml Documented by: Admin: 11/30/18 20:09 Dose: 2 ml Documented by: Admin: 11/30/18 08:46 Dose: 2 ml Documented by: Admin: 11/29/18 20:17 Dose: 2 ml Documented by: Admin: 11/29/18 09:42 Dose: 2 ml Documented by: Admin: 11/28/18 21:46 Dose: 2 ml Documented by: Admin: 11/28/18 08:23 Dose: 2 ml Documented by: Admin: 11/27/18 20:51 Dose: 2 ml Documented by: Admin: 11/27/18 13:02 Dose: 2 ml Documented by: Admin: 11/26/18 20:35 Dose: 2 ml Documented by: ESPERANZA Acetaminophen ([facility]) 1,000 mg in 100 mls @ 200 mls/hr IV Q6HP PRN PRN Reason: PAIN/FEVER > 101 Ceftriaxone Sodium 2 gm/ (Dextrose) 50 mls @ 100 mls/hr IV DAILY [place]; Protocol Last Infusion: 12/01/18 09:10 Dose: 0 mls/hr Documented by: Admin: 12/01/18 08:38 Dose: 100 mls/hr Documented by: Infusion: 11/30/18 09:32 Dose: 100 mls/hr Documented by: Admin: 11/30/18 09:02 Dose: 100 mls/hr Documented by: Infusion: 11/29/18 10:08 Dose: 100 mls/hr Documented by: Admin: 11/29/18 09:38 Dose: 100 mls/hr Documented by: Infusion: 11/28/18 10:11 Dose: 0 mls/hr Documented by: Admin: 11/28/18 09:21 Dose: 100 mls/hr Documented by: Admin: 11/27/18 12:31 Dose: Not Given Documented by: [email or web address] Non-Admin Reason: Duplicate Iron Carb/Multivit/Mcnairy/Folic Acid (Multivitamin W/Minerals) 1 tab PO DAILY [facility] Last Admin: 12/01/18 08:37 Dose: 1 tab Documented by: Admin: 11/30/18 08:46 Dose: 1 tab Documented by: Admin: 11/29/18 09:16 Dose: 1 tab Documented by: Admin: 11/28/18 08:22 Dose: 1 tab Documented by: Admin: 11/27/18 12:39 Dose: 1 tab Documented by: Admin: 11/26/18 08:09 Dose: 1 tab Documented by: Admin: 11/25/18 08:39 Dose: 1 tab Documented by: [email or web address] Admin: 11/24/18 09:58 Dose: 1 tab Documented by: [email or web address] Admin: 11/23/18 09:06 Dose: 1 tab Documented by: [email or web address] Admin: 11/22/18 08:56 Dose: 1 tab Documented by: [email or web address] Losartan Potassium (Cozaar) 100 mg PO DAILY [facility] Last Admin: 12/01/18 08:37 Dose: 100 mg Documented by: [email or web address] Admin: 11/30/18 08:45 Dose: 100 mg Documented by: Admin: 11/29/18 09:16 Dose: 100 mg Documented by: Admin: 11/28/18 08:22 Dose: 100 mg Documented by: Admin: 11/27/18 12:39 Dose: 100 mg Documented by: Admin: 11/26/18 08:08 Dose: 100 mg Documented by: Admin: 11/25/18 08:40 Dose: 100 mg Documented by: [email or web address] Admin: 11/24/18 10:00 Dose: 100 mg Documented by: [email or web address] Admin: 11/23/18 09:06 Dose: 100 mg Documented by: [email or web address] Admin: 11/22/18 08:52 Dose: 100 mg Documented by: [email or web address] Melatonin (Melatonin 3mg Tablet) 3 mg PO HSP PRN PRN Reason: Insomnia Last Admin: 11/29/18 21:37 Dose: 3 mg Documented by: GILLIAN Metronidazole (Flagyl) 500 mg PO Q8 [facility]; Protocol Last Admin: 12/01/18 13:16 Dose: 500 mg Documented by: [email or web address] Admin: 12/01/18 05:54 Dose: 500 mg Documented by: Admin: 11/30/18 21:29 Dose: 500 mg Documented by: Admin: 11/30/18 15:41 Dose: 500 mg Documented by: Admin: 11/30/18 05:35 Dose: 500 mg Documented by: Admin: 11/29/18 21:37 Dose: 500 mg Documented by: Admin: 11/29/18 15:13 Dose: 500 mg Documented by: Admin: 11/29/18 05:37 Dose: 500 mg Documented by: Admin: 11/28/18 21:50 Dose: 500 mg Documented by: Admin: 11/28/18 14:20 Dose: 500 mg Documented by: Admin: 11/28/18 05:24 Dose: 500 mg Documented by: Admin: 11/27/18 22:21 Dose: 500 mg Documented by: Admin: 11/27/18 15:12 Dose: 500 mg Documented by: Admin: 11/27/18 05:53 Dose: 500 mg Documented by: Admin: 11/26/18 21:29 Dose: 500 mg Documented by: Admin: 11/26/18 14:44 Dose: 500 mg Documented by: Admin: 11/26/18 06:00 Dose: 500 mg Documented by: Admin: 11/25/18 22:27 Dose: 500 mg Documented by: Admin: 11/25/18 13:18 Dose: 500 mg Documented by: Admin: 11/25/18 06:42 Dose: 500 mg Documented by: Admin: 11/24/18 21:42 Dose: 500 mg Documented by: Admin: 11/24/18 14:08 Dose: 500 mg Documented by: [email or web address] Multivitamins/Minerals (Ocuvite) 1 tab PO DAILY [facility] Last Admin: 12/01/18 08:37 Dose: 1 tab Documented by: Admin: 11/30/18 08:46 Dose: 1 tab Documented by: Admin: 11/29/18 09:17 Dose: 1 tab Documented by: Admin: 11/28/18 08:22 Dose: 1 tab Documented by: Admin: 11/27/18 12:39 Dose: 1 tab Documented by: Admin: 11/26/18 08:09 Dose: 1 tab Documented by: Admin: 11/25/18 08:40 Dose: 1 tab Documented by: [email or web address] Admin: 11/24/18 12:05 Dose: 1 tab Documented by: [email or web address] Nystatin (Nystatin) 500,000 units SSP QID [place] Stop: 12/07/18 12:59 Last Admin: 12/01/18 17:27 Dose: 500,000 units Documented by: [email or web address] Admin: 12/01/18 12:48 Dose: 500,000 units Documented by: [email or web address] Admin: 12/01/18 08:38 Dose: 500,000 units Documented by: Admin: 11/30/18 20:09 Dose: 500,000 units Documented by: Admin: 11/30/18 17:29 Dose: 500,000 units Documented by: Admin: 11/30/18 13:22 Dose: 500,000 units Documented by: KATELIN Ondansetron HCl (Zofran) 4 mg IV Q4-6HP PRN PRN Reason: Nausea And Vomiting Oxymetazoline HCl (Afrin) 2 spray JORGE BIDP PRN PRN Reason: Congestion Last Admin: 11/30/18 20:12 Dose: 2 spray Documented by: Admin: 11/27/18 19:24 Dose: 2 spray Documented by: Admin: 11/25/18 20:24 Dose: 2 spray Documented by: Admin: 11/25/18 08:55 Dose: 2 spray Documented by: Admin: 11/24/18 20:07 Dose: 2 spray Documented by: Admin: 11/24/18 05:24 Dose: 2 spray Documented by: Admin: 11/23/18 20:21 Dose: 2 spray Documented by: Admin: 11/22/18 20:23 Dose: 2 spray Documented by: Admin: 11/22/18 04:42 Dose: 2 spray Documented by: Admin: 11/21/18 19:58 Dose: 2 spray Documented by: GÓMEZ Potassium Chloride (Klor-Con) 40 meq PO DAILYP PRN PRN Reason: K+ < 3.5 Senna/Docusate Sodium (Senna Plus Tablet) 1 tab PO HS [place] Last Admin: 11/30/18 20:08 Dose: 1 tab Documented by: Admin: 11/29/18 21:37 Dose: 1 tab Documented by: Admin: 11/28/18 21:46 Dose: 1 tab Documented by: Admin: 11/27/18 22:21 Dose: Not Given Documented by: GILLIAN Non-Admin Reason: Clinical Judgement Admin: 11/26/18 20:36 Dose: Not Given Documented by: ESPERANZA Non-Admin Reason: Clinical Judgement Admin: 11/25/18 20:23 Dose: 1 tab Documented by: Admin: 11/24/18 20:07 Dose: 1 tab Documented by: Admin: 11/23/18 20:23 Dose: Not Given Documented by: RAFAELA Non-Admin Reason: Patient Request Admin: 11/22/18 20:21 Dose: 1 tab Documented by: Admin: 11/21/18 21:02 Dose: Not Given Documented by: GÓMEZ Non-Admin Reason: Patient Refused Sodium Chloride (Saline Flush) 10 ml IV Q8 [place] Last Admin: 12/01/18 13:16 Dose: 10 ml Documented by: Admin: 12/01/18 05:54 Dose: 10 ml Documented by: Admin: 11/30/18 20:09 Dose: 10 ml Documented by: Admin: 11/30/18 15:41 Dose: 10 ml Documented by: Admin: 11/30/18 05:39 Dose: 10 ml Documented by: Admin: 11/29/18 20:19 Dose: 10 ml Documented by: Admin: 11/29/18 20:19 Dose: Not Given Documented by: GILLIAN Non-Admin Reason: Previous shift Admin: 11/29/18 05:37 Dose: 10 ml Documented by: Admin: 11/28/18 21:47 Dose: 10 ml Documented by: Admin: 11/28/18 14:20 Dose: 10 ml Documented by: Admin: 11/28/18 05:24 Dose: 10 ml Documented by: Admin: 11/27/18 20:51 Dose: 10 ml Documented by: Admin: 11/27/18 13:02 Dose: 10 ml Documented by: Admin: 11/27/18 05:53 Dose: 10 ml Documented by: Admin: 11/26/18 20:35 Dose: 10 ml Documented by: Admin: 11/26/18 14:36 Dose: 10 ml Documented by: Admin: 11/26/18 06:00 Dose: 10 ml Documented by: Admin: 11/25/18 20:54 Dose: 10 ml Documented by: Admin: 11/25/18 13:18 Dose: 10 ml Documented by: [email or web address] Admin: 11/25/18 07:36 Dose: 10 ml Documented by: [email or web address] Admin: 11/24/18 20:08 Dose: 10 ml Documented by: Admin: 11/24/18 14:08 Dose: 10 ml Documented by: [email or web address] Admin: 11/24/18 05:24 Dose: 10 ml Documented by: Admin: 11/23/18 23:47 Dose: 10 ml Documented by: Admin: 11/23/18 18:00 Dose: 10 ml Documented by: Admin: 11/23/18 05:21 Dose: Not Given Documented by: GILLIAN Non-Admin Reason: Bag Still Infusing Admin: 11/22/18 20:11 Dose: Not Given Documented by: GILLIAN Non-Admin Reason: Bag Still Infusing Admin: 11/22/18 18:29 Dose: Not Given Documented by: DANI Non-Admin Reason: Continuous IV Admin: 11/22/18 04:43 Dose: Not Given Documented by: GÓMEZ Non-Admin Reason: Continuous IV Admin: 11/21/18 23:02 Dose: Not Given Documented by: [email or web address] Non-Admin Reason: Continuous IV Admin: 11/21/18 12:25 Dose: Not Given Documented by: [email or web address] Non-Admin Reason: Continuous IV Sodium Chloride (Saline Flush) 10 ml IV UD PRN PRN Reason: FLUSH Sodium Chloride (Saline Flush) 10 ml IV Q12 [place] Last Admin: 12/01/18 09:22 Dose: 10 ml Documented by: Admin: 11/30/18 20:09 Dose: Not Given Documented by: EREN Non-Admin Reason: Duplicate Admin: 11/30/18 08:47 Dose: 10 ml Documented by: Admin: 11/29/18 20:18 Dose: Not Given Documented by: GILLIAN Non-Admin Reason: Duplicate Admin: 11/29/18 09:42 Dose: 10 ml Documented by: [email or web address] Admin: 11/28/18 21:50 Dose: Not Given Documented by: GILLIAN Non-Admin Reason: Duplicate Admin: 11/28/18 09:22 Dose: 10 ml Documented by: Admin: 11/27/18 20:53 Dose: Not Given Documented by: GILLIAN Non-Admin Reason: Duplicate Admin: 11/27/18 13:22 Dose: Not Given Documented by: [email or web address] Non-Admin Reason: iv to be discontinued Admin: 11/26/18 20:36 Dose: 10 ml Documented by: ESPERANZA Tamsulosin HCl (Flomax) 0.4 mg PO QDAY [facility] Admin: 12/01/18 08:38 Dose: 0.4 mg Documented by: Admin: 11/30/18 08:46 Dose: 0.4 mg Documented by: Admin: 11/29/18 09:16 Dose: 0.4 mg Documented by: Admin: 11/28/18 08:22 Dose: 0.4 mg Documented by: Admin: 11/27/18 12:39 Dose: 0.4 mg Documented by: Admin: 11/26/18 08:09 Dose: 0.4 mg Documented by: Admin: 11/25/18 08:40 Dose: 0.4 mg Documented by: Admin: 11/24/18 10:00 Dose: 0.4 mg Documented by: [email or web address] Admin: 11/23/18 09:06 Dose: 0.4 mg Documented by: [email or web address] Admin: 11/22/18 08:52 Dose: 0.4 mg Documented by: [email or web address] Verapamil HCl (Calan Sr) 240 mg PO BID [facility] Admin: 12/01/18 08:37 Dose: 240 mg Documented by: Admin: 11/30/18 20:08 Dose: 240 mg Documented by: Admin: 11/30/18 08:45 Dose: 240 mg Documented by: Admin: 11/29/18 21:37 Dose: 240 mg Documented by: Admin: 11/29/18 09:16 Dose: 240 mg Documented by: Admin: 11/28/18 21:46 Dose: 240 mg Documented by: Admin: 11/28/18 08:24 Dose: 240 mg Documented by: Admin: 11/27/18 20:51 Dose: 240 mg Documented by: Admin: 11/27/18 12:37 Dose: 240 mg Documented by: Admin: 11/26/18 20:34 Dose: 240 mg Documented by: Admin: 11/26/18 08:10 Dose: 240 mg Documented by: Admin: 11/25/18 20:23 Dose: 240 mg Documented by: Admin: 11/25/18 08:39 Dose: 240 mg Documented by: [email or web address] Admin: 11/24/18 20:07 Dose: 240 mg Documented by: Admin: 11/24/18 09:59 Dose: 240 mg Documented by: [email or web address] Admin: 11/23/18 20:23 Dose: 240 mg Documented by: Admin: 11/23/18 09:05 Dose: 240 mg Documented by: [email or web address] Admin: 11/22/18 20:21 Dose: 240 mg Documented by: Admin: 11/22/18 08:50 Dose: 240 mg Documented by: [email or web address] Admin: 11/21/18 21:00 Dose: 240 mg Documented by: GÓMEZ Verapamil HCl (Calan) 80 mg PO ONCE PRN PRN Reason: hypertension Assessment and Plan - Narrative A/P Narrative: A: 1. 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 Likely mechanism seems to be aspiration following dental filling. Strep intermedius is known to be part of oral daniel dia in those with dental caries - biopsy neg for malignancy but reports of fungal (yeast-like organisms is concerning) and warrants further w/u. Possible yeast which can cause such infections include: Cryptococcus errol, Histoplasma - repeat CT 11/26 suggested "8.6 x 7.4 cm right upper lobe abscess slightly decreasing since comparison CT approximately one week prior. There is now central liquefaction and maturing of a surrounding abscess capsule". s/p IR- guided drainage 11/27 with aspiration of 10 cc pus, with reduction of abscess to about 2/3 of its original size, GS with GPC in clusters and chains, cultures NGTD - repeat CT 12/01 showed :" Considerable decrease in right upper lobe abscess with surrounding consolidated infiltrate in the anterior and apical segments of the right upper lobe. On the previous study, encasement of the adjacent bronchi was described, but this has subsided with improvement in inflammation. There is no CT evidence for underlying malignancy. Mild patchy groundglass infiltrates developing in the posterior segment right upper lobe and throughout both lower lobes since previous study". It suggest favorable clinical response to infection with antibiotics and drainage. 2. No sepsis 3. Oral thrush: - on Nystatin swish and spit, day 04/30 Recommendations: - Continue IV Ceftriaxone 2 gm q24 hrs, and PO Metronidazole 500 mg q8 hrs - Stop date: Dec 28, 2018 Follow up labs: CBC, BMP weekly - Per IR , chest wall drain could be pulled out once drainage over 24-hours is less than 5 ml - still await urine Histoplasma Ag, serum Cryptococcal Ag, serum galactomannan. These are send-out tests and will take few days to a week to come back. - await fungal Cx, no growth so far on any other pus samples. If positive, will modify antimicrobial therapy - will share ID clinic f/u details tomorrow. will also arrange for a repeat CT chest before antibiotics are stopped will follow Milton Meyer MD Infectious diseases
[2018-12-01] MEDS: SENNOSIDES/DOCUSATE SODIUM 1 TAB TABLET PO SCH (20:11)
[2018-12-01] MEDS: guaiFENesin/CODEINE 10 ML UDC PO PRN (20:18)
[2018-12-02] MEDS: 0.9 % SODIUM CHLORIDE 10 ML SYRINGE IV SCH ×2 (05:46→09:38)
[2018-12-02] MEDS: metroNIDAZOLE 500 MG TABLET PO SCH (05:46)
[2018-12-02 06:01] LABS: Basophils # (Auto) 0.1 K/mcL (0.0-0.3); Basophils % (Auto) 0.5 % (0.0-2.0); Eosinophils # (Auto) 0.4 K/mcL (0.0-0.7); Eosinophils % (Auto) 3.6 % (0.0-7.0); Granulocytes % (Auto) 71.5 % (38.0-78.0); Hematocrit 26.3 % (41.0-55.0); Hemoglobin 8.5 g/dL (13.5-16.5); Lymphocytes # (Auto) 1.9 K/mcL (1.5-4.8); Lymphocytes % (Auto) 16.2 % (15.5-49.0); Mean Cell Volume 89.8 fL (80.0-100.0); Mean Corpuscular HGB Conc 32.4 g/dL (31.0-36.0); Mean Platelet Volume 7.7 fL (7.4-10.4); Monocytes % (Auto) 8.2 % (1.0-12.0); Platelet Count 397 K/mcL (140-440); RBC 2.93 M/mcL (4.50-5.90); Red Cell Distribution Width 16.1 % (11.5-14.5)
[2018-12-02] MEDS: VERAPAMIL 120 MG TAB.XL.24H PO SCH (08:44)
[2018-12-02] MEDS: FISH OIL 1,000 MG CAPSULE PO SCH (08:44)
[2018-12-02] MEDS: TAMSULOSIN 0.4 MG CAPSULE PO SCH (08:44)
[2018-12-02] MEDS: CHLORTHALIDONE 25 MG TABLET PO SCH (08:44)
[2018-12-02] MEDS: LOSARTAN 50 MG TABLET PO SCH (08:45)
[2018-12-02] MEDS: DOCUSATE SODIUM 100 MG CAPSULE PO SCH (08:45)
[2018-12-02] MEDS: MULTIVIT,THER IRON,CA,FA & MIN 1 TABLET PO SCH (08:45)
[2018-12-02] MEDS: FOLIC ACID 1 MG TABLET PO SCH (08:45)
[2018-12-02] MEDS: ASPIRIN 325 MG ENTERIC COATED TABLET PO SCH (08:45)
[2018-12-02] MEDS: HEPARIN 5,000 UNIT/ML VIAL SQ SCH (08:45)
[2018-12-02] MEDS: cefTRIAXone 2 GM in DEXTROSE 5% IN WATER 50 ML IV SCH (08:45)
[2018-12-02] MEDS: VIT A,C & E/LUTEIN/MINERALS TABLET PO SCH (08:45)
[2018-12-02] MEDS: NYSTATIN 500,000 UNITS/5 ML ORAL.SUSP SSP SCH (08:45)
--- NOTE | 2018-12-02 13:17 | Infectious Disease Prog Note ---
Subjective Patient information: Note initiated : 12/02/18 at 1:13 pm Service Date, if different from initiated Date: [] Patient: Tarik Dunn 78 y/o M admitted on 11/20/18 for Shortness of breath. Chief Complaint: [] Interval history: pt doing well. Spoke with daughter at bedside. Pt denies any pain, fever, chill s, n/v/diarrhea. Is tolerating antibiotics without any problems. His right lung abscess drain was pulled out yesterday. He is going to [facility]. Shared details about his f/u, repeat CT scan of chest, watching for side-effects of antibiotics: diarrhea etc. Objective Objective Narrative: ao x 3, in nad minimal thrush chest cta s1 s2 normal bs ++ nttd 1+ edema in legs Right chest wall drain site has some redness in the area where red tape was attached - Vital Signs Vital signs: Vital Signs Temp Pulse Resp BP BP BP Pulse Ox 12/02/18 10:52 36.3 C 96 H 20 133/72 94 12/02/18 07:36 36.7 C 91 H 18 132/70 93 12/02/18 04:00 36.6 C 83 20 131/71 93 12/01/18 23:54 36.9 C 86 24 H 123/66 93 12/01/18 19:35 36.6 C 87 24 H 133/66 96 12/01/18 16:00 36.5 C 75 20 146/74 93 Intake and Output 12/01/18 12/02/18 12/02/18 21:59 05:59 13:59 Intake Total 500 200 240 Output Total 350 725 350 Balance 150 -525 -110 Intake: Oral 500 200 240 Output: Void Amount 350 725 350 Other: Meal Dinner Breakfast Percent of Meal Consumed 100% 100% Urine Appearance Clear Clear Urine Color Bright Yellow Dark Yellow Urine Odor Normal Normal Stool Size Moderate Small Stool Color Brown Brown Stool Consistency Soft Soft Formed # Bowel Movements 1 1 Weight 93.894 kg Intake & Output: Intake & Output 12/01/18 12/02/18 12/02/18 21:59 05:59 13:59 Intake Total 500 200 240 Output Total 350 725 350 Balance 150 -525 -110 Weight 93.894 kg Intake: Oral 500 200 240 Output: Void Amount 350 725 350 Other: Meal Dinner Breakfast Percent of Meal Consumed 100% 100% Urine Appearance Clear Clear Urine Color Bright Yellow Dark Yellow Urine Odor Normal Normal Stool Size Moderate Small Stool Color Brown Brown Stool Consistency Soft Soft Formed # Bowel Movements 1 1 - Lab 12/02/18 04:32 12/01/18 04:06 Most recent lab results Calcium 10.0 mg/dl (8.6-10.4) 12/01/18 04:06 Phosphorus 3.2 mg/dL (2.7-4.5) 11/30/18 04:33 Magnesium 1.6 mg/dL (1.6-2.5) 11/30/18 04:33 Microbiology 11/27/18 11:30 Aspirate - Right Upper Lobe Fungal Smear - Final 11/27/18 11:30 Aspirate - Right Upper Lobe Fungal Culture - Preliminary 11/20/18 17:00 Aspirate - Right Upper Lobe Fungal Smear - Final 11/20/18 17:00 Aspirate - Right Upper Lobe Fungal Culture - Preliminary 11/27/18 11:30 Aspirate - Right Upper Lobe Gram Stain - Final 11/27/18 11:30 Aspirate - Right Upper Lobe Anaerobic Culture - Preliminary 11/27/18 11:30 Lung - Right Upper Lobe Gram Stain - Final 11/27/18 11:30 Lung - Right Upper Lobe Abscess Culture - Final 11/20/18 17:00 Pleural Fluid Gram Stain - Final 11/20/18 17:00 Pleural Fluid Anaerobic Culture - Final Streptococcus intermedius 11/20/18 16:45 Blood Blood Culture - Final 11/20/18 16:38 Blood Blood Culture - Final 11/20/18 17:00 Pleural Fluid Gram Stain - Final 11/20/18 17:00 Pleural Fluid Body Fluid Culture - Final 11/20/18 18:30 Nose MRSA (PCR) - Final Assessment and Plan - Narrative A/P Narrative: A: 1. 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 Likely mechanism seems to be aspiration following dental filling. Strep intermedius is known to be part of oral daniel dia in those with dental caries - biopsy neg for malignancy but reports of fungal (yeast-like organisms is concerning) and warrants further w/u. Possible yeast which can cause such infections include: Cryptococcus errol, Histoplasma - repeat CT 11/26 suggested "8.6 x 7.4 cm right upper lobe abscess slightly decreasing since comparison CT approximately one week prior. There is now central liquefaction and maturing of a surrounding abscess capsule". s/p IR-guid ed drainage 11/27 with aspiration of 10 cc pus, with reduction of abscess to about 2/3 of its original size, GS with GPC in clusters and chains, cultures NGTD - repeat CT 12/01 showed :" Considerable decrease in right upper lobe abscess with surrounding consolidated infiltrate in the anterior and apical segments of the right upper lobe. On the previous study, encasement of the adjacent bronchi was described, but this has subsided with improvement in inflammation. There is no CT evidence for underlying malignancy. Mild patchy groundglass infiltrates developing in the posterior segment right upper lobe and throughout both lower lobes since previous study". It suggest favorable clinical response to infection with antibiotics and drainage. 2. No sepsis 3. Oral thrush: - on Nystatin swish and spit, day 3 Recommendations: - Continue IV Ceftriaxone 2 gm q24 hrs, and PO Metronidazole 500 mg q8 hrs - Stop date: Dec 28, 2018 Follow up labs: CBC, BMP weekly ESR and CRP every other week ID clinic appt. on 12/28/2018 at 3:30 pm - Ordered repeat CT chest with contrast for 12/24/2018 (with aim to be done prior to his appointment) - still await urine Histoplasma Ag, serum Cryptococcal Ag, serum galactomannan. These are send-out tests and will take few days to a week to come back. - await fungal Cx, no growth so far on any other pus samples. If positive, will modify antimicrobial therapy - PICC line care, thoracotomy wound care per fpc - pt counseled to elevate legs and use incentive spirometry every couple of hours. Milton Meyer MD Infectious diseases
== END 2018-12-02 11:09 | DRG 871 ==
LOC: ED 11:50 → ICU 18:26 → MEDSUR 11-21 15:47
PROVIDERS: ADMIT Internal Medicine; ATTEND Internal Medicine

== ENCOUNTER 2022-09-11 17:24 | Inpatient (IN) ==
[2022-09-11] MEDS ORDERED: IOPAMIDOL 100 ML BOTTLE IV ONE (17:25)
--- NOTE | 2022-09-11 17:39 | Emergency Department Note ---
Weakness HPI General Chief complaint: Weakness Stated complaint: weakness Time Seen by Provider: 09/11/22 17:26 Source: EMS Mode of arrival: EMS Limitations: no limitations History of Present Illness HPI Narrative: Narrative:This is an 82-year-old male brought in by his family for concerns of generalized weakness. His family also feels that he may be slightly confused. He has been going to the bathroom a lot in the last day so they are also concerned that this could all be caused by UTI. When asked the patient as to why he is here, he states that he is not real sure. But he does deny falling recently. Denies chest pain abdominal pain nausea vomiting or shortness of breath. MD Complaint: generalized weakness Related Data Home Medications Medication Instructions Recorded Confirmed multivitamin 1 tab PO QDAY 02/03/18 04/29/22 docusate sodium [Stool Softener] 100 mg PO ONCE PRN Constipation 12/28/1809/13 lactobacillus combination no.9 4 4,000 mmu cells PO QDAY 12/28/18 04/29/22 billion cell capsule (Adult 50 Plus Probiotic) aspirin 325 mg tablet 325 mg PO QDAY 01/12/19 04/29/22 Deep Blue Polyphenol Complex 1 each PO BID 05/31/19 04/29/22 acetaminophen 325 mg tablet 650 mg PO Q4H PRN headache 05/31/19 04/29/22 ibuprofen 200 mg tablet 400 mg PO Q8H PRN pain, fever, 05/31/19 04/29/22 headache magnesium hydroxide 400 mg/5 mL 30 ml PO QDAY PRN constipation 05/31/19 04/29/22 oral suspension (Milk of Magnesia) omega-3 fatty acids 1,000 mg 1,000 mg PO QDAY 05/31/19 04/29/22 capsule (Fish Oil Concentrate) vitamins A,C,H-cazk-bfujxi 1 cap PO BID 05/31/19 04/29/22 [PreserVision AREDS] phenylephrine HCl 0.5 % nasal 2 spray intranasal Q4-6H PRN 06/11/21 04/29/22 spray (Librado-Synephrine (phenylephrine)) propylene glycol 1 %-glycerin 0.3 1 drp ophthalmic (eye) TID-QID PRN 06/11/21 04/29/22 % eye drops (Artificial Tears (glycerin-peg)) Previous Rx's Medication Instructions Recorded guaifenesin 600 mg tablet, 600 mg PO BID PRN congestion #30 12/23/19 extended release 12 hr (Mucinex) tabs acetylcysteine 600 mg capsule (NAC) 600 mg PO QDAY Sup #360 caps 03/02/20 nystatin 100,000 unit/gram topical See Rx Instructions .Route 08/21/21 powder .COMPLEX #60 grams albuterol sulfate 90 mcg/actuation 1 inh inhalation Q4H PRN Wheezing 10/24/21 aerosol inhaler (Proventil HFA) #6.7 grams escitalopram oxalate 5 mg tablet 5 mg PO QHS #30 tabs 05/30/22 (Lexapro) potassium chloride 10 mEq 10 meq PO QDAY #90 tabs 06/24/22 tablet,extended release (Klor-Con) torsemide 20 mg tablet 20 mg PO QDAY #90 tabs 07/04/22 chlorthalidone 50 mg tablet 50 mg PO QDAY #90 tabs 07/15/22 tramadol 50 mg tablet 50 mg PO TID PRN pain #90 tabs 07/16/22 olmesartan 40 mg tablet 40 mg PO QDAY #90 tabs 07/25/22 tamsulosin 0.4 mg capsule 0.8 mg PO QHS #90 caps 07/29/22 verapamil 240 mg tablet,extended 240 mg PO BID #180 tabs 08/15/22 release dicyclomine 20 mg tablet 20 mg PO TID #90 tabs 09/02/22 nystatin 100,000 unit/gram topical 1 applic topical BID #60 grams 09/11/22 powder Allergies Allergy/AdvReac Type Severity Reaction Status Date / Time MAR Inhibitors AdvReac Mild Other Verified 04/29/22 09:47 Review of Systems ROS ROS Narrative: Narrative: All systems ED: reviewed and negative except as stated. [facility] Narrative Patient History Narrative: Narrative: Medical/Surgical/Family History All Active Problems Yeast infection of the skin (Acute) Weakness generalized (Acute) Multiple falls (Acute) Ground-level fall (Acute) Abrasion of head (Acute) Edema (Acute) Counseling regarding advanced care planning and goals of care (Acute) Major depressive disorder (Acute) Fall (Acute) Abrasion (Acute) BPH w urinary obs/LUTS (Acute) Muscular deconditioning (Acute) Fall (Acute) Medicare annual wellness visit, subsequent (Acute) Onychomycosis (Acute) Follicular cyst of skin (Acute) Genu varum of both lower extremities (Acute) Bilateral primary osteoarthritis of knee (Acute) Pedal edema (Acute) Right shoulder pain (Acute) Polyarthralgia (Acute) Necrotizing pneumonia (Acute) Cavitating mass of lung (Acute) Pneumonia (Acute) Lump of right breast (Chronic) Asthma (Chronic) Nonexudative age-related macular degeneration, bilateral, stage unspecified (Chronic) Obesity (Chronic) Reactive airway disease (Chronic) Osteoarthritis, knee (Chronic) Rosacea (Chronic) Other specified forms of tremor (Chronic) Fatty liver (Chronic) Scar (Chronic) Complicated migraine (Chronic) Hemangioma (Chronic) Other benign neoplasm of skin of trunk (Chronic) Actinic keratosis (Chronic) Seborrheic keratosis (Chronic) [place]entigo (Chronic) Atherosclerosis of renal artery (Chronic) Parkinson's disease (Chronic) Blindness (Chronic) Migraines (Chronic) Joint pain (Chronic) Hypertension (Chronic) Macular degeneration (Acute) Hypertension (Acute) Migraine headache (Acute) H/O repair of right rotator cuff (Acute) Parkinson's disease (Acute) Medical History Actinic keratosis Asthma Atherosclerosis of renal artery Blindness Complicated migraine Fatty liver Hemangioma Hypertension Joint pain Lentigo Lump of right breast Medicare annual wellness visit, subsequent Migraines Nonexudative age-related macular degeneration, bilateral, stage unspecified Obesity Osteoarthritis, knee Other benign neoplasm of skin of trunk Other specified forms of tremor Parkinson's disease Reactive airway disease Rosacea Scar Seborrheic keratosis Surgical History History of appendectomy History of arthroscopy of knee Right x2, Left History of back surgery Lumbar for herniated disc History of cataract surgery Bilateral extraction and IOL implants History of colonoscopy Dr Larson on 11/06/[address] Ng on 08/02/09, recommended 10 year f/u History of cryosurgery History of rotator cuff surgery Left and Right, 2013 & 2011 History of tonsillectomy and adenoidectomy History of vasectomy Family History Mother , age 60 Lung cancer Breast cancer Glaucoma Father , early 70s Stroke Glaucoma Family/Other Diabetes Paternal Uncle & [place] Social History Smoking Status: Never smoker Alcohol Intake Frequency: does not drink Substance Use: does not use Exam Narrative Narrative: Narrative: General Limitations: no limitations General appearance: Present alert, in no apparent distress, nontoxic and obese Head Head: Present atraumatic and normocephalic Eye Eye: Present normal appearance; Absent scleral icterus Chest Chest: Present symmetric chest wall rise Respiratory Respiratory: Absent respiratory distress Cardiovascular Cardiovascular: Present regular rate Adbominal Abdominal: Present soft; Absent distention, tenderness, guarding, rebound or rigidity Extremities Extremities: Present normal inspection and full ROM Neurological Neurological: Present alert, oriented X3 and other (pt unable to walk or get up from sitting without a 2 person assistance) Psychiatric Psychiatric: Present normal affect and normal mood Skin Skin: Present rash (noted in the groin area) and erythema Course Vital Signs Vital signs: Vital Signs Temperature 98.1 F 09/11/22 17:27 Pulse Rate 100 H 09/11/22 17:27 Respiratory Rate 17 09/11/22 17:27 Blood Pressure 154/87 09/11/22 17:27 Pulse Oximetry (%) 92 09/11/22 17:27 Oxygen Delivery Method Room Air 09/11/22 17:27 Temperature 98.1 F 09/11/22 17:27 Pulse Rate 81 09/11/22 21:05 Respiratory Rate 17 09/11/22 17:27 Blood Pressure 120/72 09/11/22 21:05 Pulse Oximetry (%) 95 09/11/22 21:05 Oxygen Delivery Method Room Air 09/11/22 20:09 [facility] MDM Narrative Medical decision making narrative: Narrative: This is an 82-year-old male who presents to the emergency department for weakness with concern for possible UTI. IV access was established for administration of fluids and medications. Patient's labs were drawn. His labs reveal no concerning abnormalities. It was noted that his BUN and creatinine were slightly elevated but this is his baseline. Patient does not have an elevated white count or left shift. It was noted that there was microscopic bl ood in his urine but there was no signs of infection which included no white cells no nitrites and no leukocytes. A CT abdomen pelvis was done which did not reveal any acute changes from previous CT. Patient has stable renal cysts and nonobstructing kidney stones. There is no acute obstructing kidney stone noted. Patient also had a chest x-ray done which did not show any acute signs of infection. Patient resides in an assisted living center presently. As per his family patient has to be able to move around on his own with out assistance. An ambulation trial was performed in the ED. Patient was unable to get up out of the chair on his own or walk with his walker on his own he needed at least 2 people assisting him. Considering the patient would not be able to be sent back to his assisted living center I spoke with the hospitalist Dr. Kelly who agreed to admit the patient. Dr. Kelly came down and examined the patient. Sepsis Sepsis Identified: No Differential Diagnosis Differential Diagnosis: UTI, pneumonia, bacteremia, kidney injury Medical Records Medical records reviewed: Yes I reviewed the patient's medical records. Lab Data Lab results reviewed: Yes I reviewed the patient's lab results. 09/11/22 18:23 Labs: Lab Results 09/11/22 09/11/22 09/11/22 Range/Units 17:37 18:23 18:28 WBC 10.9 (4.5-11.0) K/mcL RBC 3.77 L (4.63-6.08) M/mcL Hgb 11.7 L (13.7-17.5) g/dL Hct 35.8 L (40.1-51.0) % POC Hct 38.0 L (41-55) MCV 95.0 (80.0-100.0) fL MCH 31.0 (26.0-34.0) pg MCHC 32.7 (31.0-36.0) g/dL RDW 13.1 (11.5-14.5) % Plt Count 250 (140-440) K/mcL MPV 9.9 (8.8-12.5) fL Immature Gran % (Auto) 0.6 H (0.0-0.5) % Neut % (Auto) 80.7 H (38.0-78.0) % Lymph % (Auto) 5.6 L (15.5-49.0) % [place] % (Auto) 9.1 (1.0-12.0) % Eos % (Auto) 3.7 (0.0-7.0) % Baso % (Auto) 0.3 (0.0-2.0) % Lymph # (Auto) 0.61 L (1.50-4.80) K/mcL [place] # (Auto) 0.99 H (0.10-0.90) K/mcL Eos # (Auto) 0.40 (0.00-0.70) K/mcL Baso # (Auto) 0.03 (0.00-0.30) K/mcL Immature Gran # 0.06 H (0.00-0.05) K/mcl Absolute Neutrophils 8.80 H (1.80-8.00) K/mcL POC Sodium 136 (133-145) POC Potassium 4.9 (3.3-5.1) POC Chloride 104 (96-108) POC Total CO2 21.0 L (22-30) POC Anion Gap 17.0 H (8.0-16.0) POC BUN 36 H (6-20) POC Creatinine 1.9 H (0.6-1.2) POC Glucose 146 H (70-105) POC WB Ioniz Calcium 1.37 H (1.16-1.32) Urine Color Yellow Urine Appearance Hazy A (Clear) Urine pH 5.0 (5.0-9.0) Ur Specific [place] 1.009 (1.000-1.035) Urine Protein Negative (Negative) mg/dL Urine Glucose (UA) Negative (Negative) mg/dL Urine Ketones Negative (Negative) mg/dL Urine Occult Blood >1.0 A (Negative) mg/dL Urine Nitrate Negative (Negative) Urine Bilirubin Negative (Negative) mg/dL Urine Urobilinogen Negative mg/dL Ur Leukocyte Esterase Negative (Negative) /uL Urine RBC > 182 H (0-1) /hpf Urine WBC 4 (0-4) /hpf Ur Squamous Epith Cells 0 (0-4) /hpf Urine Bacteria None (0) /hpf Hyaline Casts 17 H (0-2) /lph Urine Mucus Few A (None) /hpf Ur Culture Indicated? No Radiology Data Radiology results reviewed: Yes I reviewed the patient's radiology results. Radiology results narrative: [facility] NAME: Tarik Dunn [address] [place] [address] : 1940 [address] Service Date: 09/11/22 Report # [id number] [place] [address] Lee Sesay M.D. MR #: [id number] Cat Scan Report Signed Ordering Physician:Raina Batres PA-C Date of Service:09/11/22 Procedure(s):CT abdomen pelvis w con History: Abdominal pain with increased weakness TECHNIQUE: The abdomen was imaged following injection of intravenous nonionic contrast scanning during the portal venous phase from above the diaphragm through the symphysis pubis. Sagittal and coronal reformats were created. The radiation exposure was limited using dose reduction technology. FINDINGS: There is chronic parenchymal scarring in both lung bases. This has remained stable since prior chest CT done on 01/11/19. The liver is normal in size. There is a 4 mm cyst in the left lobe. No mass is seen. The gallbladder is normal with no calcified stones or thickening of the wall. Bile ducts are nondilated. Spleen is normal in size and homogeneous. There is a lobulated cyst in the tail of the pancreas which measures 3.3 x 4.0 cm. This has not enlarged since 2019 and is felt to be benign. There is no evidence of acute pancreatitis and no solid mass is seen within the pancreas. The adrenals are normal. There are multiple cysts in both kidneys. The largest is located laterally in the middle one third of the right kidney and measures 6.2 x 6.4 cm. There are three small parenchymal calculi in the left kidney measuring roughly 2 mm in size. No hydronephrosis is present in either kidney. No solid mass is seen in either kidney. Moderate amount calcified plaque is present along the wall of normal caliber abdominal aorta. There are multiple diverticula in the descending and sigmoid colon but there is no acute diverticulitis. The small intestine is normal. The appendix has been removed. Urinary bladder is normally distended and has a smooth wall. Prostate is mildly enlarged and heterogeneous. No mass, adenopathy ascites or abscess are seen within the abdomen or pelvis. Small fat-containing right inguinal hernia is present. This is a chronic finding. There is degenerative disc disease and arthritis throughout the lumbar spine and lower thoracic spine. IMPRESSION: No acute abnormality within the abdomen or pelvis Diverticulosis without diverticulitis Stable cyst in the pancreatic tail Small nonobstructing stones in the left kidney Pulmonary fibrosis Raina Batres was called with the report Interpreted and Authenticated by: Lee Sesay 09/11/22 04 15 Hot Man: <Electronically signed by Lee Sesay M.D. in OV> 09/11/221923 CC: Raina Batres PA-C; Lee Sesay M.D.; John Stark D.O.~ Pulse Oximetry Data Pulse Ox %: 95 Interpretation: O2 sat is 95% on room air with no signs of hypoxia Discharge Plan Patient/Caregiver Discharge Instructions Pt seen by PROGRAMMING SPECIALIST/PA only: Yes Clinical Impression: Yeast infection of the skin, Weakness generalized Activity: increase activity as tolerated Instructions: Weakness (ED), Skin Yeast Infection (ED) Activity Restrictions/Additional Instructions: Rest and plenty of fluids Patient Disposition: Xfer As Inpt ([facility]) Condition: Good Follow up with: John Stark DO [Primary Care Provider] - Prescriptions: New nystatin 100,000 unit/gram powder 1 applic topical BID Qty: 60 0RF No Action guaifenesin [Mucinex] 600 mg tablet extended release 12hr 600 mg PO BID PRN (Reason: congestion) Qty: 30 0RF acetylcysteine [NAC] 600 mg capsule 600 mg PO QDAY Qty: 360 0RF Rx Instructions: N-acetyl cysteine, admin with meals nystatin 100,000 unit/gram powder See Rx Instructions .ROUTE .COMPLEX Qty: 60 2RF Dose Instruction: APPLY TO AFFECTED AREA TOPICALLY TWICE DAILY FOR YEAST INFECTION UNTIL RESOLVED Rx Instructions: APPLY TO AFFECTED AREA TOPICALLY TWICE DAILY FOR YEAST INFECTION UNTIL RESOL KAITLIN albuterol sulfate [Proventil HFA] 90 mcg/actuation HFA aerosol inhaler 1 inh INHALATION Q4H PRN (Reason: Wheezing) Qty: 6.7 1RF escitalopram oxalate [Lexapro] 5 mg tablet 5 mg PO QHS Qty: 30 2RF potassium chloride [Klor-Con 10] 10 mEq tablet extended release 10 meq PO QDAY Qty: 90 1RF torsemide 20 mg tablet 20 mg PO QDAY Qty: 90 3RF chlorthalidone 50 mg tablet 50 mg PO QDAY Qty: 90 0RF Rx Instructions: HOLD if SBP < 100 OR DBP < 65 tramadol 50 mg tablet 50 mg PO TID PRN (Reason: pain) Qty: 90 0RF olmesartan 40 mg tablet 40 mg PO QDAY Qty: 90 1RF tamsulosin 0.4 mg capsule 0.8 mg PO QHS Qty: 90 5RF verapamil 240 mg tablet extended release 240 mg PO BID Qty: 180 0RF dicyclomine 20 mg tablet 20 mg PO TID Qty: 90 1RF multivitamin tablet 1 tab PO QDAY docusate sodium 100 mg PO ONCE PRN (Reason: Constipation) omega-3 fatty acids [Fish Oil Concentrate] 1,000 mg capsule 1,000 mg PO QDAY Deep Blue Polyphenol Complex capsule 1 each PO BID vitamins A,C,A-itez-wykdqo 1 cap PO BID acetaminophen 325 mg tablet 650 mg PO Q4H PRN (Reason: headache) ibuprofen 200 mg tablet 400 mg PO Q8H PRN (Reason: pain, fever, headache) magnesium hydroxide [Milk of Magnesia] 400 mg/5 mL suspension 30 ml PO QDAY PRN (Reason: constipation) lactobacillus combination no.9 4 billion cell capsule 4 billion cell capsule 4,000 mmu cells PO QDAY aspirin 325 mg tablet 325 mg PO QDAY Artificial Tears(glycerin-peg) 1-0.3 % drops 1 drp ophthalmic (eye) TID-QID PRN Librado-Synephrine (phenylephrine) 0.5 % spray,non-aerosol 2 spray intranasal Q4-6H PRN
[2022-09-11 18:32] LABS: POC Calcium, Ionized 1.37 (1.16-1.32); POC Creatinine 1.9 (0.6-1.2); POC Potassium 4.9 (3.3-5.1)
--- NOTE | 2022-09-11 19:27 | Cat Scan Report ---
History: Abdominal pain with increased weakness TECHNIQUE: The abdomen was imaged following injection of intravenous nonionic contrast scanning during the portal venous phase from above the diaphragm through the symphysis pubis. Sagittal and coronal reformats were created. The radiation exposure was limited using dose reduction technology. FINDINGS: There is chronic parenchymal scarring in both lung bases. This has remained stable since prior chest CT done on 01/11/19. The liver is normal in size. There is a 4 mm cyst in the left lobe. No mass is seen. The gallbladder is normal with no calcified stones or thickening of the wall. Bile ducts are nondilated. Spleen is normal in size and homogeneous. There is a lobulated cyst in the tail of the pancreas which measures 3.3 x 4.0 cm. This has not enlarged since 2019 and is felt to be benign. There is no evidence of acute pancreatitis and no solid mass is seen within the pancreas. The adrenals are normal. There are multiple cysts in both kidneys. The largest is located laterally in the middle one third of the right kidney and measures 6.2 x 6.4 cm. There are three small parenchymal calculi in the left kidney measuring roughly 2 mm in size. No hydronephrosis is present in either kidney. No solid mass is seen in either kidney. Moderate amount calcified plaque is present along the wall of normal caliber abdominal aorta. There are multiple diverticula in the descending and sigmoid colon but there is no acute diverticulitis. The small intestine is normal. The appendix has been removed. Urinary bladder is normally distended and has a smooth wall. Prostate is mildly enlarged and heterogeneous. No mass, adenopathy ascites or abscess are seen within the abdomen or pelvis. Small fat-containing right inguinal hernia is present. This is a chronic finding. There is degenerative disc disease and arthritis throughout the lumbar spine and lower thoracic spine. IMPRESSION: No acute abnormality within the abdomen or pelvis Diverticulosis without diverticulitis Stable cyst in the pancreatic tail Small nonobstructing stones in the left kidney Pulmonary fibrosis Raina Batres was called with the report Interpreted and Authenticated by: Lee Sesay 09/11/22
[2022-09-11 20:54] LABS: Basophils # (Auto) 0.03 K/mcL (0.00-0.30); Basophils % (Auto) 0.3 % (0.0-2.0); Eosinophils % (Auto) 3.7 % (0.0-7.0); Hematocrit 35.8 % (40.1-51.0); Hemoglobin 11.7 g/dL (13.7-17.5); Lymphocytes # (Auto) 0.61 K/mcL (1.50-4.80); Lymphocytes % (Auto) 5.6 % (15.5-49.0); Mean Corpuscular HGB Conc 32.7 g/dL (31.0-36.0); Mean Platelet Volume 9.9 fL (8.8-12.5); Monocytes # (Auto) 0.99 K/mcL (0.10-0.90); Monocytes % (Auto) 9.1 % (1.0-12.0); Neutrophils % (Auto) 80.7 % (38.0-78.0); Platelet Count 250 K/mcL (140-440); RBC 3.77 M/mcL (4.63-6.08); Red Cell Distribution Width 13.1 % (11.5-14.5); WBC 10.9 K/mcL (4.5-11.0)
[2022-09-11 21:15] LABS: Appearance,Urine Hazy (Clear); Bilirubin,Urine Negative (Negative); Color,Urine Yellow; Culture Indicated,Urine No; Glucose,Urine (UA) Negative (Negative); Ketones,Urine Negative (Negative); Leukocyte Esterase,Urine Negative /uL (Negative); Mucus,Urine Few /hpf; Nitrate,Urine Negative (Negative); Protein,Urine Negative (Negative); Specific Gravity,Urine 1.009 (1.000-1.035); Urine Blood >1.0 mg/dL (Negative); Urine Hyaline Cast 17 /lph (0-2); Urine RBC > 182 /hpf (0-1); Urine Squamous Epithelial Cell 0 /hpf (0-4); Urine WBC 4 /hpf (0-4); Urobilinogen,Urine Negative
[2022-09-11] MEDS ORDERED: ONDANSETRON 4 MG/2 ML VIAL IV PRN (21:25)
--- NOTE | 2022-09-11 21:25 | Internal Med History&Physical ---
HPI History of Present Illness Patient information: Note initiated : 09/11/22 at 9:20 pm Service Date, if different from initiated Date: [] Patient: Tarik Dunn 82 y/o M admitted on for weakness. Chief Complaint: [] History of present illness: Mr. Dunn is a 82 year old male with history of hypertension, reactive airway disease, CHF on diuretics, CKD stage III, BPH, macular degeneration, questionable Parkinson's disease, osteoarthritis who is a resident at [facility] was brought in by EMS with generalized weakness. 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 Daughter who was at bedside reported that she got a call from [facility] that patient was generally weak. Daughter however felt that patient appeared a bit spaced out and thought he was having a UTI. Patient reports he is feeling better now. No fever, no chills, no shortness of breath, no cough, no chest pain, no diarrhea, abdominal pain, constipation. He reports he is in no pain. His vitals on presentation are stable, he is afebrile. Labs unremarkable, WBC within normal range, chronic anemia with hemoglobin 11.7. Electrolytes unremarkable, creatinine 1.9 at baseline. UA unremarkable apart from urine RBC. CT scan abdomen and pelvis without any acute finding. He has small nonobstructing stone in left kidney. Chest x-ray with some pulmonary congestion without any acute infiltrate. ER was unable to discharge patient to [facility] as they require patient to be independent in ADLs and as he was unable to demonstrate that on ambulation trial admission was requested. His daughter reports that patient uses walker at baseline and has intermittent right arm weakness and numbness which is physician is suspecting could be the beginning of Parkinson's disease. Review of system. 14 point review of system obtained was negative as mentioned above Physical examination Alert, awake, obese male, in no acute distress Patient has macular degeneration and limited vision, EOMI Normocephalic, atraumatic Reduced air entry, no rhonchi or wheezing, satting well on room air Abdomen is obese, soft and nontender S1 and S2, RRR, no murmurs heard, patient has 2+ peripheral edema which according to family is chronic Alert, oriented, no focal deficits, cranial nerves grossly intact Appropriate mood and affect Assessment and plan Generalized weakness, unclear etiology. No evidence of infection. No fall. Will obtain PT OT Possible CHF exacerbation. Patient is satting well on room air. Chest x-ray without any decompensated CHF. He does take diuretics at home. Will obtain proBNP, echocardiogram. Will give IV Lasix 40 mg x 1 Hypertension. Stable. Will resume antihypertensive once med rec is done Reactive airway disease, not in exacerbation. Continue DuoNebs BPH, continue tamsulosin Macular degeneration, eyedrops to be resumed when med rec completed Questionable Parkinson disease DJD, continue pain medication Chronic anemia, stable CKD stage III, creatinine at baseline DVT prophylaxis with SCDs DNR/DNI Total time taken 70 minutes PFSH PFSH All Active Problems Yeast infection of the skin (Acute) Weakness generalized (Acute) Multiple falls (Acute) Ground-level fall (Acute) Abrasion of head (Acute) Edema (Acute) Counseling regarding advanced care planning and goals of care (Acute) Major depressive disorder (Acute) Fall (Acute) Abrasion (Acute) BPH w urinary obs/LUTS (Acute) Muscular deconditioning (Acute) Fall (Acute) Medicare annual wellness visit, subsequent (Acute) Onychomycosis (Acute) Follicular cyst of skin (Acute) Genu varum of both lower extremities (Acute) Bilateral primary osteoarthritis of knee (Acute) Pedal edema (Acute) Right shoulder pain (Acute) Polyarthralgia (Acute) Necrotizing pneumonia (Acute) Cavitating mass of lung (Acute) Pneumonia (Acute) Lump of right breast (Chronic) Asthma (Chronic) Nonexudative age-related macular degeneration, bilateral, stage unspecified (Chronic) Obesity (Chronic) Reactive airway disease (Chronic) Osteoarthritis, knee (Chronic) Rosacea (Chronic) Other specified forms of tremor (Chronic) Fatty liver (Chronic) Scar (Chronic) Complicated migraine (Chronic) Hemangioma (Chronic) Other benign neoplasm of skin of trunk (Chronic) Actinic keratosis (Chronic) Seborrheic keratosis (Chronic) Lentigo (Chronic) Atherosclerosis of renal artery (Chronic) Parkinson's disease (Chronic) Blindness (Chronic) Migraines (Chronic) Joint pain (Chronic) Hypertension (Chronic) Macular degeneration (Acute) Hypertension (Acute) Migraine headache (Acute) H/O repair of right rotator cuff (Acute) Parkinson's disease (Acute) Medical History Actinic keratosis Asthma Atherosclerosis of renal artery Blindness Complicated migraine Fatty liver Hemangioma Hypertension Joint pain Lentigo Lump of right breast Medicare annual wellness visit, subsequent Migraines Nonexudative age-related macular degeneration, bilateral, stage unspecified Obesity Osteoarthritis, knee Other benign neoplasm of skin of trunk Other specified forms of tremor Parkinson's disease Reactive airway disease Rosacea Scar Seborrheic keratosis Surgical History History of appendectomy History of arthroscopy of knee Right x2, Left History of back surgery Lumbar for herniated disc History of cataract surgery Bilateral extraction and IOL implants History of colonoscopy Dr Larson on 11/06/[address] Ng on 08/02/09, recommended 10 year f/u History of cryosurgery History of rotator cuff surgery Left and Right, 2013 & 2011 History of tonsillectomy and adenoidectomy History of vasectomy Family History Mother , age 60 Lung cancer Breast cancer Glaucoma Father , early 70s Stroke Glaucoma Family/Other Diabetes Paternal Uncle & [facility] Social History marital status: occupational status: retired smoking status: Never smoker alcohol intake frequency: does not drink substance use type: does not use MEDS/ALLERGIES Home Medications and Allergies Home Medications Medication Instructions Recorded Confirmed Type multivitamin 1 tab PO QDAY 02/03/18 04/29/22 History docusate sodium [Stool Softener] 100 mg PO ONCE PRN Constipation 12/28/18 04/29/22 History lactobacillus combination no.9 4 4,000 mmu cells PO QDAY 12/28/18 04/29/22 History billion cell capsule (Adult 50 Plus Probiotic) aspirin 325 mg tablet 325 mg PO QDAY 01/12/19 04/29/22 History Deep Blue Polyphenol Complex 1 each PO BID 05/31/19 04/29/22 History acetaminophen 325 mg tablet 650 mg PO Q4H PRN headache 05/31/19 04/29/22 History ibuprofen 200 mg tablet 400 mg PO Q8H PRN pain, fever, 05/31/19 04/29/22 History headache magnesium hydroxide 400 mg/5 mL 30 ml PO QDAY PRN constipation 05/31/19 04/29/22 History oral suspension (Milk of Magnesia) omega-3 fatty acids 1,000 mg 1,000 mg PO QDAY 05/31/19 04/29/22 History capsule (Fish Oil Concentrate) vitamins A,C,U-mmgo-gosyci 1 cap PO BID 05/31/19 04/29/22 History [PreserVision AREDS] guaifenesin 600 mg tablet, 600 mg PO BID PRN congestion #30 12/23/19 04/29/22 Rx extended release 12 hr (Mucinex) tabs acetylcysteine 600 mg capsule (NAC) 600 mg PO QDAY Sup #360 caps 03/02/20 04/29/22 Rx phenylephrine HCl 0.5 % nasal 2 spray intranasal Q4-6H PRN 06/11/21 04/29/22 History spray (Librado-Synephrine (phenylephrine)) propylene glycol 1 %-glycerin 0.3 1 drp ophthalmic (eye) TID-QID PRN 06/11/21 04/29/22 History % eye drops (Artificial Tears (glycerin-peg)) nystatin 100,000 unit/gram topical See Rx Instructions .Route 08/21/21 04/29/22 Rx powder .COMPLEX #60 grams albuterol sulfate 90 mcg/actuation 1 inh inhalation Q4H PRN Wheezing 10/24/21 04/29/22 Rx aerosol inhaler (Proventil HFA) #6.7 grams escitalopram oxalate 5 mg tablet 5 mg PO QHS #30 tabs 05/30/22 Rx (Lexapro) potassium chloride 10 mEq 10 meq PO QDAY #90 tabs 06/24/22 Rx tablet,extended release (Klor-Con) torsemide 20 mg tablet 20 mg PO QDAY #90 tabs 07/04/22 Rx chlorthalidone 50 mg tablet 50 mg PO QDAY #90 tabs 07/15/22 Rx tramadol 50 mg tablet 50 mg PO TID PRN pain #90 tabs 07/16/22 Rx olmesartan 40 mg tablet 40 mg PO QDAY #90 tabs 07/25/22 Rx tamsulosin 0.4 mg capsule 0.8 mg PO QHS #90 caps 07/29/22 Rx verapamil 240 mg tablet,extended 240 mg PO BID #180 tabs 08/15/22 Rx release dicyclomine 20 mg tablet 20 mg PO TID #90 tabs 09/02/22 Rx nystatin 100,000 unit/gram topical 1 applic topical BID #60 grams 09/11/22 Rx powder Allergies Allergy/AdvReac Type Severity Reaction Status Date / Time MAR Inhibitors AdvReac Mild Other Verified 04/29/22 09:47 EXAM Constitutional Vitals: Temp Pulse Resp BP Pulse Ox O2 Del Method 98.1 F 81 17 120/72 95 Room Air 09/11/22 17:27 09/11/22 21:05 09/11/22 17:27 09/11/22 21:05 09/11/22 21:05 09/11/22 20:09 DATA Data Completed and Pending Labs: Labs from last 24 hours 09/11/22 09/11/22 09/11/22 18:28 18:23 17:37 WBC 10.9 RBC 3.77 L Hgb 11.7 L Hct 35.8 L POC Hct 38.0 L MCV 95.0 MCH 31.0 MCHC 32.7 RDW 13.1 Plt Count 250 MPV 9.9 Immature Gran % (Auto) 0.6 H Neut % (Auto) 80.7 H Lymph % (Auto) 5.6 L [place] % (Auto) 9.1 Eos % (Auto) 3.7 Baso % (Auto) 0.3 Lymph # (Auto) 0.61 L [place] # (Auto) 0.99 H Eos # (Auto) 0.40 Baso # (Auto) 0.03 Immature Gran # 0.06 H Absolute Neutrophils 8.80 H POC Sodium 136 POC Potassium 4.9 POC Chloride 104 POC Total CO2 21.0 L POC Anion Gap 17.0 H POC BUN 36 H POC Creatinine 1.9 H POC Glucose 146 H POC WB Ioniz Calcium 1.37 H Urine Color Yellow Urine Appearance Hazy A Urine pH 5.0 Ur Specific [place] 1.009 Urine Protein Negative Urine Glucose (UA) Negative Urine Ketones Negative Urine Occult Blood >1.0 A Urine Nitrate Negative Urine Bilirubin Negative Urine Urobilinogen Negative Ur Leukocyte Esterase Negative Urine RBC > 182 H Urine WBC 4 Ur Squamous Epith Cells 0 Urine Bacteria None Hyaline Casts 17 H Urine Mucus Few A Ur Culture Indicated? No A/P Time Spent With Patient Time: Total time spent is greater than 50% in coordination of care (as documented) at patient's floor/unit and/or counseling patient:
[2022-09-11] MEDS ORDERED: FUROSEMIDE 40 MG/4 ML VIAL IV ONE (22:03)
[2022-09-11] MEDS ORDERED: hydrALAZINE 20 MG/ML VIAL IV PRN (22:06)
[2022-09-11] MEDS ORDERED: traMADol 50 MG TABLET PO PRN (22:06)
[2022-09-11 22:22] LABS: proBNP 923.3 pg/mL (<450.0)
[2022-09-11] MEDS: 0.9 % SODIUM CHLORIDE 1,000 ML IV SCH (23:42)
[2022-09-11] MEDS: 0.9 % SODIUM CHLORIDE 10 ML SYRINGE IV SCH (23:59)
[2022-09-12] MEDS ORDERED: FUROSEMIDE 40 MG/4 ML VIAL IV ONE ×2 (01:29→14:34)
[2022-09-12] MEDS: 0.9 % SODIUM CHLORIDE 10 ML SYRINGE IV SCH ×3 (04:57→22:39)
[2022-09-12 07:08] LABS: ALT/SGPT 25 U/L (<40); AST/SGOT 51 U/L (<40); Albumin 3.6 gm/dL (3.2-5.2); Albumin/Globulin Ratio 1.2 (1.0-2.3); Alkaline Phosphatase 93 U/L (39-117); Bilirubin,Total 0.4 mg/dL (0.1-1.0); Blood Urea Nitrogen 36 mg/dL (8-23); Calcium 10.5 mg/dL (8.6-10.4); Carbon Dioxide 26 mmol/L (22-30); Chloride 102 mmol/L (96-108); Globulin 3.1 gm/dL (2.2-3.7); Glomerular Filtration Rate 37; Glucose 95 mg/dL (70-105)
[2022-09-12 07:55] LABS: Basophils # (Auto) 0.02 K/mcL (0.00-0.30); Basophils % (Auto) 0.2 % (0.0-2.0); Eosinophils # (Auto) 1.15 K/mcL (0.00-0.70); Eosinophils % (Auto) 14.1 % (0.0-7.0); Hematocrit 35.6 % (40.1-51.0); Hemoglobin 11.5 g/dL (13.7-17.5); Lymphocytes # (Auto) 1.14 K/mcL (1.50-4.80); Mean Cell Volume 95.2 fL (80.0-100.0); Mean Corpuscular HGB Conc 32.3 g/dL (31.0-36.0); Mean Platelet Volume 9.9 fL (8.8-12.5); Monocytes # (Auto) 0.91 K/mcL (0.10-0.90); Monocytes % (Auto) 11.2 % (1.0-12.0); Platelet Count 255 K/mcL (140-440); RBC 3.74 M/mcL (4.63-6.08); Red Cell Distribution Width 13.2 % (11.5-14.5); WBC 8.2 K/mcL (4.5-11.0)
--- NOTE | 2022-09-12 07:58 | XRay Report ---
HISTORY: Cough and increased weakness FINDINGS: There is a small perihilar infiltrate medially in the right lower thorax seen only on the PA view. There is a nodular band of tissue laterally in the right upper lobe which corresponds with scar tissue seen on the prior chest CT. Left lung is relatively clear with subtle increased interstitial lung markings above the diaphragm. There is no pleural effusion. Heart size is within upper limits of normal and magnified. There is no congestive heart failure. Distal end of the right clavicle has been resected. IMPRESSION: Mild infiltrate or atelectasis medially in the right lung base Interpreted and Authenticated by: Lee Sesay 09/12/22
[2022-09-12] MEDS ORDERED: MAGNESIUM HYDROXIDE 30 ML ORAL.SUSP PO PRN (14:10)
[2022-09-12] MEDS ORDERED: ALBUTEROL SULFATE 60 PUFF INHALER INH PRN (14:10)
[2022-09-12] MEDS ORDERED: ACETAMINOPHEN (PP) 325MG TABLET (#50) PO PRN (14:10)
[2022-09-12] MEDS ORDERED: guaiFENesin 600 MG TAB.SR.12H PO PRN (14:10)
[2022-09-12] MEDS ORDERED: CARBOXYMETHYLCELLULOSE SODIUM 1 EACH DROPER.GEL OU PRN (14:30)
--- NOTE | 2022-09-12 14:34 | Internal Med Progress Note ---
SUBJECTIVE Subjective Patient information: Note initiated : 09/12/22 at 2:14 pm Service Date, if different from initiated Date: [] Patient: Tarik Dunn 82 y/o M admitted on 09/11/22 for weakness. Chief Complaint: [] Additional PMFSH (Level 3 Only): Mr. Dunn is a 82 year old male with history of hypertension, reactive airway disease, CHF on diuretics, CKD stage III, BPH, macular degeneration, questionable Parkinson's disease, osteoarthritis who is a resident at [facility] was brought in by EMS with generalized weakness. 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 Daughter who was at bedside reported that she got a call from [facility] that patient was generally weak. Daughter however felt that patient appeared a bit spaced out and thought he was having a UTI. Patient reports he is feeling better now. No fever, no chills, no shortness of breath, no cough, no chest pain, no diarrhea, abdominal pain, constipation. He reports he is in no pain. His vitals on presentation are stable, he is afebrile. Labs unremarkable, WBC within normal range, chronic anemia with hemoglobin 11.7. Electrolytes unremarkable, creatinine 1.9 at baseline. UA unremarkable apart from urine RBC. CT scan abdomen and pelvis without any acute finding. He has small nonobstructing stone in left kidney. Chest x-ray with some pulmonary congestion without any acute infiltrate. ER was unable to discharge patient to [facility] as they require patient to be independent in ADLs and as he was unable to demonstrate that on ambulation trial admission was requested. His daughter reports that patient uses walker at baseline and has intermittent right arm weakness and numbness which is physician is suspecting could be the beginning of Parkinson's disease. 09/12. Feeling better overall. Vitals stable. Labs unremarkable. Creatinine down to 1.7 from 1.9 on admission. Echocardiogram completed but still pending. Patient had PT and OT evaluation he is requiring moderate assistance. Dis cussed case with RN, patient and case management Review of system. 14 point review of system obtained was negative as mentioned above Physical examination Alert, awake, resting in bed appears comfortable Patient has macular degeneration and limited vision, EOMI Normocephalic, atraumatic Reduced air entry, no rhonchi or wheezing, satting well on room air Abdomen is obese, soft and nontender S1 and S2, RRR, no murmurs heard, patient has 2+ pedal edema, family states is chronic. Alert, oriented, no focal deficits, cranial nerves grossly intact Appropriate mood and affect Assessment and plan Generalized weakness, unclear etiology. No evidence of infection. No fall. PT OT eval. Patient is requiring at least moderate assistance. May need SNF Possible CHF exacerbation. Patient is satting well on room air. Chest x-ray without any decompensated CHF. He does take diuretics at home. BNP is elevated at 900. Echo is pending. IV Lasix 40 mg x 1. Thereafter will resume home dose torsemide. Hypertension. Stable. Reactive airway disease, not in exacerbation. Continue DuoNebs BPH, continue tamsulosin Macular degeneration, continue home eyedrops Questionable Parkinson disease DJD, continue pain medication Chronic anemia, stable CKD stage III, creatinine at baseline DVT prophylaxis with SCDs DNR/DNI Total time taken >50 minutes Constitutional Vitals: Vital Signs Temp Pulse Resp BP Pulse Ox O2 Del Method 98.5 F 73 18 150/69 95 Room Air 09/12/22 12:00 09/12/22 12:00 09/12/22 12:00 09/12/22 12:00 09/12/22 12:00 09/12/22 12:00 Period Temp Pulse Resp BP Sys/[place] Pulse Ox O2 Del Method O2 Flow Rate Last 24 Hr 96.8 F-98.5 F 65-100 15-24 95-163/51-87 92-99 Room Air-Room Air Intake and Output 09/12/22 09/12/22 09/12/22 03:59 11:59 19:59 Intake Total 150 400 Output Total 1350 1200 Balance -1200 -1200 400 Weight 99.382 kg Intake & Output: Intake & Output 09/12/22 09/12/22 09/12/22 03:59 11:59 19:59 Intake Total 150 400 Output Total 1350 1200 Balance -1200 -1200 400 Weight 99.382 kg Intake: Oral 150 400 Output: Urine Catheter Amount 1350 1200 Uretheral ([place]) 1200 Other: Meal Lunch Percent of Meal Consumed 100% Feeding Ability Assist with Tray Set Up Urine Appearance Clear Clear Uretheral ([place]) Clear Clear Urine Color Yellow Yellow Uretheral ([place]) Yellow Yellow Urine Odor Normal Uretheral ([place]) Normal OBJ DATA Labs 09/12/22 05:31 09/12/22 05:31 Labs: Abnormal Lab Results 09/12/22 09/12/22 09/11/22 05:31 05:31 18:28 RBC 3.74 L Hgb 11.5 L Hct 35.6 L POC Hct 38.0 L Immature Gran % (Auto) Neut % (Auto) Lymph % (Auto) 14.0 L Eos % (Auto) 14.1 H Lymph # (Auto) 1.14 L [place] # (Auto) 0.91 H Eos # (Auto) 1.15 H Immature Gran # Absolute Neutrophils POC Total CO2 21.0 L POC Anion Gap 17.0 H POC BUN 36 H BUN 36 H Creatinine 1.7 H POC Creatinine 1.9 H POC Glucose 146 H Calcium 10.5 H POC WB Ioniz Calcium 1.37 H AST 51 H NT-Pro-B Natriuret Pep Urine Appearance Urine Occult Blood Urine RBC Hyaline Casts Urine Mucus 09/11/22 09/11/22 09/11/22 18:23 18:23 17:37 RBC 3.77 L Hgb 11.7 L Hct 35.8 L POC Hct Immature Gran % (Auto) 0.6 H Neut % (Auto) 80.7 H Lymph % (Auto) 5.6 L Eos % (Auto) Lymph # (Auto) 0.61 L [place] # (Auto) 0.99 H Eos # (Auto) Immature Gran # 0.06 H Absolute Neutrophils 8.80 H POC Total CO2 POC Anion Gap POC BUN BUN Creatinine POC Creatinine POC Glucose Calcium POC WB Ioniz Calcium AST NT-Pro-B Natriuret Pep 923.3 H Urine Appearance Hazy A Urine Occult Blood >1.0 A Urine RBC > 182 H Hyaline Casts 17 H Urine Mucus Few A Meds: Medications Acetaminophen (Acetaminophen 325 Mg Tablet) 650 mg PO Q6HP PRN; Protocol PRN Reason: Per Pain Protocol/Fever > 101 Acetaminophen (Acetaminophen (Pp) 325mg Tablet (#50)) tablet PO Q4H PRN PRN Reason: headache Albuterol Sulfate (Albuterol Sulfate 60 Puff Inhaler) puff INH Q4H PRN PRN Reason: Wheezing Aspirin (Aspirin 325 Mg Tablet) 325 mg PO QDAY [place] Dicyclomine HCl (Dicyclomine 20 Mg Tablet) 20 mg PO TID [place] Guaifenesin (Guaifenesin 600 Mg Tab.Sr.12h) 600 mg PO BID PRN PRN Reason: congestion Hydralazine HCl (Hydralazine 20 Mg/Ml Vial) 10 mg IV Q4-6HP PRN PRN Reason: Hypertension Sodium Chloride (Sodium Chloride 0.9%) 1,000 mls @ 50 mls/hr IV .Q20H [facility] Last Admin: 09/11/22 23:42 Dose: 50 mls/hr Magnesium Hydroxide (Magnesium Hydroxide 30 Ml Oral.Susp) 30 ml PO DAILYP PRN PRN Reason: Constipation Magnesium Hydroxide (Magnesium Hydroxide 30 Ml Oral.Susp) 30 ml PO QDAY PRN PRN Reason: constipation Non-Formulary Medication (Acetylcysteine [Nac]) 600 mg PO QDAY [facility] Non-Formulary Medication (Chlorthalidone) 50 mg PO QDAY [facility] Non-Formulary Medication (Deep Blue Polyphenol Complex) 1 each PO BID [facility] Non-Formulary Medication (Escitalopram Oxalate [Lexapro]) 5 mg PO QHS [facility] Non-Formulary Medication (Lactobacillus Combination No.9 [Adult 50 Plus Probiotic]) 4,000 mmu cells PO QDAY [facility] Non-Formulary Medication (Multivitamin) 1 tab PO QDAY [facility] Non-Formulary Medication (Olmesartan) 40 mg PO QDAY [facility] Non-Formulary Medication ([place]-3 Fatty Acids [Fish Oil Concentrate]) 1,000 mg PO QDAY [facility] Non-Formulary Medication (Phenylephrine Hcl [Librado-Synephrine (Phenylephrine)]) 2 spray INTRANASAL Q4-6H PRN PRN Reason: nasal congestion Non-Formulary Medication (Propylene Glycol-Glycerin [Artificial Tears(Glycerin- Peg)]) 1 drp OPHTHALMIC TID-QID PRN PRN Reason: Nasal Congestion Ondansetron HCl (Ondansetron 4 Mg/2 Ml Vial) 4 mg IV Q6HP PRN PRN Reason: Nausea And Vomiting Potassium Chloride (Potassium Chloride 10 Meq Tablet) 10 meq PO QDAY [facility] Sodium Chloride (0.9 % Sodium Chloride 10 Ml Syringe) 10 ml IV Q8 [facility] Last Admin: 09/12/22 04:57 Dose: Not Given Tamsulosin HCl (Tamsulosin 0.4 Mg Capsule) 0.8 mg PO QHS [facility] Torsemide (Torsemide 20 Mg Tablet) 20 mg PO QDAY [place] Tramadol HCl (Tramadol 50 Mg Tablet) 50 mg PO Q6HP PRN; Protocol PRN Reason: Pain Verapamil HCl (Verapamil 240 Mg Tab.Xl.24h) 240 mg PO BID [place] A/P Time Spent With Patient Time: Total time spent is greater than 50% in coordination of care (as documented) at patient's floor/unit and/or counseling patient: QUALITY Stroke Symptom Onset Unknown: No VTE Deep Vein Thrombosis/Pulmonary Embolism Present on Admission: No
[2022-09-12] MEDS: traMADol 50 MG TABLET PO PRN (15:41)
[2022-09-12] MEDS: DICYCLOMINE 20 MG TABLET PO SCH ×2 (15:45→21:18)
[2022-09-12] MEDS: 0.9 % SODIUM CHLORIDE 1,000 ML IV SCH (17:59)
--- NOTE | 2022-09-12 18:07 | Internal Med Progress Note ---
SUBJECTIVE Subjective Patient information: Note initiated : 09/12/22 at 6:07 pm Service Date, if different from initiated Date: [] Patient: Tarik Dunn 82 y/o M admitted on 09/11/22 for weakness. Chief Complaint: [] Additional PMFSH (Level 3 Only): Mr. Dunn is a 82 year old male with history of hypertension, reactive airway disease, CHF on diuretics, CKD stage III, BPH, macular degeneration, questionable Parkinson's disease, osteoarthritis who is a resident at [facility] was brought in by EMS with generalized weakness. 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 Daughter who was at bedside reported that she got a call from [facility] that patient was generally weak. Daughter however felt that patient appeared a bit spaced out and thought he was having a UTI. Patient reports he is feeling better now. No fever, no chills, no shortness of breath, no cough, no chest pain, no diarrhea, abdominal pain, constipation. He reports he is in no pain. His vitals on presentation are stable, he is afebrile. Labs unremarkable, WBC within normal range, chronic anemia with hemoglobin 11.7. Electrolytes unremarkable, creatinine 1.9 at baseline. UA unremarkable apart from urine RBC. CT scan abdomen and pelvis without any acute finding. He has small nonobstructing stone in left kidney. Chest x-ray with some pulmonary congestion without any acute infiltrate. ER was unable to discharge patient to [facility] as they require patient to be independent in ADLs and as he was unable to demonstrate that on ambulation trial admission was requested. His daughter reports that patient uses walker at baseline and has intermittent right arm weakness and numbness which is physician is suspecting could be the beginning of Parkinson's disease. 09/12. Feeling better overall. Vitals stable. Labs unremarkable. Creatinine down to 1.7 from 1.9 on admission. Echocardiogram completed but still pending. Patient had PT and OT evaluation he is requiring moderate assistance. Dis cussed case with RN, patient and case management 09/13. Reports felt really good, pain is well controlled on increased dose of tramadol. Creatinine elevated at 1.9 from 1.7 yesterday however was 1.9 on admission. Echocardiogram with EF 60%, no diastolic dysfunction, right ventricle normal in size and function. No valvular dysfunction. We will hold off on nephrotoxic medications. Encourage patient to ambulate and work with therapist. Patient meets inpatient criteria. Review of system. 14 point review of system obtained was negative as mentioned above Physical examination Alert, well nourished male, in no acute distress Patient has macular degeneration and limited vision, EOMI Normocephalic, atraumatic Reduced air entry, no rhonchi or wheezing, satting well on room air Abdomen is obese, soft and nontender S1 and S2, RRR, no murmurs heard, patient has 1+ pedal edema, family states is chronic. Alert, oriented, no focal deficits, cranial nerves grossly intact Appropriate mood and affect Assessment and plan Generalized weakness, unclear etiology. No evidence of infection. No fall. PT OT eval. Patient is requiring at least moderate assistance. Will likely need SNF Possible CHF exacerbation. Patient is satting well on room air. Chest x-ray without any decompensated CHF. He does take diuretics at home. BNP is elevated at 900. Echocardiogram with EF 60%, no diastolic dysfunction, right ventricle normal in size and function. No valvular dysfunction. Hold off on diuresis for now. CKD stage III, some bump in creatinine to 1.9. No accurate recent baseline available. Will hold off on torsemide, chlorthalidone and olmesartan and recheck renal functions Hypertension. Olmesartan and chlorthalidone held today for rising creatinine. Patient on IV hydralazine and labetalol. If renal functions remained stable can be resumed tomorrow Reactive airway disease, not in exacerbation. Continue DuoNebs BPH, continue tamsulosin. Some evidence of urinary retention, [place] catheter was removed may need to put it back again. Macular degeneration, continue home eyedrops Questionable Parkinson disease DJD, continue pain medication Chronic anemia, stable DVT prophylaxis with SCDs DNR/DNI Total time taken >50 minutes Constitutional Vitals: Vital Signs Temp Pulse Resp BP Pulse Ox O2 Del Method 98.5 F 89 20 155/66 96 Room Air 09/12/22 16:00 09/12/22 16:00 09/12/22 16:00 09/12/22 16:00 09/12/22 16:00 09/12/22 16:00 Period Temp Pulse Resp BP Sys/Calabrese Pulse Ox O2 Del Method O2 Flow Rate Last 24 Hr 96.8 F-98.5 F 65-89 15-24 95-163/51-78 94-99 Room Air-Room Air Intake and Output 09/12/22 09/12/22 09/12/22 03:59 11:59 19:59 Intake Total 150 1314 Output Total 1350 1200 300 Balance -1200 -1200 1014 Weight 99.382 kg Intake & Output: Intake & Output 09/12/22 09/12/22 09/12/22 03:59 11:59 19:59 Intake Total 150 1314 Output Total 1350 1200 300 Balance -1200 -1200 1014 Weight 99.382 kg Intake: IV 914 Sodium Chloride 0.9% 1,000 ml @ 914 50 mls/hr IV .Q20H [facility] Rx#: [id number] Oral 150 400 Output: Urine Catheter Amount 1350 1200 Uretheral ([place]) 1200 Void Amount 300 Other: Meal Lunch Percent of Meal Consumed 100% Feeding Ability Assist with Tray Set Up Urine Appearance Clear Clear Clear Uretheral ([place]) Clear Clear Urine Color Yellow Yellow Yellow Uretheral ([place]) Yellow Yellow Urine Odor Normal Normal Uretheral ([place]) Normal OBJ DATA Labs 09/13/22 05:18 09/13/22 05:18 Labs: Abnormal Lab Results 09/12/22 09/12/22 09/11/22 05:31 05:31 18:28 RBC 3.74 L Hgb 11.5 L Hct 35.6 L POC Hct 38.0 L Immature Gran % (Auto) Neut % (Auto) Lymph % (Auto) 14.0 L Eos % (Auto) 14.1 H Lymph # (Auto) 1.14 L [place] # (Auto) 0.91 H Eos # (Auto) 1.15 H Immature Gran # Absolute Neutrophils POC Total CO2 21.0 L POC Anion Gap 17.0 H POC BUN 36 H BUN 36 H Creatinine 1.7 H POC Creatinine 1.9 H POC Glucose 146 H Calcium 10.5 H POC WB Ioniz Calcium 1.37 H AST 51 H NT-Pro-B Natriuret Pep Urine Appearance Urine Occult Blood Urine RBC Hyaline Casts Urine Mucus 09/11/22 09/11/22 09/11/22 18:23 18:23 17:37 RBC 3.77 L Hgb 11.7 L Hct 35.8 L POC Hct Immature Gran % (Auto) 0.6 H Neut % (Auto) 80.7 H Lymph % (Auto) 5.6 L Eos % (Auto) Lymph # (Auto) 0.61 L [place] # (Auto) 0.99 H Eos # (Auto) Immature Gran # 0.06 H Absolute Neutrophils 8.80 H POC Total CO2 POC Anion Gap POC BUN BUN Creatinine POC Creatinine POC Glucose Calcium POC WB Ioniz Calcium AST NT-Pro-B Natriuret Pep 923.3 H Urine Appearance Hazy A Urine Occult Blood >1.0 A Urine RBC > 182 H Hyaline Casts 17 H Urine Mucus Few A Meds: Medications Acetaminophen (Acetaminophen 325 Mg Tablet) 650 mg PO Q6HP PRN; Protocol PRN Reason: Per Pain Protocol/Fever > 101 Albuterol Sulfate (Albuterol Sulfate 60 Puff Inhaler) 1 puff INH Q4HP PRN PRN Reason: Wheezing Artificial Tears (Carboxymethylcellulose Sodium 1 Each Droper.Gel) 1 each OU QIDP PRN PRN Reason: Nasal Congestion Aspirin (Aspirin 325 Mg Enteric Coated Tablet) 325 mg PO DAILY [facility] Chlorthalidone (Chlorthalidone 25 Mg Tablet) 50 mg PO DAILY [facility] Dicyclomine HCl (Dicyclomine 20 Mg Tablet) 20 mg PO TID [facility] Last Admin: 09/12/22 15:45 Dose: 20 mg Escitalopram Oxalate (Escitalopram 10 Mg Tablet) 5 mg PO QHS [facility] Fish Oil (Fish Oil 1,000 Mg Capsule) 1,000 mg PO DAILY [facility] Guaifenesin (Guaifenesin 600 Mg Tab.Sr.12h) 600 mg PO BIDP PRN PRN Reason: congestion Hydralazine HCl (Hydralazine 20 Mg/Ml Vial) 10 mg IV Q4-6HP PRN PRN Reason: Hypertension Sodium Chloride (Sodium Chloride 0.9%) 1,000 mls @ 50 mls/hr IV .Q20H [facility] Last Admin: 09/12/22 17:59 Dose: 50 mls/hr Iron Carb/Multivit/[place]/Folic Acid (Multivit,Ther Iron,Ca,Fa & Min 1 Tablet) 1 tab PO DAILY [facility] Lactobacillus Rhamnosus (Lactobacillus 1 Capsule) 1 cap PO QDAY [facility] Magnesium Hydroxide (Magnesium Hydroxide 30 Ml Oral.Susp) 30 ml PO DAILYP PRN PRN Reason: Constipation Magnesium Hydroxide (Magnesium Hydroxide 30 Ml Oral.Susp) 30 ml PO QDAY PRN PRN Reason: constipation Olmesartan (Olmesartan Medoxomil 20 Mg Tablet) 40 mg PO DAILY [facility] Ondansetron HCl (Ondansetron 4 Mg/2 Ml Vial) 4 mg IV Q6HP PRN PRN Reason: Nausea And Vomiting Phenylephrine HCl (Phenylephrine Nasal [place] Bottle 15 Ml) 2 spray JORGE Q4-6HP PRN PRN Reason: Congestion Potassium Chloride (Potassium Chloride 10 Meq Tablet) 10 meq PO QAMCC [facility] Sodium Chloride (0.9 % Sodium Chloride 10 Ml Syringe) 10 ml IV Q8 [facility] Last Admin: 09/12/22 14:26 Dose: Not Given Tamsulosin HCl (Tamsulosin 0.4 Mg Capsule) 0.8 mg PO QHS [facility] Torsemide (Torsemide 10 Mg Tablet) 20 mg PO DAILY [facility] Tramadol HCl (Tramadol 50 Mg Tablet) 75 mg PO Q6HP PRN; Protocol PRN Reason: Pain Last Admin: 09/12/22 15:41 Dose: 75 mg Verapamil HCl (Verapamil 120 Mg Tab.Xl.24h) 240 mg PO BID [facility] A/P Time Spent With Patient Time: Total time spent is greater than 50% in coordination of care (as documented) at patient's floor/unit and/or counseling patient: QUALITY Stroke Symptom Onset Unknown: No VTE Deep Vein Thrombosis/Pulmonary Embolism Present on Admission: No
[2022-09-12] MEDS ORDERED: [UNRECOGNIZED DRUG - OTHER] PO SCH (21:00)
[2022-09-12] MEDS: TAMSULOSIN 0.4 MG CAPSULE PO SCH (21:18)
[2022-09-12] MEDS: VERAPAMIL 120 MG TAB.XL.24H PO SCH (21:18)
[2022-09-12] MEDS: ESCITALOPRAM 10 MG TABLET PO SCH (21:19)
[2022-09-13] MEDS: 0.9 % SODIUM CHLORIDE 10 ML SYRINGE IV SCH ×3 (05:37→20:56)
[2022-09-13 06:57] LABS: Basophils # (Auto) 0.03 K/mcL (0.00-0.30); Basophils % (Auto) 0.3 % (0.0-2.0); Eosinophils # (Auto) 0.98 K/mcL (0.00-0.70); Eosinophils % (Auto) 9.8 % (0.0-7.0); Hematocrit 34.3 % (40.1-51.0); Hemoglobin 10.6 g/dL (13.7-17.5); Lymphocytes # (Auto) 1.15 K/mcL (1.50-4.80); Lymphocytes % (Auto) 11.5 % (15.5-49.0); Mean Cell Volume 97.2 fL (80.0-100.0); Mean Corpuscular HGB Conc 30.9 g/dL (31.0-36.0); Mean Platelet Volume 9.7 fL (8.8-12.5); Monocytes # (Auto) 1.25 K/mcL (0.10-0.90); Monocytes % (Auto) 12.5 % (1.0-12.0); Neutrophils % (Auto) 65.4 % (38.0-78.0); Platelet Count 224 K/mcL (140-440); RBC 3.53 M/mcL (4.63-6.08); Red Cell Distribution Width 13.4 % (11.5-14.5)
[2022-09-13] MEDS: traMADol 50 MG TABLET PO PRN ×2 (07:08→13:57)
[2022-09-13] MEDS: POTASSIUM CHLORIDE 10 MEQ TABLET PO SCH (07:08)
[2022-09-13 07:48] LABS: ALT/SGPT 25 U/L (<40); AST/SGOT 56 U/L (<40); Albumin 3.1 gm/dL (3.2-5.2); Alkaline Phosphatase 78 U/L (39-117); Bilirubin,Total 0.4 mg/dL (0.1-1.0); Blood Urea Nitrogen 44 mg/dL (8-23); Calcium 9.4 mg/dL (8.6-10.4); Carbon Dioxide 24 mmol/L (22-30); Chloride 102 mmol/L (96-108); Globulin 3.1 gm/dL (2.2-3.7); Glomerular Filtration Rate 32; Glucose 91 mg/dL (70-105)
[2022-09-13] MEDS: DICYCLOMINE 20 MG TABLET PO SCH ×3 (08:18→20:54)
[2022-09-13] MEDS: LACTOBACILLUS 1 CAPSULE PO SCH (08:18)
[2022-09-13] MEDS: MULTIVIT,THER IRON,CA,FA & MIN 1 TABLET PO SCH (08:19)
[2022-09-13] MEDS: VERAPAMIL 120 MG TAB.XL.24H PO SCH ×2 (08:19→20:56)
[2022-09-13] MEDS: ASPIRIN 325 MG ENTERIC COATED TABLET PO SCH (08:19)
[2022-09-13] MEDS: FISH OIL 1,000 MG CAPSULE PO SCH (08:19)
[2022-09-13] MEDS ORDERED: OLMESARTAN MEDOXOMIL 20 MG TABLET PO SCH (09:00)
[2022-09-13] MEDS ORDERED: ACETYLCYSTEINE 600 MG PO SCH (09:00)
[2022-09-13] MEDS ORDERED: CHLORTHALIDONE 25 MG TABLET PO SCH (09:00)
[2022-09-13] MEDS ORDERED: TORSEMIDE 10 MG TABLET PO SCH (09:00)
[2022-09-13] MEDS ORDERED: 0.9 % SODIUM CHLORIDE 1,000 ML IV ONE (10:15)
[2022-09-13] MEDS ORDERED: LABETALOL 5 MG/ML ML IV PRN (11:09)
[2022-09-13] MEDS ORDERED: CALCIUM CARBONATE 500 MG TAB.CHEW CHEWED PRN (13:48)
[2022-09-13] MEDS: TAMSULOSIN 0.4 MG CAPSULE PO SCH (20:54)
[2022-09-13] MEDS: ESCITALOPRAM 10 MG TABLET PO SCH (20:54)
[2022-09-14] MEDS: PHENYLEPHRINE NAS PRN ×2 (01:02→21:44)
[2022-09-14] MEDS: traMADol 50 MG TABLET PO PRN ×4 (01:11→21:48)
[2022-09-14] MEDS: 0.9 % SODIUM CHLORIDE 10 ML SYRINGE IV SCH ×3 (04:16→21:50)
[2022-09-14 06:39] LABS: Basophils # (Auto) 0.03 K/mcL (0.00-0.30); Basophils % (Auto) 0.4 % (0.0-2.0); Eosinophils # (Auto) 0.74 K/mcL (0.00-0.70); Eosinophils % (Auto) 8.6 % (0.0-7.0); Hematocrit 31.1 % (40.1-51.0); Lymphocytes # (Auto) 0.93 K/mcL (1.50-4.80); Lymphocytes % (Auto) 10.9 % (15.5-49.0); Mean Corpuscular HGB Conc 32.2 g/dL (31.0-36.0); Mean Platelet Volume 10.2 fL (8.8-12.5); Monocytes # (Auto) 1.06 K/mcL (0.10-0.90); Monocytes % (Auto) 12.4 % (1.0-12.0); Platelet Count 209 K/mcL (140-440); RBC 3.14 M/mcL (4.63-6.08); Red Cell Distribution Width 13.4 % (11.5-14.5); WBC 8.6 K/mcL (4.5-11.0)
[2022-09-14 07:41] LABS: ALT/SGPT 40 U/L (<40); AST/SGOT 139 U/L (<40); Albumin 3.1 gm/dL (3.2-5.2); Albumin/Globulin Ratio 0.9 (1.0-2.3); Alkaline Phosphatase 73 U/L (39-117); Bilirubin,Total 0.5 mg/dL (0.1-1.0); Blood Urea Nitrogen 58 mg/dL (8-23); Calcium 9.4 mg/dL (8.6-10.4); Carbon Dioxide 22 mmol/L (22-30); Chloride 104 mmol/L (96-108); Globulin 3.3 gm/dL (2.2-3.7); Glomerular Filtration Rate 23; Glucose 83 mg/dL (70-105)
[2022-09-14] MEDS: FISH OIL 1,000 MG CAPSULE PO SCH (08:33)
[2022-09-14] MEDS: POTASSIUM CHLORIDE 10 MEQ TABLET PO SCH (08:33)
[2022-09-14] MEDS: MULTIVIT,THER IRON,CA,FA & MIN 1 TABLET PO SCH (08:33)
[2022-09-14] MEDS: DICYCLOMINE 20 MG TABLET PO SCH ×3 (08:34→21:50)
[2022-09-14] MEDS: LACTOBACILLUS 1 CAPSULE PO SCH (08:34)
[2022-09-14] MEDS: ASPIRIN 325 MG ENTERIC COATED TABLET PO SCH (08:34)
[2022-09-14] MEDS: VERAPAMIL 120 MG TAB.XL.24H PO SCH ×2 (08:34→21:47)
--- NOTE | 2022-09-14 12:16 | Internal Med Progress Note ---
SUBJECTIVE Subjective Patient information: Note initiated : 09/14/22 at 12:11 pm Service Date, if different from initiated Date: [] Patient: Tarik Dunn 82 y/o M admitted on 09/13/22. Chief Complaint: [] Interval history: Mr. Dunn is a 82 year old male with history of hypertension, reactive airway disease, CHF on diuretics, CKD stage III, BPH, macular degeneration, questionable Parkinson's disease, osteoarthritis who is a resident at [facility] was brought in by EMS with generalized weakness. 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 Daughter who was at bedside reported that she got a call from [facility] that patient was generally weak. Daughter however felt that patient appeared a bit spaced out and thought he was having a UTI. Patient reports he is feeling better now. No fever, no chills, no shortness of breath, no cough, no chest pain, no diarrhea, abdominal pain, constipation. He reports he is in no pain. His vitals on presentation are stable, he is afebrile. Labs unremarkable, WBC within normal range, chronic anemia with hemoglobin 11.7. Electrolytes unremarkable, creatinine 1.9 at baseline. UA unremarkable apart from urine RBC. CT scan abdomen and pelvis without any acute finding. He has small nonobstructing stone in left kidney. Chest x-ray with some pulmonary congestion without any acute infiltrate. ER was unable to discharge patient to [facility] as they require patient to be independent in ADLs and as he was unable to demonstrate that on ambulation trial admission was requested. His daughter reports that patient uses walker at baseline and has intermittent right arm weakness and numbness which is physician is suspecting could be the beginning of Parkinson's disease. 09/12. Feeling better overall. Vitals stable. Labs unremarkable. Creatinine down to 1.7 from 1.9 on admission. Echocardiogram completed but still pending. Patient had PT and OT evaluation he is requiring moderate assistance. Discussed case with RN, patient and case management 09/13. Reports felt really good, pain is well controlled on increased dose of tramadol. Creatinine elevated at 1.9 from 1.7 yesterday however was 1.9 on admission. Echocardiogram with EF 60%, no diastolic dysfunction, right ventricle normal in size and function. No valvular dysfunction. We will hold off on nephrotoxic medications. Encourage patient to ambulate and work with therapist. Patient meets inpatient criteria. 09/14. Overnight the patient had urinary retention requiring placement of a green catheter. The patient says he feels tired today. Creatinine has increased from 1.9 to 2.5. Patient inquiring 3 L/min nasal cannula oxygen supplementation, does not appear to be in respiratory distress. Blood pressure low normal overnight. Reduce verapamil to 160 mg twice daily, continue holding home antihypertensives. We will continue holding diuretics and follow renal function tomorrow. Holding home potassium chloride. Patient does have some mild bilateral lower extremity pitting edema however urine output has been low and he otherwise does not appear to be volume overloaded. Physical exam Head: Atraumatic, normal inspection. Eyes: normal appearance, no scleral icterus. Neck: full ROM Respiratory: Nasal cannula oxygen supplementation, no respiratory distress. Cardiovascular: normal rate and rhythm, S1, S2. GI/Abdominal: Distended, soft, nontender, no guarding. Extremities: full range of motion, nontender, mild bilateral lower extremity pit ting edema. Neurological: CN II-XII intact, intact motor, intact sensation. Psychiatric: normal mood. Skin: warm, normal color Constitutional Vitals: Vital Signs Temp Pulse Resp BP Pulse Ox O2 Del Method O2 Flow Rate 97.7 F 63 16 110/54 100 Nasal Cannula 3 09/14/22 12:00 09/14/22 12:00 09/14/22 07:44 09/14/22 12:00 09/14/22 12:00 09/14/22 12:00 09/14/22 12:00 Period Temp Pulse Resp BP Sys/Calabrese Pulse Ox O2 Del Method O2 Flow Rate Last 24 Hr 97.1 F-98.2 F 50-87 12-17 106-132/50-62 85-100 Nasal Cannula- Room Air, Oxymask 3-3 Intake and Output 09/14/22 09/14/22 09/14/22 03:59 11:59 19:59 Intake Total 1000 220 Output Total 170 Balance 1000 50 Intake & Output: Intake & Output 09/14/22 09/14/22 09/14/22 03:59 11:59 19:59 Intake Total 1000 220 Output Total 170 Balance 1000 50 Intake: IV 1000 Sodium Chloride 0.9% 1,000 ml @ 1000 75 mls/hr IV .[id number] [facility] Rx#: [id number] Oral 220 Output: Void Amount 170 Other: Meal Breakfast Percent of Meal Consumed 100% Feeding Ability Total Assistance Urine Appearance Clear Uretheral (Green) Clear Urine Color Yellow Uretheral (Green) Yellow Urine Odor Normal OBJ DATA Labs 09/14/22 05:25 09/14/22 05:25 Labs: Abnormal Lab Results 09/14/22 09/14/22 09/13/22 05:25 05:25 05:18 RBC 3.14 L Hgb 10.0 L Hct 31.1 L POC Hct MCHC Immature Gran % (Auto) 0.7 H Neut % (Auto) Lymph % (Auto) 10.9 L [place] % (Auto) 12.4 H Eos % (Auto) 8.6 H Lymph # (Auto) 0.93 L [place] # (Auto) 1.06 H Eos # (Auto) 0.74 H Immature Gran # 0.06 H Absolute Neutrophils POC Total CO2 POC Anion Gap POC BUN BUN 58 H 44 H Creatinine 2.5 H 1.9 H POC Creatinine POC Glucose Calcium POC WB Ioniz Calcium AST 139 H 56 H ALT 40 H NT-Pro-B Natriuret Pep Albumin 3.1 L 3.1 L Albumin/Globulin Ratio 0.9 L Urine Appearance Urine Occult Blood Urine RBC Hyaline Casts Urine Mucus 09/13/22 09/12/22 09/12/22 05:18 05:31 05:31 RBC 3.53 L 3.74 L Hgb 10.6 L 11.5 L Hct 34.3 L 35.6 L POC Hct MCHC 30.9 L Immature Gran % (Auto) Neut % (Auto) Lymph % (Auto) 11.5 L 14.0 L [place] % (Auto) 12.5 H Eos % (Auto) 9.8 H 14.1 H Lymph # (Auto) 1.15 L 1.14 L [place] # (Auto) 1.25 H 0.91 H Eos # (Auto) 0.98 H 1.15 H Immature Gran # Absolute Neutrophils POC Total CO2 POC Anion Gap POC BUN BUN 36 H Creatinine 1.7 H POC Creatinine POC Glucose Calcium 10.5 H POC WB Ioniz Calcium AST 51 H ALT NT-Pro-B Natriuret Pep Albumin Albumin/Globulin Ratio Urine Appearance Urine Occult Blood Urine RBC Hyaline Casts Urine Mucus 09/11/22 09/11/2223 18:28 18:23 18:23 RBC 3.77 L Hgb 11.7 L Hct 35.8 L POC Hct 38.0 L MCHC Immature Gran % (Auto) 0.6 H Neut % (Auto) 80.7 H Lymph % (Auto) 5.6 L [place] % (Auto) Eos % (Auto) Lymph # (Auto) 0.61 L [place] # (Auto) 0.99 H Eos # (Auto) Immature Gran # 0.06 H Absolute Neutrophils 8.80 H POC Total CO2 21.0 L POC Anion Gap 17.0 H POC BUN 36 H BUN Creatinine POC Creatinine 1.9 H POC Glucose 146 H Calcium POC WB Ioniz Calcium 1.37 H AST ALT NT-Pro-B Natriuret Pep 923.3 H Albumin Albumin/Globulin Ratio Urine Appearance Urine Occult Blood Urine RBC Hyaline Casts Urine Mucus 09/11/22 17:37 RBC Hgb Hct POC Hct MCHC Immature Gran % (Auto) Neut % (Auto) Lymph % (Auto) [place] % (Auto) Eos % (Auto) Lymph # (Auto) [place] # (Auto) Eos # (Auto) Immature Gran # Absolute Neutrophils POC Total CO2 POC Anion Gap POC BUN BUN Creatinine POC Creatinine POC Glucose Calcium POC WB Ioniz Calcium AST ALT NT-Pro-B Natriuret Pep Albumin Albumin/Globulin Ratio Urine Appearance Hazy A Urine Occult Blood >1.0 A Urine RBC > 182 H Hyaline Casts 17 H Urine Mucus Few A Meds: Medications Acetaminophen (Acetaminophen 325 Mg Tablet) 650 mg PO Q6HP PRN; Protocol PRN Reason: Per Pain Protocol/Fever > 101 Albuterol Sulfate (Albuterol Sulfate 60 Puff Inhaler) 1 puff INH Q4HP PRN PRN Reason: Wheezing Artificial Tears (Carboxymethylcellulose Sodium 1 Each Droper.Gel) 1 each OU QIDP PRN PRN Reason: Nasal Congestion Aspirin (Aspirin 325 Mg Enteric Coated Tablet) 325 mg PO DAILY [facility] Last Admin: 09/14/22 08:34 Dose: 325 mg Calcium Carbonate/Glycine (Calcium Carbonate 500 Mg Tab.Chew) 500 mg CHEWED Q4HP PRN PRN Reason: Dyspepsia Last Admin: 09/13/22 13:54 Dose: 500 mg Dicyclomine HCl (Dicyclomine 20 Mg Tablet) 20 mg PO TID [facility] Last Admin: 09/14/22 08:34 Dose: 20 mg Escitalopram Oxalate (Escitalopram 10 Mg Tablet) 5 mg PO QHS [facility] Last Admin: 09/13/22 20:54 Dose: 5 mg Fish Oil (Fish Oil 1,000 Mg Capsule) 1,000 mg PO DAILY [facility] Last Admin: 09/14/22 08:33 Dose: 1,000 mg Guaifenesin (Guaifenesin 600 Mg Tab.Sr.12h) 600 mg PO BIDP PRN PRN Reason: congestion Hydralazine HCl (Hydralazine 20 Mg/Ml Vial) 10 mg IV Q4-6HP PRN PRN Reason: Hypertension Iron Carb/Multivit/[place]/Folic Acid (Multivit,Ther Iron,Ca,Fa & Min 1 Tablet) 1 tab PO DAILY [facility] Last Admin: 09/14/22 08:33 Dose: 1 tab Labetalol HCl (Labetalol 5 Mg/Ml Ml) 10 mg IV Q4H PRN PRN Reason: SBP> 160 Lactobacillus Rhamnosus (Lactobacillus 1 Capsule) 1 cap PO QDAY [facility] Last Admin: 09/14/22 08:34 Dose: 1 cap Magnesium Hydroxide (Magnesium Hydroxide 30 Ml Oral.Susp) 30 ml PO DAILYP PRN PRN Reason: Constipation Ondansetron HCl (Ondansetron 4 Mg/2 Ml Vial) 4 mg IV Q6HP PRN PRN Reason: Nausea And Vomiting Phenylephrine HCl (Phenylephrine Nasal [place] Bottle 15 Ml) 2 spray JORGE Q4-6HP PRN PRN Reason: Congestion Last Admin: 09/14/22 01:02 Dose: 1 spray Potassium Chloride (Potassium Chloride 10 Meq Tablet) 10 meq PO [facility] Last Admin: 09/14/22 08:33 Dose: 10 meq Sodium Chloride (0.9 % Sodium Chloride 10 Ml Syringe) 10 ml IV Q8 [facility] Last Admin: 09/14/22 04:16 Dose: 10 ml Tamsulosin HCl (Tamsulosin 0.4 Mg Capsule) 0.8 mg PO QHS [facility] Last Admin: 09/13/22 20:54 Dose: 0.8 mg Tramadol HCl (Tramadol 50 Mg Tablet) 75 mg PO Q6HP PRN; Protocol PRN Reason: Pain Last Admin: 09/14/22 08:33 Dose: 75 mg Verapamil HCl (Verapamil 120 Mg Tab.Xl.24h) 240 mg PO BID [facility] Last Admin: 09/14/22 08:34 Dose: Not Given A/P Narrative A/P Narrative: Assessment: 82-year-old male with a history of hypertension, chronic diastolic heart failure, reactive airway disease, chronic kidney disease stage III, BPH, possible Parkinson's disease, osteoarthritis, macular degeneration admitted for a generalized weakness and possible congestive heart failure exacerbation. Diuresis was limited by an acute on chronic kidney disease injury. #Acute on chronic kidney disease stage III injury #Acute hypoxic respiratory failure #Possible acute on chronic diastolic heart failure exacerbation #Generalized weakness #Essential hypertension #COPD, stable #Chronic anemia, stable #Possible Parkinson's disease #BPH complicated by urinary retention requiring Green catheter #Osteoarthritis Plan -Monitor renal function and urine output, hold off on diuretics for now. -Chest x-ray today. -Reduce verapamil to 160 mg twice daily, avoid hypotension. -Holding home olmesartan and chlorthalidone for DREA and low normal blood pressure. -Continue DuoNebs and as needed albuterol neb. -Continue home Flomax, aspirin, dicyclomine, escitalopram. -Continue Green catheter today, attempt removal and trial of voiding prior to discharge. -PT and OT consulted. -DVT prophylaxis: Heparin SQ (Naveen score 6). -CODE STATUS: DNR/DNI -Disposition: Currently inpatient MedSurg. When the patient is medically stable he will probably discharge to low intensity rehab. Time Spent With Patient Time: Total time spent is greater than 50% in coordination of care (as documented) at patient's floor/unit and/or counseling patient: QUALITY Stroke Symptom Onset Unknown: No VTE Deep Vein Thrombosis/Pulmonary Embolism Present on Admission: No
--- NOTE | 2022-09-14 15:24 | XRay Report ---
HISTORY: Axial, weakness, acute kidney injury FINDINGS: There is thick band of scar tissue in the right upper lobe extending from the hilum to the periphery. This is unchanged from prior CT done on 01/11/19. There are linear bands of scar or discoid atelectasis in the left mid and lower thorax and overlying the right heart border. Some of these are new and others were present on the prior CT. No consolidating infiltrate is present. There is no suspicious mass or pleural effusion. The heart is mildly enlarged. There is no congestive heart failure. Postoperative changes are present in both shoulders. IMPRESSION: Scar and atelectasis in both lungs Interpreted and Authenticated by: Lee Sesay 09/14/22
[2022-09-14] MEDS: HEPARIN 5,000 UNIT/ML VIAL SQ SCH ×2 (15:44→21:45)
[2022-09-14] MEDS: ESCITALOPRAM 10 MG TABLET PO SCH (21:49)
[2022-09-14] MEDS: TAMSULOSIN 0.4 MG CAPSULE PO SCH (21:50)
[2022-09-15] MEDS: 0.9 % SODIUM CHLORIDE 10 ML SYRINGE IV SCH ×3 (04:31→21:53)
[2022-09-15] MEDS: HEPARIN 5,000 UNIT/ML VIAL SQ SCH ×3 (05:50→21:52)
[2022-09-15 06:40] LABS: Basophils # (Auto) 0.02 K/mcL (0.00-0.30); Basophils % (Auto) 0.2 % (0.0-2.0); Eosinophils # (Auto) 0.44 K/mcL (0.00-0.70); Eosinophils % (Auto) 4.7 % (0.0-7.0); Hematocrit 31.4 % (40.1-51.0); Hemoglobin 9.9 g/dL (13.7-17.5); Lymphocytes # (Auto) 0.66 K/mcL (1.50-4.80); Lymphocytes % (Auto) 7.1 % (15.5-49.0); Mean Cell Volume 99.1 fL (80.0-100.0); Mean Corpuscular HGB Conc 31.5 g/dL (31.0-36.0); Mean Platelet Volume 10.1 fL (8.8-12.5); Monocytes % (Auto) 11.8 % (1.0-12.0); Neutrophils % (Auto) 75.7 % (38.0-78.0); Platelet Count 234 K/mcL (140-440); RBC 3.17 M/mcL (4.63-6.08); Red Cell Distribution Width 13.1 % (11.5-14.5); WBC 9.3 K/mcL (4.5-11.0)
[2022-09-15 07:16] LABS: ALT/SGPT 41 U/L (<40); AST/SGOT 101 U/L (<40); Albumin/Globulin Ratio 0.8 (1.0-2.3); Alkaline Phosphatase 87 U/L (39-117); Bilirubin,Total 0.4 mg/dL (0.1-1.0); Blood Urea Nitrogen 69 mg/dL (8-23); Calcium 9.4 mg/dL (8.6-10.4); Carbon Dioxide 23 mmol/L (22-30); Chloride 99 mmol/L (96-108); Globulin 3.6 gm/dL (2.2-3.7); Glomerular Filtration Rate 24; Glucose 103 mg/dL (70-105)
[2022-09-15] MEDS: ASPIRIN 325 MG ENTERIC COATED TABLET PO SCH (08:51)
[2022-09-15] MEDS: FISH OIL 1,000 MG CAPSULE PO SCH (08:51)
[2022-09-15] MEDS: VERAPAMIL 120 MG TAB.XL.24H PO SCH (08:52)
[2022-09-15] MEDS: MULTIVIT,THER IRON,CA,FA & MIN 1 TABLET PO SCH (08:52)
[2022-09-15] MEDS: DICYCLOMINE 20 MG TABLET PO SCH ×2 (08:52→14:31)
[2022-09-15] MEDS: LACTOBACILLUS 1 CAPSULE PO SCH (08:52)
[2022-09-15] MEDS: traMADol 50 MG TABLET PO PRN (08:56)
[2022-09-15] MEDS ORDERED: traMADol 50 MG TABLET PO PRN (09:11)
--- NOTE | 2022-09-15 10:06 | Internal Med Progress Note ---
SUBJECTIVE Subjective Patient information: Note initiated : 09/15/22 at 10:03 am Service Date, if different from initiated Date: [] Patient: Tarik Dunn 82 y/o M admitted on 09/13/22. Chief Complaint: [] Interval history: Mr. Dunn is a 82 year old male with history of hypertension, reactive airway disease, CHF on diuretics, CKD stage III, BPH, macular degeneration, questionable Parkinson's disease, osteoarthritis who is a resident at [facility] was brought in by EMS with generalized weakness. Patient reports the CLIENT REPORTING ASSOCIATE at [facility] did not give him his morning tramadol however this is unverified. Daughter who was at bedside reported that she got a call from [facility] that patient was generally weak. Daughter however felt that patient appeared a bit spaced out and thought he was having a UTI. Patient reports he is feeling better now. No fever, no chills, no shortness of breath, no cough, no chest pain, no diarrhea, abdominal pain, constipation. He reports he is in no pain. His vitals on presentation are stable, he is afebrile. Labs unremarkable, WBC within normal range, chronic anemia with hemoglobin 11.7. Electrolytes unremarkable, creatinine 1.9 at baseline. UA unremarkable apart from urine RBC. CT scan abdomen and pelvis without any acute finding. He has small nonobstructing stone in left kidney. Chest x-ray with some pulmonary congestion without any acute infiltrate. ER was unable to discharge patient to [facility] as they require patient to be independent in ADLs and as he was unable to demonstrate that on ambulation trial admission was requested. His daughter reports that patient uses walker at baseline and has intermittent right arm weakness and numbness which is physician is suspecting could be the beginning of Parkinson's disease. 09/12. Feeling better overall. Vitals stable. Labs unremarkable. Creatinine down to 1.7 from 1.9 on admission. Echocardiogram completed but still pending. Patient had PT and OT evaluation he is requiring moderate assistance. Discussed case with RN, patient and case management 09/13. Reports felt really good, pain is well controlled on increased dose of tramadol. Creatinine elevated at 1.9 from 1.7 yesterday however was 1.9 on admission. Echocardiogram with EF 60%, no diastolic dysfunction, right ventricle normal in size and function. No valvular dysfunction. We will hold off on nephrotoxic medications. Encourage patient to ambulate and work with therapist. Patient meets inpatient criteria. 09/14. Overnight the patient had urinary retention requiring placement of a green catheter. The patient says he feels tired today. Creatinine has increased from 1.9 to 2.5. Patient inquiring 3 L/min nasal cannula oxygen supplementation, does not appear to be in respiratory distress. Blood pressure low normal overnight. Reduce verapamil to 160 mg twice daily, continue holding home antihypertensives. We will continue holding diuretics and follow renal function tomorrow. Holding home potassium chloride. Patient does have some mild bilateral lower extremity pitting edema however urine output has been low and he otherwise does not appear to be volume overloaded. 09/15. Patient feels better today, more alert. Chest x-ray did not show any acute changes. The patient weaned off oxygen to room air today. Creatinine appears to have plateaued, 2.5 yesterday and 2.4 today. We will continue holding diuretics. Reduced tramadol back to 50 mg as needed which the patient was taking prior to admission. Encourage patient to try to get out of bed today to the chair. Physical exam Head: Atraumatic, normal inspection. Eyes: normal appearance, no scleral icterus. Neck: full ROM Respiratory: Room air, no respiratory distress. Cardiovascular: normal rate and rhythm, S1, S2. GI/Abdominal: Distended, soft, nontender, no guarding. Extremities: full range of motion, nontender, mild bilateral lower extremity pitting edema. Neurological: CN II-XII intact, intact motor, intact sensation. Psychiatric: normal mood. Skin: warm, normal color Constitutional Vitals: Vital Signs Temp Pulse Resp BP Pulse Ox O2 Del Method O2 Flow Rate 98.5 F 73 16 134/54 91 Room Air 2 09/15/22 07:20 09/15/22 07:20 09/15/22 07:20 09/15/22 07:20 09/15/22 07:20 09/15/22 07:20 09/15/22 04:24 Period Temp Pulse Resp BP Sys/Calabrese Pulse Ox O2 Del Method O2 Flow Rate Last 24 Hr 97.1 F-98.6 F 61-87 14-19 110-134/41-89 91-100 Nasal Cannula- Room Air 2-3.5 Intake and Output 09/14/22 09/15/22 09/15/22 19:59 03:59 11:59 Intake Total 200 450 Output Total 250 700 Balance -50 -250 Weight 99.337 kg Intake & Output: Intake & Output 09/14/22 09/15/22 09/15/22 19:59 03:59 11:59 Intake Total 200 450 Output Total 250 700 Balance -50 -250 Weight 99.337 kg Intake: Oral 200 450 Output: Urine Catheter Amount 250 700 Other: Meal Dinner Percent of Meal Consumed 90 Urine Appearance Clear Uretheral (Green) Clear Clear Urine Color Dark Yellow Uretheral (Green) Yellow Yellow Urine Odor Normal OBJ DATA Labs 09/15/22 05:20 09/15/22 05:20 Labs: Abnormal Lab Results 09/15/22 09/15/22 09/14/22 05:20 05:20 05:25 RBC 3.17 L Hgb 9.9 L Hct 31.4 L MCHC Immature Gran % (Auto) Lymph % (Auto) 7.1 L [place] % (Auto) Eos % (Auto) Lymph # (Auto) 0.66 L [place] # (Auto) 1.10 H Eos # (Auto) Immature Gran # BUN 69 H 58 H Creatinine 2.4 H 2.5 H AST 101 H 139 H ALT 41 H 40 H Albumin 3.0 L 3.1 L Albumin/Globulin Ratio 0.8 L 0.9 L 09/14/22 09/13/22 09/13/22 05:25 05:18 05:18 RBC 3.14 L 3.53 L Hgb 10.0 L 10.6 L Hct 31.1 L 34.3 L MCHC 30.9 L Immature Gran % (Auto) 0.7 H Lymph % (Auto) 10.9 L 11.5 L [place] % (Auto) 12.4 H 12.5 H Eos % (Auto) 8.6 H 9.8 H Lymph # (Auto) 0.93 L 1.15 L [place] # (Auto) 1.06 H 1.25 H Eos # (Auto) 0.74 H 0.98 H Immature Gran # 0.06 H BUN 44 H Creatinine 1.9 H AST 56 H ALT Albumin 3.1 L Albumin/Globulin Ratio Meds: Medications Acetaminophen (Acetaminophen 325 Mg Tablet) 650 mg PO Q6HP PRN; Protocol PRN Reason: Per Pain Protocol/Fever > 101 Albuterol Sulfate (Albuterol Sulfate 60 Puff Inhaler) 1 puff INH Q4HP PRN PRN Reason: Wheezing Artificial Tears (Carboxymethylcellulose Sodium 1 Each Droper.Gel) 1 each OU QIDP PRN PRN Reason: Nasal Congestion Aspirin (Aspirin 325 Mg Enteric Coated Tablet) 325 mg PO DAILY ON LICENSE OF [facility] Last Admin: 09/15/22 08:51 Dose: 325 mg Calcium Carbonate/Glycine (Calcium Carbonate 500 Mg Tab.Chew) 500 mg CHEWED Q4HP PRN PRN Reason: Dyspepsia Last Admin: 09/13/22 13:54 Dose: 500 mg Dicyclomine HCl (Dicyclomine 20 Mg Tablet) 20 mg PO TID ON LICENSE OF [facility] Last Admin: 09/15/22 08:52 Dose: 20 mg Escitalopram Oxalate (Escitalopram 10 Mg Tablet) 5 mg PO QHS ON LICENSE OF [facility] Last Admin: 09/14/22 21:49 Dose: 5 mg Fish Oil (Fish Oil 1,000 Mg Capsule) 1,000 mg PO DAILY ON LICENSE OF [facility] Last Admin: 09/15/22 08:51 Dose: 1,000 mg Guaifenesin (Guaifenesin 600 Mg Tab.Sr.12h) 600 mg PO BIDP PRN PRN Reason: congestion Heparin Sodium (Porcine) (Heparin 5,000 Unit/Ml Vial) 5,000 unit SQ Q8 ON LICENSE OF [facility] Last Admin: 09/15/22 05:50 Dose: 5,000 unit Hydralazine HCl (Hydralazine 20 Mg/Ml Vial) 10 mg IV Q4-6HP PRN PRN Reason: Hypertension Iron Carb/Multivit/[place]/Folic Acid (Multivit,Ther Iron,Ca,Fa & Min 1 Tablet) 1 tab PO DAILY ON LICENSE OF [facility] Last Admin: 09/15/22 08:52 Dose: 1 tab Labetalol HCl (Labetalol 5 Mg/Ml Ml) 10 mg IV Q4H PRN PRN Reason: SBP> 160 Lactobacillus Rhamnosus (Lactobacillus 1 Capsule) 1 cap PO QDAY ON LICENSE OF [facility] Last Admin: 09/15/22 08:52 Dose: 1 cap Magnesium Hydroxide (Magnesium Hydroxide 30 Ml Oral.Susp) 30 ml PO DAILYP PRN PRN Reason: Constipation Ondansetron HCl (Ondansetron 4 Mg/2 Ml Vial) 4 mg IV Q6HP PRN PRN Reason: Nausea And Vomiting Phenylephrine HCl (Phenylephrine Nasal [place] Bottle 15 Ml) 2 spray JORGE Q4-6HP PRN PRN Reason: Congestion Last Admin: 09/14/22 21:44 Dose: 1 spray Sodium Chloride (0.9 % Sodium Chloride 10 Ml Syringe) 10 ml IV Q8 ON LICENSE OF [facility] Last Admin: 09/15/22 04:31 Dose: 10 ml Tamsulosin HCl (Tamsulosin 0.4 Mg Capsule) 0.8 mg PO QHS ON LICENSE OF [facility] Last Admin: 09/14/22 21:50 Dose: 0.8 mg Tramadol HCl (Tramadol 50 Mg Tablet) 50 mg PO Q8HP PRN; Protocol PRN Reason: Pain Verapamil HCl (Verapamil 120 Mg Tab.Xl.24h) 120 mg PO BID ON LICENSE OF [facility] Last Admin: 09/15/22 08:52 Dose: 120 mg A/P Narrative A/P Narrative: Assessment: 82-year-old male with a history of hypertension, chronic diastolic heart failure, reactive airway disease, chronic kidney disease stage III, BPH, p ossible Parkinson's disease, osteoarthritis, macular degeneration admitted for a generalized weakness and possible congestive heart failure exacerbation. Diuresis was limited by an acute on chronic kidney disease injury. #Acute on chronic kidney disease stage III injury #Resolved acute hypoxic respiratory failure #Possible acute on chronic diastolic heart failure exacerbation #Generalized weakness #Essential hypertension #COPD, stable #Chronic anemia, stable #Possible Parkinson's disease #BPH complicated by urinary retention requiring Green catheter #Osteoarthritis Plan -Monitor renal function and urine output, hold off on diuretics for now. -Reduce verapamil to 120 mg twice daily, avoid hypotension. -Holding home olmesartan and chlorthalidone for DREA and low normal blood pressure. -Continue DuoNebs and as needed albuterol neb. -Continue home Flomax, aspirin, dicyclomine, escitalopram. -Continue Green catheter today, attempt removal and trial of voiding prior to discharge. -PT and OT consulted. -DVT prophylaxis: Heparin SQ (Naveen score 6). -CODE STATUS: DNR/DNI -Disposition: Currently inpatient MedSurg. Time Spent With Patient Time: Total time spent is greater than 50% in coordination of care (as documented) at patient's floor/unit and/or counseling patient: QUALITY Stroke Symptom Onset Unknown: No VTE Deep Vein Thrombosis/Pulmonary Embolism Present on Admission: No
[2022-09-15] MEDS: ACETAMINOPHEN 325 MG TABLET PO PRN (21:50)
[2022-09-15] MEDS: TAMSULOSIN 0.4 MG CAPSULE PO SCH (21:51)
[2022-09-15] MEDS: ESCITALOPRAM 10 MG TABLET PO SCH (21:51)
[2022-09-15] MEDS: MAGNESIUM HYDROXIDE 30 ML ORAL.SUSP PO PRN (21:52)
[2022-09-15] MEDS: PHENYLEPHRINE NAS PRN (22:00)
[2022-09-16] MEDS: 0.9 % SODIUM CHLORIDE 10 ML SYRINGE IV SCH ×4 (03:27→21:45)
[2022-09-16] MEDS: PHENYLEPHRINE NAS PRN (03:27)
[2022-09-16] MEDS: HEPARIN 5,000 UNIT/ML VIAL SQ SCH ×3 (06:15→21:42)
[2022-09-16 06:18] LABS: Basophils # (Auto) 0.01 K/mcL (0.00-0.30); Basophils % (Auto) 0.1 % (0.0-2.0); Eosinophils % (Auto) 2.4 % (0.0-7.0); Hematocrit 29.5 % (40.1-51.0); Hemoglobin 9.4 g/dL (13.7-17.5); Lymphocytes # (Auto) 0.56 K/mcL (1.50-4.80); Lymphocytes % (Auto) 6.8 % (15.5-49.0); Mean Corpuscular HGB Conc 31.9 g/dL (31.0-36.0); Mean Platelet Volume 10.1 fL (8.8-12.5); Monocytes # (Auto) 1.07 K/mcL (0.10-0.90); Neutrophils % (Auto) 77.1 % (38.0-78.0); Platelet Count 245 K/mcL (140-440); RBC 3.04 M/mcL (4.63-6.08); Red Cell Distribution Width 12.9 % (11.5-14.5); WBC 8.2 K/mcL (4.5-11.0)
[2022-09-16 06:32] LABS: ALT/SGPT 44 U/L (<40); AST/SGOT 77 U/L (<40); Albumin 2.7 gm/dL (3.2-5.2); Albumin/Globulin Ratio 0.8 (1.0-2.3); Alkaline Phosphatase 99 U/L (39-117); Bilirubin,Total 0.4 mg/dL (0.1-1.0); Blood Urea Nitrogen 69 mg/dL (8-23); Calcium 9.3 mg/dL (8.6-10.4); Carbon Dioxide 23 mmol/L (22-30); Chloride 101 mmol/L (96-108); Globulin 3.4 gm/dL (2.2-3.7); Glomerular Filtration Rate 29; Glucose 111 mg/dL (70-105)
[2022-09-16] MEDS: FISH OIL 1,000 MG CAPSULE PO SCH (09:12)
[2022-09-16] MEDS: LACTOBACILLUS 1 CAPSULE PO SCH (09:12)
[2022-09-16] MEDS: ACETAMINOPHEN 325 MG TABLET PO PRN (09:12)
[2022-09-16] MEDS: ASPIRIN 325 MG ENTERIC COATED TABLET PO SCH ×2 (09:12→17:36)
[2022-09-16] MEDS: MULTIVIT,THER IRON,CA,FA & MIN 1 TABLET PO SCH (09:15)
--- NOTE | 2022-09-16 11:38 | Internal Med Progress Note ---
SUBJECTIVE Subjective Patient information: Note initiated : 09/16/22 at 11:36 am Service Date, if different from initiated Date: [] Patient: Tarik Dunn 82 y/o M admitted on 09/13/22. Chief Complaint: [] Interval history: Mr. Dunn is a 82 year old male with history of hypertension, reactive airway disease, CHF on diuretics, CKD stage III, BPH, macular degeneration, questionable Parkinson's disease, osteoarthritis who is a resident at [facility] was brought in by EMS with generalized weakness. Patient reports the ELECTRICAL CONTROL ASSEMBLER at [facility] did not give him his morning tramadol however this is unverified. Daughter who was at bedside reported that she got a call from [facility] that patient was generally weak. Daughter however felt that patient appeared a bit spaced out and thought he was having a UTI. Patient reports he is feeling better now. No fever, no chills, no shortness of breath, no cough, no chest pain, no diarrhea, abdominal pain, constipation. He reports he is in no pain. His vitals on presentation are stable, he is afebrile. Labs unremarkable, WBC within normal range, chronic anemia with hemoglobin 11.7. Electrolytes unremarkable, creatinine 1.9 at baseline. UA unremarkable apart from urine RBC. CT scan abdomen and pelvis without any acute finding. He has small nonobstructing stone in left kidney. Chest x-ray with some pulmonary congestion without any acute infiltrate. ER was unable to discharge patient to [facility] as they require patient to be independent in ADLs and as he was unable to demonstrate that on ambulation trial admission was requested. His daughter reports that patient uses walker at baseline and has intermittent right arm weakness and numbness which is physician is suspecting could be the beginning of Parkinson's disease. 09/12. Feeling better overall. Vitals stable. Labs unremarkable. Creatinine down to 1.7 from 1.9 on admission. Echocardiogram completed but still pending. Patient had PT and OT evaluation he is requiring moderate assistance. Discussed case with RN, patient and case management 09/13. Reports felt really good, pain is well controlled on increased dose of tramadol. Creatinine elevated at 1.9 from 1.7 yesterday however was 1.9 on admission. Echocardiogram with EF 60%, no diastolic dysfunction, right ventricle normal in size and function. No valvular dysfunction. We will hold off on nephrotoxic medications. Encourage patient to ambulate and work with therapist. Patient meets inpatient criteria. 09/14. Overnight the patient had urinary retention requiring placement of a green catheter. The patient says he feels tired today. Creatinine has increased from 1.9 to 2.5. Patient inquiring 3 L/min nasal cannula oxygen supplementation, does not appear to be in respiratory distress. Blood pressure low normal overnight. Reduce verapamil to 160 mg twice daily, continue holding home antihypertensives. We will continue holding diuretics and follow renal function tomorrow. Holding home potassium chloride. Patient does have some mild bilateral lower extremity pitting edema however urine output has been low and he otherwise does not appear to be volume overloaded. 09/15. Patient feels better today, more alert. Chest x-ray did not show any acute changes. The patient weaned off oxygen to room air today. Creatinine appears to have plateaued, 2.5 yesterday and 2.4 today. We will continue holding diuretics. Discontinued tramadol and dicyclomine due to concerns these might be causing encephalopathy. Verapamil also held for low normal blood pressures. Encourage patient to try to get out of bed today to the chair. 09/16 No significant events reported overnight, mostly on room air now and intermittently requiring nasal cannula oxygen supplementation. Mental status improved today, possibly because tramadol and dicyclomine were held yesterday. Scheduled Tylenol for pain. Renal function showing improvement. Hemoglobin has been trending down, holding aspirin. Check stool for occult blood. Physical exam Head: Atraumatic, normal inspection. Eyes: normal appearance, no scleral icterus. Neck: full ROM Respiratory: Room air, no respiratory distress. Cardiovascular: normal rate and rhythm, S1, S2. GI/Abdominal: Distended, soft, nontender, no guarding. Extremities: full range of motion, nontender, mild bilateral lower extremity pitting edema. Neurological: CN II-XII intact, intact motor, intact sensation. Psychiatric: normal mood, impaired cognition Skin: warm, normal color Constitutional Vitals: Vital Signs Temp Pulse Resp BP Pulse Ox O2 Del Method O2 Flow Rate 98.2 F 84 16 150/55 96 Nasal Cannula 1 09/16/22 08:00 09/16/22 08:00 09/16/22 08:00 09/16/22 08:00 09/16/22 08:00 09/16/22 08:00 09/16/22 08:00 Period Temp Pulse Resp BP Sys/Calabrese Pulse Ox O2 Del Method O2 Flow Rate Last 24 Hr 97.4 F-98.2 F 58-87 16-18 119-150/49-77 87-96 Nasal Cannula- Room Air 1-2 Intake and Output 09/15/22 09/16/22 09/16/22 19:59 03:59 11:59 Intake Total 450 Output Total 700 525 Balance -700 -75 Weight 99.79 kg Intake & Output: Intake & Output 09/15/22 09/16/22 09/16/22 19:59 03:59 11:59 Intake Total 450 Output Total 700 525 Balance -700 -75 Weight 99.79 kg Intake: Oral 450 Output: Urine Catheter Amount 325 Void Amount 700 200 Other: Urine Appearance Clear Uretheral (Green) Clear Urine Color Yellow Uretheral (Green) Yellow Urine Odor Normal Uretheral (Green) Normal OBJ DATA Labs 09/16/22 05:18 09/16/22 05:18 Labs: Abnormal Lab Results 09/16/22 09/16/22 09/15/22 05:18 05:18 05:20 RBC 3.04 L Hgb 9.4 L Hct 29.5 L Immature Gran % (Auto) 0.6 H Lymph % (Auto) 6.8 L [place] % (Auto) 13.0 H Eos % (Auto) Lymph # (Auto) 0.56 L [place] # (Auto) 1.07 H Eos # (Auto) Immature Gran # BUN 69 H 69 H Creatinine 2.1 H 2.4 H Glucose 111 H AST 77 H 101 H ALT 44 H 41 H Albumin 2.7 L 3.0 L Albumin/Globulin Ratio 0.8 L 0.8 L 09/15/22 09/14/22 09/14/22 05:20 05:25 05:25 RBC 3.17 L 3.14 L Hgb 9.9 L 10.0 L Hct 31.4 L 31.1 L Immature Gran % (Auto) 0.7 H Lymph % (Auto) 7.1 L 10.9 L [place] % (Auto) 12.4 H Eos % (Auto) 8.6 H Lymph # (Auto) 0.66 L 0.93 L [place] # (Auto) 1.10 H 1.06 H Eos # (Auto) 0.74 H Immature Gran # 0.06 H BUN 58 H Creatinine 2.5 H Glucose AST 139 H ALT 40 H Albumin 3.1 L Albumin/Globulin Ratio 0.9 L Meds: Medications Acetaminophen (Acetaminophen 500 Mg Tablet) 1,000 mg PO Q8H [place]; Protocol Albuterol Sulfate (Albuterol Sulfate 60 Puff Inhaler) 1 puff INH Q4HP PRN PRN Reason: Wheezing Artificial Tears (Carboxymethylcellulose Sodium 1 Each Droper.Gel) 1 each OU QIDP PRN PRN Reason: Nasal Congestion Calcium Carbonate/Glycine (Calcium Carbonate 500 Mg Tab.Chew) 500 mg CHEWED Q4HP PRN PRN Reason: Dyspepsia Last Admin: 09/13/22 13:54 Dose: 500 mg Escitalopram Oxalate (Escitalopram 10 Mg Tablet) 5 mg PO QHS [facility] Last Admin: 09/15/22 21:51 Dose: 5 mg Fish Oil (Fish Oil 1,000 Mg Capsule) 1,000 mg PO DAILY [facility] Last Admin: 09/16/22 09:12 Dose: 1,000 mg Guaifenesin (Guaifenesin 600 Mg Tab.Sr.12h) 600 mg PO BIDP PRN PRN Reason: congestion Heparin Sodium (Porcine) (Heparin 5,000 Unit/Ml Vial) 5,000 unit SQ Q8 [facility] Last Admin: 09/16/22 06:15 Dose: 5,000 unit Hydralazine HCl (Hydralazine 20 Mg/Ml Vial) 10 mg IV Q4-6HP PRN PRN Reason: Hypertension Iron Carb/Multivit/[place]/Folic Acid (Multivit,Ther Iron,Ca,Fa & Min 1 Tablet) 1 tab PO DAILY [facility] Last Admin: 09/16/22 09:15 Dose: 1 tab Labetalol HCl (Labetalol 5 Mg/Ml Ml) 10 mg IV Q4H PRN PRN Reason: SBP> 160 Lactobacillus Rhamnosus (Lactobacillus 1 Capsule) 1 cap PO QDAY [facility] Last Admin: 09/16/22 09:12 Dose: 1 cap Magnesium Hydroxide (Magnesium Hydroxide 30 Ml Oral.Susp) 30 ml PO DAILYP PRN PRN Reason: Constipation Last Admin: 09/15/22 21:52 Dose: 30 ml Ondansetron HCl (Ondansetron 4 Mg/2 Ml Vial) 4 mg IV Q6HP PRN PRN Reason: Nausea And Vomiting Phenylephrine HCl (Phenylephrine Nasal [place] Bottle 15 Ml) 2 spray JORGE Q4-6HP PRN PRN Reason: Congestion Last Admin: 09/16/22 03:27 Dose: 1 spray Sodium Chloride (0.9 % Sodium Chloride 10 Ml Syringe) 10 ml IV Q8 [facility] Last Admin: 09/16/22 06:16 Dose: 10 ml Tamsulosin HCl (Tamsulosin 0.4 Mg Capsule) 0.8 mg PO QHS [facility] Last Admin: 09/15/22 21:51 Dose: 0.8 mg A/P Narrative A/P Narrative: Assessment: 82-year-old male with a history of hypertension, chronic diastolic heart failure, reactive airway disease, chronic kidney disease stage III, BPH, possible Parkinson's disease, osteoarthritis, macular degeneration admitted for a generalized weakness and possible congestive heart failure exacerbation. Diuresis was limited by an acute on chronic kidney disease injury. #Acute on chronic kidney disease stage III injury #Possible acute on chronic diastolic heart failure exacerbation #Acute on chronic anemia #Resolved acute hypoxic respiratory failure #Generalized weakness #Essential hypertension #COPD, stable #Chronic anemia, stable #Possible Parkinson's disease #BPH complicated by urinary retention requiring Green catheter #Osteoarthritis Plan -Monitor renal function and urine output, hold off on diuretics for now. -Holding verapamil for now, monitor blood pressure. -Holding home olmesartan and chlorthalidone for DREA and low normal blood press ure. -Continue DuoNebs and as needed albuterol neb. -Continue home Flomax, escitalopram. -Holding tramadol and dicyclomine for altered mental status. -Holding aspirin for downtrending hemoglobin. -Remove Green catheter for trial of voiding. -Fecal occult blood testing. -PT and OT consulted. -Monitor hemoglobin, check iron studies. -DVT prophylaxis: Heparin SQ (Naveen score 6). -CODE STATUS: DNR/DNI -Disposition: Currently inpatient MedSurg. Time Spent With Patient Time: Total time spent is greater than 50% in coordination of care (as documented) at patient's floor/unit and/or counseling patient: QUALITY Stroke Symptom Onset Unknown: No VTE Deep Vein Thrombosis/Pulmonary Embolism Present on Admission: No
[2022-09-16] MEDS: ACETAMINOPHEN 500 MG TABLET PO SCH ×2 (16:16→21:44)
[2022-09-16] MEDS: ESCITALOPRAM 10 MG TABLET PO SCH (21:43)
[2022-09-16] MEDS: TAMSULOSIN 0.4 MG CAPSULE PO SCH (21:44)
[2022-09-17] MEDS: ACETAMINOPHEN 500 MG TABLET PO SCH ×2 (02:16→11:17)
[2022-09-17] MEDS: 0.9 % SODIUM CHLORIDE 10 ML SYRINGE IV SCH (05:28)
[2022-09-17] MEDS: HEPARIN 5,000 UNIT/ML VIAL SQ SCH (06:07)
[2022-09-17 07:11] LABS: Basophils # (Auto) 0.03 K/mcL (0.00-0.30); Basophils % (Auto) 0.3 % (0.0-2.0); Eosinophils # (Auto) 0.14 K/mcL (0.00-0.70); Eosinophils % (Auto) 1.5 % (0.0-7.0); Hematocrit 28.5 % (40.1-51.0); Hemoglobin 9.4 g/dL (13.7-17.5); Lymphocytes # (Auto) 0.86 K/mcL (1.50-4.80); Lymphocytes % (Auto) 9.3 % (15.5-49.0); Mean Cell Volume 93.8 fL (80.0-100.0); Mean Platelet Volume 10.1 fL (8.8-12.5); Monocytes # (Auto) 1.19 K/mcL (0.10-0.90); Monocytes % (Auto) 12.9 % (1.0-12.0); Neutrophils % (Auto) 75.5 % (38.0-78.0); Platelet Count 310 K/mcL (140-440); RBC 3.04 M/mcL (4.63-6.08); Red Cell Distribution Width 12.9 % (11.5-14.5); WBC 9.2 K/mcL (4.5-11.0)
[2022-09-17 07:56] LABS: ALT/SGPT 53 U/L (<40); AST/SGOT 64 U/L (<40); Albumin 3.1 gm/dL (3.2-5.2); Albumin/Globulin Ratio 0.9 (1.0-2.3); Alkaline Phosphatase 125 U/L (39-117); Bilirubin,Direct 0.3 mg/dL (<0.3); Bilirubin,Total 0.6 mg/dL (0.1-1.0); Blood Urea Nitrogen 56 mg/dL (8-23); Calcium 9.8 mg/dL (8.6-10.4); Carbon Dioxide 23 mmol/L (22-30); Chloride 101 mmol/L (96-108); Globulin 3.5 gm/dL (2.2-3.7); Glomerular Filtration Rate 40; Glucose 115 mg/dL (70-105); Iron 18 ug/dL (61-157); Lactate Dehydrogenase 161 U/L (135-225); Phosphorous 2.1 mg/dL (2.5-4.5); TIBC Calculation 187 ug/dl (228-428); Transferrin % Saturation 10 % (20-50); Triglycerides 75 mg/dL (<150); Uric Acid 11.2 mg/dL (2.5-8.0)
[2022-09-17] MEDS: MULTIVIT,THER IRON,CA,FA & MIN 1 TABLET PO SCH (08:41)
[2022-09-17] MEDS: LACTOBACILLUS 1 CAPSULE PO SCH (08:42)
[2022-09-17] MEDS: FISH OIL 1,000 MG CAPSULE PO SCH (08:42)
[2022-09-17] MEDS ORDERED: VERAPAMIL 120 MG TAB.XL.24H PO SCH (09:00)
--- NOTE | 2022-09-17 10:12 | Discharge Summary ---
Discharge Provider Provider IMPORTANT FOLLOW-UP INFORMATION FOR PCP: Patient information: Note initiated : 09/17/22 at 10:11 am Service Date, if different from initiated Date: [] Patient: Tarik Dunn 82 y/o M admitted on 09/13/22. Chief Complaint: [] Date of admission: 09/13/22 09:18 Discharge date: 09/17/22 Primary care physician: John Stark DO Consults: 09/11/22 Consult to Physician [CONS] Stat Comment: Consulting Provider: Shmuel Kelly Reason For Exam: Physician to Consult COURSE Hospital Course Hospital course: Mr. 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 Patient reports the [employer] at [facility] did not give him his morning tramadol however this is unverified. Daughter who was at bedside reported that she got a call from [facility] that patient was generally weak. Daughter however felt that patient appeared a bit spaced out and thought he was having a UTI. Patient reports he is feeling better now. No fever, no chills, no shortness of breath, no cough, no chest pain, no diarrhea, abdominal pain, constipation. He reports he is in no pain. His vitals on presentation are stable, he is afebrile. Labs unremarkable, WBC within normal range, chronic anemia with hemoglobin 11.7. Electrolytes unremarkable, creatinine 1.9 at baseline. UA unremarkable apart from urine RBC. CT scan abdomen and pelvis without any acute finding. He has small nonobstructing stone in left kidney. Chest x-ray with some pulmonary congestion without any acute infiltrate. ER was unable to discharge patient to [facility] as they require patient to be independent in ADLs and as he was unable to demonstrate that on ambulation trial admission was requested. His daughter reports that patient uses walker at baseline and has intermittent right arm weakness and numbness which is physician is suspecting could be the beginning of Parkinson's disease. 09/12. Feeling better overall. Vitals stable. Labs unremarkable. Creatinine down to 1.7 from 1.9 on admission. Echocardiogram completed but still pending. Patient had PT and OT evaluation he is requiring moderate assistance. Discussed case with RN, patient and case management 09/13. Reports felt really good, pain is well controlled on increased dose of tramadol. Creatinine elevated at 1.9 from 1.7 yesterday however was 1.9 on admission. Echocardiogram with EF 60%, no diastolic dysfunction, right ventricle normal in size and function. No valvular dysfunction. We will hold off on nephrotoxic medications. Encourage patient to ambulate and work with therapist. Patient meets inpatient criteria. 09/14. Overnight the patient had urinary retention requiring placement of a green catheter. The patient says he feels tired today. Creatinine has increased from 1.9 to 2.5. Patient inquiring 3 L/min nasal cannula oxygen supplementation, does not appear to be in respiratory distress. Blood pressure low normal overnight. Reduce verapamil to 160 mg twice daily, continue holding home antihypertensives. We will continue holding diuretics and follow renal function tomorrow. Holding home potassium chloride. Patient does have some mild bilateral lower extremity pitting edema however urine output has been low and he otherwise does not appear to be volume overloaded. 09/15. Patient feels better today, more alert. Chest x-ray did not show any a cute changes. The patient weaned off oxygen to room air today. Creatinine appears to have plateaued, 2.5 yesterday and 2.4 today. We will continue holding diuretics. Discontinued tramadol and dicyclomine due to concerns these might be causing encephalopathy. Verapamil also held for low normal blood pressures. Encourage patient to try to get out of bed today to the chair. 09/16 No significant events reported overnight, mostly on room air now and intermittently requiring nasal cannula oxygen supplementation. Mental status improved today, possibly because tramadol and dicyclomine were held yesterday. Scheduled Tylenol for pain. Renal function showing improvement. Hemoglobin has been trending down, holding aspirin. Check stool for occult blood. 09/17 Mental status much improved since tramadol was discontinued, no urinary retention issues since dicyclomine was discontinued. Renal function improving. Blood pressure trending up now, started verapamil 120 mg daily. Patient has be en successfully profiled to a detention facility for low intensity rehab therefore we will proceed with discharge. At discharge I will continue to hold dicyclomine and tramadol as these likely contributed to urinary retention and encephalopathy, respectively. I will also discontinue chlorthalidone, ibuprofen, potassium supplementation which he was likely taking prior to admission. I am also holding aspirin 325 mg because the patient's hemoglobin was slowly downtrending. There is no evidence of acute bleeding issues however aspirin at this dose will predispose the patient to GI bleeding. It is not clear why the patient was taking aspirin 325 mg daily, at his age and with his multiple comorbidities I think it is reasonable not to treat with aspirin. I will continue the patient's olmesartan and torsemide as before this hospitalization. The patient's other home prescription medications were also continued as before this hospitalization. The patient will be monitored by the detention facility provider, I recommend repeating a hemoglobin and hematocrit and following renal function following this hospital discharge. If the patient does not improve with rehab then I think it would be reasonable to consider palliative care as well as discussing hospice options with the patient and family. Physical exam Head: Atraumatic, normal inspection. Eyes: normal appearance, no scleral icterus. Neck: full ROM Respiratory: Room air, no respiratory distress. Cardiovascular: normal rate and rhythm, S1, S2. GI/Abdominal: Distended, soft, nontender, no guarding. Extremities: full range of motion, nontender, mild bilateral lower extremity pitting edema. Neurological: CN II-XII intact, intact motor, intact sensation. Psychiatric: normal mood, impaired cognition Skin: warm, normal color Discharge diagnosis: Acute on chronic kidney disease injury Secondary discharge diagnosis: Encephalopathy, likely toxic encephalopathy secondary to tramadol Acute on chronic chronic diastolic heart failure causing acute hypoxic respiratory failure Urinary retention likely exacerbated by anticholinergic effect of dicyclomine in a patient with BPH Acute on chronic anemia Possible Parkinson's disease Time Spent with Patient Time attestation: Total time spent providing and/or coordinating discharge services: Time spent: Greater than 30 minutes EXAM Constitutional Vitals: Temp Pulse Resp BP Pulse Ox O2 Del Method O2 Flow Rate 99.3 F H 91 H 20 152/55 93 Room Air 1 09/17/22 07:28 09/17/22 07:28 09/17/22 07:28 09/17/22 07:28 09/17/22 07:28 09/17/22 07:28 09/16/22 08:00 Discharge Data Data Completed and Pending Labs on day of discharge: Labs from last 24 hours 09/17/22 09/17/22 05:41 05:41 WBC 9.2 RBC 3.04 L Hgb 9.4 L Hct 28.5 L MCV 93.8 MCH 30.9 MCHC 33.0 RDW 12.9 Plt Count 310 MPV 10.1 Immature Gran % (Auto) 0.5 Neut % (Auto) 75.5 Lymph % (Auto) 9.[address] [place] % (Auto) 12.9 H Eos % (Auto) 1.5 Baso % (Auto) 0.3 Lymph # (Auto) 0.[address] [place] # (Auto) 1.19 H Eos # (Auto) 0.14 Baso # (Auto) 0.03 Immature Gran # 0.05 Absolute Neutrophils 6.97 Sodium 134 Potassium 4.7 Chloride 101 Carbon Dioxide 23 Anion Gap 10.0 BUN 56 H Creatinine 1.6 H GFR Calculation 40 Glucose 115 H Uric Acid 11.2 H Calcium 9.8 Phosphorus 2.1 L Magnesium 2.2 Iron 18 L TIBC 187 L Unsat Iron Binding 169 Transferrin % Sat 10 L Total Bilirubin 0.6 Direct Bilirubin 0.3 H GGT 62 H AST 64 H ALT 53 H Alkaline Phosphatase 125 H Lactate Dehydrogenase 161 Total Protein 6.6 Albumin 3.1 L Globulin 3.5 Albumin/Globulin Ratio 0.9 L Triglycerides 75 Discharge Plan Patient/Caregiver Discharge Instructions Activity: as per physical therapy Diet: Cardiac Instructions: Weakness (ED), Skin Yeast Infection (ED) Prescriptions: New nystatin 100,000 unit/gram powder 1 applic topical BID Qty: 60 0RF acetaminophen 500 mg Tablet 1,000 mg PO Q8H PRN (Reason: fever or pain) Qty: 30 1RF verapamil 120 mg Tablet Extended Release 120 mg PO DAILY Qty: 60 3RF Continued guaifenesin [Mucinex] 600 mg tablet extended release 12hr 600 mg PO BID PRN (Reason: congestion) Qty: 30 0RF acetylcysteine [NAC] 600 mg capsule 600 mg PO QDAY Qty: 360 0RF Rx Instructions: N-acetyl cysteine, admin with meals albuterol sulfate [Proventil HFA] 90 mcg/actuation HFA aerosol inhaler 1 inh INHALATION Q4H PRN (Reason: Wheezing) Qty: 6.7 1RF escitalopram oxalate [Lexapro] 5 mg tablet 5 mg PO QHS Qty: 30 2RF torsemide 20 mg tablet 20 mg PO QDAY Qty: 90 3RF olmesartan 40 mg tablet 40 mg PO QDAY Qty: 90 1RF tamsulosin 0.4 mg capsule 0.8 mg PO QHS Qty: 90 5RF multivitamin tablet 1 tab PO QDAY omega-3 fatty acids [Fish Oil Concentrate] 1,000 mg capsule 1,000 mg PO QDAY magnesium hydroxide [Milk of Magnesia] 400 mg/5 mL suspension 30 ml PO QDAY PRN (Reason: constipation) lactobacillus combination no.9 4 billion cell capsule 4 billion cell capsule 4,000 mmu cells PO QDAY Artificial Tears(glycerin-peg) 1-0.3 % drops 1 drp ophthalmic (eye) TID-QID PRN (Reason: Nasal Congestion) Librado-Synephrine (phenylephrine) 0.5 % spray,non-aerosol 2 spray intranasal Q4-6H PRN (Reason: nasal congestion) Discontinued potassium chloride [Klor-Con 10] 10 mEq tablet extended release 10 meq PO QDAY Qty: 90 1RF chlorthalidone 50 mg tablet 50 mg PO QDAY Qty: 90 0RF Rx Instructions: HOLD if SBP < 100 OR DBP < 65 tramadol 50 mg tablet 50 mg PO TID PRN (Reason: pain) Qty: 90 0RF verapamil 240 mg tablet extended release 240 mg PO BID Qty: 180 0RF dicyclomine 20 mg tablet 20 mg PO TID Qty: 90 1RF Deep Blue Polyphenol Complex capsule 1 each PO BID acetaminophen 325 mg tablet 650 mg PO Q4H PRN (Reason: headache) ibuprofen 200 mg tablet 400 mg PO Q8H PRN (Reason: pain, fever, headache) aspirin 325 mg tablet 325 mg PO QDAY Follow Up Plan Follow up with: John Stark DO [Primary Care Provider] - Patient Disposition: Xfer SNF Prognosis: Good Rehab Potential: Fair I certify that the patient requires SNF services: Yes Overall status at discharge: patient is progressing back to baseline Discharge Orders: Discharge Order (Routine); Ordered 09/17/22 Ordered By: Dwaine MURRIETA VTE Deep Vein Thrombosis/Pulmonary Embolism Present on Admission: No
[2022-09-17] MEDS: MAGNESIUM HYDROXIDE 30 ML ORAL.SUSP PO PRN (11:13)
== END 2022-09-17 11:20 | DRG 682 ==
LOC: ED 17:24 → MEDSUR 17:24
PROVIDERS: ADMIT Internal Medicine; ATTEND Internal Medicine

== ENCOUNTER 2023-01-13 10:13 | Inpatient (IN) ==
[2023-01-13 10:54] LABS: POC Calcium, Ionized 1.57 (1.16-1.32); POC Creatinine 2.8 (0.6-1.2)
[2023-01-13] MEDS ORDERED: 0.9 % SODIUM CHLORIDE 1,000 ML IV ONE ×2 (11:05→13:43)
[2023-01-13 11:56] LABS: Basophils # (Auto) 0.04 K/mcL (0.00-0.30); Basophils % (Auto) 0.3 % (0.0-2.0); Eosinophils % (Auto) 1.4 % (0.0-7.0); Hematocrit 33.1 % (40.1-51.0); Hemoglobin 10.1 g/dL (13.7-17.5); Lymphocytes # (Auto) 1.06 K/mcL (1.50-4.80); Lymphocytes % (Auto) 7.4 % (15.5-49.0); Mean Cell Volume 96.5 fL (80.0-100.0); Mean Corpuscular HGB Conc 30.5 g/dL (31.0-36.0); Mean Platelet Volume 10.3 fL (8.8-12.5); Monocytes # (Auto) 1.13 K/mcL (0.10-0.90); Monocytes % (Auto) 7.9 % (1.0-12.0); Neutrophils % (Auto) 81.8 % (38.0-78.0); Platelet Count 562 K/mcL (140-440); RBC 3.43 M/mcL (4.63-6.08); WBC 14.2 K/mcL (4.5-11.0)
[2023-01-13] MEDS ORDERED: cefTRIAXone 1 GM VIAL IV ONE (12:02)
[2023-01-13] MEDS ORDERED: NOREPINEPHRINE BITARTRATE 8 MG in 0.9 % SODIUM CHLORIDE 242 ML IV ONE (13:34)
[2023-01-13 13:50] LABS: Appearance,Urine CLOUDY (Clear); Bacteria,Urine MOD /hpf (0); Bilirubin,Urine Negative (Negative); Color,Urine YELLOW; Culture Indicated,Urine Yes; Glucose,Urine (UA) Negative (Negative); Ketones,Urine Negative (Negative); Leukocyte Esterase,Urine 500 /uL (Negative); Mucus,Urine MOD /hpf; Nitrate,Urine Negative (Negative); Other Casts,Urine MOD /lph; Protein,Urine 30 mg/dL (Negative); Specific Gravity,Urine 1.011 (1.000-1.035); Urine Amorphous Crystals FEW /hpf; Urine Hyaline Cast 14 /lph (0-2); Urine RBC 32 /hpf (0-3); Urine Squamous Epithelial Cell 2 /hpf (0-4); Urine WBC > 182 /hpf (0-4); Urobilinogen,Urine Negative
[2023-01-13 14:48] LABS: ALT/SGPT 56 U/L (<40); AST/SGOT 27 U/L (<40); Albumin 2.7 gm/dL (3.2-5.2); Alkaline Phosphatase 123 U/L (39-117); Bilirubin,Direct < 0.2 mg/dL (0-0.3); Bilirubin,Total 0.2 mg/dL (0.1-1.0); Globulin 3.8 gm/dL (2.2-3.7)
[2023-01-13] MEDS ORDERED: LACTULOSE 20 GM/30 ML ORAL.SOL PO PRN (14:58)
[2023-01-13] MEDS ORDERED: SENNOSIDES 1 TABLET PO PRN (14:58)
[2023-01-13] MEDS ORDERED: ONDANSETRON 4 MG/2 ML VIAL IV PRN (14:58)
[2023-01-13] MEDS ORDERED: HYDROcodone/APAP 5/325MG TABLET PO PRN (14:58)
[2023-01-13] MEDS ORDERED: DEXTROSE 5%-LR W/20MEQ KCL 1,000 ML IV SCH (15:00)
[2023-01-13] MEDS ORDERED: SODIUM ZIRCONIUM CYCLOSILICATE 10 GM PACKET PO ONE ×2 (15:00→21:00)
[2023-01-13] MEDS: PIPERACILLIN SODIUM/TAZOBACTAM 2.25 GM in DEXTROSE 5% IN WATER 50 ML IV SCH ×2 (15:52→20:05)
[2023-01-13] MEDS ORDERED: CALCIUM GLUCONATE 7 MEQ in DEXTROSE 5% IN WATER 50 ML IV ONE (16:00)
[2023-01-13 19:37] LABS: ALT/SGPT 56 U/L (<40); AST/SGOT 31 U/L (<40); Albumin 2.8 gm/dL (3.2-5.2); Albumin/Globulin Ratio 0.7 (1.0-2.3); Alkaline Phosphatase 123 U/L (39-117); Bilirubin,Total 0.2 mg/dL (0.1-1.0); Blood Urea Nitrogen 85 mg/dL (8-23); Calcium 11.4 mg/dL (8.6-10.4); Carbon Dioxide 25 mmol/L (22-30); Chloride 100 mmol/L (96-108); Globulin 3.9 gm/dL (2.2-3.7); Glomerular Filtration Rate 27; Glucose 129 mg/dL (70-105)
[2023-01-13] MEDS: SODIUM ZIRCONIUM CYCLOSILICATE 5 GM PACKET PO SCH (19:42)
[2023-01-13] MEDS: DOCUSATE SODIUM 100 MG CAPSULE PO SCH (20:04)
[2023-01-13] MEDS: 0.9 % SODIUM CHLORIDE 10 ML SYRINGE IV SCH (20:05)
[2023-01-13] MEDS ORDERED: LACTATED RINGERS 500 ML IV ONE (20:20)
[2023-01-13] MEDS: IPRATROPIUM/ALBUTEROL 3 ML AMPUL.NEB NEB SCH (20:26)
[2023-01-13] MEDS: DEXTROSE 5%-LR 1,000 ML IV SCH (20:38)
[2023-01-13] MEDS: HEPARIN 5,000 UNIT/ML VIAL SQ SCH (21:25)
[2023-01-14] MEDS: PIPERACILLIN SODIUM/TAZOBACTAM 2.25 GM in DEXTROSE 5% IN WATER 50 ML IV SCH ×5 (00:06→23:56)
[2023-01-14] MEDS: SODIUM ZIRCONIUM CYCLOSILICATE 5 GM PACKET PO SCH ×2 (01:40→08:44)
[2023-01-14] MEDS: 0.9 % SODIUM CHLORIDE 10 ML SYRINGE IV SCH ×3 (05:47→20:07)
[2023-01-14] MEDS: DEXTROSE 5%-LR 1,000 ML IV SCH ×2 (06:07→18:13)
[2023-01-14 06:26] LABS: Basophils # (Auto) 0.03 K/mcL (0.00-0.30); Basophils % (Auto) 0.4 % (0.0-2.0); Eosinophils # (Auto) 0.28 K/mcL (0.00-0.70); Eosinophils % (Auto) 3.5 % (0.0-7.0); Hemoglobin 8.4 g/dL (13.7-17.5); Lymphocytes # (Auto) 0.99 K/mcL (1.50-4.80); Lymphocytes % (Auto) 12.5 % (15.5-49.0); Mean Cell Volume 98.6 fL (80.0-100.0); Mean Platelet Volume 9.9 fL (8.8-12.5); Monocytes # (Auto) 0.68 K/mcL (0.10-0.90); Monocytes % (Auto) 8.6 % (1.0-12.0); Neutrophils % (Auto) 73.9 % (38.0-78.0); Platelet Count 432 K/mcL (140-440); RBC 2.84 M/mcL (4.63-6.08); Red Cell Distribution Width 14.1 % (11.5-14.5)
[2023-01-14 06:46] LABS: ALT/SGPT 46 U/L (<40); AST/SGOT 24 U/L (<40); Albumin 2.5 gm/dL (3.2-5.2); Albumin/Globulin Ratio 0.7 (1.0-2.3); Alkaline Phosphatase 103 U/L (39-117); Bilirubin,Total 0.2 mg/dL (0.1-1.0); Blood Urea Nitrogen 75 mg/dL (8-23); Calcium 10.9 mg/dL (8.6-10.4); Carbon Dioxide 25 mmol/L (22-30); Chloride 103 mmol/L (96-108); Globulin 3.4 gm/dL (2.2-3.7); Glomerular Filtration Rate 30; Glucose 121 mg/dL (70-105)
[2023-01-14] MEDS: IPRATROPIUM/ALBUTEROL 3 ML AMPUL.NEB NEB SCH ×2 (08:33→21:39)
[2023-01-14] MEDS: DOCUSATE SODIUM 100 MG CAPSULE PO SCH ×2 (08:44→20:07)
[2023-01-14] MEDS: HEPARIN 5,000 UNIT/ML VIAL SQ SCH ×2 (08:44→20:07)
[2023-01-14] MEDS: traMADol 50 MG TABLET PO PRN ×3 (08:50→20:21)
[2023-01-14] MEDS ORDERED: SODIUM ZIRCONIUM CYCLOSILICATE 10 GM PACKET PO ONE ×3 (09:00→21:00)
[2023-01-14] MEDS ORDERED: VANCOMYCIN PER PHARMACY IV SCH (13:00)
[2023-01-14] MEDS ORDERED: VANCOMYCIN 1,000 MG in 0.9 % SODIUM CHLORIDE 250 ML IV SCH (13:00)
[2023-01-14] MEDS: SODIUM ZIRCONIUM CYCLOSILICATE 10 GM PACKET PO SCH ×2 (15:05→20:07)
[2023-01-14] MEDS ORDERED: [UNRECOGNIZED DRUG - OTHER] SCH (18:00)
[2023-01-14] MEDS ORDERED: PIPERACILLIN SODIUM/TAZOBACTAM 2.25 GM in DEXTROSE 5% IN WATER 50 ML IV SCH ×2 (18:00)
[2023-01-15] MEDS: DEXTROSE 5%-LR 1,000 ML IV SCH (04:57)
[2023-01-15] MEDS: 0.9 % SODIUM CHLORIDE 10 ML SYRINGE IV SCH ×3 (04:58→20:11)
[2023-01-15] MEDS: PIPERACILLIN SODIUM/TAZOBACTAM 2.25 GM in DEXTROSE 5% IN WATER 50 ML IV SCH ×3 (05:03→17:31)
[2023-01-15 06:05] LABS: Basophils # (Auto) 0.03 K/mcL (0.00-0.30); Basophils % (Auto) 0.5 % (0.0-2.0); Eosinophils # (Auto) 0.38 K/mcL (0.00-0.70); Eosinophils % (Auto) 5.9 % (0.0-7.0); Hematocrit 26.3 % (40.1-51.0); Hemoglobin 7.7 g/dL (13.7-17.5); Lymphocytes # (Auto) 0.86 K/mcL (1.50-4.80); Lymphocytes % (Auto) 13.4 % (15.5-49.0); Mean Cell Volume 98.1 fL (80.0-100.0); Mean Corpuscular HGB Conc 29.3 g/dL (31.0-36.0); Mean Platelet Volume 9.9 fL (8.8-12.5); Monocytes # (Auto) 0.65 K/mcL (0.10-0.90); Monocytes % (Auto) 10.1 % (1.0-12.0); Neutrophils % (Auto) 68.7 % (38.0-78.0); Platelet Count 379 K/mcL (140-440); RBC 2.68 M/mcL (4.63-6.08); WBC 6.4 K/mcL (4.5-11.0)
[2023-01-15 06:25] LABS: Estimated Average Glucose(eAG) 108 mg/dL; Hemoglobin A1C 5.4 % Hgb (4.0-6.0)
[2023-01-15 06:28] LABS: Vancomycin,Random 7.6 ug/mL
[2023-01-15 06:34] LABS: ALT/SGPT 45 U/L (<40); AST/SGOT 30 U/L (<40); Albumin 2.5 gm/dL (3.2-5.2); Albumin/Globulin Ratio 0.7 (1.0-2.3); Alkaline Phosphatase 97 U/L (39-117); Bilirubin,Total 0.2 mg/dL (0.1-1.0); Blood Urea Nitrogen 57 mg/dL (8-23); Calcium 10.6 mg/dL (8.6-10.4); Carbon Dioxide 26 mmol/L (22-30); Chloride 105 mmol/L (96-108); Globulin 3.4 gm/dL (2.2-3.7); Glomerular Filtration Rate 32; Glucose 112 mg/dL (70-105)
[2023-01-15 06:43] LABS: Thyroid Stimulating Hormone 2.03 uIU/mL (0.27-5.01)
[2023-01-15 06:57] LABS: Prealbumin 14.6 mg/dL (20.0-40.0)
[2023-01-15] MEDS ORDERED: 0.9 % SODIUM CHLORIDE 250 ML IV SCH (08:15)
[2023-01-15] MEDS: IPRATROPIUM/ALBUTEROL 3 ML AMPUL.NEB NEB SCH (08:43)
[2023-01-15] MEDS ORDERED: SODIUM ZIRCONIUM CYCLOSILICATE 10 GM PACKET PO ONE ×3 (09:00→21:00)
[2023-01-15] MEDS: traMADol 50 MG TABLET PO PRN ×2 (09:26→20:09)
[2023-01-15] MEDS: DOCUSATE SODIUM 100 MG CAPSULE PO SCH ×2 (09:27→20:09)
[2023-01-15] MEDS: SODIUM ZIRCONIUM CYCLOSILICATE 10 GM PACKET PO SCH ×3 (09:27→20:11)
[2023-01-15] MEDS: ACETAMINOPHEN 325 MG TABLET PO PRN (09:27)
[2023-01-15] MEDS: HEPARIN 5,000 UNIT/ML VIAL SQ SCH ×2 (09:38→20:16)
[2023-01-15] MEDS ORDERED: guaiFENesin 600 MG TAB.SR.12H PO PRN (09:44)
[2023-01-15] MEDS ORDERED: BISACODYL 10 MG SUPP.RECT PR PRN (09:44)
[2023-01-15] MEDS ORDERED: MAGNESIUM HYDROXIDE 30 ML ORAL.SUSP PO PRN (09:44)
[2023-01-15] MEDS ORDERED: CARBOXYMETHYLCELLULOSE SODIUM 1 EACH DROPER.GEL OP PRN (09:52)
[2023-01-15] MEDS ORDERED: fentaNYL 12 MCG PATCH TD SCH (10:00)
[2023-01-15] MEDS: SODIUM CHLORIDE IRRIG IRR SCH ×2 (10:00→20:12)
[2023-01-15] MEDS: GENTAMICIN SULFATE IRR SCH ×2 (10:00→20:12)
[2023-01-15] MEDS: CLINDAMYCIN IRR SCH ×2 (10:00→20:12)
[2023-01-15] MEDS ORDERED: VANCOMYCIN 1,500 MG in 0.9 % SODIUM CHLORIDE 500 ML IV ONE (10:00)
[2023-01-15] MEDS ORDERED: PHENYLEPHRINE HCL INTRANASAL PRN (13:57)
[2023-01-15] MEDS ORDERED: FLEETS ADULT ENEMA PR PRN (13:58)
[2023-01-15] MEDS ORDERED: ACETAMINOPHEN 500 MG TABLET PO PRN (13:58)
[2023-01-15] MEDS ORDERED: ALBUTEROL SULFATE 60 PUFF INHALER INH PRN (13:58)
[2023-01-15] MEDS ORDERED: POLYETHYLENE GLYCOL 3350 17 GM PACKET PO PRN (14:04)
[2023-01-15] MEDS: TAMSULOSIN 0.4 MG CAPSULE PO SCH (20:09)
[2023-01-15] MEDS: ESCITALOPRAM 10 MG TABLET PO SCH (20:09)
[2023-01-15] MEDS ORDERED: AMINO AC PROTEIN HYDR WHEY PRO PO SCH (21:00)
[2023-01-16] MEDS: PIPERACILLIN SODIUM/TAZOBACTAM 2.25 GM in DEXTROSE 5% IN WATER 50 ML IV SCH ×3 (00:06→12:03)
[2023-01-16] MEDS: 0.9 % SODIUM CHLORIDE 10 ML SYRINGE IV SCH ×3 (05:56→21:43)
[2023-01-16 06:29] LABS: Basophils # (Auto) 0.04 K/mcL (0.00-0.30); Basophils % (Auto) 0.6 % (0.0-2.0); Eosinophils % (Auto) 6.2 % (0.0-7.0); Hematocrit 29.3 % (40.1-51.0); Lymphocytes # (Auto) 0.89 K/mcL (1.50-4.80); Lymphocytes % (Auto) 13.9 % (15.5-49.0); Mean Cell Volume 97.3 fL (80.0-100.0); Mean Corpuscular HGB Conc 30.7 g/dL (31.0-36.0); Mean Platelet Volume 9.5 fL (8.8-12.5); Monocytes # (Auto) 0.55 K/mcL (0.10-0.90); Monocytes % (Auto) 8.6 % (1.0-12.0); Neutrophils % (Auto) 69.9 % (38.0-78.0); Platelet Count 392 K/mcL (140-440); RBC 3.01 M/mcL (4.63-6.08); Red Cell Distribution Width 13.8 % (11.5-14.5); WBC 6.4 K/mcL (4.5-11.0)
[2023-01-16 06:50] LABS: Vancomycin,Random 16.4 ug/mL
[2023-01-16 06:52] LABS: ALT/SGPT 48 U/L (<40); AST/SGOT 35 U/L (<40); Albumin 2.5 gm/dL (3.2-5.2); Albumin/Globulin Ratio 0.7 (1.0-2.3); Alkaline Phosphatase 103 U/L (39-117); Bilirubin,Total 0.5 mg/dL (0.1-1.0); Blood Urea Nitrogen 40 mg/dL (8-23); Calcium 10.7 mg/dL (8.6-10.4); Carbon Dioxide 25 mmol/L (22-30); Chloride 106 mmol/L (96-108); Globulin 3.5 gm/dL (2.2-3.7); Glomerular Filtration Rate 40; Glucose 85 mg/dL (70-105)
[2023-01-16] MEDS ORDERED: TORSEMIDE 20 MG TABLET PO SCH ×2 (09:00)
[2023-01-16] MEDS ORDERED: VANCOMYCIN 1,000 MG in 0.9 % SODIUM CHLORIDE 250 ML IV ONE (09:00)
[2023-01-16] MEDS: traMADol 50 MG TABLET PO PRN ×2 (10:06→16:17)
[2023-01-16] MEDS: MULTIVIT,THER IRON,CA,FA & MIN 1 TABLET PO SCH (10:07)
[2023-01-16] MEDS: DOCUSATE SODIUM 100 MG CAPSULE PO SCH ×2 (10:07→21:43)
[2023-01-16] MEDS: ACETAMINOPHEN 325 MG TABLET PO PRN ×2 (10:07→16:18)
[2023-01-16] MEDS: FISH OIL 1,000 MG CAPSULE PO SCH (10:07)
[2023-01-16] MEDS: CLINDAMYCIN IRR SCH ×2 (10:07→22:10)
[2023-01-16] MEDS: SODIUM CHLORIDE IRRIG IRR SCH ×2 (10:07→22:10)
[2023-01-16] MEDS: LACTOBACILLUS 1 CAPSULE PO SCH (10:07)
[2023-01-16] MEDS: GENTAMICIN SULFATE IRR SCH ×2 (10:07→22:10)
[2023-01-16] MEDS: HEPARIN 5,000 UNIT/ML VIAL SQ SCH ×2 (10:09→21:43)
[2023-01-16] MEDS ORDERED: morphine 2 MG/ML VIAL IV PRN (10:14)
[2023-01-16] MEDS: SODIUM ZIRCONIUM CYCLOSILICATE 10 GM PACKET PO SCH (10:16)
[2023-01-16] MEDS: CEFEPIME 1 GM VIAL IV SCH (16:16)
[2023-01-16] MEDS: TAMSULOSIN 0.4 MG CAPSULE PO SCH (21:43)
[2023-01-16] MEDS: ESCITALOPRAM 10 MG TABLET PO SCH (21:43)
[2023-01-17] MEDS: CEFEPIME 1 GM VIAL IV SCH ×2 (00:49→10:02)
[2023-01-17] MEDS: 0.9 % SODIUM CHLORIDE 10 ML SYRINGE IV SCH (06:37)
[2023-01-17 06:45] LABS: Basophils # (Auto) 0.03 K/mcL (0.00-0.30); Basophils % (Auto) 0.5 % (0.0-2.0); Eosinophils # (Auto) 0.47 K/mcL (0.00-0.70); Eosinophils % (Auto) 7.6 % (0.0-7.0); Hematocrit 29.9 % (40.1-51.0); Hemoglobin 9.3 g/dL (13.7-17.5); Lymphocytes # (Auto) 0.91 K/mcL (1.50-4.80); Lymphocytes % (Auto) 14.7 % (15.5-49.0); Mean Cell Volume 96.5 fL (80.0-100.0); Mean Corpuscular HGB Conc 31.1 g/dL (31.0-36.0); Mean Platelet Volume 9.6 fL (8.8-12.5); Monocytes # (Auto) 0.56 K/mcL (0.10-0.90); Monocytes % (Auto) 9.1 % (1.0-12.0); Platelet Count 420 K/mcL (140-440); Red Cell Distribution Width 13.6 % (11.5-14.5); WBC 6.2 K/mcL (4.5-11.0)
[2023-01-17 06:56] LABS: Vancomycin,Random 19.6 ug/mL
[2023-01-17 07:06] LABS: ALT/SGPT 40 U/L (<40); AST/SGOT 28 U/L (<40); Albumin 2.6 gm/dL (3.2-5.2); Albumin/Globulin Ratio 0.8 (1.0-2.3); Alkaline Phosphatase 99 U/L (39-117); Bilirubin,Total 0.3 mg/dL (0.1-1.0); Blood Urea Nitrogen 32 mg/dL (8-23); Calcium 10.9 mg/dL (8.6-10.4); Carbon Dioxide 28 mmol/L (22-30); Chloride 110 mmol/L (96-108); Globulin 3.4 gm/dL (2.2-3.7); Glomerular Filtration Rate 43; Glucose 88 mg/dL (70-105)
[2023-01-17] MEDS: SODIUM CHLORIDE IRRIG IRR SCH (09:00)
[2023-01-17] MEDS: GENTAMICIN SULFATE IRR SCH (09:00)
[2023-01-17] MEDS: CLINDAMYCIN IRR SCH (09:00)
[2023-01-17] MEDS: LACTOBACILLUS 1 CAPSULE PO SCH (09:24)
[2023-01-17] MEDS: MULTIVIT,THER IRON,CA,FA & MIN 1 TABLET PO SCH (09:24)
[2023-01-17] MEDS: traMADol 50 MG TABLET PO PRN (09:25)
[2023-01-17] MEDS: FISH OIL 1,000 MG CAPSULE PO SCH (09:38)
[2023-01-17] MEDS ORDERED: FLUZONE HD QS2023-24/PF 240 MCG/0.7 ML SYRINGE IM ONE (10:00)
[2023-01-17] MEDS: HEPARIN 5,000 UNIT/ML VIAL SQ SCH (10:12)
[2023-01-17] MEDS: DOCUSATE SODIUM 100 MG CAPSULE PO SCH (10:49)
== END 2023-01-17 12:45 | DRG 698 ==
LOC: ED 10:13 → ICU 16:20 → MEDSUR 01-16 17:45
PROVIDERS: ADMIT Internal Medicine; ATTEND Internal Medicine

== ENCOUNTER 2023-03-19 12:18 | Inpatient (IN) ==
[2023-03-19 13:39] LABS: POC Calcium, Ionized 1.48 (1.16-1.32); POC Creatinine 4.2 (0.6-1.2); POC Potassium 5.1 (3.3-5.1)
[2023-03-19] MEDS ORDERED: 0.9 % SODIUM CHLORIDE 1,000 ML IV ONE (13:47)
[2023-03-19 14:03] LABS: Basophils # (Auto) 0.03 K/mcL (0.00-0.30); Basophils % (Auto) 0.4 % (0.0-2.0); Hemoglobin 9.1 g/dL (13.7-17.5); Lymphocytes # (Auto) 0.88 K/mcL (1.50-4.80); Lymphocytes % (Auto) 10.3 % (15.5-49.0); Mean Cell Volume 92.4 fL (80.0-100.0); Mean Corpuscular HGB Conc 32.5 g/dL (31.0-36.0); Mean Platelet Volume 10.2 fL (8.8-12.5); Monocytes # (Auto) 0.53 K/mcL (0.10-0.90); Monocytes % (Auto) 6.2 % (1.0-12.0); Neutrophils % (Auto) 27.9 % (38.0-78.0); Platelet Count 250 K/mcL (140-440); RBC 3.03 M/mcL (4.63-6.08); Red Cell Distribution Width 15.9 % (11.5-14.5); WBC 8.6 K/mcL (4.5-11.0)
[2023-03-19 14:40] LABS: Appearance,Urine HAZY (Clear); Bacteria,Urine FEW /hpf (0); Bilirubin,Urine Negative (Negative); Color,Urine STRAW; Culture Indicated,Urine Yes; Glucose,Urine (UA) Negative (Negative); Ketones,Urine Negative (Negative); Leukocyte Esterase,Urine 250 /uL (Negative); Mucus,Urine FEW /hpf; Nitrate,Urine Negative (Negative); Protein,Urine Negative (Negative); Specific Gravity,Urine 1.006 (1.000-1.035); Urine Blood 0.03 mg/dL (Negative); Urine RBC 1 /hpf (0-3); Urine Squamous Epithelial Cell < 1 /hpf (0-4); Urine WBC 22 /hpf (0-4); Urobilinogen,Urine Negative
[2023-03-19] MEDS ORDERED: cefTRIAXone 2 GM in DEXTROSE 5% IN WATER 50 ML IV ONE (14:48)
[2023-03-19 16:05] LABS: POC Calcium, Ionized 1.43 (1.16-1.32); POC Creatinine 4.3 (0.6-1.2); POC Potassium 5.1 (3.3-5.1)
[2023-03-19] MEDS ORDERED: ACETAMINOPHEN 325 MG TABLET PO PRN (18:12)
[2023-03-19] MEDS ORDERED: SENNOSIDES 1 TABLET PO PRN (18:12)
[2023-03-19] MEDS ORDERED: ONDANSETRON 4 MG/2 ML VIAL IV PRN (18:12)
[2023-03-19] MEDS ORDERED: ALBUTEROL SULFATE 2.5 MG/3 ML NEBULIZER NEB PRN (18:12)
[2023-03-19] MEDS ORDERED: oxyCODONE/APAP 5/325MG TABLET PO PRN (18:12)
[2023-03-19] MEDS ORDERED: BISACODYL 10 MG SUPP.RECT PR PRN (18:12)
[2023-03-19] MEDS ORDERED: fentaNYL 12 MCG PATCH TOPICAL SCH (20:30)
[2023-03-19] MEDS ORDERED: MELATONIN 3 MG TABLET PO ONE (20:54)
[2023-03-19] MEDS: HEPARIN 5,000 UNIT/ML VIAL SQ SCH (21:16)
[2023-03-19] MEDS: QUEtiapine 25 MG TABLET PO SCH (21:16)
[2023-03-19] MEDS: LACTATED RINGERS 1,000 ML IV SCH (21:24)
[2023-03-19] MEDS: 0.9 % SODIUM CHLORIDE 10 ML SYRINGE IV SCH (21:27)
[2023-03-20] MEDS: LACTATED RINGERS 1,000 ML IV SCH ×3 (05:45→18:32)
[2023-03-20] MEDS: 0.9 % SODIUM CHLORIDE 10 ML SYRINGE IV SCH ×3 (05:45→21:06)
[2023-03-20 06:17] LABS: Blood Urea Nitrogen 90 mg/dL (8-23); Calcium 10.2 mg/dL (8.6-10.4); Carbon Dioxide 20 mmol/L (22-30); Chloride 109 mmol/L (96-108); Glomerular Filtration Rate 15; Glucose 84 mg/dL (70-105)
[2023-03-20] MEDS: HEPARIN 5,000 UNIT/ML VIAL SQ SCH ×2 (08:17→20:49)
[2023-03-20] MEDS: VERAPAMIL 120 MG TAB.XL.24H PO SCH (09:20)
[2023-03-20] MEDS: cefTRIAXone 1 GM VIAL IV SCH (10:11)
[2023-03-20] MEDS ORDERED: MELATONIN 3 MG TABLET PO SCH (19:00)
[2023-03-20] MEDS: QUEtiapine 25 MG TABLET PO SCH (20:49)
[2023-03-21] MEDS: LACTATED RINGERS 1,000 ML IV SCH ×3 (01:51→11:05)
[2023-03-21] MEDS: 0.9 % SODIUM CHLORIDE 10 ML SYRINGE IV SCH (05:00)
[2023-03-21 05:59] LABS: Basophils # (Auto) 0.04 K/mcL (0.00-0.30); Basophils % (Auto) 0.5 % (0.0-2.0); Eosinophils # (Auto) 4.77 K/mcL (0.00-0.70); Eosinophils % (Auto) 55.6 % (0.0-7.0); Hematocrit 26.6 % (40.1-51.0); Hemoglobin 8.6 g/dL (13.7-17.5); Lymphocytes # (Auto) 1.09 K/mcL (1.50-4.80); Lymphocytes % (Auto) 12.7 % (15.5-49.0); Mean Cell Volume 93.7 fL (80.0-100.0); Mean Corpuscular HGB Conc 32.3 g/dL (31.0-36.0); Monocytes # (Auto) 0.55 K/mcL (0.10-0.90); Monocytes % (Auto) 6.4 % (1.0-12.0); Neutrophils % (Auto) 24.6 % (38.0-78.0); Platelet Count 220 K/mcL (140-440); RBC 2.84 M/mcL (4.63-6.08); WBC 8.6 K/mcL (4.5-11.0)
[2023-03-21 06:17] LABS: Blood Urea Nitrogen 75 mg/dL (8-23); Calcium 10.2 mg/dL (8.6-10.4); Carbon Dioxide 19 mmol/L (22-30); Chloride 109 mmol/L (96-108); Glomerular Filtration Rate 18; Glucose 81 mg/dL (70-105)
[2023-03-21] MEDS: VERAPAMIL 120 MG TAB.XL.24H PO SCH (09:09)
[2023-03-21] MEDS: cefTRIAXone 1 GM VIAL IV SCH (09:10)
[2023-03-21] MEDS: HEPARIN 5,000 UNIT/ML VIAL SQ SCH (09:15)
[2023-03-21] MEDS ORDERED: fentaNYL 12 MCG PATCH TOPICAL SCH (10:00)
[2023-03-21] MEDS ORDERED: SODIUM BICARBONATE 650 MG TABLET PO SCH (11:55)
== END 2023-03-21 13:17 | DRG 682 ==
LOC: ED 12:18 → ICU 20:36 → MEDSUR 22:34
PROVIDERS: ADMIT Internal Medicine; ATTEND Internal Medicine